=== PATIENT | male | born 1955 | race Caucasian/White ===

== ENCOUNTER → 2016-08-11 | Outpatient (CLI) | payer OTHER ==
[~2016-08-11] MED LIST: ALBU8I INH; APIX5TAB PO; ATOR80TA PO; B12-1CHW PO; CARV12.5 PO; FOLI1TAB PO; GLUC1000 PO; HYDR-3533 PO; ISOS30 PO; JANU50TA PO; LEVE500 PO; LISI20 PO; NITR0.4S SL; PLAV75TA PO; SPIR25 PO; SYMB80AE INH; TAMS0.4C67 PO
--- NOTE | 2016-09-03 13:06 | RSPPFT ---
DATE OF PROCEDURE: 08/11/16 COMMENTS: VOLUMES DYNAMIC: FVC and FEV1 severely reduced. STATIC: VTG mildly increased; RV severely increased. FLOWS: FEV1% moderately reduced; FEF 25-75 severely reduced. DIFFUSION: Moderately reduced. FLOW VOLUME LOOP: Pattern of variable intrathoracic airways obstruction. IMPRESSION: Severe obstructive ventilatory defect with reduction in diffusion consistent with emphysema. There is increased airways resistance and significant hyperinflation. There is a significant improvement post-bronchodilator.
== END ==
LOC: HRSP 10:24
PROVIDERS: ATTEND Internal Medicine
DX: J44.9 Chronic obstructive pulmonary disease, unspecified (principal)
CPT/HCPCS: 94060; 94726; 94729

== ENCOUNTER 2018-03-24 14:20 | Inpatient (IN) ==
[2018-03-24] MEDS ORDERED: Metoprolol Inj 5 MG/5 ML Vial IV.PUSH ONE (14:44)
--- NOTE | 2018-03-24 14:48 | ED ---
HPI General Chief Complaint: Arrhythmia / Palpitations Stated Complaint: Cardiac complaint Time Seen by Provider: 03/24/18 14:23 Source: patient Mode of arrival: ambulatory Limitations: no limitations History of Present Illness HPI narrative: The patient is a 63-year-old male who presents to the emergency department for palpitations. The patient developed palpitations earlier today, does have a history of atrial fibrillation. The patient does have a history of atrial fibrillation, previous ablation several years ago with subsequent cardioversion. The patient is followed by his ground wood supervisor, Dr. Reeves, and his physician industrial, Dr. Stephenson. The patient currently takes aspirin but no further anticoagulation, states he has been free of atrial fibrillation for the last several years. The patient was drinking 6 beers per day, quit 10 days ago, he is unsure if this is complicating his current situation. The patient did have chest discomfort earlier today, substernal radiating to the jaw, which is currently resolved. He does have a history of previous stent placement by Dr. Garnica. The patient also had mild shortness of breath with chest pain earlier today which has resolved. He denies any nausea, vomiting, or diaphoresis. Symptoms are moderate, there are no current alleviating factors, possibly exacerbated by history of atrial fibrillation. MD complaint: Reports rapid heart beat, palpitations, irregular heart beat and atrial fibrillation Onset (ago): hour(s) Duration: constant Severity: moderate Context: Reports occurred during rest Arrhythmia history: Reports atrial fibrillation, history of ablation and history of electrical cardioversion Associated symptoms: Reports chest pain and shortness of breath Related Data Home Medications Medication Instructions Recorded Confirmed albuterol sulfate [Ventolin HFA] 2 puff INHALATION Q4-6H PRN 03/24/18 03/24/18 ascorbic acid (vitamin C) [Vitamin 500 mg PO DAILY 03/24/18 03/24/18 C] aspirin [Aspirin Low Dose] 81 mg PO DAILY 03/24/18 03/24/18 atorvastatin 80 mg PO DAILY 03/24/18 03/24/18 carvedilol 25 mg PO BID 03/24/18 03/24/18 cholecalciferol (vitamin D3) 2,000 unit PO DAILY 03/24/18 03/24/18 [Vitamin D3] cyanocobalamin (vitamin B-12) 1,000 mcg PO DAILY 03/24/18 03/24/18 [Vitamin B-12] ferrous sulfate [Iron (ferrous 325 mg PO DAILY 03/24/18 03/24/18 sulfate)] fluticasone-salmeterol [Advair 1 inh INHALATION Q12H 03/24/18 03/24/18 Diskus] folic acid 1 mg PO DAILY 03/24/18 03/24/18 isosorbide mononitrate 60 mg PO QAM 03/24/18 03/24/18 levetiracetam 1,000 mg PO BID 03/24/18 03/24/18 lisinopril 20 mg PO DAILY 03/24/18 03/24/18 metformin 1,000 mg PO BID 03/24/18 03/24/18 sitagliptin [Januvia] 50 mg PO DAILY 03/24/18 03/24/18 spironolactone 25 mg PO DAILY 03/24/18 03/24/18 tamsulosin 0.4 mg PO DAILY 03/24/18 03/24/18 topiramate 100 mg PO BID 03/24/18 03/24/18 Allergies Allergy/AdvReac Type Severity Reaction Status Date / Time No Known Allergies Allergy Verified 03/24/18 14:38 Review of Systems ROS: all other systems reviewed are negative [facility] Medical History Medical History Diabetes (Acute) HTN (hypertension) (Acute) Heart attack (Acute) High cholesterol (Acute) Surgical History Surgical History History of cardiac catheterization (Acute) Hx of cholecystectomy (Acute) Stented coronary artery (Acute) Social History Social History Substance History: No History of Abuse Smoking Status: Former smoker How Often Do You Have a Drink Containing Alcohol: Monthly or less Recent Travel in [facility] within the Last 8 Weeks: No Recent Out of Country Travel within the Last 8 Weeks: No Immunization History Tetanus Immunization: >5 Years Exam Narrative Exam Narrative: GENERAL: Awake, alert, pleasant 63-year-old male who appears his stated age and is in no acute respiratory distress. SKIN: Focused skin assessment warm/dry. HEAD: Atraumatic. Normocephalic. EYES: Pupils equal and round. No scleral icterus. No injection or drainage. ENT: No nasal bleeding or discharge. Mucous membranes pink and moist. NECK: Trachea midline. No JVD. CARDIOVASCULAR: Irregularly irregular, tachycardic with a heart rate in the 140s. RESPIRATORY: No accessory muscle use. Clear to auscultation. Breath sounds equal bilaterally. GASTROINTESTINAL: Abdomen soft, non-tender, nondistended. Back: No CVA tenderness. MUSCULOSKELETAL: No obvious deformities. No clubbing. No cyanosis. No edema. NEUROLOGICAL: Awake and alert. No obvious cranial nerve deficits. Motor grossly within normal limits. Normal speech. PSYCHIATRIC: Appropriate mood and affect; insight and judgment normal. Course Initial Documented Vital Signs Temperature 98.4 F 03/24/18 14:25 Pulse Rate 158 H 03/24/18 14:25 Respiratory Rate 17 03/24/18 14:25 Blood Pressure 101/56 L 03/24/18 14:25 Pulse Oximetry 98 03/24/18 14:25 Last Documented Vital Signs Temperature 98.4 F 03/24/18 14:25 Pulse Rate 114 H 03/24/18 15:25 Respiratory Rate 17 03/24/18 15:25 Blood Pressure 97/56 L 03/24/18 15:25 Pulse Oximetry 98 03/24/18 15:25 Critical Care Time Critical Care Time: Yes Total Critical Care Time: 35 Attestation: Aggregate critical care time was 35 minutes. Time to perform other separately billable procedures was not included in the critical care time. My time did not include minutes spent treating any other patients simultaneously or on activities that did not directly contribute to the patient's treatment. The services I provided to this patient were to treat and/or prevent clinically significant deterioration that could result in: Anoxia, hypoxia, aspiration, flash pulmonary edema, STEMI, . I provided critical care services requiring my management, as noted below: Chart data review, documentation time, medication orders and management, vital sign assessments/reviewing monitor data, ordering and reviewing lab tests, ordering and interpreting/reviewing x-rays and diagnostic studies, care of the patient and discussion of the patient with the admitting physicians. Medical Decision Making MDM Narrative Medical decision making narrative: IV was established, labs are drawn and sent, and the patient was placed on cardiac telemetry monitoring and continuous pulse oximetry monitoring. EKG was ordered and interpreted. The patient was administered Lopressor 5 mg intravenously and normal saline 500 cc. Chest x- ray was obtained. The patient was administered aspirin. Chest x-ray is unremarkable. Troponin is positive at 0.15, creatinine is elevated at 1.43, BNP is elevated greater than 700. The patient continued to be tachycardic after Lopressor, systolic blood pressure varied between 90 and 100, therefore, patient was placed on low-dose Cardizem drip. The patient was sent to the emergency department by his physician industrial, Dr. Stephenson, therefore, Dr. Stephenson was paged. The patient will be admitted for atrial fibrillation with RVR. I discussed the patient with Dr. Ramon who agrees with admission. I will await anticoagulation until I speak with Dr. Stephenson. I discussed the patient with Dr. Stephenson who recommends heparin until his partners evaluate the patient tomorrow for possible further anticoagulation. We did have a discussion regarding the patient's multiple falls in the past and his discontinuation of anticoagulants in the past for that reason. Medical Screen Exam Complete: Yes Emergency Medical Condition: Yes Differential Diagnosis Differential Diagnosis: Differential diagnosis includes atrial fibrillation with RVR, electrolyte abnormality, ACS, cardiomyopathy. Lab Data Lab results reviewed: Yes I reviewed the patient's lab results. Lab results narrative: Troponin was elevated at 0.15, BNP is elevated at 718, creatinine is elevated at 1.43 Result diagrams: 03/24/18 14:52 03/24/18 14:52 Lab Results 03/24/18 03/24/18 03/24/18 Range/Units 14:52 14:52 14:52 WBC 14.7 H (4.0-11.0) th/mm3 RBC 4.76 (4.50-5.90) mil/mm3 Hgb 14.2 (13.0-17.0) gm/dL Hct 43.5 (39.0-51.0) % MCV 91.5 (80.0-100.0) fL MCH 29.8 (27.0-34.0) pg MCHC 32.6 (32.0-36.0) % RDW 13.9 (11.6-17.2) % Plt Count 353 (150-450) th/mm3 MPV 9.1 (7.0-11.0) fL Neut % (Auto) 69.1 (16.0-70.0) % Lymph % (Auto) 16.1 (9.0-44.0) % Kimble % (Auto) 7.7 (0.0-8.0) % Eos % (Auto) 6.5 H (0.0-4.0) % Baso % (Auto) 0.6 (0.0-2.0) % Neut # (Auto) 10.2 H (1.8-7.7) th/mm3 Lymph # (Auto) 2.4 (1.0-4.8) th/mm3 Kimble # (Auto) 1.1 H (0.0-0.9) th/mm3 Eos # (Auto) 1.0 H (0.0-0.4) th/mm3 Baso # (Auto) 0.1 (0.0-0.2) th/mm3 WBC Differential . Differential Comment Auto diff final PT 10.2 (9.8-11.6) sec INR 1.0 Ratio APTT 26.4 (24.3-30.1) sec Sodium (136-145) meq/L Potassium (3.5-5.1) meq/L Chloride (98-107) meq/L Carbon Dioxide (21.0-32.0) meq/L Anion Gap (5-15) meq/L BUN (7-18) mg/dL Creatinine (0.60-1.30) mg/dL Estimated GFR (>89) mL/min Random Glucose (74-106) mg/dL Calcium (8.5-10.1) mg/dL Magnesium (1.5-2.5) mg/dL Total Bilirubin (0.2-1.0) mg/dL AST (15-37) U/L ALT (12-78) U/L Alkaline Phosphatase (45-117) U/L Troponin I (0.02-0.05) ng/mL B-Natriuretic Peptide 718 H (0-100) pg/mL Total Protein (6.4-8.2) g/dL Albumin (3.4-5.0) g/dL 03/24/18 Range/Units 14:52 WBC (4.0-11.0) th/mm3 RBC (4.50-5.90) mil/mm3 Hgb (13.0-17.0) gm/dL Hct (39.0-51.0) % MCV (80.0-100.0) fL MCH (27.0-34.0) pg MCHC (32.0-36.0) % RDW (11.6-17.2) % Plt Count (150-450) th/mm3 MPV (7.0-11.0) fL Neut % (Auto) (16.0-70.0) % Lymph % (Auto) (9.0-44.0) % Kimble % (Auto) (0.0-8.0) % Eos % (Auto) (0.0-4.0) % Baso % (Auto) (0.0-2.0) % Neut # (Auto) (1.8-7.7) th/mm3 Lymph # (Auto) (1.0-4.8) th/mm3 Kimble # (Auto) (0.0-0.9) th/mm3 Eos # (Auto) (0.0-0.4) th/mm3 Baso # (Auto) (0.0-0.2) th/mm3 WBC Differential Differential Comment PT (9.8-11.6) sec INR Ratio APTT (24.3-30.1) sec Sodium 144 (136-145) meq/L Potassium 4.2 (3.5-5.1) meq/L Chloride 110 H (98-107) meq/L Carbon Dioxide 22.2 (21.0-32.0) meq/L Anion Gap 12 (5-15) meq/L BUN 18 (7-18) mg/dL Creatinine 1.43 H (0.60-1.30) mg/dL Estimated GFR 50 L (>89) mL/min Random Glucose 166 H (74-106) mg/dL Calcium 8.8 (8.5-10.1) mg/dL Magnesium 1.9 (1.5-2.5) mg/dL Total Bilirubin 0.4 (0.2-1.0) mg/dL AST 15 (15-37) U/L ALT 30 (12-78) U/L Alkaline Phosphatase 80 (45-117) U/L Troponin I 0.15 H (0.02-0.05) ng/mL B-Natriuretic Peptide (0-100) pg/mL Total Protein 7.0 (6.4-8.2) g/dL Albumin 3.5 (3.4-5.0) g/dL Imaging Data Radiologist's impression: Chest X-Ray 03/24/18 14:46 CONCLUSION: No acute cardiopulmonary disease ECG Data EKG Prior to Arrival: No Attestation: I personally reviewed and interpreted this ECG as follows: Interpretation: EKG reveals atrial fibrillation with RVR, rate in the 150s. No specific ST changes. Discharge Plan Discharge Disposition Patient Disposition: 30 Still Patient Discharge Condition Condition: Stable Discharge Details Diagnosis: Atrial fibrillation with RVR, Elevated troponin Physicians Team ED Provider: Luis Rogers Primary Care Provider: Alex Martinez Attending Provider: Gaby Ramon Other Providers: Adriel Carrillo Status ED Status: Admitted Patient
[2018-03-24] MEDS ORDERED: Sodium Chlor 0.9% Inj 500 ML IV.SIG SCH ×2 (15:00→16:00)
--- NOTE | 2018-03-24 15:04 | XR ---
EXAM DATE: 03/24/2018 2:46 PM EDT AGE/SEX: 63 years / Male INDICATIONS: Chest pain and shortness of breath. CLINICAL DATA: This is the patient's initial encounter. Patient reports that signs and symptoms have been present for 2 days and indicates a pain score of 4/10. MEDICAL/SURGICAL HISTORY: Chronic obstructive pulmonary disease. Hypertension. Diabetes melli tus type II. AFIB. . Cardiac stent. Ablation. COMPARISON: [facility], CHEST PA & LAT, 02/01/2016. . FINDINGS: A single AP view of the chest demonstrates the lungs to be symmetrically aerated without evidence of mass, infiltrate or effusion. The cardiomediastinal contours are unremarkable. Osseous structures a re intact. CONCLUSION: No acute cardiopulmonary disease Electronically signed by: Pete Scott MD 03/24/2018 3:03 PM EDT
[2018-03-24] MEDS ORDERED: dilTIAZem Inj 125 MG in Sodium Chlor 0.9% Inj 100 ML IV.CONT PRN (15:11)
[2018-03-24 15:12] LABS: Baso # (Auto) 0.1 th/mm3 (0.0-0.2); Baso % (Auto) 0.6 % (0.0-2.0); Eos % (Auto) 6.5 % (0.0-4.0); Hematocrit 43.5 % (39.0-51.0); Hemoglobin 14.2 gm/dL (13.0-17.0); Lymph # (Auto) 2.4 th/mm3 (1.0-4.8); Lymph % (Auto) 16.1 % (9.0-44.0); Mean Corpuscular HGB Conc 32.6 % (32.0-36.0); Mean Corpuscular Hemoglobin 29.8 pg (27.0-34.0); Mean Corpuscular Volume 91.5 fL (80.0-100.0); Mean Platelet Volume 9.1 fL (7.0-11.0); Mono # (Auto) 1.1 th/mm3 (0.0-0.9); Mono % (Auto) 7.7 % (0.0-8.0); Neut # (Auto) 10.2 th/mm3 (1.8-7.7); Neut % (Auto) 69.1 % (16.0-70.0); Platelet Count 353 th/mm3 (150-450); Red Blood Count 4.76 mil/mm3 (4.50-5.90); Red Cell Distribution Width 13.9 % (11.6-17.2); White Blood Count 14.7 th/mm3 (4.0-11.0)
[2018-03-24 15:27] LABS: Activated Partial Thrombo Time 26.4 sec (24.3-30.1); Prothrombin Time 10.2 sec (9.8-11.6)
[2018-03-24 15:29] LABS: Alanine Aminotransferase 30 U/L (12-78); Albumin 3.5 g/dL (3.4-5.0); Anion Gap 12 meq/L (5-15); Aspartate Aminotransferase 15 U/L (15-37); Blood Urea Nitrogen 18 mg/dL (7-18); Calcium 8.8 mg/dL (8.5-10.1); Carbon Dioxide 22.2 meq/L (21.0-32.0); Chloride 110 meq/L (98-107); Glomerular Filtration Rate 50 mL/min (>89); Glucose,Random 166 mg/dL (74-106); Magnesium 1.9 mg/dL (1.5-2.5); Potassium 4.2 meq/L (3.5-5.1); Sodium 144 meq/L (136-145)
[2018-03-24 15:33] LABS: Alkaline Phosphatase 80 U/L (45-117); Troponin I 0.15 ng/mL (0.02-0.05)
[2018-03-24] MEDS ORDERED: Bisacodyl 10 MG Supp RECTAL PRN (16:21)
[2018-03-24] MEDS ORDERED: Dextrose 50% in Water 50 ML Vial IV.PUSH PRN (16:23)
--- NOTE | 2018-03-24 16:27 | P.HPIM ---
History of Present Illness [facility] Physician: Alex Martinez MD Chief Complaint: Heart palpitations, sent by filter press supervisor. History of Present Illness: 63-year-old male with a medical history significant for coronary artery disease , diabetes, atrial fibrillation with history of ablation and cardioversion. Patient has a loop recorder in place. Last night he started to feel heart palpitations and shortness of breath. He was called by his filter press supervisor today due to A. fib with RVR and was sent to the hospital. He has since been placed on Cardizem drip. Heart rate has improved but not yet controlled. He currently denies any chest pain. He feels improved since he arrived in the emergency room. His filter press supervisor has been notified and it was recommended that he started on heparin drip. - Diagnosis (1) Atrial fibrillation with RVR (2) Elevated troponin (3) Acute kidney injury Review of Systems All other systems reviewed negative except as stated in HPI [facility] - History History Provided By: Patient - Medical History Medical History: Medical History (Last Reviewed 03/24/18 @ 17:21 by Gaby Ramon MD) Diabetes HTN (hypertension) Heart attack High cholesterol - Surgical History Surgical History: Surgical History (Last Reviewed 03/24/18 @ 17:21 by Gaby Ramon MD) History of cardiac catheterization Hx of cholecystectomy Stented coronary artery - Family History Family History: Family History (Last Updated 03/24/18 @ 17:22 by Gaby Ramon MD) Other Family history non-contributory - Tobacco History Smoking Status: Former smoker - Alcohol History How Often Do You Have a Drink Containing Alcohol: Monthly or less - Substance Use History Substance History: No History of Abuse - Travel History Recent Travel in the [facility] Within the Last 8 Weeks: No Recent Travel Out of the Country Within the Last 8 Weeks: No - Immunization History Tetanus Immunization: >5 Years Medications and Allergies Active Medications: Active Medications Al Hydroxide/Mg Hydroxide (Milk Of Jimbo Liq) 30 ml PO Q12H PRN PRN Reason: Mild Constipation Ascorbic Acid (Vitamin C) 500 mg PO DAILY SUAD Atorvastatin Calcium (Lipitor) 80 mg PO DAILY SUAD Bisacodyl (Dulcolax Supp) 10 mg RECTAL DAILY PRN PRN Reason: SEVERE CONSITIPATION Cyanocobalamin (Vitamin B12) 1,000 mcg PO DAILY SUAD Dextrose (D50w Vial) 50 ml IV.PUSH UNSCH PRN PRN Reason: PER HYPOGLYCEMIA PROTOCOL Ferrous Sulfate (Ferosul) 325 mg PO DAILY SUAD Glucagon (Glucagon Inj) 1 mg OTHER PRN PRN PRN Reason: for Hypoglycemia Protocol Sodium Chloride (Ns Inj) 500 mls @ 0 mls/hr IV.SIG BOLUS SUAD Last Infusion: 03/24/18 15:15 Dose: Infused Diltiazem HCl 125 mg/ Sodium (Chloride) 125 mls @ 5 mls/hr IV.CONT TITRATE PRN ; Protocol PRN Reason: Per Protocol Last Admin: 03/24/18 16:07 Dose: 5 mg/hr, 5 mls/hr Sodium Chloride (Ns Inj) 500 mls @ 0 mls/hr IV.SIG BOLUS SUAD Last Infusion: 03/24/18 15:58 Dose: Infused Insulin Aspart (Novolog Insulin Correctional Sugar Inj) 0 unit SQ ACHS SUAD; Protocol Lactulose (Lactulose Liq) 30 ml PO DAILY PRN PRN Reason: SEVERE CONSITIPATION Non-Formulary Medication (Albuterol Sulfate) 2 puff INHALATION Q4-6H PRN PRN Reason: Shortness Of Breath Non-Formulary Medication (Carvedilol [Carvedilol]) 25 mg PO BID SUAD Non-Formulary Medication (Cholecalciferol (Vitamin D3) [Vitamin D3]) 2,000 unit PO DAILY SUAD Non-Formulary Medication (Fluticasone-Salmeterol [Advair Diskus]) 1 inh INHALATION Q12H [facility] Sennosides (Senokot) 17.2 mg PO Q12H PRN PRN Reason: Moderate Constipation Sodium Chloride (Ns Flush) 2 ml IV.FLUSH UNSCH PRN PRN Reason: FLUSH AFTER USING IV ACCESS Last Admin: 03/24/18 14:52 Dose: 2 ml Tamsulosin HCl (Flomax) 0.4 mg PO DAILY SUAD Temazepam (Restoril) 15 mg PO HS PRN PRN Reason: INSOMNIA Topiramate (Topamax) 100 mg PO BID SUAD Allergies Allergy/AdvReac Type Severity Reaction Status Date / Time No Known Allergies Allergy Verified 03/24/18 14:38 Home Medications Medication Instructions Recorded Confirmed Type albuterol sulfate [Ventolin HFA] 2 puff INHALATION Q4-6H PRN 03/24/18 03/24/18 History ascorbic acid (vitamin C) [Vitamin 500 mg PO DAILY 03/24/18 03/24/18 History C] aspirin [Aspirin Low Dose] 81 mg PO DAILY 03/24/18 03/24/18 History atorvastatin 80 mg PO DAILY 03/24/18 03/24/18 History carvedilol 25 mg PO BID 03/24/18 03/24/18 History cholecalciferol (vitamin D3) 2,000 unit PO DAILY 03/24/18 03/24/18 History [Vitamin D3] cyanocobalamin (vitamin B-12) 1,000 mcg PO DAILY 03/24/18 03/24/18 History [Vitamin B-12] ferrous sulfate [Iron (ferrous 325 mg PO DAILY 03/24/18 03/24/18 History sulfate)] fluticasone-salmeterol [Advair 1 inh INHALATION Q12H 03/24/18 03/24/18 History Diskus] folic acid 1 mg PO DAILY 03/24/18 03/24/18 History isosorbide mononitrate 60 mg PO QAM 03/24/18 03/24/18 History levetiracetam 1,000 mg PO BID 03/24/18 03/24/18 History lisinopril 20 mg PO DAILY 03/24/18 03/24/18 History metformin 1,000 mg PO BID 03/24/18 03/24/18 History sitagliptin [Januvia] 50 mg PO DAILY 03/24/18 03/24/18 History spironolactone 25 mg PO DAILY 03/24/18 03/24/18 History tamsulosin 0.4 mg PO DAILY 03/24/18 03/24/18 History topiramate 100 mg PO BID 03/24/18 03/24/18 History Exam Vital signs: Vital Signs 03/24/18 14:25 03/24/18 14:55 03/24/18 15:00 Temperature 98.4 F Pulse Rate 158 H 150 H 122 H Respiratory Rate 17 14 17 Blood Pressure 101/56 L 72/52 L 89/62 L Pulse Oximetry 98 97 97 03/24/18 15:25 Temperature Pulse Rate 114 H Respiratory Rate 17 Blood Pressure 97/56 L Pulse Oximetry 98 Intake & Output 03/23/18 03/24/18 03/24/18 18:59 06:59 18:59 Intake Total 1000 / 1000 Balance 1000 / 1000 Weight 228 kg Intake: IV 1000 / 1000 NS Inj 500 ML @ Wide Open IV. 1000 / 1000 SIG BOLUS SUAD Rx#:[id number] Narrative: CONSTITUTIONAL/GENERAL: This is an adequately nourished patient, in no apparent distress. Vital signs reviewed SKIN: No jaundice, rashes, or concerning lesions. Not diaphoretic. HEAD: Atraumatic. Normocephalic. EYES: Pupils equal and round and reactive. Extra ocular motions are intact. No scleral icterus. No injection or drainage. ENT: Hearing grossly normal. Nose without drainage. Throat without visible erythema, exudates, masses, or lesions. NECK: Trachea midline. Neck is supple, non-tender. No palpable thyroid enlargement or nodularity. CARDIOVASCULAR: Rate around 110 and irregular rhythm without significant murmurs. RESPIRATORY/CHEST: Symmetric, unlabored respirations. Breath sounds equal and clear to auscultation bilaterally. No wheezes, crackles, rales, or rhonchi. GASTROINTESTINAL: Abdomen soft, non-tender, non-distended. No hepato- splenomegaly, or palpable masses. No guarding. Bowel sounds present. MUSCULOSKELETAL: Extremities without clubbing, cyanosis, or edema. No joint tenderness or effusion noted. No calf tenderness. No mottling or clubbing. NEUROLOGICAL: Awake and alert. Motor and sensory grossly within normal limits. Follows commands. Move all extremities spontaneously. No focal deficits. PSYCHIATRIC: No obvious mood problems. No apparent hallucinations or other psychotic thought process. Results - Labs CBC & Chem 7: 03/24/18 14:52 03/24/18 14:52 Labs: Short CBC 03/24/18 Range/Units 14:52 WBC 14.7 H (4.0-11.0) th/mm3 Hgb 14.2 (13.0-17.0) gm/dL Hct 43.5 (39.0-51.0) % Plt Count 353 (150-450) th/mm3 BMP 03/24/18 14:52 Sodium 144 Potassium 4.2 Chloride 110 H Carbon Dioxide 22.2 BUN 18 Creatinine 1.43 H Calcium 8.8 Cardiac Enzymes 03/24/18 Range/Units 14:52 Troponin I 0.15 H (0.02-0.05) ng/mL Liver Function 03/24/18 Range/Units 14:52 Total Bilirubin 0.4 (0.2-1.0) mg/dL AST 15 (15-37) U/L ALT 30 (12-78) U/L Alkaline Phosphatase 80 (45-117) U/L Albumin 3.5 (3.4-5.0) g/dL - Imaging Impressions Chest X-Ray 03/24/18 14:46 CONCLUSION: No acute cardiopulmonary disease Caprini VTE Risk Assessment Caprini VTE Risk Assessment: Moderate/High Risk (score >= 2) Caprini Risk Assessment Model: Point Value = 1 Point Value = 2 Point Value = 3 Point Value = 5 Age 41-60 Minor surgery BMI > 25 kg/m2 Swollen legs Varicose veins or History of unexplained or recurrent spontaneous Oral contraceptives or hormone replacement Sepsis (< 1 month) Serious lung disease, including pneumonia (< 1 month) Abnormal pulmonary function Acute myocardial infarction Congestive heart failure (< 1 month) History of inflammatory bowel disease Medical patient at bed rest Age 61-74 Arthroscopic surgery Major open surgery (> 45 min) Laparoscopic surgery (> 45 min) Malignancy Confined to bed (> 72 hours) Immobilizing plaster cast Central venous access Age >= 75 History of VTE Family history of VTE Factor V Leiden Prothrombin [id number] Lupus anticoagulant Anticardiolipin antibodies Elevated serum homocysteine Heparin-induced thrombocytopenia Other congenital or acquired thrombophilia Stroke (< 1 month) Elective arthroplasty Hip, pelvis, or leg fracture Acute spinal cord injury (< 1 month) Prophylaxis Regimen: Total Risk Factor Score Risk Level Prophylaxis Regimen 0-1 Low Early ambulation 2 Moderate Order ONE of the following: *Sequential Compression Device (SCD) *Heparin 5000 units SQ BID 3-4 Higher Order ONE of the following medications: *Heparin 5000 units SQ TID *Enoxaparin/Lovenox 40 mg SQ daily (WT < 150 kg, CrCl > 30 mL/min) *Enoxaparin/Lovenox 30 mg SQ daily (WT < 150 kg, CrCl > 10-29 mL/min) *Enoxaparin/Lovenox 30 mg SQ BID (WT < 150 kg, CrCl > 30 mL/min) AND/OR *Sequential Compression Device (SCD) 5 or more Highest Order ONE of the following medications: *Heparin 5000 units SQ TID (Preferred with Epidurals) *Enoxaparin/Lovenox 40 mg SQ daily (WT < 150 kg, CrCl > 30 mL/min) *Enoxaparin/Lovenox 30 mg SQ daily (WT < 150 kg, CrCl > 10-29 mL/min) *Enoxaparin/Lovenox 30 mg SQ BID (WT < 150 kg, CrCl > 30 mL/min) AND *Sequential Compression Device (SCD) Assessment and Plan - Assessment (1) Atrial fibrillation with RVR Code(s): I48.91 - Unspecified atrial fibrillation Status: Acute (2) Elevated troponin Code(s): R74.8 - Abnormal levels of other serum enzymes Status: Acute (3) Acute kidney injury Code(s): N17.9 - Acute kidney failure, unspecified Status: Acute - Plan 63-year-old male admitted with: A. fib with RVR: Sent by filter press supervisor office. - Cardiology aware. Patient started on Cardizem drip and heparin drip. Patient previously not anticoagulated due to fall risk. - Continue Coreg. Further plans per cardiology. Elevated troponins/elevated troponins: - Likely secondary to A. fib with RVR and renal insufficiency. - Continue to trend cardiac enzymes. No acute ST changes on EKG. - No evidence of fluid overload Acute renal insufficiency: - Likely secondary to A. fib with RVR. -We will give him 1 L of normal saline. Follow renal functions. Avoid nephrotoxins. Type 2 diabetes: - Sliding scale insulin with Accu-Cheks. Continue the rest of the patient's chronic home medications. GI prophylaxis: Stool softener PRN constipation. DVT PPx: On heparin. Discussed Condition With: ED physician, Dr. Rogers
[2018-03-24] MEDS ORDERED: Sod Chloride 0.9% Inj 1,000 ML IV.CONT SCH ×2 (16:30→17:32)
[2018-03-24] MEDS ORDERED: Heparin Drip 25,000 UNIT/250 ML BAG IV.CONT PRN (17:08)
[2018-03-24] MEDS ORDERED: Heparin 10,000 UNITS/10 ML Vial (for IV use) IV.PUSH STA (17:08)
[2018-03-24] MEDS: Insulin NovoLOG Aspart Correctional Sugar Inj SQ SCH ×2 (18:16→23:18)
--- NOTE | 2018-03-24 20:17 | ECG ---
Date Performed: 03/24/2018 Time Performed: 14:21:58 PTAGE: 63 years EKG: ATRIAL FIBRILLATION WITH RAPID VENTRICULAR RESPONSE LOW QRS VOLTAGE IN EXTREMITY LEADS ST/T -WAVE ABNORMALITY, CONSIDER LATERAL ISCHEMIA ABNORMAL ECG NO PREVIOUS TRACING DOCTOR: Tyler Francisco Interpretating Date/Time 03/24/2018 20:17:13
[2018-03-24 20:58] LABS: Activated Partial Thrombo Time 45.2 sec (24.3-30.1); INR 1.1 Ratio; Prothrombin Time 10.8 sec (9.8-11.6)
[2018-03-24] MEDS ORDERED: Temazepam 15 MG Capsule PO PRN (21:00)
[2018-03-24] MEDS: Topiramate 100 MG Tablet PO SCH (23:17)
[2018-03-24] MEDS: levETIRAcetam 500 MG Tablet PO SCH (23:17)
[2018-03-24] MEDS: Budesonide-Formoterol 160/4.5 MCG 6 GM Inhaler INH SCH (23:17)
[2018-03-24] MEDS: Carvedilol 12.5 MG Tablet PO SCH (23:18)
--- NOTE | 2018-03-25 01:53 | MB ---
cc: Adriel Carrillo DO DATE: 03/24/2018 REASON FOR CONSULTATION: Atrial fibrillation with rapid ventricular response. HISTORY OF PRESENT ILLNESS: Jimi Jenkins is a pleasant 63-year-old male who sees my partner, Dr. George, in the office and presented to [facility] at the recommendations of Dr. George due to atrial fibrillation with rapid ventricular response. He previously had a loop recorder placed and has been out of atrial fibrillation for some time, but apparently was not feeling well yesterday and this morning an alert came over that he was in atrial fibrillation with rapid ventricular response. Because of this, Dr. George asked that he come over to the hospital to be further evaluated. On arrival, he was found to be in atrial fibrillation with rapid ventricular response and started on a Cardizem drip. Since his heart rates have been improved while on the Cardizem drip, he feels better. He denies any current chest pain or shortness of breath. Of note, he has had longstanding paroxysmal atrial fibrillation with rapid ventricular response and previously was on anticoagulation. At that time, he was having multiple falls, including a head trauma and said he was stopped off anticoagulation, has not been placed back on it since. He recently had an echocardiogram in the office, which showed an ejection fraction of 55% with mild aortic and mitral regurgitation. He previously had a stress test in the office, which showed ischemia in the inferior territory, which correlates with a previous occlusion of the RCA with collaterals left to right supplying the distal RCA. PAST MEDICAL HISTORY: 1. Coronary artery disease. 2. Paroxysmal atrial fibrillation. 3. Diabetes. 4. Hypertension. 5. Hyperlipidemia. 6. Frequent falls due to weakness. PAST SURGICAL HISTORY: 1. Atrial fibrillation ablation (08/24/2015). 2. Cardiac catheterization (05/14/2015): Left main: Normal-sized vessel. LAD with [id number] disease of 30-40%. Left circumflex with 2 obtuse marginals and a 90% lesion in the distal circumflex. RCA totally occluded in the proximal portion, PCI of the distal left circumflex with a Promus drug-eluting stent (2.25 x 12). 3. Cholecystectomy. ALLERGIES: NO KNOWN DRUG ALLERGIES. MEDICATIONS: 1. Metformin 1000 mg b.i.d. 2. Iron 325 mg daily. 3. Albuterol 2 puffs every 4-6 hours as needed. 4. Levetiracetam 1000 mg b.i.d. 5. Coreg 12.5 mg b.i.d. 6. Lipitor 80 mg daily. 7. Flomax 0.4 mg daily. 8. Januvia 50 mg daily. 9. Lisinopril 20 mg daily. 10. Aspirin 81 mg daily. 11. Spironolactone 25 mg daily. 12. Imdur 60 mg daily. 13. Folic acid 1 mg daily. 14. Topiramate 100 mg b.i.d. 16. Advair 250/50 every 12 hours. FAMILY HISTORY: Denies premature coronary artery disease or sudden cardiac within the family. SOCIAL HISTORY: The patient is a previous smoker. Denies alcohol or drug abuse. REVIEW OF SYSTEMS: Fourteen systems were reviewed including osteopathic. Pertinent positives and negatives above, otherwise negative. PHYSICAL EXAMINATION: VITAL SIGNS: Temperature 98.4, heart rate 106, blood pressure 109/61, respirations 20, pulse oximetry 98% on room air. GENERAL: The patient appears well, in no acute distress. Alert, awake and oriented x3. HEENT: Extraocular muscles intact. Mucous membranes moist. NECK: Supple. No JVD at 45 degrees. No carotid bruits heard bilaterally. Carotid upstroke is brisk in nature. HEART: Irregularly irregular and tachycardic. Positive first and second heart sounds with no new murmurs, gallops or rubs. LUNGS: Clear to auscultation bilaterally. No wheezes, rales or rhonchi. ABDOMEN: Soft, nontender, nondistended. No organomegaly noted. EXTREMITIES: Show no clubbing, cyanosis or edema. Femoral and distal pulses are intact bilaterally. NEUROLOGIC: No focal deficits. SKIN: Warm, dry and intact. OSTEOPATHIC: No kyphoscoliosis, lordosis or paraspinal tender points. LABORATORY DATA: Hemoglobin 14.2, hematocrit 43.5, platelets 353. Potassium 4.2, BUN 18, creatinine 1.43. Troponin 0.15 decreasing to 0.13. Electrocardiogram (03/24/2018 14:21): Atrial fibrillation with rapid ventricular response, ST-T wave changes inferolaterally, possibly related similar to previous electrocardiogram. Other than now in atrial fibrillation with rapid ventricular response. ASSESSMENT AND PLAN: 1. Atrial fibrillation with rapid ventricular response. 2. Minimally elevated troponin. 3. Acute kidney injury. 4. Type 2 diabetes mellitus. 5. Coronary artery disease as above. 6. Recent echocardiogram in the office with an ejection fraction of 55%, mild aortic and mitral regurgitation (03/05/2018). 7. 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 RECOMMENDATIONS: 1. Mr. Jenkins presented with atrial fibrillation with rapid ventricular response and has been started on a Cardizem drip. This will be titrated to control his heart rate better. 2. Once stable on a Cardizem drip. We will change around his medications to try to control it with oral medications, most likely changing him to Cardizem oral. 3. He does have a minimally elevated troponin, but this is currently flat. This is most likely due to atrial fibrillation with rapid ventricular response, as well as his known SHOP TECHNICIAN that is collateralized most likely causing mild ischemia. From this standpoint, we will most likely treat him medically with no further ischemic evaluation at this time. 4. He previously was stopped on anticoagulation due to multiple falls almost daily. In discussing with him, he does fall less, but still falls quite often. Ultimately, I do not believe that he is a great anticoagulation candidate and because of that we would attempt to avoid cardioversion or further atrial fibrillation ablation. Thank you for allowing me to see Jimi Jenkins. If there are any questions, please do not hesitate to call. DO CHARLETTE Goldsmith/ольга , 12:47 AM , 01:01 AM
[2018-03-25 04:58] LABS: Baso # (Auto) 0.1 th/mm3 (0.0-0.2); Baso % (Auto) 0.7 % (0.0-2.0); Eos # (Auto) 0.8 th/mm3 (0.0-0.4); Eos % (Auto) 7.9 % (0.0-4.0); Hematocrit 36.5 % (39.0-51.0); Hemoglobin 12.3 gm/dL (13.0-17.0); Lymph # (Auto) 1.9 th/mm3 (1.0-4.8); Lymph % (Auto) 19.5 % (9.0-44.0); Mean Corpuscular HGB Conc 33.8 % (32.0-36.0); Mean Corpuscular Hemoglobin 29.9 pg (27.0-34.0); Mean Corpuscular Volume 88.5 fL (80.0-100.0); Mean Platelet Volume 9.7 fL (7.0-11.0); Mono # (Auto) 0.7 th/mm3 (0.0-0.9); Neut # (Auto) 6.5 th/mm3 (1.8-7.7); Neut % (Auto) 64.9 % (16.0-70.0); Platelet Count 208 th/mm3 (150-450); Red Blood Count 4.12 mil/mm3 (4.50-5.90); Red Cell Distribution Width 13.5 % (11.6-17.2)
[2018-03-25 05:19] LABS: Calcium 7.5 mg/dL (8.5-10.1); Carbon Dioxide 21.2 meq/L (21.0-32.0); Potassium 3.6 meq/L (3.5-5.1)
[2018-03-25] MEDS: Insulin NovoLOG Aspart Correctional Sugar Inj SQ SCH ×3 (08:00→18:35)
[2018-03-25] MEDS ORDERED: Spironolactone 25 MG Tablet PO SCH (09:00)
[2018-03-25] MEDS ORDERED: Ferrous Sulfate 325 MG Tablet PO SCH (09:00)
[2018-03-25] MEDS ORDERED: Ascorbic Acid 500 MG Tablet PO SCH (09:00)
[2018-03-25] MEDS ORDERED: Lisinopril 20 MG Tablet PO SCH (09:00)
[2018-03-25] MEDS ORDERED: Isosorbide Mononitrate 60 MG ER 24HR Tablet (Imdur) PO SCH (09:00)
[2018-03-25 09:08] VITALS: O2SAT 95
[2018-03-25] MEDS: Carvedilol 12.5 MG Tablet PO SCH (09:58)
[2018-03-25] MEDS: Topiramate 100 MG Tablet PO SCH (09:59)
[2018-03-25] MEDS: levETIRAcetam 500 MG Tablet PO SCH (09:59)
[2018-03-25] MEDS: Budesonide-Formoterol 160/4.5 MCG 6 GM Inhaler INH SCH (10:01)
[2018-03-25 12:25] VITALS: RESP 16
--- NOTE | 2018-03-25 13:18 | P.PNIM ---
Subjective Interval history: Patient reports he is feeling better today. No chest pain. 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 Physical Exam Vital signs: Vital Signs 03/24/18 14:25 03/24/18 14:55 03/24/18 15:00 Temperature 98.4 F Pulse Rate 158 H 150 H 122 H Respiratory Rate 17 14 17 Blood Pressure 101/56 L 72/52 L 89/62 L Pulse Oximetry 98 97 97 03/24/18 15:25 03/24/18 18:05 03/24/18 18:19 Temperature Pulse Rate 114 H 106 H 92 H Respiratory Rate 17 20 14 Blood Pressure 97/56 L 109/61 116/65 Pulse Oximetry 98 98 99 03/24/18 18:57 03/24/18 19:00 03/24/18 23:00 Temperature 98 F 98 F Pulse Rate 111 H 97 H 97 H Respiratory Rate 16 16 16 Blood Pressure 107/66 107/76 134/76 Pulse Oximetry 98 96 96 03/25/18 03:00 03/25/18 07:00 03/25/18 08:00 Temperature 98.3 F 97.7 F Pulse Rate 71 77 Respiratory Rate 16 18 Blood Pressure 132/84 143/78 H Pulse Oximetry 96 97 97 03/25/18 09:07 03/25/18 11:00 Temperature 97.5 F L Pulse Rate 90 Respiratory Rate 16 Blood Pressure 139/98 H Pulse Oximetry 95 Intake & Output 03/24/18 03/25/18 03/25/18 18:59 06:59 18:59 Intake Total 1000 / 1000 240 / 240 1000 / 1000 Output Total 200 / 200 Balance 1000 / 1000 40 / 40 1000 / 1000 Weight 228 kg 103 kg Intake: IV 1000 / 1000 1000 / 1000 NS Inj 1,000 ML @ 100 mls/hr IV 1000 / 1000 .CONT .Q10H SUAD Rx#:[id number] NS Inj 500 ML @ Wide Open IV. 1000 / 1000 SIG BOLUS SUAD Rx#:[id number] Oral 240 / 240 Output: Urine 200 / 200 Narrative: CONSTITUTIONAL/GENERAL: This is an adequately nourished patient, in no apparent distress. Vital signs reviewed CARDIOVASCULAR: Rate in the 90's and irregular rhythm without significant murmurs. RESPIRATORY/CHEST: Symmetric, unlabored respirations. Breath sounds equal and clear to auscultation bilaterally. No wheezes, crackles, rales, or rhonchi. GASTROINTESTINAL: Abdomen soft, non-tender, non-distended. No hepato- splenomegaly, or palpable masses. No guarding. Bowel sounds present. MUSCULOSKELETAL: Extremities without clubbing, cyanosis, or edema. No joint tenderness or effusion noted. No calf tenderness. No mottling or clubbing. NEUROLOGICAL: Awake and alert. Motor and sensory grossly within normal limits. Follows commands. Move all extremities spontaneously. No focal deficits. PSYCHIATRIC: No obvious mood problems. No apparent hallucinations or other psychotic thought process. Results - Labs CBC & Chem 7: 03/25/18 04:26 03/25/18 04:26 Laboratory Results - last 24 hr 03/24/18 03/24/18 03/24/18 14:52 14:52 14:52 WBC 14.7 H RBC 4.76 Hgb 14.2 Hct 43.5 MCV 91.5 MCH 29.8 MCHC 32.6 RDW 13.9 Plt Count 353 MPV 9.1 Neut % (Auto) 69.1 Lymph % (Auto) 16.1 [place] % (Auto) 7.7 Eos % (Auto) 6.5 H Baso % (Auto) 0.6 Neut # (Auto) 10.2 H Lymph # (Auto) 2.4 [place] # (Auto) 1.1 H Eos # (Auto) 1.0 H Baso # (Auto) 0.1 WBC Differential . Differential Comment Auto diff final PT 10.2 INR 1.0 APTT 26.4 Sodium Potassium Chloride Carbon Dioxide Anion Gap BUN Creatinine Estimated GFR POC Glucose Random Glucose Calcium Magnesium Total Bilirubin AST ALT Alkaline Phosphatase Troponin I B-Natriuretic Peptide 718 H Total Protein Albumin 03/24/18 03/24/18 03/24/18 14:52 16:52 18:14 WBC RBC Hgb Hct MCV MCH MCHC RDW Plt Count MPV Neut % (Auto) Lymph % (Auto) [place] % (Auto) Eos % (Auto) Baso % (Auto) Neut # (Auto) Lymph # (Auto) [place] # (Auto) Eos # (Auto) Baso # (Auto) WBC Differential Differential Comment PT INR APTT Sodium 144 Potassium 4.2 Chloride 110 H Carbon Dioxide 22.2 Anion Gap 12 BUN 18 Creatinine 1.43 H Estimated GFR 50 L POC Glucose 114 H Random Glucose 166 H Calcium 8.8 Magnesium 1.9 Total Bilirubin 0.4 AST 15 ALT 30 Alkaline Phosphatase 80 Troponin I 0.15 H 0.13 H B-Natriuretic Peptide Total Protein 7.0 Albumin 3.5 03/24/18 03/24/18 03/24/18 20:26 20:55 22:41 WBC RBC Hgb Hct MCV MCH MCHC RDW Plt Count MPV Neut % (Auto) Lymph % (Auto) [place] % (Auto) Eos % (Auto) Baso % (Auto) Neut # (Auto) Lymph # (Auto) [place] # (Auto) Eos # (Auto) Baso # (Auto) WBC Differential Differential Comment PT 10.8 INR 1.1 APTT 45.2 H D Sodium Potassium Chloride Carbon Dioxide Anion Gap BUN Creatinine Estimated GFR POC Glucose 130 H Random Glucose Calcium Magnesium Total Bilirubin AST ALT Alkaline Phosphatase Troponin I 0.15 H B-Natriuretic Peptide Total Protein Albumin 03/24/18 03/25/18 03/25/18 22:41 04:26 04:26 WBC 10.0 RBC 4.12 L Hgb 12.3 L Hct 36.5 L MCV 88.5 MCH 29.9 MCHC 33.8 RDW 13.5 Plt Count 208 D MPV 9.7 Neut % (Auto) 64.9 Lymph % (Auto) 19.5 [place] % (Auto) 7.0 Eos % (Auto) 7.9 H Baso % (Auto) 0.7 Neut # (Auto) 6.5 Lymph # (Auto) 1.9 [place] # (Auto) 0.7 Eos # (Auto) 0.8 H Baso # (Auto) 0.1 WBC Differential . Differential Comment Auto diff final PT INR APTT 45.0 H Sodium 147 H Potassium 3.6 Chloride 115 H Carbon Dioxide 21.2 Anion Gap 11 BUN 19 H Creatinine 1.15 Estimated GFR 64 L POC Glucose Random Glucose 114 H Calcium 7.5 L D Magnesium Total Bilirubin AST ALT Alkaline Phosphatase Troponin I B-Natriuretic Peptide Total Protein Albumin 03/25/18 03/25/18 03/25/18 04:26 07:33 11:20 WBC RBC Hgb Hct MCV MCH MCHC RDW Plt Count MPV Neut % (Auto) Lymph % (Auto) [place] % (Auto) Eos % (Auto) Baso % (Auto) Neut # (Auto) Lymph # (Auto) [place] # (Auto) Eos # (Auto) Baso # (Auto) WBC Differential Differential Comment PT INR APTT 43.1 H Sodium Potassium Chloride Carbon Dioxide Anion Gap BUN Creatinine Estimated GFR POC Glucose 138 H 175 H Random Glucose Calcium Magnesium Total Bilirubin AST ALT Alkaline Phosphatase Troponin I B-Natriuretic Peptide Total Protein Albumin - Imaging Impressions Chest X-Ray 03/24/18 14:46 CONCLUSION: No acute cardiopulmonary disease Assessment and Plan - Assessment (1) Atrial fibrillation with RVR Code(s): I48.91 - Unspecified atrial fibrillation Status: Acute (2) Elevated troponin Code(s): R74.8 - Abnormal levels of other serum enzymes Status: Acute (3) Acute kidney injury Code(s): N17.9 - Acute kidney failure, unspecified Status: Acute - Plan 63-year-old male admitted with: A. fib with RVR: Sent by er manager office. 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 Rate controlled on Cardizem drip. Will transition to Oral today and if stable late this after noon he can be discharged. Per discussion with his and Cardiology, Unfortunately the patient continues to drink alcohol with frequent falls at home therefore he is not a candidate for anticoagulation at this time. Heparin drip discontinued. - Continue Coreg Elevated troponins/elevated troponins: - Likely secondary to A. fib with RVR and renal insufficiency. - Cardiac enzymes remained flat. No acute ST changes on EKG. - No evidence of fluid overload Acute renal insufficiency: - Likely secondary to A. fib with RVR. - Renal functions improved with IVF. Alcohol abuse: He minimize his drinking. He was counseled. Type 2 diabetes: - Resume home medications on discharge. Continue the rest of the patient's chronic home medications. Discharge Planning: Discharge patient to home Condition on discharge: Improved Regular Diet as tolerated Ad Elva activity Rx written: Per med rec Follow-up with primary care physician
[2018-03-25] MEDS ORDERED: dilTIAZem CD 120 MG Capsule PO SCH (13:30)
[2018-03-25 16:52] VITALS: BP 148/95; TEMP 97.6
--- NOTE | 2018-03-25 18:24 | P.PNCA ---
Subjective Interval history: No events overnight Heart rates mostly controlled on 5mg/hr Cardizem drip Medications and Allergies Active Medications: Active Medications Al Hydroxide/Mg Hydroxide (Milk Of [place] Liq) 30 ml PO Q12H PRN PRN Reason: Mild Constipation Albuterol (Ventolin Hfa Inh) 2 puff INH Q6H PRN PRN Reason: SHORTNESS OF BREATH Ascorbic Acid (Vitamin C) 500 mg PO DAILY [facility] Last Admin: 03/25/18 09:58 Dose: 500 mg Aspirin (Ecotrin) 81 mg PO DAILY [facility] Last Admin: 03/25/18 09:58 Dose: 81 mg Atorvastatin Calcium (Lipitor) 80 mg PO DAILY [facility] Last Admin: 03/25/18 09:59 Dose: 80 mg Bisacodyl (Dulcolax Supp) 10 mg RECTAL DAILY PRN PRN Reason: SEVERE CONSITIPATION Budesonide/Formoterol Fumarate (Symbicort 160/4.5 Mcg Inh) 2 puff INH BID [facility] Last Admin: 03/25/18 10:01 Dose: 2 puff Carvedilol (Coreg) 25 mg PO BID [facility] Last Admin: 03/25/18 09:58 Dose: 25 mg Cyanocobalamin (Vitamin B12) 1,000 mcg PO DAILY [facility] Last Admin: 03/25/18 09:58 Dose: 1,000 mcg Dextrose (D50w Vial) 50 ml IV.PUSH UNSCH PRN PRN Reason: PER HYPOGLYCEMIA PROTOCOL Diltiazem HCl (Cardizem Cd 24hr) 120 mg PO DAILY [facility] Last Admin: 03/25/18 13:34 Dose: 120 mg Ferrous Sulfate (Ferosul) 325 mg PO DAILY [facility] Last Admin: 03/25/18 13:34 Dose: 325 mg Glucagon (Glucagon Inj) 1 mg OTHER PRN PRN PRN Reason: for Hypoglycemia Protocol Sodium Chloride (Ns Inj) 500 mls @ 0 mls/hr IV.SIG BOLUS [facility] Last Infusion: 03/24/18 15:15 Dose: Infused Diltiazem HCl 125 mg/ Sodium (Chloride) 125 mls @ 5 mls/hr IV.CONT TITRATE PRN ; Protocol PRN Reason: Per Protocol Last Titration: 03/25/18 15:00 Dose: Infused Sodium Chloride (Ns Inj) 500 mls @ 0 mls/hr IV.SIG BOLUS [facility] Last Infusion: 10/10/18 15:58 Dose: Infused Heparin Sodium/Dextrose (Heparin/D5w 25,000 U/250 Ml) 25,000 unit in 250 mls @ 0 mls/hr IV.CONT TITRATE PRN; Protocol PRN Reason: Per Protocol Last Titration: 03/25/18 13:30 Dose: Infused Insulin Aspart (Novolog Insulin Correctional Sugar Inj) 0 unit SQ ACHS [facility]; Protocol Last Admin: 03/25/18 12:08 Dose: 1 unit Isosorbide Mononitrate (Imdur) 60 mg PO DAILY [facility] Last Admin: 03/25/18 09:58 Dose: 60 mg Lactulose (Lactulose Liq) 30 ml PO DAILY PRN PRN Reason: SEVERE CONSITIPATION Levetiracetam (Keppra) 1,000 mg PO BID [facility] Last Admin: 03/25/18 09:59 Dose: 1,000 mg Lisinopril (Prinivil) 20 mg PO DAILY [facility] Last Admin: 03/25/18 09:58 Dose: 20 mg Sennosides (Senokot) 17.2 mg PO Q12H PRN PRN Reason: Moderate Constipation Sodium Chloride (Ns Flush) 2 ml IV.FLUSH UNSCH PRN PRN Reason: FLUSH AFTER USING IV ACCESS Last Admin: 03/24/18 14:52 Dose: 2 ml Spironolactone (Aldactone) 25 mg PO DAILY [facility] Last Admin: 03/25/18 09:58 Dose: 25 mg Tamsulosin HCl (Flomax) 0.4 mg PO DAILY [facility] Last Admin: 03/25/18 09:59 Dose: 0.4 mg Temazepam (Restoril) 15 mg PO HS PRN PRN Reason: INSOMNIA Topiramate (Topamax) 100 mg PO BID [facility] Last Admin: 03/25/18 09:59 Dose: 100 mg Vitamin D (Vitamin D3) 2,000 unit PO DAILY [facility] Last Admin: 03/25/18 09:59 Dose: 2,000 unit Allergies Allergy/AdvReac Type Severity Reaction Status Date / Time No Known Allergies Allergy Verified 03/24/18 14:38 Home Medications Medication Instructions Recorded Confirmed Type albuterol sulfate [Ventolin HFA] 2 puff INHALATION Q4-6H PRN 03/24/18 03/24/18 History ascorbic acid (vitamin C) [Vitamin 500 mg PO DAILY 03/24/18 03/24/18 History C] aspirin [Aspirin Low Dose] 81 mg PO DAILY 03/24/18 03/24/18 History atorvastatin 80 mg PO DAILY 03/24/18 03/24/18 History carvedilol 25 mg PO BID 03/24/18 03/24/18 History cholecalciferol (vitamin D3) 2,000 unit PO DAILY 03/24/18 03/24/18 History [Vitamin D3] cyanocobalamin (vitamin B-12) 1,000 mcg PO DAILY 03/24/18 03/24/18 History [Vitamin B-12] ferrous sulfate [Iron (ferrous 325 mg PO DAILY 03/24/18 03/24/18 History sulfate)] fluticasone-salmeterol [Advair 1 inh INHALATION Q12H 03/24/18 03/24/18 History Diskus] folic acid 1 mg PO DAILY 03/24/18 03/24/18 History isosorbide mononitrate 60 mg PO QAM 03/24/18 03/24/18 History levetiracetam 1,000 mg PO BID 03/24/18 03/24/18 History lisinopril 20 mg PO DAILY 03/24/18 03/24/18 History metformin 1,000 mg PO BID 03/24/18 03/24/18 History sitagliptin [Januvia] 50 mg PO DAILY 03/24/18 03/24/18 History spironolactone 25 mg PO DAILY 03/24/18 03/24/18 History tamsulosin 0.4 mg PO DAILY 03/24/18 03/24/18 History topiramate 100 mg PO BID 03/24/18 03/24/18 History Physical Exam Vital signs: Vital Signs 03/24/18 18:57 03/24/18 19:00 03/24/18 23:00 Temperature 98 F 98 F Pulse Rate 111 H 97 H 97 H Respiratory Rate 16 16 16 Blood Pressure 107/66 107/76 134/76 Pulse Oximetry 98 96 96 03/25/18 03:00 03/25/18 07:00 03/25/18 08:00 Temperature 98.3 F 97.7 F Pulse Rate 71 77 Respiratory Rate 16 18 Blood Pressure 132/84 143/78 H Pulse Oximetry 96 97 97 03/25/18 09:07 03/25/18 11:00 03/25/18 12:00 Temperature 97.5 F L Pulse Rate 100 H 90 Respiratory Rate 16 Blood Pressure 139/98 H Pulse Oximetry 95 03/25/18 13:00 03/25/18 14:00 03/25/18 15:00 Temperature 97.6 F Pulse Rate 92 H 90 92 H Respiratory Rate 16 Blood Pressure 148/95 H Pulse Oximetry 03/25/18 16:00 Temperature Pulse Rate 100 H Respiratory Rate Blood Pressure Pulse Oximetry Intake & Output 03/24/18 03/25/18 03/25/18 18:59 06:59 18:59 Intake Total 1000 / 1000 240 / 240 1375 / 1375 Output Total 200 / 200 Balance 1000 / 1000 40 / 40 1375 / 1375 Weight 228 kg 103 kg Intake: IV 1000 / 1000 1375 / 1375 Heparin/D5W 25,000 U/250 mL 25, 250 / 250 000 unit In 250 ml @ Per Protocol IV.CONT TITRATE PRN Rx #:[id number] NS Inj 1,000 ML @ 100 mls/hr IV 1000 / 1000 .CONT .Q10H SUAD Rx#:[id number] Cardizem Inj 125 MG In NS Inj 125 / 125 100 ML @ 5 MG/HR 5 mls/hr IV. CONT TITRATE PRN Rx#:[id number] NS Inj 500 ML @ Wide Open IV. 1000 / 1000 SIG BOLUS SUAD Rx#:[id number] Oral 240 / 240 Output: Urine 200 / 200 Narrative: CONSTITUTIONAL/GENERAL: This is an adequately nourished patient, in no apparent distress. Vital signs reviewed SKIN: No jaundice, rashes, or concerning lesions. Not diaphoretic. HEAD: Atraumatic. Normocephalic. EYES: Pupils equal and round and reactive. Extra ocular motions are intact. No scleral icterus. No injection or drainage. ENT: Hearing grossly normal. Nose without drainage. Throat without visible erythema, exudates, masses, or lesions. NECK: Trachea midline. Neck is supple, non-tender. No palpable thyroid enlargement or nodularity. CARDIOVASCULAR: Irregularly irregular rhythm without significant murmurs. RESPIRATORY/CHEST: Symmetric, unlabored respirations. Breath sounds equal and clear to auscultation bilaterally. No wheezes, crackles, rales, or rhonchi. GASTROINTESTINAL: Abdomen soft, non-tender, non-distended. No hepato- splenomegaly, or palpable masses. No guarding. Bowel sounds present. MUSCULOSKELETAL: Extremities without clubbing, cyanosis, or edema. No joint tenderness or effusion noted. No calf tenderness. No mottling or clubbing. NEUROLOGICAL: Awake and alert. Motor and sensory grossly within normal limits. Follows commands. Move all extremities spontaneously. No focal deficits. PSYCHIATRIC: No obvious mood problems. No apparent hallucinations or other psychotic thought process. Results 03/25/18 04:26 03/25/18 04:26 Cardiac Enzymes 03/24/18 03/24/18 03/24/18 Range/Units 14:52 14:52 16:52 AST 15 (15-37) U/L Troponin I 0.15 H 0.13 H (0.02-0.05) ng/mL B-Natriuretic Peptide 718 H (0-100) pg/mL 03/24/18 Range/Units 22:41 AST (15-37) U/L Troponin I 0.15 H (0.02-0.05) ng/mL B-Natriuretic Peptide (0-100) pg/mL Coagulation 03/24/18 03/24/18 03/24/18 Range/Units 14:52 14:52 20:26 PT 10.2 10.8 (9.8-11.6) sec APTT 26.4 45.2 H D (24.3-30.1) sec B-Natriuretic Peptide 718 H (0-100) pg/mL 03/24/18 03/25/18 Range/Units 22:41 04:26 PT (9.8-11.6) sec APTT 45.0 H 43.1 H (24.3-30.1) sec B-Natriuretic Peptide (0-100) pg/mL CBC 03/24/18 03/25/18 Range/Units 14:52 04:26 WBC 14.7 H 10.0 (4.0-11.0) th/mm3 RBC 4.76 4.12 L (4.50-5.90) mil/mm3 Hgb 14.2 12.3 L (13.0-17.0) gm/dL Hct 43.5 36.5 L (39.0-51.0) % Plt Count 353 208 D (150-450) th/mm3 Neut # (Auto) 10.2 H 6.5 (1.8-7.7) th/mm3 Lymph # (Auto) 2.4 1.9 (1.0-4.8) th/mm3 [place] # (Auto) 1.1 H 0.7 (0.0-0.9) th/mm3 Eos # (Auto) 1.0 H 0.8 H (0.0-0.4) th/mm3 Baso # (Auto) 0.1 0.1 (0.0-0.2) th/mm3 Comprehensive Metabolic Panel 03/24/18 03/25/18 Range/Units 14:52 04:26 Sodium 144 147 H (136-145) meq/L Potassium 4.2 3.6 (3.5-5.1) meq/L Chloride 110 H 115 H (98-107) meq/L Carbon Dioxide 22.2 21.2 (21.0-32.0) meq/L BUN 18 19 H (7-18) mg/dL Creatinine 1.43 H 1.15 (0.60-1.30) mg/dL Calcium 8.8 7.5 L D (8.5-10.1) mg/dL AST 15 (15-37) U/L ALT 30 (12-78) U/L Alkaline Phosphatase 80 (45-117) U/L Total Protein 7.0 (6.4-8.2) g/dL Albumin 3.5 (3.4-5.0) g/dL Intake and Output 03/25/18 03/25/18 03/25/18 06:59 14:59 22:59 Intake Total 240 / 240 1250 / 1250 125 / 125 Output Total 200 / 200 Balance 40 / 40 1250 / 1250 125 / 125 Intake: IV 1250 / 1250 125 / 125 Heparin/D5W 25,000 U/250 mL 25, 250 / 250 000 unit In 250 ml @ Per Protocol IV.CONT TITRATE PRN Rx #:[id number] NS Inj 1,000 ML @ 100 mls/hr IV 1000 / 1000 .CONT .Q10H SUAD Rx#:[id number] Cardizem Inj 125 MG In NS Inj 125 / 125 100 ML @ 5 MG/HR 5 mls/hr IV. CONT TITRATE PRN Rx#:[id number] Oral 240 / 240 Output: Urine 200 / 200 Other: Weight 103 kg - Imaging and Cardiology Imaging: Impressions Chest X-Ray 03/24/18 14:46 CONCLUSION: No acute cardiopulmonary disease Assessment and Plan - Assessment (1) Atrial fibrillation with RVR Code(s): I48.91 - Unspecified atrial fibrillation Status: Acute (2) Elevated troponin Code(s): R74.8 - Abnormal levels of other serum enzymes Status: Acute (3) Acute kidney injury Code(s): N17.9 - Acute kidney failure, unspecified Status: Acute - Plan 1) Afib with RVR Controlled on Cardizem drip, transfer to Cardizem CD 120mg daily Con't on Coreg 2) Multiple falls Per , he still drinks relatively heavily which may lead to this Not an anticoagulation candidate at this time Con't on ASA 3) Elevated trop [place] Most likely due to elevated heart rates Previous stress test showing small area of ischemia inferiorly, which 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 George
[2018-03-25 18:37] VITALS: PULSE 96
== END 2018-03-25 19:50 | disposition home or self-care (01) ==
LOC: NEPC 14:20 → NEDA 16:30 → HCPC 18:54 → HCIS 03-25 10:56
PROVIDERS: ADMIT Family Medicine; ATTEND Family Medicine

== ENCOUNTER 2018-03-29 13:14 | Inpatient (IN) ==
--- NOTE | 2018-03-29 13:49 | ED ---
HPI General Chief Complaint: Chest Pain Stated Complaint: cardiac/med device Time Seen by Provider: 03/29/18 13:31 Source: patient Mode of arrival: ambulatory Limitations: no limitations History of Present Illness HPI narrative: 63-year-old male presents after getting called by his cotton puller to come in for his abnormal loop recording. He states he was just in the hospital where they adjusted his medications and he was doing okay until this weekend when his heart rate started to go up again. He states his been in the 150s. He states he was doing fine until last week after his ablation in 2014 when they originally installed a loop recorder. He states he is no longer on a blood thinner as he was having issues with falling other than a baby aspirin. He states when he gets his heart rate going fast he gets pain so he took a nitroglycerin. He states that helped his symptoms some. He states he has been taking all of his medications like he should. He states his cotton puller is Dr. Stephenson. Quality is irregular. He denies other modifying factors. Related Data Home Medications Medication Instructions Recorded Confirmed albuterol sulfate [Ventolin HFA] 2 puff INHALATION Q4-6H PRN 03/24/18 03/29/18 ascorbic acid (vitamin C) [Vitamin 500 mg PO DAILY 03/24/18 03/29/18 C] aspirin [Aspirin Low Dose] 81 mg PO DAILY 03/24/18 03/29/18 atorvastatin 80 mg PO DAILY 03/24/18 03/29/18 carvedilol 25 mg PO BID 03/24/18 03/29/18 cholecalciferol (vitamin D3) 2,000 unit PO DAILY 03/24/18 03/29/18 [Vitamin D3] cyanocobalamin (vitamin B-12) 1,000 mcg PO DAILY 03/24/18 03/29/18 [Vitamin B-12] ferrous sulfate [Iron (ferrous 325 mg PO DAILY 03/24/18 03/29/18 sulfate)] fluticasone-salmeterol [Advair 1 inh INHALATION Q12H 03/24/18 03/29/18 Diskus] folic acid 1 mg PO DAILY 03/24/18 03/29/18 isosorbide mononitrate 60 mg PO QAM 03/24/18 03/24/18 levetiracetam 1,000 mg PO BID 03/24/18 03/24/18 lisinopril 20 mg PO DAILY 03/24/18 03/24/18 metformin 1,000 mg PO BID 03/24/18 03/24/18 sitagliptin [Januvia] 50 mg PO DAILY 03/24/18 03/29/18 spironolactone 25 mg PO DAILY 03/24/18 03/29/18 tamsulosin 0.4 mg PO DAILY 03/24/18 03/29/18 topiramate 100 mg PO BID 03/24/18 03/29/18 Previous Rx's Medication Instructions Recorded diltiazem HCl 120 mg PO DAILY #120 cap 03/25/18 Allergies Allergy/AdvReac Type Severity Reaction Status Date / Time No Known Allergies Allergy Verified 03/29/18 13:42 Review of Systems ROS: all other systems reviewed are negative [facility] Medical History Medical History Diabetes (Acute) HTN (hypertension) (Acute) Heart attack (Acute) High cholesterol (Acute) Surgical History Surgical History History of cardiac catheterization (Acute) Hx of cholecystectomy (Acute) Stented coronary artery (Acute) Family History Family History Other Family history non-contributory Social History Social History Substance History: No History of Abuse Second Hand Smoke Exposure: No Smoking Status: Former smoker Tobacco Type: Cigarettes How Often Do You Have a Drink Containing Alcohol: 4 or more times a week Recent Travel in [facility] within the Last 8 Weeks: No Recent Out of Country Travel within the Last 8 Weeks: No Immunization History Tetanus Immunization: Unsure Exam Narrative Exam Narrative: GENERAL: 63 y/o male in no apparent distress SKIN: Focused skin assessment warm/dry. HEAD: Atraumatic. Normocephalic. EYES: Pupils equal and round. No scleral icterus. No injection or drainage. ENT: No nasal bleeding or discharge. Mucous membranes pink and moist. NECK: Trachea midline. No JVD. CARDIOVASCULAR: irregular rate and rhythm. RESPIRATORY: No accessory muscle use. Clear to auscultation. Breath sounds equal bilaterally. GASTROINTESTINAL: Abdomen soft, non-tender, nondistended. MUSCULOSKELETAL: No obvious deformities. No clubbing. No cyanosis. NEUROLOGICAL: Awake and alert. Motor grossly within normal limits. Normal speech. PSYCHIATRIC: Appropriate mood and affect; insight and judgment normal. Course Reevaluation(s) Reevaluation #1: patient updated and agrees to admit Consultations Consultation #1: Increase his Cardizem from 120 mg to 240 mg and admit to the hospital per Dr. Stephenson Consultation #2: dr au agrees to admit Initial Documented Vital Signs Temperature 97.5 F L 03/29/18 13:17 Pulse Rate 98 H 03/29/18 13:17 Respiratory Rate 18 03/29/18 13:17 Blood Pressure 97/63 L 03/29/18 13:17 Pulse Oximetry 98 03/29/18 13:17 Last Documented Vital Signs Temperature 97.5 F L 03/29/18 13:17 Pulse Rate 89 03/29/18 15:16 Respiratory Rate 18 03/29/18 14:47 Blood Pressure 101/74 03/29/18 13:43 Pulse Oximetry 98 03/29/18 14:47 Medical Decision Making [facility] Narrative Medical decision making narrative: Patient in A. fib with RVR with known history recently in the hospital. Will check blood work and x-ray and dose with Cardizem and discuss with his cotton puller Medical Screen Exam Complete: Yes Emergency Medical Condition: Yes Differential Diagnosis Differential Diagnosis: A. fib with RVR, electrolyte abnormality, SVT Lab Data Lab results reviewed: Yes I reviewed the patient's lab results. Result diagrams: 03/29/18 13:12 03/29/18 13:12 Lab Results 03/29/18 03/29/18 03/29/18 Range/Units 13:12 13:12 13:12 WBC 12.9 H (4.0-11.0) th/mm3 RBC 4.51 (4.50-5.90) mil/mm3 Hgb 13.2 (13.0-17.0) gm/dL Hct 40.8 (39.0-51.0) % MCV 90.4 (80.0-100.0) fL MCH 29.4 (27.0-34.0) pg MCHC 32.5 (32.0-36.0) % RDW 13.7 (11.6-17.2) % Plt Count 304 D (150-450) th/mm3 MPV 9.4 (7.0-11.0) fL Neut % (Auto) 68.1 (16.0-70.0) % Lymph % (Auto) 16.8 (9.0-44.0) % [place] % (Auto) 5.4 (0.0-8.0) % Eos % (Auto) 8.6 H (0.0-4.0) % Baso % (Auto) 1.1 (0.0-2.0) % Neut # (Auto) 8.8 H (1.8-7.7) th/mm3 Lymph # (Auto) 2.2 (1.0-4.8) th/mm3 [place] # (Auto) 0.7 (0.0-0.9) th/mm3 Eos # (Auto) 1.1 H (0.0-0.4) th/mm3 Baso # (Auto) 0.1 (0.0-0.2) th/mm3 WBC Differential . Differential Comment Auto diff final PT 10.2 (9.8-11.6) sec INR 1.0 Ratio APTT 24.1 L (24.3-30.1) sec Sodium 143 (136-145) meq/L Potassium 4.3 (3.5-5.1) meq/L Chloride 113 H (98-107) meq/L Carbon Dioxide 21.4 (21.0-32.0) meq/L Anion Gap 9 (5-15) meq/L BUN 16 (7-18) mg/dL Creatinine 1.29 (0.60-1.30) mg/dL Estimated GFR 56 L (>89) mL/min Random Glucose 139 H (74-106) mg/dL Calcium 8.3 L (8.5-10.1) mg/dL Magnesium 1.7 (1.5-2.5) mg/dL Total Bilirubin 0.4 (0.2-1.0) mg/dL AST 18 (15-37) U/L ALT 32 (12-78) U/L Alkaline Phosphatase 75 (45-117) U/L Total Creatine Kinase 56 (39-308) U/L Troponin I 0.24 H (0.02-0.05) ng/mL Total Protein 6.9 (6.4-8.2) g/dL Albumin 3.3 L (3.4-5.0) g/dL 03/29/18 Range/Units 13:12 WBC (4.0-11.0) th/mm3 RBC (4.50-5.90) mil/mm3 Hgb (13.0-17.0) gm/dL Hct (39.0-51.0) % MCV (80.0-100.0) fL MCH (27.0-34.0) pg MCHC (32.0-36.0) % RDW (11.6-17.2) % Plt Count (150-450) th/mm3 MPV (7.0-11.0) fL Neut % (Auto) (16.0-70.0) % Lymph % (Auto) (9.0-44.0) % [place] % (Auto) (0.0-8.0) % Eos % (Auto) (0.0-4.0) % Baso % (Auto) (0.0-2.0) % Neut # (Auto) (1.8-7.7) th/mm3 Lymph # (Auto) (1.0-4.8) th/mm3 [place] # (Auto) (0.0-0.9) th/mm3 Eos # (Auto) (0.0-0.4) th/mm3 Baso # (Auto) (0.0-0.2) th/mm3 WBC Differential Differential Comment PT (9.8-11.6) sec INR Ratio APTT (24.3-30.1) sec Sodium (136-145) meq/L Potassium (3.5-5.1) meq/L Chloride (98-107) meq/L Carbon Dioxide (21.0-32.0) meq/L Anion Gap (5-15) meq/L BUN (7-18) mg/dL Creatinine (0.60-1.30) mg/dL Estimated GFR (>89) mL/min Random Glucose (74-106) mg/dL Calcium (8.5-10.1) mg/dL Magnesium Cancelled (1.5-2.5) mg/dL Total Bilirubin (0.2-1.0) mg/dL AST (15-37) U/L ALT (12-78) U/L Alkaline Phosphatase (45-117) U/L Total Creatine Kinase (39-308) U/L Troponin I (0.02-0.05) ng/mL Total Protein (6.4-8.2) g/dL Albumin (3.4-5.0) g/dL Imaging Data Attestation: I personally reviewed and interpreted this imaging study as follows : Radiologist's impression: Chest X-Ray 03/29/18 13:43 CONCLUSION: 1. No acute cardiopulmonary disease. Discharge Plan Discharge Disposition Patient Disposition: 30 Still Patient Discharge Details Diagnosis: Atrial fibrillation with RVR, Elevated troponin, Chest pain Physicians Team ED Provider: Lilian Lugo Primary Care Provider: Alex Martinez Rxs /Orders / Referrals /Forms Prescriptions: No Action fluticasone-salmeterol [Advair Diskus] 250-50 mcg/dose Blister With Device 1 inh INHALATION Q12H RF: 0 atorvastatin 80 mg Tablet 80 mg PO DAILY RF: 0 carvedilol 25 mg Tablet 25 mg PO BID RF: 0 lisinopril 20 mg Tablet 20 mg PO DAILY RF: 0 cyanocobalamin (vitamin B-12) [Vitamin B-12] 1,000 mcg Tablet 1,000 mcg PO DAILY RF: 0 aspirin [Aspirin Low Dose] 81 mg Tablet,Delayed Release (Dr/Ec) 81 mg PO DAILY RF: 0 spironolactone 25 mg Tablet 25 mg PO DAILY RF: 0 isosorbide mononitrate 60 mg Tablet Extended Release 24 Hr 60 mg PO QAM RF: 0 ascorbic acid (vitamin C) [Vitamin C] 500 mg Tablet 500 mg PO DAILY RF: 0 tamsulosin 0.4 mg Capsule 0.4 mg PO DAILY RF: 0 ferrous sulfate [Iron (ferrous sulfate)] 325 mg (65 mg iron) Tablet 325 mg PO DAILY RF: 0 metformin 1,000 mg Tablet 1,000 mg PO BID RF: 0 folic acid 1 mg Tablet 1 mg PO DAILY RF: 0 albuterol sulfate [Ventolin HFA] 90 mcg/actuation Hfa Aerosol Inhaler 2 puff INHALATION Q4-6H PRN (Reason: Shortness Of Breath) RF: 0 topiramate 100 mg Tablet 100 mg PO BID RF: 0 levetiracetam 1,000 mg Tablet 1,000 mg PO BID RF: 0 sitagliptin [Januvia] 50 mg Tablet 50 mg PO DAILY RF: 0 cholecalciferol (vitamin D3) [Vitamin D3] 2,000 unit Capsule 2,000 unit PO DAILY RF: 0 diltiazem HCl 120 mg Capsule,Extended Release 24hr 120 mg PO DAILY Qty: 120 RF: 0 Discharge Instructions Patient Printed Instructions: Chest Pain (ED) Discharge Interventions Interventions: Vital Signs Last Done: 03/29/18 13:17 Status ED Status: Admitted Observation Patient
[2018-03-29 14:07] LABS: Baso # (Auto) 0.1 th/mm3 (0.0-0.2); Baso % (Auto) 1.1 % (0.0-2.0); Eos # (Auto) 1.1 th/mm3 (0.0-0.4); Eos % (Auto) 8.6 % (0.0-4.0); Hematocrit 40.8 % (39.0-51.0); Hemoglobin 13.2 gm/dL (13.0-17.0); Lymph # (Auto) 2.2 th/mm3 (1.0-4.8); Lymph % (Auto) 16.8 % (9.0-44.0); Mean Corpuscular HGB Conc 32.5 % (32.0-36.0); Mean Corpuscular Hemoglobin 29.4 pg (27.0-34.0); Mean Corpuscular Volume 90.4 fL (80.0-100.0); Mean Platelet Volume 9.4 fL (7.0-11.0); Mono # (Auto) 0.7 th/mm3 (0.0-0.9); Mono % (Auto) 5.4 % (0.0-8.0); Neut # (Auto) 8.8 th/mm3 (1.8-7.7); Neut % (Auto) 68.1 % (16.0-70.0); Platelet Count 304 th/mm3 (150-450); Red Blood Count 4.51 mil/mm3 (4.50-5.90); Red Cell Distribution Width 13.7 % (11.6-17.2); White Blood Count 12.9 th/mm3 (4.0-11.0)
[2018-03-29 14:17] LABS: Activated Partial Thrombo Time 24.1 sec (24.3-30.1); Prothrombin Time 10.2 sec (9.8-11.6)
--- NOTE | 2018-03-29 14:29 | XR ---
EXAM DATE: 03/29/2018 1:43 PM EDT AGE/SEX: 63 years / Male INDICATIONS: Chest pain. CLINICAL DATA: This is the patient's initial encounter. Patient reports that signs and symptoms have been present for 2 days and indicates a pain score of 4/10. MEDICAL/SURGICAL HISTORY: Chronic obstructive pulmonary disease. Hypertension. Diabetes. A-f ib . Cardiac stent COMPARISON: C, CHEST 1V SINGLE AP, 03/24/2018. . FINDINGS: A single AP view of the chest demonstrates the lungs to be symmetrically aerated without evidence of mass, infiltrate or effusion. The cardiomediastinal contours are unremarkable. Osseous structures a re intact. CONCLUSION: 1. No acute cardiopulmonary disease. Electronically signed by: Ming Payan MD 03/29/2018 2:28 PM EDT
[2018-03-29 14:51] LABS: Albumin 3.3 g/dL (3.4-5.0); Alkaline Phosphatase 75 U/L (45-117); Anion Gap 9 meq/L (5-15); Aspartate Aminotransferase 18 U/L (15-37); Blood Urea Nitrogen 16 mg/dL (7-18); Calcium 8.3 mg/dL (8.5-10.1); Carbon Dioxide 21.4 meq/L (21.0-32.0); Chloride 113 meq/L (98-107); Glomerular Filtration Rate 56 mL/min (>89); Glucose,Random 139 mg/dL (74-106); Magnesium 1.7 mg/dL (1.5-2.5); Potassium 4.3 meq/L (3.5-5.1); Sodium 143 meq/L (136-145); Total Protein 6.9 g/dL (6.4-8.2); Troponin I 0.24 ng/mL (0.02-0.05)
[2018-03-29 14:55] LABS: Creatine Kinase 56 U/L (39-308)
[2018-03-29 14:56] LABS: Alanine Aminotransferase 32 U/L (12-78)
[2018-03-29] MEDS ORDERED: Bisacodyl 10 MG Supp RECTAL PRN (15:43)
--- NOTE | 2018-03-29 15:48 | P.HPIM ---
History of Present Illness Service: [facility] Primary Care Physician: Alex Martinez MD Chief Complaint: Sent from [employer] office for Afib with RVR History of Present Illness: 63-year-old male with a medical history significant for atrial fibrillation, diabetes who was discharged from the hospital about 4 days ago after he was treated for A. fib with RVR. The patient has a loop recorder in place. His machine feller office noted his heart rate was uncontrolled today and he was sent in the emergency room for evaluation. Patient reports that when he left the hospital, he was doing okay for about a day or so but he continued to feel some heart palpitations but he did not want to come in until they called him earlier today. Currently he denies chest pain or shortness of breath. He has been given 10 mg of IV Cardizem and his rate is now controlled. ED physician discussed with his machine feller who advised increasing his dose of Cardizem and admit him for observation on telemetry. Review of Systems All other systems reviewed negative except as stated in HPI PMF - History History Provided By: Patient - Medical History Medical History: Medical History (Last Reviewed 03/29/18 @ 18:39 by Gaby Ramon MD) Diabetes HTN (hypertension) Heart attack High cholesterol - Surgical History Surgical History: Surgical History (Last Reviewed 03/29/18 @ 18:39 by Gaby Ramon MD) History of cardiac catheterization Hx of cholecystectomy Stented coronary artery - Family History Family History: Family History (Last Reviewed 03/29/18 @ 18:39 by Gaby Ramon MD) Other Family history non-contributory - Tobacco History Second Hand Smoke Exposure: No Smoking Status: Former smoker Tobacco Type: Cigarettes - Alcohol History How Often Do You Have a Drink Containing Alcohol: 4 or more times a week - Substance Use History Substance History: No History of Abuse - Travel History Recent Travel in the [place] Within the Last 8 Weeks: No Recent Travel Out of the Country Within the Last 8 Weeks: No - Immunization History Tetanus Immunization: Unsure Medications and Allergies Active Medications: Active Medications Al Hydroxide/Mg Hydroxide (Milk Of Magnesia Liq) 30 ml PO Q12H PRN PRN Reason: Mild Constipation Bisacodyl (Dulcolax Supp) 10 mg RECTAL DAILY PRN PRN Reason: SEVERE CONSITIPATION Diltiazem HCl (Cardizem) 60 mg PO QID [facility] Enoxaparin Sodium (Lovenox Inj) 40 mg SQ Q24H SUAD Lactulose (Lactulose Liq) 30 ml PO DAILY PRN PRN Reason: SEVERE CONSITIPATION Sennosides (Senokot) 17.2 mg PO Q12H PRN PRN Reason: Moderate Constipation Sodium Chloride (Ns Flush) 2 ml IV.FLUSH UNSCH PRN PRN Reason: FLUSH AFTER USING IV ACCESS Last Admin: 03/29/18 13:47 Dose: 2 ml Allergies Allergy/AdvReac Type Severity Reaction Status Date / Time No Known Allergies Allergy Verified 03/29/18 13:42 Home Medications Medication Instructions Recorded Confirmed Type albuterol sulfate [Ventolin HFA] 2 puff INHALATION Q4-6H PRN 03/24/18 03/29/18 History ascorbic acid (vitamin C) [Vitamin 500 mg PO DAILY 03/24/18 03/29/18 History C] aspirin [Aspirin Low Dose] 81 mg PO DAILY 03/24/18 03/29/18 History atorvastatin 80 mg PO DAILY 03/24/18 03/29/18 History carvedilol 25 mg PO BID 03/24/18 03/29/18 History cholecalciferol (vitamin D3) 2,000 unit PO DAILY 03/24/18 03/29/18 History [Vitamin D3] cyanocobalamin (vitamin B-12) 1,000 mcg PO DAILY 03/24/18 03/29/18 History [Vitamin B-12] ferrous sulfate [Iron (ferrous 325 mg PO DAILY 03/24/18 03/29/18 History sulfate)] fluticasone-salmeterol [Advair 1 inh INHALATION Q12H 03/24/18 03/29/18 History Diskus] folic acid 1 mg PO DAILY 03/24/18 03/29/18 History isosorbide mononitrate 60 mg PO QAM 03/24/18 03/24/18 History levetiracetam 1,000 mg PO BID 03/24/18 03/24/18 History lisinopril 20 mg PO DAILY 03/24/18 03/24/18 History metformin 1,000 mg PO BID 03/24/18 03/24/18 History sitagliptin [Januvia] 50 mg PO DAILY 03/24/18 03/29/18 History spironolactone 25 mg PO DAILY 03/24/18 03/29/18 History tamsulosin 0.4 mg PO DAILY 03/24/18 03/29/18 History topiramate 100 mg PO BID 03/24/18 03/29/18 History Exam Vital signs: Vital Signs 03/29/18 13:17 03/29/18 13:43 03/29/18 14:22 Temperature 97.5 F L Pulse Rate 98 H 150 H 106 H Respiratory Rate 18 20 Blood Pressure 97/63 L 101/74 Pulse Oximetry 98 98 03/29/18 14:47 03/29/18 15:16 Temperature Pulse Rate 105 H 89 Respiratory Rate 18 Blood Pressure Pulse Oximetry 98 Intake & Output 03/28/18 03/29/18 03/29/18 18:59 06:59 18:59 Weight 103.419 kg Narrative: GENERAL: This is a well-nourished, well-developed patient, in no apparent distress. CARDIOVASCULAR: Normal rate in the 90s and irregular rhythm without murmurs, gallops, or rubs. RESPIRATORY: Good respiratory efforts. Breath sounds equal and clear to auscultation bilaterally. GASTROINTESTINAL: Abdomen soft, non-tender, non-distended. Normal active bowel sounds MUSCULOSKELETAL: Extremities without cyanosis, or edema. NEURO: Alert & Oriented x4 to person, place, time, situation. Moves all ext x4 PSYCH: Appropriate mood and affect. Results - Labs CBC & Chem 7: 03/29/18 13:12 03/29/18 13:12 Labs: Short CBC 03/29/18 Range/Units 13:12 WBC 12.9 H (4.0-11.0) th/mm3 Hgb 13.2 (13.0-17.0) gm/dL Hct 40.8 (39.0-51.0) % Plt Count 304 D (150-450) th/mm3 BMP 03/29/18 13:12 Sodium 143 Potassium 4.3 Chloride 113 H Carbon Dioxide 21.4 BUN 16 Creatinine 1.29 Calcium 8.3 L Cardiac Enzymes 03/29/18 Range/Units 13:12 Total Creatine Kinase 56 (39-308) U/L Troponin I 0.24 H (0.02-0.05) ng/mL Liver Function 03/29/18 Range/Units 13:12 Total Bilirubin 0.4 (0.2-1.0) mg/dL AST 18 (15-37) U/L ALT 32 (12-78) U/L Alkaline Phosphatase 75 (45-117) U/L Albumin 3.3 L (3.4-5.0) g/dL - Imaging Impressions Chest X-Ray 03/29/18 13:43 CONCLUSION: 1. No acute cardiopulmonary disease. Caprini VTE Risk Assessment Caprini VTE Risk Assessment: Moderate/High Risk (score >= 2) Caprini Risk Assessment Model: Point Value = 1 Point Value = 2 Point Value = 3 Point Value = 5 Age 41-60 Minor surgery BMI > 25 kg/m2 Swollen legs Varicose veins or History of unexplained or recurrent spontaneous Oral contraceptives or hormone replacement Sepsis (< 1 month) Serious lung disease, including pneumonia (< 1 month) Abnormal pulmonary function Acute myocardial infarction Congestive heart failure (< 1 month) History of inflammatory bowel disease Medical patient at bed rest Age 61-74 Arthroscopic surgery Major open surgery (> 45 min) Laparoscopic surgery (> 45 min) Malignancy Confined to bed (> 72 hours) Immobilizing plaster cast Central venous access Age >= 75 History of VTE Family history of VTE Factor V Leiden Prothrombin [id number] Lupus anticoagulant Anticardiolipin antibodies Elevated serum homocysteine Heparin-induced thrombocytopenia Other congenital or acquired thrombophilia Stroke (< 1 month) Elective arthroplasty Hip, pelvis, or leg fracture Acute spinal cord injury (< 1 month) Prophylaxis Regimen: Total Risk Factor Score Risk Level Prophylaxis Regimen 0-1 Low Early ambulation 2 Moderate Order ONE of the following: *Sequential Compression Device (SCD) *Heparin 5000 units SQ BID 3-4 Higher Order ONE of the following medications: *Heparin 5000 units SQ TID *Enoxaparin/Lovenox 40 mg SQ daily (WT < 150 kg, CrCl > 30 mL/min) *Enoxaparin/Lovenox 30 mg SQ daily (WT < 150 kg, CrCl > 10-29 mL/min) *Enoxaparin/Lovenox 30 mg SQ BID (WT < 150 kg, CrCl > 30 mL/min) AND/OR *Sequential Compression Device (SCD) 5 or more Highest Order ONE of the following medications: *Heparin 5000 units SQ TID (Preferred with Epidurals) *Enoxaparin/Lovenox 40 mg SQ daily (WT < 150 kg, CrCl > 30 mL/min) *Enoxaparin/Lovenox 30 mg SQ daily (WT < 150 kg, CrCl > 10-29 mL/min) *Enoxaparin/Lovenox 30 mg SQ BID (WT < 150 kg, CrCl > 30 mL/min) AND *Sequential Compression Device (SCD) Assessment and Plan - Plan 63-year-old male admitted with: A. fib with RVR: Sent by machine feller office. This is a recurrent admission within a week for the patient. - He has been given a dose of 10 mg IV Cardizem in the emergency room. Rate is now controlled. - We will double his home Cardizem dose to 60 mg 4 times daily and monitor on telemetry - Cardiology consulted for assistance. -The patient frequently falls at home and it was established that he was not a candidate for anticoagulation. - Continue Coreg Elevated troponins: - Likely secondary to A. fib with RVR -Will trend cardiac enzymes. No acute ST changes on EKG. Type 2 diabetes: -Continue home medications Continue the rest of the patient's chronic home medications. Discharge Planning: Admit for observation. Titrate Cardizem as needed. Further plans per Cardiology.
[2018-03-29] MEDS ORDERED: Non-Formulary Drug (Fluticasone-Salmeterol [Advair Diskus] 1 INH) INHALATION SCH (16:00)
[2018-03-29] MEDS: Enoxaparin Inj 40 MG/0.4 ML Syringe SQ SCH (18:42)
[2018-03-29] MEDS: dilTIAZem 60 MG Tablet PO SCH ×2 (18:43→23:43)
[2018-03-29] MEDS: Isosorbide Mononitrate 60 MG ER 24HR Tablet (Imdur) PO SCH (19:07)
[2018-03-29] MEDS: Carvedilol 12.5 MG Tablet PO SCH (21:01)
[2018-03-29] MEDS: levETIRAcetam 500 MG Tablet PO SCH (21:56)
[2018-03-29] MEDS: Topiramate 100 MG Tablet PO SCH (21:56)
[2018-03-29] MEDS: Budesonide-Formoterol 160/4.5 MCG 6 GM Inhaler INH SCH (21:57)
--- NOTE | 2018-03-29 23:23 | MB ---
cc: Elie Reeves MD DATE: 03/29/2018 REASON FOR CONSULTATION: Atrial fibrillation with fast ventricular response. HISTORY OF PRESENT ILLNESS: Mr. Jenkins is a 63-year-old gentleman with a history of atrial fibrillation, previous ablation around 3-4 years ago, recent hospitalization to the emergency room due to atrial fibrillation and readmitted again this week due to atrial fibrillation with fast ventricular response. Medication was initiated. I was consulted for evaluation and management. The chart was reviewed. The patient was evaluated. ALLERGIES: NONE. SOCIAL HISTORY: The patient denies smoking and drinking. FAMILY HISTORY: Noncontributory to his current medical condition. MEDICATIONS AT HOME: He is on: 1. Aspirin 81 mg a day. 2. Coreg 25 mg twice a day. 3. Atorvastatin 80 mg a day. 4. Imdur 60 mg a day. 5. Lisinopril 20 mg a day. 6. Metformin 1000 mg a day. 7. Aldactone 25 mg a day. 8. Januvia 50 mg a day 9. Tamsulosin. REVIEW OF SYSTEMS: Currently, the patient refers no chest pain. Some shortness of and palpitations but no vomiting, no fever. PHYSICAL EXAMINATION: GENERAL: Alert, fully oriented. VITAL SIGNS: Blood pressure on evaluation 140/73, pulse 95-105, respiratory rate 18. LUNGS: Ventilated. CARDIOVASCULAR: S1, S2, irregular, tachycardic. ABDOMEN: Soft. No mass. Obese. No bruits. EXTREMITIES: No edema. DIAGNOSTIC DATA: Electrocardiogram shows atrial fibrillation, possible atrial tachyarrhythmia, diffuse ST changes, poor R-wave progression. LABORATORY DATA: Hemoglobin 13.2, white blood cells 12.9. INR 1.0. Potassium 4.3, creatinine 1.29. Troponin 0.31. ASSESSMENT AND RECOMMENDATIONS: Mr. Jenkins currently has atrial fibrillation with fast ventricular response. Heart rate is very difficult to control. This is his second emergency room visit in a week. His troponin is elevated. I am not sure if it is because of the atrial fibrillation or is coronary artery disease. This gentleman has multiple risk factors. At this point, he is not on anticoagulation. His CHADS-VASc is 3-4. I had a long conversation with him. An electrophysiology study and ablation discussed again, but this gentleman is going to need a nuclear stress study. Lovenox will be initiated. If negative, then I will consider atrial fibrillation ablation. The risks, the nature and the benefits of the procedure were clearly stated to him. Risks include pneumothorax, cardiac perforation, stroke and even . He understood and agreed to proceed. I will this gentleman during the hospitalization. MD MARIFER Siegel/christi , 10:53 PM , 11:03 PM
[2018-03-30] MEDS: dilTIAZem 60 MG Tablet PO SCH ×4 (01:33→18:48)
[2018-03-30 02:43] LABS: Potassium 3.9 meq/L (3.5-5.1)
[2018-03-30 02:46] LABS: Troponin I 0.26 ng/mL (0.02-0.05)
[2018-03-30] MEDS: Topiramate 100 MG Tablet PO SCH ×2 (09:01→21:07)
[2018-03-30] MEDS: Lisinopril 20 MG Tablet PO SCH (09:01)
[2018-03-30] MEDS: levETIRAcetam 500 MG Tablet PO SCH ×2 (09:02→21:07)
[2018-03-30] MEDS: Carvedilol 12.5 MG Tablet PO SCH ×2 (09:02→21:07)
[2018-03-30] MEDS: Isosorbide Mononitrate 60 MG ER 24HR Tablet (Imdur) PO SCH (09:03)
[2018-03-30] MEDS: Ferrous Sulfate 325 MG Tablet PO SCH (09:03)
[2018-03-30] MEDS: Ascorbic Acid 500 MG Tablet PO SCH (09:03)
[2018-03-30] MEDS: Folic Acid 1 MG Tablet PO SCH (09:03)
[2018-03-30] MEDS: Spironolactone 25 MG Tablet PO SCH (09:04)
[2018-03-30] MEDS: Budesonide-Formoterol 160/4.5 MCG 6 GM Inhaler INH SCH ×2 (09:04→21:08)
--- NOTE | 2018-03-30 09:26 | P.PN ---
Subjective Interval history: Follow up for afib with RVR, NSTEMI. Patient reports continued episodes of palpitations overnight, still in A. fib, although heart rate has been mostly less than 100. He denies any chest pain, shortness of breath, nausea/vomiting, or diaphoresis. He is going for Lexiscan today. He has no other medical complaints at this time. Physical Exam Vital signs: Vital Signs 03/29/18 13:17 03/29/18 13:43 03/29/18 14:22 Temperature 97.5 F L Pulse Rate 98 H 150 H 106 H Respiratory Rate 18 20 Blood Pressure 97/63 L 101/74 Pulse Oximetry 98 98 03/29/18 14:47 03/29/18 15:16 03/29/18 16:20 Temperature Pulse Rate 105 H 89 90 Respiratory Rate 18 17 Blood Pressure 114/73 Pulse Oximetry 98 03/29/18 16:43 03/29/18 20:00 03/30/18 00:00 Temperature 97.5 F L 98.3 F Pulse Rate 95 H 82 81 Respiratory Rate 16 20 20 Blood Pressure 114/73 98/68 L 107/78 Pulse Oximetry 97 95 03/30/18 04:00 03/30/18 07:51 03/30/18 08:43 Temperature 97.6 F 98.2 F Pulse Rate 78 74 Respiratory Rate 20 20 Blood Pressure 109/68 121/80 Pulse Oximetry 96 95 97 Intake & Output 03/29/18 03/30/18 03/30/18 18:59 06:59 18:59 Output Total 450 / 450 Balance -450 / -450 Weight 103.419 kg 103.6 kg Output: Urine 450 / 450 Other: # Voids 1 # Incontinent Voids 0 Narrative: GENERAL: Well-nourished, well-developed pleasant male patient in NAD. Sitting upright in bed. SKIN: Warm and dry. No rash. HEENT: Normocephalic. Atraumatic. Pupils equal and round. Mucous membranes pink and moist. CARDIOVASCULAR: Irregular rate and rhythm. No murmur appreciated. RESPIRATORY: No accessory muscle use. Clear to auscultation. Breath sounds equal bilaterally. GASTROINTESTINAL: Abdomen soft, non-tender, nondistended. Normoactive bowel sounds x4. MUSCULOSKELETAL: No obvious deformities. Extremities without clubbing, cyanosis , or edema. NEUROLOGICAL: Awake and alert. No obvious cranial nerve deficits. Motor grossly within normal limits. Moving all extremities spontaneously. Normal speech. PSYCHIATRIC: Appropriate mood and affect; insight and judgment normal. Results - Labs CBC & Chem 7: 03/31/18 04:54 03/31/18 04:54 Laboratory Results - last 24 hr 03/29/18 03/29/18 03/29/18 13:12 13:12 13:12 WBC 12.9 H RBC 4.51 Hgb 13.2 Hct 40.8 MCV 90.4 MCH 29.4 MCHC 32.5 RDW 13.7 Plt Count 304 D MPV 9.4 Neut % (Auto) 68.1 Lymph % (Auto) 16.8 [place] % (Auto) 5.4 Eos % (Auto) 8.6 H Baso % (Auto) 1.1 Neut # (Auto) 8.8 H Lymph # (Auto) 2.2 [place] # (Auto) 0.7 Eos # (Auto) 1.1 H Baso # (Auto) 0.1 WBC Differential . Differential Comment Auto diff final PT 10.2 INR 1.0 APTT 24.1 L Sodium 143 Potassium 4.3 Chloride 113 H Carbon Dioxide 21.4 Anion Gap 9 BUN 16 Creatinine 1.29 Estimated GFR 56 L Random Glucose 139 H Calcium 8.3 L Magnesium 1.7 Total Bilirubin 0.4 AST 18 ALT 32 Alkaline Phosphatase 75 Total Creatine Kinase 56 Troponin I 0.24 H Total Protein 6.9 Albumin 3.3 L 03/29/18 03/29/18 03/30/18 13:12 18:22 01:58 WBC RBC Hgb Hct MCV MCH MCHC RDW Plt Count MPV Neut % (Auto) Lymph % (Auto) [place] % (Auto) Eos % (Auto) Baso % (Auto) Neut # (Auto) Lymph # (Auto) [place] # (Auto) Eos # (Auto) Baso # (Auto) WBC Differential Differential Comment PT INR APTT Sodium 143 Potassium 3.9 Chloride 112 H Carbon Dioxide 23.0 Anion Gap 8 BUN 20 H Creatinine 1.37 H Estimated GFR 52 L Random Glucose 115 H Calcium 8.0 L Magnesium Cancelled Total Bilirubin AST ALT Alkaline Phosphatase Total Creatine Kinase Troponin I 0.31 H 0.26 H Total Protein Albumin - Imaging Impressions Chest X-Ray 03/29/18 13:43 CONCLUSION: 1. No acute cardiopulmonary disease. Assessment and Plan - Plan 63-year-old male with a medical history significant for atrial fibrillation, diabetes who was discharged from the hospital about 4 days ago after he was treated for A. fib with RVR. The patient has a loop recorder in place. His skin diving teacher office noted his heart rate was uncontrolled today and he was sent in the emergency room for evaluation. A. fib with RVR: Sent by skin diving teacher office. This is a recurrent admission within a week for the patient. - S/p a dose of 10 mg IV Cardizem in the emergency room. Rate is now controlled. - Continued Coreg, and doubled his home Cardizem dose to 60 mg 4 times daily - monitor on telemetry - The patient frequently falls at home and it was established that he was not a candidate for anticoagulation. - Cardiology consulted, discussed with Dr. Reeves, plan for Lexiscan today and if unremarkable, will proceed with ablation -1410hrs: Patient returned to afib with RVR HR 150s-160s. Joe nurse to assist with pushing IV Cardizem 10mg x1 now in CDU, transfer to [facility], and start on IV Cardizem drip. -Discussed with Dr. Reeves. Plan for ablation 04/01. Elevated troponins: Suspect secondary to A. fib with RVR. No complaints of chest pain, only palpitations and SOB during episodes of RVR. -Cardiac enzymes trended at 0.24, 0.31, 0.26 -No acute ST changes on EKG. -Lexiscan ordered Type 2 diabetes: chronic -hold patient's metformin for now -Continue patient's Januvia -Monitor Accu-checks and cover with SSI CKD stage II: Cr 1.3, appears at baseline -avoid nephrotoxins -outpatient f/up All other chronic medical conditions stable, continue home medications as appropriate. DVT Prophylaxis: Lovenox sq Discussed Condition With: Discussed with RN, bellows charger assembler, joe RN, Dr. Reeves, Dr. Mtz. I spent 35 minutes [id number] with the patient or on the bustillo discussing the patient's disposition, prognosis, and plan of care with his caregivers. Over half the time spent was devoted to counseling the patient regarding placement in coordinating care with nursing staff, physicians, and case management. Discharge Planning: Plan for ablation 04/01.
[2018-03-30] MEDS ORDERED: Regadenoson Inj 0.4 MG/5 ML Syringe IV.PUSH ONE (12:35)
[2018-03-30] MEDS ORDERED: Dextrose 50% in Water 50 ML Vial IV.PUSH PRN (13:25)
--- NOTE | 2018-03-30 13:50 | NM ---
EXAM DATE: 03/30/2018 11:41 AM EDT AGE/SEX: 63 years / Male INDICATIONS:Atrial Fibrillation. Myocardial infarction CLINICAL DATA: This is the patient's initial encounter. Patient reports that signs and symptoms have been present for 1 day and indicates a pain score of 6/10. MEDICAL/SURGICAL HISTORY: Hypertension. Diabetes mellitus type II. Coronary artery stent. Cho lecystectomy. COMPARISON: No prior exams available for comparison. DOSE: 10.0 mCi Tc 99m Myoview at rest 30.0 mCi [id number] at stress 0.4 mg Lexiscan STRESS SYMPTOMS: Dyspnea. EJECTION FRACTION: 42 % TECHNIQUE: The patient underwent pharmacologic stress with infusion of prescribed dose. Continuous ECG tracing was monitored during stress. Gated SPECT imaging was performed after stress and conventi onal SPECT imaging was performed at rest. The examination was performed on a SPECT/CT scanner, both attenuation and non-corrected datasets were reviewed. FINDINGS: Distribution: The maximum perfused segment at stress is in the anterolateral wall. Perfusion Study: The pattern of perfusion at stress is within normal limits. Gated Study: There are intact wall motion and wall thickening without hypokinetic or dyskinetic segm ents. The ejection fraction is calculated at 42%. RISK CATEGORY: Intermediate (1-3 % Annual Mortality Rate) CONCLUSION: 1. Mild LV dysfunction. 2. No significant perfusion abnormalities. Electronically signed by: Corbin Mcneil MD 03/30/2018 1:48 PM EDT
[2018-03-30] MEDS: Magnesium Oxide 400 MG Tablet PO SCH ×2 (14:21→21:07)
[2018-03-30] MEDS ORDERED: dilTIAZem Inj 125 MG in Sodium Chlor 0.9% Inj 100 ML IV.CONT PRN (14:28)
[2018-03-30] MEDS: Insulin NovoLOG Aspart Correctional Sugar Inj SQ SCH ×2 (17:00→23:41)
[2018-03-30] MEDS: Enoxaparin Inj 40 MG/0.4 ML Syringe SQ SCH (18:00)
[2018-03-30] MEDS ORDERED: Enoxaparin Inj 100 MG/ML Syringe SQ ONE (18:40)
--- NOTE | 2018-03-30 18:40 | P.PN ---
Subjective Interval history: palpitation. SOB Physical Exam Vital signs: Vital Signs 03/29/18 20:00 03/30/18 00:00 03/30/18 04:00 Temperature 97.5 F L 98.3 F 97.6 F Pulse Rate 82 81 78 Respiratory Rate 20 20 20 Blood Pressure 98/68 L 107/78 109/68 Pulse Oximetry 97 95 96 03/30/18 07:51 03/30/18 08:43 03/30/18 09:00 Temperature 98.2 F Pulse Rate 74 82 Respiratory Rate 20 Blood Pressure 121/80 Pulse Oximetry 95 97 03/30/18 14:56 03/30/18 16:00 03/30/18 17:00 Temperature 97.6 F Pulse Rate 95 H 93 H 120 H Respiratory Rate 18 Blood Pressure 142/77 H Pulse Oximetry 99 Intake & Output 03/29/18 03/30/18 03/30/18 18:59 06:59 18:59 Intake Total 480 / 480 Output Total 450 / 450 Balance -450 / -450 480 / 480 Weight 103.419 kg 103.6 kg 102 kg Intake: Oral 480 / 480 Output: Urine 450 / 450 Other: # Voids 1 # Incontinent Voids 0 Date of Last Bowel Movement 03/30/18 # Bowel Movements 1 Weight On Admission 103.6 kg - Constitutional no acute distress - Routine HEENT Exam Head: Present: normocephalic Eye: Present: PERRL ENT: Present: mucous membranes moist - Routine Respiratory Exam Present: CTA bilaterally - Routine Cardiovascular Exam Present: RRR, S1, S2, tachycardia, irregularly irregular - Routine Abdominal Exam Present: soft - Routine Neurological Exam Present: alert, oriented X3 - Detailed Neurological Exam: Coma Scale Eye Opening: Spontaneous Results - Labs CBC & Chem 7: 03/29/18 13:12 03/30/18 01:58 Laboratory Results - last 24 hr 03/29/18 03/30/18 03/30/18 18:22 01:58 16:43 Sodium 143 Potassium 3.9 Chloride 112 H Carbon Dioxide 23.0 Anion Gap 8 BUN 20 H Creatinine 1.37 H Estimated GFR 52 L POC Glucose 112 H Random Glucose 115 H Calcium 8.0 L Troponin I 0.31 H 0.26 H - Imaging Impressions Myocardial Perfusion Scan Nuc Med 03/30/18 00:00 CONCLUSION: 1. Mild LV dysfunction. 2. No significant perfusion abnormalities. Assessment and Plan - Assessment (1) Atrial fibrillation with RVR Code(s): I48.91 - Unspecified atrial fibrillation Status: Acute - Plan Patient in atrial fibrillation with fast ventricular response. On cardizem. HR cannot be controlled EPS and ablation scheduled for tomorrow case discussed with patient.
--- NOTE | 2018-03-30 19:55 | ECG ---
Date Performed: 03/29/2018 Time Performed: 13:26:16 PTAGE: 63 years EKG: ATRIAL FIBRILLATION WITH RAPID VENTRICULAR RESPONSE LOW QRS VOLTAGE IN EXTREMITY LEADS ST D EVIATION AND MODERATE T-WAVE ABNORMALITY, CONSIDER LATERAL ISCHEMIA Since previous tracing, no signif icant change noted ABNORMAL ECG PREVIOUS TRACING : 03/24/2018 14.21 DOCTOR: Tonya Farley Interpretating Date/Time 03/30/2018 19:53:27
[2018-03-31] MEDS: dilTIAZem 60 MG Tablet PO SCH ×3 (00:15→14:23)
[2018-03-31 05:42] LABS: Baso # (Auto) 0.1 th/mm3 (0.0-0.2); Baso % (Auto) 0.7 % (0.0-2.0); Eos # (Auto) 0.6 th/mm3 (0.0-0.4); Eos % (Auto) 7.5 % (0.0-4.0); Hematocrit 34.4 % (39.0-51.0); Hemoglobin 11.4 gm/dL (13.0-17.0); Lymph # (Auto) 1.4 th/mm3 (1.0-4.8); Mean Corpuscular HGB Conc 33.1 % (32.0-36.0); Mean Corpuscular Hemoglobin 29.6 pg (27.0-34.0); Mean Corpuscular Volume 89.4 fL (80.0-100.0); Mono # (Auto) 0.5 th/mm3 (0.0-0.9); Mono % (Auto) 6.3 % (0.0-8.0); Neut # (Auto) 5.7 th/mm3 (1.8-7.7); Neut % (Auto) 68.5 % (16.0-70.0); Platelet Count 222 th/mm3 (150-450); Red Blood Count 3.85 mil/mm3 (4.50-5.90); Red Cell Distribution Width 13.6 % (11.6-17.2); White Blood Count 8.3 th/mm3 (4.0-11.0)
[2018-03-31 06:11] LABS: Calcium 8.1 mg/dL (8.5-10.1); Carbon Dioxide 22.6 meq/L (21.0-32.0); Potassium 3.8 meq/L (3.5-5.1)
[2018-03-31] MEDS ORDERED: Metoprolol Tartrate 25 MG Tablet PO ONE (06:12)
[2018-03-31] MEDS ORDERED: Chlorhexidine Gluconate 2% 1 Pack (2 Cloths) TOPICAL ONE (06:12)
[2018-03-31] MEDS ORDERED: Sodium Chlor 0.9% Inj 500 ML IV.SIG SCH (07:00)
[2018-03-31] MEDS: Insulin NovoLOG Aspart Correctional Sugar Inj SQ SCH ×4 (08:55→20:32)
[2018-03-31] MEDS: Topiramate 100 MG Tablet PO SCH ×2 (08:59→20:34)
[2018-03-31] MEDS: Lisinopril 20 MG Tablet PO SCH (09:00)
[2018-03-31] MEDS: Ascorbic Acid 500 MG Tablet PO SCH (09:00)
[2018-03-31] MEDS: Spironolactone 25 MG Tablet PO SCH (09:01)
[2018-03-31] MEDS: levETIRAcetam 500 MG Tablet PO SCH ×2 (09:01→20:32)
[2018-03-31] MEDS: Isosorbide Mononitrate 60 MG ER 24HR Tablet (Imdur) PO SCH (09:02)
[2018-03-31] MEDS: Ferrous Sulfate 325 MG Tablet PO SCH (09:02)
[2018-03-31] MEDS: Carvedilol 12.5 MG Tablet PO SCH ×2 (09:04→20:32)
[2018-03-31] MEDS: Folic Acid 1 MG Tablet PO SCH (09:06)
[2018-03-31] MEDS: Budesonide-Formoterol 160/4.5 MCG 6 GM Inhaler INH SCH ×2 (09:11→20:33)
--- NOTE | 2018-03-31 13:29 | P.PN ---
Subjective Interval history: Follow up for afib with RVR. The patient continues to have episodes of RVR with HR into the 140s, now currently controlled in the 80s. He reports associated palpitations and shortness of breath. Denies any specific chest pains. Denies any other medical complaints. Tolerating oral intake. Going for ablation today around 3pm. Physical Exam Vital signs: Vital Signs 03/30/18 14:56 03/30/18 16:00 03/30/18 17:00 Temperature 97.6 F Pulse Rate 95 H 93 H 120 H Respiratory Rate 18 Blood Pressure 142/77 H Pulse Oximetry 99 03/30/18 18:00 03/30/18 19:00 03/30/18 20:00 Temperature 98.1 F Pulse Rate 122 H 104 H 150 H Respiratory Rate 20 Blood Pressure 137/86 Pulse Oximetry 99 03/30/18 20:30 03/30/18 21:00 03/30/18 22:00 Temperature Pulse Rate 89 114 H 82 Respiratory Rate Blood Pressure Pulse Oximetry 03/30/18 23:00 03/31/18 00:00 03/31/18 01:00 Temperature 98.1 F Pulse Rate 98 H 98 H 108 H Respiratory Rate 20 Blood Pressure 110/83 Pulse Oximetry 95 03/31/18 02:00 03/31/18 03:00 03/31/18 04:00 Temperature 98.2 F Pulse Rate 86 54 L 72 Respiratory Rate 20 Blood Pressure 109/59 L Pulse Oximetry 96 03/31/18 05:00 03/31/18 06:00 03/31/18 07:00 Temperature 97.9 F Pulse Rate 62 58 L 70 Respiratory Rate 16 Blood Pressure 115/76 Pulse Oximetry 03/31/18 10:00 03/31/18 11:00 03/31/18 12:35 Temperature Pulse Rate 82 82 96 H Respiratory Rate Blood Pressure Pulse Oximetry 03/31/18 13:23 Temperature Pulse Rate 70 Respiratory Rate Blood Pressure Pulse Oximetry Intake & Output 03/30/18 03/31/18 03/31/18 18:59 06:59 18:59 Intake Total 480 / 480 680 / 680 Output Total 560 / 560 Balance 480 / 480 120 / 120 Weight 102 kg 101 kg Intake: Oral 480 / 480 680 / 680 Output: Urine 560 / 560 Other: # Voids 2 # Incontinent Voids 0 Date of Last Bowel Movement 03/30/18 03/30/18 03/29/18 # Bowel Movements 1 0 Weight On Admission 103.6 kg Narrative: GENERAL: Well-nourished, well-developed pleasant male patient in NAD. Sitting upright in bed. SKIN: Warm and dry. No rash. HEENT: Normocephalic. Atraumatic. Pupils equal and round. Mucous membranes pink and moist. CARDIOVASCULAR: Irregular rate and rhythm. No murmur appreciated. RESPIRATORY: No accessory muscle use. Clear to auscultation. Breath sounds equal bilaterally. GASTROINTESTINAL: Abdomen soft, non-tender, nondistended. Normoactive bowel sounds x4. MUSCULOSKELETAL: No obvious deformities. Extremities without clubbing, cyanosis , or edema. NEUROLOGICAL: Awake and alert. No obvious cranial nerve deficits. Motor grossly within normal limits. Moving all extremities spontaneously. Normal speech. PSYCHIATRIC: Appropriate mood and affect; insight and judgment normal. Results - Labs CBC & Chem 7: 03/31/18 04:54 03/31/18 04:54 Laboratory Results - last 24 hr 03/30/18 03/30/18 03/31/18 16:43 21:37 04:54 WBC 8.3 RBC 3.85 L Hgb 11.4 L Hct 34.4 L MCV 89.4 MCH 29.6 MCHC 33.1 RDW 13.6 Plt Count 222 MPV 9.0 Neut % (Auto) 68.5 Lymph % (Auto) 17.0 [place] % (Auto) 6.3 Eos % (Auto) 7.5 H Baso % (Auto) 0.7 Neut # (Auto) 5.7 Lymph # (Auto) 1.4 [place] # (Auto) 0.5 Eos # (Auto) 0.6 H Baso # (Auto) 0.1 WBC Differential . Differential Comment Auto diff final Sodium Potassium Chloride Carbon Dioxide Anion Gap BUN Creatinine Estimated GFR POC Glucose 112 H 98 Random Glucose Calcium 03/31/18 03/31/18 03/31/18 04:54 07:50 12:29 WBC RBC Hgb Hct MCV MCH MCHC RDW Plt Count MPV Neut % (Auto) Lymph % (Auto) [place] % (Auto) Eos % (Auto) Baso % (Auto) Neut # (Auto) Lymph # (Auto) [place] # (Auto) Eos # (Auto) Baso # (Auto) WBC Differential Differential Comment Sodium 143 Potassium 3.8 Chloride 112 H Carbon Dioxide 22.6 Anion Gap 8 BUN 16 Creatinine 1.17 Estimated GFR 63 L POC Glucose 158 H 119 H Random Glucose 121 H Calcium 8.1 L - Imaging Impressions Myocardial Perfusion Scan Nuc [facility] 03/30/18 00:00 CONCLUSION: 1. Mild LV dysfunction. 2. No significant perfusion abnormalities. Assessment and Plan - Plan 63-year-old male with a medical history significant for atrial fibrillation, diabetes who was discharged from the hospital about 4 days ago after he was treated for A. fib with RVR. The patient has a loop recorder in place. His imaging engineer office noted his heart rate was uncontrolled today and he was sent in the emergency room for evaluation. A. fib with RVR: Sent by imaging engineer office. This is a recurrent admission within a week for the patient. - S/p a dose of 10 mg IV Cardizem in the emergency room. Rate is now controlled. - Continued Coreg, and doubled his home Cardizem dose to 60 mg 4 times daily - monitor on telemetry - The patient frequently falls at home and it was established that he was not a candidate for anticoagulation. - Cardiology consulted, discussed with Dr. Reeves - Patient with continued recurrent RVR during admission, s/p IV Cardizem 10mg push and started on Cardizem drip - Dr. Reeves planning for ablation today 03/31. Elevated troponins: Suspect secondary to A. fib with RVR. No complaints of chest pain, only palpitations and SOB during episodes of RVR. -Cardiac enzymes trended at 0.24, 0.31, 0.26 -No acute ST changes on EKG. -Lexiscan unremarkable for ischemia Type 2 diabetes: chronic -hold patient's metformin for now -Continue patient's Januvia -Monitor Accu-checks and cover with SSI CKD stage II: Cr 1.3, appears at baseline -avoid nephrotoxins -outpatient f/up All other chronic medical conditions stable, continue home medications as appropriate. DVT Prophylaxis: Lovenox sq Discharge Planning: Plan for ablation today 03/31. Possible discharge tomorrow 04/01 if stable and cleared by cardiology.
[2018-03-31] MEDS ORDERED: Levofloxacin 500 mg Premix Inj 500 MG/100 ML PIGGYBACK IV.SIG ONE (15:54)
[2018-03-31] MEDS ORDERED: Lidocaine PF 1% Inj 5 ML Syringe OTHER ONE (16:00)
[2018-03-31] MEDS ORDERED: Sod Chloride 0.9% Inj 1,000 ML IV.CONT ONE (16:00)
[2018-03-31] MEDS ORDERED: Protamine Sulfate Inj 50 MG/5 ML Vial ONE (16:00)
[2018-03-31] MEDS ORDERED: Isoproterenol HCl Inj 0.2 MG/ML Ampul ONE (16:00)
[2018-03-31] MEDS ORDERED: Phenylephrine/NS 1000 MCG/10ML Syringe IV.PUSH ONE (16:00)
[2018-03-31] MEDS ORDERED: Heparin 10,000 UNITS/10 ML Vial (for IV use) ONE (16:00)
[2018-03-31] MEDS ORDERED: Heparin/NS PF Inj 500 ML ONE ×2 (16:00→16:02)
--- NOTE | 2018-03-31 18:31 | CATHPROC ---
Patient Name: Jimi Jenkins Study #: [id number] Initial MD: Elie Reeves Date of : 1955 Study Date: 03/31/2018 Cardiac Catheterization Report 03/31/2018 6:31:37 PM Financial #: [id number] 1 of 7 Patient Name: Jimi Jenkins Study #: [id number] Initial MD: Elie Reeves Date of : 1955 Study Date: 03/31/2018 Entire Case Report Patient Information Patient Name Jimi Jenkins Date of 1955 Age 63 years Financial # [id number] Gender M AlternateID Lab Number 2 Room Number 457 Height (in) 73.0 Height (cm) 185.4 BSA 2.25 Weight (lbs) 222.2 Weight (kg) 101.0 Patient Address/Phone Number Home Address [facility] Home Phone Number [phone] [place] [phone] Study Information Study Number Admission Scheduled Start Study Start [id number] Mar 30 2018 2:28PM 03/31/2018 Mar 31 2018 2:28PM [place] [facility] Cardiac Catheterization Admit Source Facility Department Other [facility] - Crm Coordinator Physician and Clinical Staff Initial Elie Lenz Supervisor Publications Production Stacey Martines,RN Supervisor Publications Production Krista Hernandez,RT(R) TECH2 Other Anesthesia, MIX TECHNICIAN Recorder Stacey Martines,BEE Scrub Pedro Daniel,RT(R) Procedures Performed Procedure Location (Site) Vessel Name Cardioversion ICE CATHETER INSERT RA Atruim RF Ablation LT. ATRIUM LT. 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 [employer]GUY[employer] Used 65 BUNDLE *[id number]- BUNDLE [id number] CATHETER, FR7 OPTIMA SPIRAL 15:40 BUNDLE-[employer] FR7 *[id number]- Used BUNDLE BUNDLE [id number] 15:40 BUNDLE-[employer] CATHETER, JSN, QUAD BUNDLE FR 5 *[id number]- Used BUNDLE [id number] 15:40 BUNDLE-[employer] CATHETER, JSN, QUAD BUNDLE FR 5 *0599258- Used BUNDLE 31499-[id number] SET, COOL POINT TUBING 15:40 BUNDLE-[employer] *2380556- Used BUNDLE BUNDLE SHEATH, FR8.5 STEERABLE SM 15:40 BUNDLE-[facility] NGUYEN 71CM [id number] Used 71CM BUNDLE [id number] 18:16 CARDIVA MEDICAL VASCADE, FR5 CLOSURE SYSTEM FR 5 Used *[id number] 18:16 CARD[employer]A MEDICAL VASCADE, FR6 CLOSURE SYSTEM FR 6\\7 Used *[id number] 18:16 CARD[employer]A MEDICAL VASCADE, FR6 CLOSURE SYSTEM FR 6\\7 Used *[id number] 18:16 CARDIVA MEDICAL VASCADE, FR6 CLOSURE SYSTEM FR 6\\7 Used *[id number] 18:16 CARDIVA MEDICAL VASCADE, FR6 CLOSURE SYSTEM FR 6\\7 Used *[id number] COVER, TRANSDUCER CABLE 612-113 15:40 [employer] Used ACUNAV *[id number] 15:40 CORDIS/PACER SHEATH, FR10 PURVI 11CM FR 10 Used *6702774 15:40 CORDIS/PACER SHEATH, FR9 PURVI 11CM FR 9 [id number] Used [id number] 15:40 GT[employer] BLANKET,WARM AIR CCL * Used *[id number] [id number] 15:40 [employer] PACK, CCL CUSTOM * Used *2540653 15:40 MEDLINE PACER WIN, LIMB * 2530 *2364240 Used 15:41 Simmr MEDICAL SHEATH, FR5.5 PRELUDE 11CM FR 5 [id number] Used [id number] 15:40 NAMIC TUBING, HIGH PRESSURE 48" 48" Used *0402465 [id number] 15:40 NAMIC TUBING, HIGH PRESSURE 48" 48" Used *0605863 RF1212 15:40 [facility] MEDICAL ELECTRODE KIT, NOAM X SURFACE * Used *4563183 689536 15:40 [facility] [employer] MEDICAL SHEATH, EPS, FR6 FAST CATH FR 6 Used *2829641 15:40 [employer] [employer] MEDICAL SHEATH, EPS, FR7 FAST CATH FR 7 [id number] Used 793490 15:40 [employer] MEDICAL SHEATH, EPS, FR8 FAST CATH FR 8 Used *7616202 16:55 [employer] MEDICAL SHEATH, FR8.5 SL0 189358 Used CATHETER, ACUNAV FR10 ICE [id number] 16:48 CUCA FR 10 Used (CUCA) *[id number] [facility] PAD, ELECTROSURGICAL 15:40 * [id number] *1138445 Used SURGICAL GROUNDING (BLUE) 03/31/2018 6:31:37 PM Financial #: [id number] 3 of 7 Patient Name: Jimi Jenkins Study #: [id number] Initial MD: Elie Reeves Date of : 1955 Study Date: 03/31/2018 Insurance Information Insurance Payor Private Health Insurance Third Democrat Third Democrat Number [employer] [facility] Labs Hgb (g/dl) Hct (%) WBC (l/cumm) Platelets (thousands) 11.60-17.00 35.00-51.00 4.00-11.00 150.00-450.00 11.4 34.4 8.3 222 Glucose (mg/dl) BUN (mg/dl) Creatinine (mg/dl) BUN:Creatinine (1:x) 74.00-106.00 7.00-18.00 0.50-1.30 10.00-20.00 158 16 1.1 14.5 Na (meq/l) K (meq/l) 136.00-145.00 3.50-5.10 143 3.8 INR (PTT:PT) 0.90-1.10 1 Medication Medication Total Dose (Bolus/Oral) Medication Total Dosage/Unit 1% XYLOCAINE 40 mL HEPARIN 69598 units 03/31/2018 6:31:37 PM Financial #: [id number] 4 of 7 Patient Name: Jimi Jenkins Study #: [id number] Initial MD: Elie Reeves Date of : 1955 Study Date: 8 Medications (Bolus/Oral) Medication Time Given Dosage/Unit Administered By Reason 1% XYLOCAINE 03/31/2018 4:40:07 PM 20 mL Elie Reeves 20 mL 1% XYLOCAINE given in lab by Elie Reeves in Left Groin via Subcutaneous. 1% XYLOCAINE 03/31/2018 4:43:48 PM 20 mL Elie Reeves 20 mL 1% XYLOCAINE given in lab by Elie Reeves in Right Groin via Subcutaneous. HEPARIN 03/31/2018 4:48:33 PM 65009 units Elie Reeves 33176 units HEPARIN given in lab by Elie Reeves in Left Hand via Peripheral IV. Ordered by Kati Reeves. HEPARIN 03/31/2018 5:08:55 PM 2000 units Elie Reeves 2000 units HEPARIN given in lab by Elei Reeves via Peripheral IV. Ordered by Elie Reeves. HEPARIN 03/31/2018 5:30:34 PM 2000 units Elie Reeves 2000 units HEPARIN given in lab by Elie Reeves via Peripheral IV. Ordered by Elie Reeves. Medication (Drip) Medication Time Given Dosage/Unit Concentration/Unit Diluent (ml) Solution HEPARIN DRIP 03/31/2018 5:09:17 PM 1000 units/hr 41719 units 250 D5W 1000 units/hr HEPARIN DRIP given in lab by Elie Reeves via Peripheral IV. Pump/Drip Flow = 10 ml/hr using D5W [place] [address] units in 250 ml. Ordered by Elie Reeves. ISUPREL 03/31/2018 6:03:03 PM 4 mcg/min 1 mg 250 NaCl .9 4 mcg/min ISUPREL given in lab by BRIAN Chandler via Peripheral IV. Pump/Drip Flow = 60 ml/hr using NaCl .9 with a concentration of 1 mg in 250 ml. Ordered by Elie Reeves. Chronological Log Time Study Chronological Log 15:37:15 Patient arrived via Bed. 15:37:56 Patient arrived via Bed.(waiting 10 min due to pt finish eating at 825) 15:39:05 Patient Name, D.O.B, / Armband Verified By R.N. 15:39:07 Consent signed by the physician and the patient and verified by the Crm Coordinator staff. 15:39:08 Pre-op and post- op instructions given; patient acknowledges understanding of instructions . 15:39:12 Verbal Stimulation=2 Physical Stimulation=2 Airway=2 Respiration=2 TOTAL=8. (0=absent, 1=l imited, 2=present) 15:39:31 Presedation assessment performed by Crm Coordinator RN. 15:39:33 Patient has been NPO for More than 6Hrs. 15:39:35 Skin Breakdown/left ear scrap 16:00:00 A # 20 IV was noted in the Hand (left). Grade = 0 16:00:01 A # 20 IV was noted in the Hand (left). Grade = 0 16:00:50 A # 20 IV was noted in the Hand (right). Grade = 0 16:17:10 Reference ECG taken 16:19:42 S HESHER INSERTED UP WITH CLEAR YELLOW URINE RETURN 03/31/2018 6:31:37 PM Financial #: [id number] 5 of 7 Patient Name: Jimi Jenkins Study #: [id number] Initial MD: Elie Reeves Date of : 1955 Study Date: 03/31/2018 16:20:00 DR TALBERT PRESENT FOR INTUBATION Time Out. Correct patient, procedure, procedure equipment, site and side verified with physicia n present. Time 16:35:17 concurred by MD, individual staff and MIX TECHNICIAN. Time Out #2 - Consents verified, patient in correct position, all results are labled and displa yed, safety precautions 16:35:20 taken, antibiotics administered. Time out concurred by MD, individual staff and MIX TECHNICIAN in procedu re 16:35:22 Case Start 16:35:55 BRENNA IN PROGRESS 16:39:58 BRENNA COMPLETE 16:40:07 20 mL 1% XYLOCAINE given in lab by Elie Reeves in Left Groin via Subcutaneous. 16:40:22 Vascular access was obtained in the Fem Art (left). 16:40:36 Vascular access was obtained in the Fem Vein (left). 16:40:37 Vascular access was obtained in the Fem Vein (left). 16:40:38 Vascular access was obtained in the Fem Vein (left). 16:40:42 A SHEATH, FR5.5 PRELUDE 11CM FR 5 was advanced into the Fem Art (left) using the Modified S eldinger technique. 16:40:57 A SHEATH, FR5.5 PRELUDE 11CM FR 5 was advanced into the Fem Art (left) using the Modified S eldinger technique. 16:41:19 A SHEATH, EPS, FR6 FAST CATH FR 6 was advanced into the Fem Vein (left) using the Modified Seldinger technique. 16:41:25 A SHEATH, EPS, FR7 FAST CATH FR 7 was advanced into the Fem Vein (left) using the Modified Seldinger technique. 16:41:28 A SHEATH, FR10 PURVI 11CM FR 10 was advanced into the Fem Vein (left) using the Modified S eldinger technique. 16:43:48 20 mL 1% XYLOCAINE given in lab by Elie Reeves in Right Groin via Subcutaneous. 16:43:52 Vascular access was obtained in the Fem Vein (right). 16:43:53 A SHEATH, EPS, FR8 FAST CATH FR 8 was advanced into the Fem Vein (right) using the Modified Seldinger technique. A CATHETER, JSN, QUAD BUNDLE FR 5 was advanced vis Fem Vein (left) and placed in the CS. Placem ent was visually 16:47:00 confirmed under fluoroscopy. A CATHETER, JSN, QUAD BUNDLE FR 5 was advanced vis Fem Vein (left) and placed in the HIS. Place ment was 16:47:48 visually confirmed under fluoroscopy. 16:47:56 CATHETER, ACUNAV FR10 ICE (CUCA) FR 10 Was Postioned. 16:48:33 64239 units HEPARIN given in lab by Elie Reeves in Left Hand via Peripheral IV. Ordered b y Elie Reeves. A SHEATH, FR8.5 STEERABLE SM 71CM BUNDLE 71CM was exchanged in the Fem Vein (right). This was n ecessary in 16:49:42 order to accomodate a larger catheter. 16:49:54 BAYLIS NEEDLE INSERTED 16:59:10 A sheath was exchanged in the Fem Art (right). This was necessary in order ~REASON~. A SHEATH, FR8.5 SL0 was exchanged in the Fem Vein (right). This was necessary in order to accom odate a larger 16:59:12 catheter. 17:06:00 ACT (Normal Range 90-180) = 317 17:08:55 2000 units HEPARIN given in lab by Elie Reeves via Peripheral IV. Ordered by Fernanda Reeves 1000 units/hr HEPARIN DRIP given in lab by Elie Reeves via Peripheral IV. Pump/Drip Flow = 10 ml/hr using D5W 17:09:17 [place] [address] units in 250 ml. Ordered by Elie Reeves. A CATHETER, TACTICATH ABLAT 65 BUNDLE was advanced vis Fem Vein (right) and placed in the LA. P lacement was 17:19:00 visually confirmed under fluoroscopy. 17:19:10 RF Ablation of the LT. ATRIUM with a CATHETER, TACTICATH ABLAT 65 BUNDLE. 17:25:14 Activated Clotting Time Drawn 17:29:38 ACT (Normal Range 90-180) = 331 03/31/2018 6:31:37 PM Financial #: [id number] 6 of 7 Patient Name: Jimi Jenkins Study #: [id number] Initial MD: Elie Reeves Date of : 1955 Study Date: 03/31/2018 17:30:34 2000 units HEPARIN given in lab by Elie Reeves via Peripheral IV. Ordered by Edwin Reeves. 17:48:13 ACT (Normal Range 90-180) = 352 17:57:23 ECG rhythm of AF noted. Patient cardioverted at 200 joules. Success 4 mcg/min ISUPREL given in lab by Anesthesia, MIX TECHNICIAN via Peripheral IV. Pump/Drip Flow = 60 ml/h r using NaCl .9 with 18:03:03 a concentration of 1 mg in 250 ml. Ordered by Elie Reeves. 18:08:59 D/C ISUPEL A SHEATH, FR9 PURVI 11CM FR 9 was exchanged in the Fem Vein (right). This was necessary in or ophelia to minimize 18:12:14 site leakage. 18:13:29 Catheter(s) removed without difficulty 18:13:55 Case End (Physician broke scrub) 18:28:16 Sheath removed; CLOSURE DEVICE applied and pressure applied to access site. x5 cites bilat 18:30:49 Sterile dressing applied to site 18:30:50 No case complications noted. 18:30:51 Cine recording checked. 18:30:52 Bedside Report will be given. 18:31:22 PACU called. Spoke to argueta 18:31:27 Defibrillator and ground pads removed. Skin intact. 18:35:28 Patient moved to stretcher End Study - Contrast Media Used In Study Contrast Total Opened (mL) Total Used (mL) Total Wasted (mL) Unspecified 0 0 0 End Study - Maximum Contrast Load Max Contrast Load (mL) 459.1 End Study - Radiation Exposure Fluoro Time (minutes) 3.9 End Study - Patient Disposition Complications Transferred To Interventional Outcome No Telemetry Bed successful 03/31/2018 6:31:37 PM Financial #: [id number]
[2018-03-31] MEDS ORDERED: fentaNYL Citrate Inj 100 MCG/2 ML Ampul ONE (18:46)
[2018-03-31] MEDS: Amiodarone 200 MG Tablet PO SCH (20:32)
[2018-03-31] MEDS: Rivaroxaban 20 MG Tablet PO SCH (20:34)
[2018-04-01 04:31] LABS: Activated Partial Thrombo Time 30.1 sec (24.3-30.1); INR 1.3 Ratio; Prothrombin Time 13.3 sec (9.8-11.6)
[2018-04-01] MEDS: Insulin NovoLOG Aspart Correctional Sugar Inj SQ SCH ×2 (07:55→12:24)
[2018-04-01 07:58] VITALS: RESP 18
[2018-04-01] MEDS: Amiodarone 200 MG Tablet PO SCH (08:45)
[2018-04-01] MEDS: Topiramate 100 MG Tablet PO SCH (08:46)
[2018-04-01] MEDS: levETIRAcetam 500 MG Tablet PO SCH (08:46)
[2018-04-01] MEDS: Ascorbic Acid 500 MG Tablet PO SCH (08:47)
[2018-04-01] MEDS: Spironolactone 25 MG Tablet PO SCH (08:47)
[2018-04-01] MEDS: Isosorbide Mononitrate 60 MG ER 24HR Tablet (Imdur) PO SCH (08:48)
[2018-04-01] MEDS: Carvedilol 12.5 MG Tablet PO SCH (08:48)
[2018-04-01] MEDS: Rivaroxaban 20 MG Tablet PO SCH (08:49)
[2018-04-01] MEDS: Ferrous Sulfate 325 MG Tablet PO SCH (08:49)
[2018-04-01] MEDS: Lisinopril 20 MG Tablet PO SCH (08:49)
[2018-04-01] MEDS: Budesonide-Formoterol 160/4.5 MCG 6 GM Inhaler INH SCH (08:50)
[2018-04-01 12:01] VITALS: BP 114/68; TEMP 98.2; O2SAT 96
[2018-04-01] MEDS: Folic Acid 1 MG Tablet PO SCH (12:13)
[2018-04-01 14:27] VITALS: PULSE 62
--- NOTE | 2018-04-01 15:04 | P.PCNCA ---
Atrial Fibrillation Ablation - Afib Ablation Procedure Date: 03/31/18 Atrial Fibrillation Ablation: PROCEDURES PERFORMED: 1. Electrophysiology study on Isuprel infusion 2. CS cannulation 3. 3-D mapping 4. Transseptal approach 5. Right and left heart catheterization 6. Intracardiac echo 7. Radiofrequency ablation of atrial fibrillation 8. Pulmonary vein isolation 9. Posterior wall ablation and isolation 10. Mitral valve isolation 11. Mitral line creation 12. Left atrial tachycardia ablation 13. Roof line creation 14. Floor line creation 15. Anterior wall ablation 16. Left atrial tachycardia isolation 17. Cardioversion INDICATIONS FOR THE PROCEDURE Jimi Jenkins is a 63-year-old M with atrial fibrillation referred for electrophysiology study and ablation. The patient is symptomatic and on anticoagulation. The risks, the nature and the benefits of the procedure were clearly stated to the patient. The risks include pneumothorax, cardiac perforation, stroke, need for open heart surgery and even . The patient understood and agreed to proceed. DESCRIPTION OF THE PROCEDURE IN DETAIL As written informed consent was obtained prior to esophageal echocardiogram, the patient was kept on the table where and was prepped and draped in the usual sterile fashion. Conscious sedation was initiated and maintained throughout the procedure by the anesthesiologist. Once sedation was verified, the right and left inguinal areas were anesthetized with 2% Xylocaine. Using modified Seldinger technique, the left femoral vein was cannulated on three occasions, three guidewires were advanced. Over the wire a 6, 7 and a 10-Palauan Hemaquet were advanced. Then the left femoral artery was cannulated on one occasion, one guidewire was advanced. Over the wire a 4-Palauan Hemaquet was advanced. Then the right femoral vein was cannulated on one occasion, one guidewire was advanced. Over the wire a 8-Palauan Hemaquet was advanced. Then under fluoroscopic guidance through the 6 and 7-Palauan Hemaquet, two 5-Palauan [place]ino curved quadripolar electrophysiology catheters were advanced and placed around the His as well as coronary sinus. Basic interval was measured. The patient was in atrial fibrillation. Through the 10-Palauan Hemaquet, a EMED Coter AcuNav intracardiac echo catheter was advanced and placed at the right atrium. Multiple view was obtained. There is pericardial effusion, pulmonary vein was seen, atrial septal was visualized. Then the 8-Palauan Hemaquet in the right femoral vein was exchanged for Agilis transseptal sheath that was placed all the way to the superior vena cava. Through the sheath a Shade needle was advanced, then the sheath, the dilator and the needle were progressed until foci engaged. Once engaged, the needle was advanced. RF was delivered for 2 seconds. I was able to cross into the left atrium. Once the needle crossed, the dilator was advanced. Once the dilator crossed, the sheath was advanced. Once the sheath crossed, the dilator and the needle were removed. At this point I did flood the system and fluid movement was seen in the left atrium the indicates the sheath is in good position. The patient already received 12,000 units of heparin. The goal is to keep an ACT around 350 during ablation. Then through the sheath a [facility] Lukas 20 pulse circumferential catheter was advanced. Using [employer] endocardial solution mapping system, a two-dimensional configuration of the left atrium was obtained. Points were taken at the left superior and inferior veins, right superior and inferior veins, mitral valve, and appendages. Then through the sheath a [facility]. Lukas TactiCath 65cm 3.5mm irrigated tipped mapping and radiofrequency ablation catheter was advanced. Esophageal probe was placed temperature monitoring during ablation. When it increased to 0.5 degrees Celsius above baseline, I moved to a different area of the atrium. First I did isolate the left superior and inferior vein. I did make a yurok around the veins. Posterior was ablated. Then a roof line was created, a floor line was created, a mitral line was isolated, then the mitral valve was isolated. Left posterior wall was isolated. At that point the patient was in left atrial tachycardia. During septal ablation, tachycardia cycle length prolonged to 320ms. Activation changed. Left atrial was mapped. The mitral valve was isolated. I did isolate the left atrial appendage. Tachycardia cycle length prolonged again. I did create a line from the floor to the roof area, passing by the left atrial appendage. Then the right superior and inferior veins were isolated. Then I did proceed with coronary sinus isolation. I did remap the atrium. There is no significant signal in the atrium. At this point I decided to proceed with cardioversion. A 200 sync biphasic joule was delivered that converted the patient into sinus rhythm. At that point I did advance the circumferential catheter again into the vein. There was no signal into the vein, pacing from the vein showed no conduction to the atrium. Isuprel infusion was initiated at 10 mcg for 15 minutes. No tachyarrhythmia was induced, post Isuprel no tachyarrhythmia was induced. At that point the procedure was complete. All catheters were removed, atrial septal sheath was exchanged for 9-Palauan Hemaquet , intracardiac echo showed no pericardial effusion. There is still good flow in the pulmonary vein. The patient is going to be transferred to the recovery room. No incident report. The patient tolerated the procedure. Blood loss was minimal. FINDINGS 1. Electrocardiogram: At baseline the patient was in atrial fibrillation, post procedure the patient was in sinus rhythm. 2. Basic interval: Base cycle length was around 410ms. Post ablation she was around 980 milliseconds. 3. Tachyarrhythmia: Atrial fibrillation was mapped and ablated. Atrial tachycardia was ablated. The ablation was successful. CONCLUSION Successful electrophysiology study, mapping, radiofrequency ablation of atrial fibrillation, left atrial tachycardia, pulmonary vein isolation, posterior ablation, mitral valve isolation, mitral line creation, roof line creation, floor line creation, left atrial appendage isolation, coronary sinus ablation and cardioversion. COMMENTS AND RECOMMENDATIONS The patient is going to be transferred to the telemetry unit. Will be observed and when stable can be discharged home.
--- NOTE | 2018-04-01 15:08 | P.PN ---
Subjective Interval history: Feeling better Physical Exam Vital signs: Vital Signs 03/31/18 18:45 03/31/18 19:00 03/31/18 19:15 Temperature 98.1 F Pulse Rate 74 68 69 Respiratory Rate 17 15 16 Blood Pressure 140/74 139/85 144/81 H Pulse Oximetry 96 100 99 03/31/18 19:30 03/31/18 20:00 03/31/18 20:35 Temperature 97.3 F L 98.1 F Pulse Rate 70 75 78 Respiratory Rate 18 16 16 Blood Pressure 143/83 H 131/88 135/88 Pulse Oximetry 100 99 100 03/31/18 20:52 03/31/18 21:00 03/31/18 21:05 Temperature Pulse Rate 76 75 Respiratory Rate 16 Blood Pressure 142/87 H Pulse Oximetry 100 100 03/31/18 22:05 03/31/18 22:21 03/31/18 23:00 Temperature 98.4 F Pulse Rate 77 76 73 Respiratory Rate 16 16 Blood Pressure 124/85 123/83 Pulse Oximetry 100 100 03/31/18 23:05 04/01/18 00:00 04/01/18 00:05 Temperature 98.4 F Pulse Rate 73 75 75 Respiratory Rate 16 16 Blood Pressure 123/83 103/59 L Pulse Oximetry 100 97 04/01/18 01:16 04/01/18 01:20 04/01/18 02:00 Temperature Pulse Rate 72 72 66 Respiratory Rate 16 Blood Pressure 97/62 L Pulse Oximetry 96 04/01/18 02:05 04/01/18 03:00 04/01/18 06:00 Temperature Pulse Rate 68 67 63 Respiratory Rate 16 16 Blood Pressure 93/63 L 112/69 Pulse Oximetry 95 96 04/01/18 07:00 04/01/18 08:00 04/01/18 09:00 Temperature 98.0 F Pulse Rate 66 65 62 Respiratory Rate 18 Blood Pressure 104/69 Pulse Oximetry 97 97 04/01/18 10:00 04/01/18 10:59 04/01/18 11:00 Temperature 98.2 F Pulse Rate 65 66 Respiratory Rate 18 Blood Pressure 114/68 Pulse Oximetry 97 96 04/01/18 12:00 04/01/18 13:00 04/01/18 14:00 Temperature Pulse Rate 65 63 62 Respiratory Rate Blood Pressure Pulse Oximetry Intake & Output 03/31/18 04/01/18 04/01/18 18:59 06:59 18:59 Intake Total 480 / 480 Output Total 325 / 325 Balance 155 / 155 Weight 102.5 kg Intake: Oral 480 / 480 Output: Urine 75 / 75 Urine Amount (Catheter) 250 / 250 Indwelling Urethral Catheter 250 / 250 Other: # Voids 1 # Incontinent Voids 0 Date of Last Bowel Movement 03/29/18 03/30/18 03/30/18 # Bowel Movements 0 - Constitutional no acute distress - Routine HEENT Exam Head: Present: normocephalic Eye: Present: EOMI, PERRL ENT: Present: mucous membranes moist - Routine Cardiovascular Exam Present: RRR - Routine Abdominal Exam Present: soft - Routine Neurological Exam Present: alert, oriented X3 - Urinary Catheter Management Indwelling Urethral Catheter Cath placed during this visit: yes, but has since been removed by the nurse Reason for continuing: Other continuation reason Insertion date: 03/31/18 Removal date: 03/31/18 Removal time: 23:30 Results - Labs CBC & Chem 7: 03/31/18 04:54 03/31/18 04:54 Laboratory Results - last 24 hr 03/31/18 03/31/18 04/01/18 18:50 20:18 03:36 PT 13.3 H INR 1.3 APTT 30.1 POC Glucose 120 H 97 04/01/18 04/01/18 07:43 12:00 PT INR APTT POC Glucose 123 H 161 H Assessment and Plan - Assessment (1) Atrial fibrillation with RVR Code(s): I48.91 - Unspecified atrial fibrillation Status: Acute - Plan SP ablation. In sinus rhythm Doing well feeling better can be DH Follow up in 3 weeks
--- NOTE | 2018-04-01 15:41 | P.DS ---
Date of admission: 03/30/18 14:28 Primary care physician: Alex Martinez MD Anticipated date of discharge: 04/01/18 Brief History from admission: 63-year-old male with a medical history significant for atrial fibrillation, diabetes who was discharged from the hospital about 4 days ago after he was treated for A. fib with RVR. The patient has a loop recorder in place. His bunghole borer office noted his heart rate was uncontrolled today and he was sent in the emergency room for evaluation. Patient reports that when he left the hospital, he was doing okay for about a day or so but he continued to feel some heart palpitations but he did not want to come in until they called him earlier today. Currently he denies chest pain or shortness of breath. He has been given 10 mg of IV Cardizem and his rate is now controlled. ED physician discussed with his bunghole borer who advised increasing his dose of Cardizem and admit him for observation on telemetry. Patient update on day of discharge: Follow-up for A. fib with RVR. The patient is status post ablation yesterday . He has been in sinus rhythm post ablation. He denies any further episodes of palpitations or chest pain. Denies any new medical complaints. He wants to go home. Discussed with Dr. Reeves, cleared for discharge on amiodarone and Xarelto. Discussed new medications with the patient who verbalized understanding. DS: Diagnosis - Discharge Diagnosis (1) Atrial fibrillation with RVR Status: Acute DS: Medications - Discharge Medications Prescriptions: amiodarone 400 mg PO Q12HR 30 Days #120 tab rivaroxaban [Xarelto] 20 mg PO DAILY #30 tab DS: Summary Hospital Course: 63-year-old male with a medical history significant for atrial fibrillation, diabetes who was discharged from the hospital about 4 days ago after he was treated for A. fib with RVR. The patient has a loop recorder in place. His bunghole borer office noted his heart rate was uncontrolled today and he was sent in the emergency room for evaluation. A. fib with RVR: Sent by bunghole borer office. This is a recurrent admission within a week for the patient. S/p a dose of 10 mg IV Cardizem in the emergency room. Rate was initially controlled, however while in observation unit, the patient to return to R with heart rate in the [id number], given another IV Cardizem push, transferred to [facility], and started on Cardizem drip. Cardiology consulted, seen by Dr. Reeves, performed ablation on 03/31. He was started on Xarelto and amiodarone, in addition to his Coreg. His home Cardizem was discontinued. Patient remained in sinus rhythm post ablation, cleared for discharge by cardiology. Given prescriptions for amiodarone and Xarelto. Elevated troponins: Suspect secondary to A. fib with RVR. No complaints of chest pain, only palpitations and SOB during episodes of RVR. Cardiac enzymes trended at 0.24, 0.31, 0.26. No acute ST changes on EKG. Lexiscan unremarkable for ischemia. No chest pains. Type 2 diabetes: chronic. Hold patient's metformin for now. Continue patient's Januvia. Monitor Accu-checks and cover with SSI CKD stage II: Cr 1.3, appears at baseline. Avoid nephrotoxins. Outpatient f/up - Time Spent with Patient Total time spent providing and/or coordinating discharge services: Less than 30 minutes - Quality: VTE Deep Vein Thrombosis/Pulmonary Embolism Present on Admission: No Exam Vital signs: Vital Signs 03/31/18 18:45 03/31/18 19:00 03/31/18 19:15 Temperature 98.1 F Pulse Rate 74 68 69 Respiratory Rate 17 15 16 Blood Pressure 140/74 139/85 144/81 H Pulse Oximetry 96 100 99 03/31/18 19:30 03/31/18 20:00 03/31/18 20:35 Temperature 97.3 F L 98.1 F Pulse Rate 70 75 78 Respiratory Rate 18 16 16 Blood Pressure 143/83 H 131/88 135/88 Pulse Oximetry 100 99 100 03/31/18 20:52 03/31/18 21:00 03/31/18 21:05 Temperature Pulse Rate 76 75 Respiratory Rate 16 Blood Pressure 142/87 H Pulse Oximetry 100 100 03/31/18 22:05 03/31/18 22:21 03/31/18 23:00 Temperature 98.4 F Pulse Rate 77 76 73 Respiratory Rate 16 16 Blood Pressure 124/85 123/83 Pulse Oximetry 100 100 03/31/18 23:05 04/01/18 00:00 04/01/18 00:05 Temperature 98.4 F Pulse Rate 73 75 75 Respiratory Rate 16 16 Blood Pressure 123/83 103/59 L Pulse Oximetry 100 97 04/01/18 01:16 04/01/18 01:20 04/01/18 02:00 Temperature Pulse Rate 72 72 66 Respiratory Rate 16 Blood Pressure 97/62 L Pulse Oximetry 96 04/01/18 02:05 04/01/18 03:00 04/01/18 06:00 Temperature Pulse Rate 68 67 63 Respiratory Rate 16 16 Blood Pressure 93/63 L 112/69 Pulse Oximetry 95 96 04/01/18 07:00 04/01/18 08:00 04/01/18 09:00 Temperature 98.0 F Pulse Rate 66 65 62 Respiratory Rate 18 Blood Pressure 104/69 Pulse Oximetry 97 97 04/01/18 10:00 04/01/18 10:59 04/01/18 11:00 Temperature 98.2 F Pulse Rate 65 66 Respiratory Rate 18 Blood Pressure 114/68 Pulse Oximetry 97 96 04/01/18 12:00 04/01/18 13:00 04/01/18 14:00 Temperature Pulse Rate 65 63 62 Respiratory Rate Blood Pressure Pulse Oximetry Intake & Output 03/31/18 04/01/18 04/01/18 18:59 06:59 18:59 Intake Total 480 / 480 Output Total 325 / 325 Balance 155 / 155 Weight 102.5 kg Intake: Oral 480 / 480 Output: Urine 75 / 75 Urine Amount (Catheter) 250 / 250 Indwelling Urethral Catheter 250 / 250 Other: # Voids 1 # Incontinent Voids 0 Date of Last Bowel Movement 03/29/18 03/30/18 03/30/18 # Bowel Movements 0 Narrative: GENERAL: Well-nourished, well-developed pleasant male patient in [facility]. SKIN: Warm and dry. No rash. HEENT: Normocephalic. Atraumatic. Pupils equal and round. Mucous membranes pink and moist. CARDIOVASCULAR: Regular rate and rhythm. No murmur appreciated. RESPIRATORY: No accessory muscle use. Clear to auscultation. Breath sounds equal bilaterally. GASTROINTESTINAL: Abdomen soft, non-tender, nondistended. Normoactive bowel sounds x4. MUSCULOSKELETAL: No obvious deformities. Extremities without clubbing, cyanosis , or edema. NEUROLOGICAL: Awake and alert. No obvious cranial nerve deficits. Motor grossly within normal limits. Moving all extremities spontaneously. Normal speech. PSYCHIATRIC: Appropriate mood and affect; insight and judgment normal. Results Procedures completed during hospitalization: 03/31/18cardiac ablation Labs on day of discharge: Labs from last 24 hours 04/01/18 04/01/18 04/01/18 12:00 07:43 03:36 PT 13.3 H INR 1.3 APTT 30.1 POC Glucose 161 H 123 H 03/31/18 03/31/18 20:18 18:50 PT INR APTT POC Glucose 97 120 H - Impressions ITS Impressions Chest X-Ray 03/29/18 13:43 CONCLUSION: 1. No acute cardiopulmonary disease. Myocardial Perfusion Scan Nuc Med 03/30/18 00:00 CONCLUSION: 1. Mild LV dysfunction. 2. No significant perfusion abnormalities. Discharge Plan - Discharge Disposition Patient Disposition: 01 Discharge Home - Discharge Condition Condition: Stable - Discharge Order Discharge Orders: Discharge Order (Routine); Ordered 04/01/18 Ordered By: Siena Cyr - Discharge Details Anticipated Discharge Date: 04/01/18 - Physicians Team Primary Care Provider: Alex Martinez Attending Provider: Annabel Mtz Other Providers: Elie Reeves MD ; [employer]
--- NOTE | 2018-04-01 20:24 | ECG ---
Date Performed: 03/31/2018 Time Performed: 19:32:56 PTAGE: 63 years EKG: Sinus rhythm MARKED LEFT AXIS DEVIATION ST DEVIATION AND MODERATE T-WAVE ABNORMALITY, CONSIDER LATERAL ISCHEMIA A BNORMAL ECG PREVIOUS TRACING : 03/29/2018 13.26 Compared to previous tracing, rhythm is now sinus DOCTOR: Nicholas Barragan Interpretating Date/Time 04/01/2018 20:23:30
--- NOTE | 2018-04-05 10:03 | ECHRPT ---
Indication: A FIB FLUTTER CONCLUSIONS Slightly decrease left ventricular wall contractility EF 45-50% Mild to moderate left atrial enlargement No clot seen in left atrium nor left atrium appendage BP: / HR: Rhythm: Technical Quality: Medications Seadtion was admionistered by anesthesiology Complications There were no complications prior to, during or in recovery from the transesophag eal echocardiogram.. Proc. Components FINDINGS LEFT VENTRICLE The left ventricular systolic function is mildly reduced with an estimated ejection fraction in the range of 45- 50%. RIGHT VENTRICLE Normal right ventricular size and systolic function. LEFT ATRIUM The left atrial size is [id number] dilated. RIGHT ATRIUM The right atrial size is normal. ATRIAL APPENDAGES Normal left atrial appendage size with no evidence of thrombus formation. ATRIAL SEPTUM Normal atrial septal thickness without atrial level shunting by limited color doppler interrogation. AORTA The aortic root and proximal ascending aorta are normal in size on limited imaging. MITRAL VALVE Moderate thickening of the mitral valve leaflets. [id number] mitral valve regurgitation. AORTIC VALVE Trileaflet aortic valve. TRICUSPID VALVE Structurally normal tricuspid valve. PERICADIUM There is no pericardial effusion. Elie Reeves MD (Electronically Signed) Final Date:05 April 2018 10:02
== END 2018-04-01 16:20 | disposition home or self-care (01) ==
LOC: NEPC 13:14 → NEDA 13:14 → NEPFCDU 17:22 → HCPC 03-30 14:55
PROVIDERS: ADMIT Hospitalist; ATTEND Hospitalist

== ENCOUNTER 2018-04-25 17:05 | Inpatient (IN) ==
[2018-04-25] MEDS ORDERED: Vancomycin Inj 1,500 MG in Sodium Chlor 0.9% Inj 500 ML IV.SIG STA (17:18)
[2018-04-25] MEDS: Sod Chloride 0.9% Inj 1,000 ML IV.SIG SCH ×2 (17:30→21:55)
[2018-04-25] MEDS ORDERED: Sod Chloride 0.9% Inj 1,000 ML IV.SIG SCH ×2 (17:30)
[2018-04-25 17:56] LABS: Baso # (Auto) 0.1 th/mm3 (0.0-0.2); Baso % (Auto) 0.7 % (0.0-2.0); Eos # (Auto) 0.6 th/mm3 (0.0-0.4); Eos % (Auto) 5.7 % (0.0-4.0); Hematocrit 37.5 % (39.0-51.0); Hemoglobin 12.6 gm/dL (13.0-17.0); Lymph # (Auto) 1.4 th/mm3 (1.0-4.8); Lymph % (Auto) 12.4 % (9.0-44.0); Mean Corpuscular HGB Conc 33.6 % (32.0-36.0); Mean Corpuscular Hemoglobin 29.7 pg (27.0-34.0); Mean Corpuscular Volume 88.6 fL (80.0-100.0); Mean Platelet Volume 9.2 fL (7.0-11.0); Mono # (Auto) 0.8 th/mm3 (0.0-0.9); Mono % (Auto) 6.6 % (0.0-8.0); Neut # (Auto) 8.5 th/mm3 (1.8-7.7); Neut % (Auto) 74.6 % (16.0-70.0); Platelet Count 276 th/mm3 (150-450); Red Blood Count 4.23 mil/mm3 (4.50-5.90); Red Cell Distribution Width 13.7 % (11.6-17.2); White Blood Count 11.4 th/mm3 (4.0-11.0)
--- NOTE | 2018-04-25 18:19 | XR ---
EXAM DATE: 04/25/2018 5:51 PM EST AGE/SEX: 63 years / Male INDICATIONS: Fever CLINICAL DATA: This is the patient's initial encounter. Patient reports that signs and symptoms have been present for 1 day and indicates a pain score of 0/10. MEDICAL/SURGICAL HISTORY: . : Chronic obstructive pulmonary disease. Hypertension. Diabetes. A- fib . . Cardiac stent COMPARISON: [facility] [place], CHEST 1V SINGLE AP, 03/29/2018. . FINDINGS: A single AP view of the chest demonstrates the lungs to be symmetrically aerated without evidence of mass, infiltrate or effusion. The cardiomediastinal contours are unremarkable. Osseous structures a re intact. CONCLUSION: No active disease. Electronically signed by: Fuentes Jones MD 04/25/2018 6:17 PM EST
[2018-04-25 18:25] LABS: Alanine Aminotransferase 22 U/L (12-78); Albumin 3.2 g/dL (3.4-5.0); Anion Gap 9 meq/L (5-15); Aspartate Aminotransferase 13 U/L (15-37); Blood Urea Nitrogen 25 mg/dL (7-18); Calcium 7.7 mg/dL (8.5-10.1); Carbon Dioxide 21.8 meq/L (21.0-32.0); Chloride 112 meq/L (98-107); Glomerular Filtration Rate 43 mL/min (>89); Glucose,Random 152 mg/dL (74-106); Lipase 99 U/L (73-393); Magnesium 1.6 mg/dL (1.5-2.5); Potassium 4.2 meq/L (3.5-5.1); Sodium 143 meq/L (136-145)
[2018-04-25 18:28] LABS: Alkaline Phosphatase 78 U/L (45-117); Total Protein 6.4 g/dL (6.4-8.2)
--- NOTE | 2018-04-25 18:34 | XR ---
EXAM DATE: 04/25/2018 6:19 PM EST AGE/SEX: 63 years / Male INDICATIONS: Pain right foot 2nd, 3rd, and 4th toes, fell CLINICAL DATA: This is the patient's initial encounter. Patient reports that signs and symptoms have been present for 1 day and indicates a pain score of 8/10. MEDICAL/SURGICAL HISTORY: None. None. Cardiac stent COMPARISON: . FINDINGS: There is a fracture of the proximal phalanx of the second toe, relatively nondisplaced. No other frac tures identified. No dislocation. CONCLUSION: Relatively nondisplaced fracture proximal phalanx right second toe. Electronically signed by: Fuentes Jones MD 04/25/2018 6:32 PM EST
--- NOTE | 2018-04-25 19:58 | ED ---
HPI General Chief complaint: Arrhythmia / Palpitations Stated complaint: emergent Time Seen by Provider: 04/25/18 17:13 Source: patient and EMS Mode of arrival: EMS Limitations: no limitations History of Present Illness HPI narrative: Patient is a 63-year-old male, past medical history significant for previous A. fib status post ablation, who presents with complaint of several days of generalized weakness and malaise. EMS reports that his initial systolic blood pressure was in the 70s with a heart rate in the 140s. He received approximately 300 cc of fluid and his last blood pressure was much improved with systolic in the 120s-130s. Patient states he still feels weak but slightly better. He adamantly denies any cough, fever, chills. He denies any nausea, vomiting or abdominal pain but does admit to some watery diarrhea. He has had several recent falls. Onset (ago): day(s) Severity: moderate Relieving factors: none Exacerbating factors: none Associated symptoms: Reports malaise Treatments prior to arrival: Reports other Related Data Home Medications Medication Instructions Recorded Confirmed ascorbic acid (vitamin C) [Vitamin 500 mg PO DAILY 03/24/18 04/25/18 C] atorvastatin 80 mg PO QPM 03/24/18 04/25/18 cholecalciferol (vitamin D3) 2,000 unit PO DAILY 03/24/18 04/25/18 [Vitamin D3] cyanocobalamin (vitamin B-12) 1,000 mcg PO DAILY 03/24/18 04/25/18 [Vitamin B-12] folic acid 1 mg PO DAILY 03/24/18 04/25/18 levetiracetam 1,000 mg PO BID 03/24/18 04/25/18 metformin 1,000 mg PO BID 03/24/18 04/25/18 sitagliptin [Januvia] 50 mg PO DAILY 03/24/18 04/25/18 spironolactone 25 mg PO DAILY 03/24/18 04/25/18 tamsulosin 0.4 mg PO DAILY 03/24/18 04/25/18 topiramate 100 mg PO BID 03/24/18 04/25/18 budesonide-formoterol [Symbicort] 2 puff INHALATION Q12H 04/25/18 04/25/18 carvedilol [Coreg] 12.5 mg PO BID 04/25/18 04/25/18 hydroxyzine HCl 25 mg PO Q8HR 04/25/18 04/25/18 isosorbide mononitrate 30 mg PO QAM 04/25/18 04/25/18 lisinopril 40 mg PO DAILY 04/25/18 04/25/18 nitroglycerin [Nitrostat] 0.4 mg SUBLINGUAL Q5-15M PRN 04/25/18 04/25/18 Previous Rx's Medication Instructions Recorded amiodarone 400 mg PO Q12HR 30 Days #120 tab 04/01/18 rivaroxaban [Xarelto] 20 mg PO DAILY #30 tab 04/01/18 Allergies Allergy/AdvReac Type Severity Reaction Status Date / Time No Known Allergies Allergy Verified 03/29/18 13:42 Review of Systems ROS: all other systems reviewed are negative [facility] Medical History Medical History Diabetes (Acute) HTN (hypertension) (Acute) Heart attack (Acute) High cholesterol (Acute) Surgical History Surgical History History of cardiac catheterization (Acute) Hx of cholecystectomy (Acute) Stented coronary artery (Acute) Family History Family History Other Family history non-contributory Social History Social History Substance History: No History of Abuse Second Hand Smoke Exposure: No Smoking Status: Never smoker Tobacco Type: Cigarettes How Often Do You Have a Drink Containing Alcohol: Never Recent Out of Country Travel within the Last 8 Weeks: No Immunization History Tetanus Immunization: Unsure Exam Narrative Exam Narrative: GENERAL: Ill, pale appearing male SKIN: Focused skin assessment warm/dry; pale HEAD: Atraumatic. Normocephalic. EYES: Pupils equal and round. No scleral icterus. No injection or drainage. ENT: No nasal bleeding or discharge. Mucous membranes dry. NECK: Trachea midline. No JVD. CARDIOVASCULAR: Tachycardic but regular. No murmur appreciated. RESPIRATORY: No accessory muscle use. Clear to auscultation. Breath sounds equal bilaterally. GASTROINTESTINAL: Abdomen soft, non-tender, nondistended. Hepatic and splenic margins not palpable. MUSCULOSKELETAL: No obvious deformities. No clubbing. No cyanosis. No edema. NEUROLOGICAL: Awake and alert. No obvious cranial nerve deficits. Motor grossly within normal limits. Normal speech. PSYCHIATRIC: Appropriate mood and affect; insight and judgment normal. Course Initial Documented Vital Signs Temperature 98.3 F 04/25/18 17:13 Pulse Rate 136 H 04/25/18 17:13 Respiratory Rate 18 04/25/18 17:13 Blood Pressure 128/80 04/25/18 17:13 Pulse Oximetry 99 04/25/18 17:13 Last Documented Vital Signs Temperature 98.6 F 04/29/18 04:00 Pulse Rate 110 H 04/29/18 08:00 Respiratory Rate 18 04/29/18 04:00 Blood Pressure 105/86 04/29/18 04:00 Pulse Oximetry 97 04/29/18 04:00 Sign Out Sign Out Data: Patient Sign Out occurred on 04/25/18 at 20:10. Patient's care was discussed, and care was transferred from Angelia Fu MD to Shila Soares MD. Sign Out Comment: Imaging pending. Plan for admission. Last updated by Angelia Fu MD at 04/25/18 19:58 Post-Handoff Eval: The patient's case was checked out to me at the conclusion of Dr. Fu shift. Please see her initial history and physical. The patient presented with A. fib with RVR, hypotension, Hemoccult positive stools. During the course of the patient's emergency department visit, the patient was placed on a equipment monitor phototypesetting with oximetry and frequent blood pressure monitoring. The patient had IV access obtained and blood work sent for analysis. The patient's diagnostic studies are remarkable for a white count of 11.4, hemoglobin 12.6, platelets are 276 with 74.6 neutrophils and 5.7 eosinophils, chemistry is remarkable for a chloride of 112, BUN 25, creatinine 1.64 which is increased from prior levels suggestive of dehydration, glucose 152, calcium is 7.7, magnesium 1.6, AST is 13, troponin I is less than 0.02, albumin 3.2, lipase within normal limits. Urinalysis shows occasional bacteria increased specific gravity also suggestive of dehydration, otherwise unremarkable. A chest x-ray showed no acute abnormality, CT scan of the brain showed no acute intracranial abnormality, a foot x-ray of the right foot revealed a relatively nondisplaced fracture of the proximal phalanx right second toe, CT scan of the abdomen and pelvis revealed no acute findings within the abdomen and pelvis, fat -containing umbilical hernia, small pericardial effusion. The patient's case including history, pertinent physical examination findings, and laboratory studies were discussed with Dr. Davila. It was agreed that the patient would be admitted to the hospitalist service. The patient's results were discussed with the patient, including the plan of care. I explained that further testing and/ or monitoring is indicated based on the patient's history, examination, and/ or laboratory findings. Therefore, I recommended admission for additional evaluation. The patient expressed understanding and was agreeable with this plan. The patient was admitted to the hospital in guarded condition and sent to a bed under the care of [facility] service. Medical Decision Making MDM Narrative Medical decision making narrative: Patient is a 63-year-old male who presents with complaint of several days of generalized malaise with weakness. He was to cardiac and hypotensive on EMS arrival which has slightly improved upon arrival here. EKG does not show any acute ischemic changes. Patient appeared ill and with a history of recent hypotension and sepsis protocol was initiated to which his blood pressure responded well. He was given antibiotics empirically. Guaiac was positive but did not have gross blood nor melena. Labs reveal an LETICIA. CT pending at time of checkout. Medical Screen Exam Complete: Yes Emergency Medical Condition: Yes Differential Diagnosis Differential Diagnosis: Differential diagnosis includes but is not limited to electrolyte abnormality, anemia, GI bleed. Medical Records Medical records reviewed: Yes I reviewed the patient's medical records. Lab Data Lab results reviewed: Yes I reviewed the patient's lab results. Result diagrams: 04/28/18 05:53 04/28/18 05:53 Lab Results 04/25/18 04/25/18 04/25/18 Range/Units 17:20 17:20 17:20 WBC 11.4 H (4.0-11.0) th/mm3 RBC 4.23 L (4.50-5.90) mil/mm3 Hgb 12.6 L (13.0-17.0) gm/dL Hct 37.5 L (39.0-51.0) % MCV 88.6 (80.0-100.0) fL MCH 29.7 (27.0-34.0) pg MCHC 33.6 (32.0-36.0) % RDW 13.7 (11.6-17.2) % Plt Count 276 (150-450) th/mm3 MPV 9.2 (7.0-11.0) fL Neut % (Auto) 74.6 H (16.0-70.0) % Lymph % (Auto) 12.4 (9.0-44.0) % [place] % (Auto) 6.6 (0.0-8.0) % Eos % (Auto) 5.7 H (0.0-4.0) % Baso % (Auto) 0.7 (0.0-2.0) % Neut # (Auto) 8.5 H (1.8-7.7) th/mm3 Lymph # (Auto) 1.4 (1.0-4.8) th/mm3 [place] # (Auto) 0.8 (0.0-0.9) th/mm3 Eos # (Auto) 0.6 H (0.0-0.4) th/mm3 Baso # (Auto) 0.1 (0.0-0.2) th/mm3 WBC Differential . Differential Comment Auto diff final Sodium 143 (136-145) meq/L Potassium 4.2 (3.5-5.1) meq/L Chloride 112 H (98-107) meq/L Carbon Dioxide 21.8 (21.0-32.0) meq/L Anion Gap 9 (5-15) meq/L BUN 25 H (7-18) mg/dL Creatinine 1.64 H (0.60-1.30) mg/dL Estimated GFR 43 L (>89) mL/min POC Glucose (68-110) mg/dl Random Glucose 152 H (74-106) mg/dL Lactic Acid (0.4-2.0) mmol/L Calcium 7.7 L (8.5-10.1) mg/dL Prot Corrected Calcium (8.5-10.1) mg/dL Phosphorus (2.5-4.9) mg/dL Magnesium 1.6 (1.5-2.5) mg/dL Total Bilirubin 0.3 (0.2-1.0) mg/dL AST 13 L (15-37) U/L ALT 22 (12-78) U/L Alkaline Phosphatase 78 (45-117) U/L Troponin I Less than 0.02 L (0.02-0.05) ng/mL Total Protein 6.4 (6.4-8.2) g/dL Albumin 3.2 L (3.4-5.0) g/dL Lipase 99 (73-393) U/L TSH (0.358-3.740) uIU/mL Urine Color (Yellw/Straw) Urine Clarity (Clear) Urine pH (5.0-8.5) Ur Specific [place] (1.002-1.035) Urine Protein (Neg-Trace) mg/dL Urine Glucose (UA) (Negative) mg/dL Urine Ketones (Negative) mg/dL Urine Occult Blood (Negative) Urine Nitrate (Negative) Urine Bilirubin (Negative) Urine Urobilinogen (Less than 2) mg/dL Ur Leukocyte Esterase (Negative) Urine RBC (0-3) /hpf Urine WBC (0-5) /hpf Ur Squamous Epith Cells (0-5) /hpf Urine Bacteria (None) /hpf Hyaline Casts (0-3) /lpf Urine Mucus (Occasional) /lpf Micro UA Comment Ur Microscopic Review Urine Culture Comments Blood Type Antibody Screen 04/25/18 04/25/18 04/25/18 Range/Units 17:20 18:11 22:00 WBC (4.0-11.0) th/mm3 RBC (4.50-5.90) mil/mm3 Hgb (13.0-17.0) gm/dL Hct (39.0-51.0) % MCV (80.0-100.0) fL MCH (27.0-34.0) pg MCHC (32.0-36.0) % RDW (11.6-17.2) % Plt Count (150-450) th/mm3 MPV (7.0-11.0) fL Neut % (Auto) (16.0-70.0) % Lymph % (Auto) (9.0-44.0) % [place] % (Auto) (0.0-8.0) % Eos % (Auto) (0.0-4.0) % Baso % (Auto) (0.0-2.0) % Neut # (Auto) (1.8-7.7) th/mm3 Lymph # (Auto) (1.0-4.8) th/mm3 [place] # (Auto) (0.0-0.9) th/mm3 Eos # (Auto) (0.0-0.4) th/mm3 Baso # (Auto) (0.0-0.2) th/mm3 WBC Differential Differential Comment Sodium (136-145) meq/L Potassium (3.5-5.1) meq/L Chloride (98-107) meq/L Carbon Dioxide (21.0-32.0) meq/L Anion Gap (5-15) meq/L BUN (7-18) mg/dL Creatinine (0.60-1.30) mg/dL Estimated GFR (>89) mL/min POC Glucose (68-110) mg/dl Random Glucose (74-106) mg/dL Lactic Acid 1.5 (0.4-2.0) mmol/L Calcium (8.5-10.1) mg/dL Prot Corrected Calcium (8.5-10.1) mg/dL Phosphorus (2.5-4.9) mg/dL Magnesium (1.5-2.5) mg/dL Total Bilirubin (0.2-1.0) mg/dL AST (15-37) U/L ALT (12-78) U/L Alkaline Phosphatase (45-117) U/L Troponin I (0.02-0.05) ng/mL Total Protein (6.4-8.2) g/dL Albumin (3.4-5.0) g/dL Lipase (73-393) U/L TSH (0.358-3.740) uIU/mL Urine Color Yellow (Yellw/Straw) Urine Clarity Hazy H (Clear) Urine pH 5.0 (5.0-8.5) Ur Specific [place] 1.044 H (1.002-1.035) Urine Protein Negative (Neg-Trace) mg/dL Urine Glucose (UA) Negative (Negative) mg/dL Urine Ketones Negative (Negative) mg/dL Urine Occult Blood Negative (Negative) Urine Nitrate Negative (Negative) Urine Bilirubin Negative (Negative) Urine Urobilinogen Less than 2 (Less than 2) mg/dL Ur Leukocyte Esterase Negative (Negative) Urine RBC Less than 1 (0-3) /hpf Urine WBC 1 (0-5) /hpf Ur Squamous Epith Cells <1 (0-5) /hpf Urine Bacteria Occasional H (None) /hpf Hyaline Casts 4 (0-3) /lpf Urine Mucus Few H (Occasional) /lpf Micro UA Comment Culture not ind Ur Microscopic Review Not Reportable Urine Culture Comments Culture not ind Blood Type O Positive Antibody Screen Negative 04/25/18 04/26/18 04/26/18 Range/Units 22:04 00:20 06:42 WBC 9.4 (4.0-11.0) th/mm3 RBC 3.86 L (4.50-5.90) mil/mm3 Hgb 11.2 L (13.0-17.0) gm/dL Hct 34.0 L (39.0-51.0) % MCV 88.2 (80.0-100.0) fL MCH 29.0 (27.0-34.0) pg MCHC 32.9 (32.0-36.0) % RDW 13.6 (11.6-17.2) % Plt Count 213 (150-450) th/mm3 MPV 9.6 (7.0-11.0) fL Neut % (Auto) 74.2 H (16.0-70.0) % Lymph % (Auto) 12.9 (9.0-44.0) % [place] % (Auto) 7.8 (0.0-8.0) % Eos % (Auto) 4.6 H (0.0-4.0) % Baso % (Auto) 0.5 (0.0-2.0) % Neut # (Auto) 7.0 (1.8-7.7) th/mm3 Lymph # (Auto) 1.2 (1.0-4.8) th/mm3 [place] # (Auto) 0.7 (0.0-0.9) th/mm3 Eos # (Auto) 0.4 (0.0-0.4) th/mm3 Baso # (Auto) 0.0 (0.0-0.2) th/mm3 WBC Differential . Differential Comment Auto diff final Sodium (136-145) meq/L Potassium (3.5-5.1) meq/L Chloride (98-107) meq/L Carbon Dioxide (21.0-32.0) meq/L Anion Gap (5-15) meq/L BUN (7-18) mg/dL Creatinine (0.60-1.30) mg/dL Estimated GFR (>89) mL/min POC Glucose 139 H (68-110) mg/dl Random Glucose (74-106) mg/dL Lactic Acid (0.4-2.0) mmol/L Calcium (8.5-10.1) mg/dL Prot Corrected Calcium (8.5-10.1) mg/dL Phosphorus (2.5-4.9) mg/dL Magnesium (1.5-2.5) mg/dL Total Bilirubin (0.2-1.0) mg/dL AST (15-37) U/L ALT (12-78) U/L Alkaline Phosphatase (45-117) U/L Troponin I Less than 0.02 L (0.02-0.05) ng/mL Total Protein (6.4-8.2) g/dL Albumin (3.4-5.0) g/dL Lipase (73-393) U/L TSH (0.358-3.740) uIU/mL Urine Color (Yellw/Straw) Urine Clarity (Clear) Urine pH (5.0-8.5) Ur Specific [place] (1.002-1.035) Urine Protein (Neg-Trace) mg/dL Urine Glucose (UA) (Negative) mg/dL Urine Ketones (Negative) mg/dL Urine Occult Blood (Negative) Urine Nitrate (Negative) Urine Bilirubin (Negative) Urine Urobilinogen (Less than 2) mg/dL Ur Leukocyte Esterase (Negative) Urine RBC (0-3) /hpf Urine WBC (0-5) /hpf Ur Squamous Epith Cells (0-5) /hpf Urine Bacteria (None) /hpf Hyaline Casts (0-3) /lpf Urine Mucus (Occasional) /lpf Micro UA Comment Ur Microscopic Review Urine Culture Comments Blood Type Antibody Screen 04/26/18 04/26/18 04/26/18 Range/Units 06:42 06:42 12:02 WBC (4.0-11.0) th/mm3 RBC (4.50-5.90) mil/mm3 Hgb (13.0-17.0) gm/dL Hct (39.0-51.0) % MCV (80.0-100.0) fL MCH (27.0-34.0) pg MCHC (32.0-36.0) % RDW (11.6-17.2) % Plt Count (150-450) th/mm3 MPV (7.0-11.0) fL Neut % (Auto) (16.0-70.0) % Lymph % (Auto) (9.0-44.0) % [place] % (Auto) (0.0-8.0) % Eos % (Auto) (0.0-4.0) % Baso % (Auto) (0.0-2.0) % Neut # (Auto) (1.8-7.7) th/mm3 Lymph # (Auto) (1.0-4.8) th/mm3 [place] # (Auto) (0.0-0.9) th/mm3 Eos # (Auto) (0.0-0.4) th/mm3 Baso # (Auto) (0.0-0.2) th/mm3 WBC Differential Differential Comment Sodium 145 (136-145) meq/L Potassium 4.1 (3.5-5.1) meq/L Chloride 117 H (98-107) meq/L Carbon Dioxide 20.9 L (21.0-32.0) meq/L Anion Gap 7 (5-15) meq/L BUN 20 H (7-18) mg/dL Creatinine 1.31 H (0.60-1.30) mg/dL Estimated GFR 55 L (>89) mL/min POC Glucose 168 H (68-110) mg/dl Random Glucose 120 H (74-106) mg/dL Lactic Acid (0.4-2.0) mmol/L Calcium 6.6 L* D (8.5-10.1) mg/dL Prot Corrected Calcium 7.4 L* (8.5-10.1) mg/dL Phosphorus (2.5-4.9) mg/dL Magnesium (1.5-2.5) mg/dL Total Bilirubin 0.2 (0.2-1.0) mg/dL AST 9 L (15-37) U/L ALT 17 (12-78) U/L Alkaline Phosphatase 76 (45-117) U/L Troponin I Less than 0.02 L (0.02-0.05) ng/mL Total Protein 5.5 L D (6.4-8.2) g/dL Albumin 2.7 L (3.4-5.0) g/dL Lipase (73-393) U/L TSH 4.970 H (0.358-3.740) uIU/mL Urine Color (Yell[place]/Straw) Urine Clarity (Clear) Urine pH (5.0-8.5) Ur Specific [place] (1.002-1.035) Urine Protein (Neg-Trace) mg/dL Urine Glucose (UA) (Negative) mg/dL Urine Ketones (Negative) mg/dL Urine Occult Blood (Negative) Urine Nitrate (Negative) Urine Bilirubin (Negative) Urine Urobilinogen (Less than 2) mg/dL Ur Leukocyte Esterase (Negative) Urine RBC (0-3) /hpf Urine WBC (0-5) /hpf Ur Squamous Epith Cells (0-5) /hpf Urine Bacteria (None) /hpf Hyaline Casts (0-3) /lpf Urine Mucus (Occasional) /lpf Micro UA Comment Ur Microscopic Review Urine Culture Comments Blood Type Antibody Screen 04/26/18 04/26/18 04/27/18 Range/Units 16:57 22:04 07:25 WBC 7.5 (4.0-11.0) th/mm3 RBC 3.85 L (4.50-5.90) mil/mm3 Hgb 11.2 L (13.0-17.0) gm/dL Hct 34.2 L (39.0-51.0) % MCV 88.9 (80.0-100.0) fL MCH 29.0 (27.0-34.0) pg MCHC 32.6 (32.0-36.0) % RDW 13.8 (11.6-17.2) % Plt Count 219 (150-450) th/mm3 MPV 9.1 (7.0-11.0) fL Neut % (Auto) 71.7 H (16.0-70.0) % Lymph % (Auto) 14.9 (9.0-44.0) % [place] % (Auto) 6.4 (0.0-8.0) % Eos % (Auto) 6.3 H (0.0-4.0) % Baso % (Auto) 0.7 (0.0-2.0) % Neut # (Auto) 5.4 (1.8-7.7) th/mm3 Lymph # (Auto) 1.1 (1.0-4.8) th/mm3 [place] # (Auto) 0.5 (0.0-0.9) th/mm3 Eos # (Auto) 0.5 H (0.0-0.4) th/mm3 Baso # (Auto) 0.1 (0.0-0.2) th/mm3 WBC Differential . Differential Comment Auto diff final Sodium (136-145) meq/L Potassium (3.5-5.1) meq/L Chloride (98-107) meq/L Carbon Dioxide (21.0-32.0) meq/L Anion Gap (5-15) meq/L BUN (7-18) mg/dL Creatinine (0.60-1.30) mg/dL Estimated GFR (>89) mL/min POC Glucose 131 H 128 H (68-110) mg/dl Random Glucose (74-106) mg/dL Lactic Acid (0.4-2.0) mmol/L Calcium (8.5-10.1) mg/dL Prot Corrected Calcium (8.5-10.1) mg/dL Phosphorus (2.5-4.9) mg/dL Magnesium (1.5-2.5) mg/dL Total Bilirubin (0.2-1.0) mg/dL AST (15-37) U/L ALT (12-78) U/L Alkaline Phosphatase (45-117) U/L Troponin I (0.02-0.05) ng/mL Total Protein (6.4-8.2) g/dL Albumin (3.4-5.0) g/dL Lipase (73-393) U/L TSH (0.358-3.740) uIU/mL Urine Color ([place]/Straw) Urine Clarity (Clear) Urine pH (5.0-8.5) Ur Specific [place] (1.002-1.035) Urine Protein (Neg-Trace) mg/dL Urine Glucose (UA) (Negative) mg/dL Urine Ketones (Negative) mg/dL Urine Occult Blood (Negative) Urine Nitrate (Negative) Urine Bilirubin (Negative) Urine Urobilinogen (Less than 2) mg/dL Ur Leukocyte Esterase (Negative) Urine RBC (0-3) /hpf Urine WBC (0-5) /hpf Ur Squamous Epith Cells (0-5) /hpf Urine Bacteria (None) /hpf Hyaline Casts (0-3) /lpf Urine Mucus (Occasional) /lpf Micro UA Comment Ur Microscopic Review Urine Culture Comments Blood Type Antibody Screen 04/27/18 04/27/18 04/27/18 Range/Units 07:25 08:37 11:31 WBC (4.0-11.0) th/mm3 RBC (4.50-5.90) mil/mm3 Hgb (13.0-17.0) gm/dL Hct (39.0-51.0) % MCV (80.0-100.0) fL MCH (27.0-34.0) pg MCHC (32.0-36.0) % RDW (11.6-17.2) % Plt Count (150-450) th/mm3 MPV (7.0-11.0) fL Neut % (Auto) (16.0-70.0) % Lymph % (Auto) (9.0-44.0) % [place] % (Auto) (0.0-8.0) % Eos % (Auto) (0.0-4.0) % Baso % (Auto) (0.0-2.0) % Neut # (Auto) (1.8-7.7) th/mm3 Lymph # (Auto) (1.0-4.8) th/mm3 [place] # (Auto) (0.0-0.9) th/mm3 Eos # (Auto) (0.0-0.4) th/mm3 Baso # (Auto) (0.0-0.2) th/mm3 WBC Differential Differential Comment Sodium 143 (136-145) meq/L Potassium 4.2 (3.5-5.1) meq/L Chloride 115 H (98-107) meq/L Carbon Dioxide 22.5 (21.0-32.0) meq/L Anion Gap 6 (5-15) meq/L BUN 13 (7-18) mg/dL Creatinine 1.20 (0.60-1.30) mg/dL Estimated GFR 61 L (>89) mL/min POC Glucose 132 H 178 H (68-110) mg/dl Random Glucose 147 H (74-106) mg/dL Lactic Acid (0.4-2.0) mmol/L Calcium 7.2 L* (8.5-10.1) mg/dL Prot Corrected Calcium 7.9 L (8.5-10.1) mg/dL Phosphorus 1.4 L (2.5-4.9) mg/dL Magnesium 1.4 L (1.5-2.5) mg/dL Total Bilirubin (0.2-1.0) mg/dL AST (15-37) U/L ALT (12-78) U/L Alkaline Phosphatase (45-117) U/L Troponin I (0.02-0.05) ng/mL Total Protein 5.7 L (6.4-8.2) g/dL Albumin (3.4-5.0) g/dL Lipase (73-393) U/L TSH (0.358-3.740) uIU/mL Urine Color ([place]ell[place]/Straw) Urine Clarity (Clear) Urine pH (5.0-8.5) Ur Specific [place] (1.002-1.035) Urine Protein (Neg-Trace) mg/dL Urine Glucose (UA) (Negative) mg/dL Urine Ketones (Negative) mg/dL Urine Occult Blood (Negative) Urine Nitrate (Negative) Urine Bilirubin (Negative) Urine Urobilinogen (Less than 2) mg/dL Ur Leukocyte Esterase (Negative) Urine RBC (0-3) /hpf Urine WBC (0-5) /hpf Ur Squamous Epith Cells (0-5) /hpf Urine Bacteria (None) /hpf Hyaline Casts (0-3) /lpf Urine Mucus (Occasional) /lpf Micro UA Comment Ur Microscopic Review Urine Culture Comments Blood Type Antibody Screen 04/27/18 04/27/18 04/28/18 Range/Units 17:44 21:48 05:53 WBC 8.0 (4.0-11.0) th/mm3 RBC 3.63 L (4.50-5.90) mil/mm3 Hgb 10.6 L (13.0-17.0) gm/dL Hct 31.9 L (39.0-51.0) % MCV 87.8 (80.0-100.0) fL MCH 29.2 (27.0-34.0) pg MCHC 33.2 (32.0-36.0) % RDW 14.1 (11.6-17.2) % Plt Count 204 (150-450) th/mm3 MPV 9.0 (7.0-11.0) fL Neut % (Auto) (16.0-70.0) % Lymph % (Auto) (9.0-44.0) % [place] % (Auto) (0.0-8.0) % Eos % (Auto) (0.0-4.0) % Baso % (Auto) (0.0-2.0) % Neut # (Auto) (1.8-7.7) th/mm3 Lymph # (Auto) (1.0-4.8) th/mm3 [place] # (Auto) (0.0-0.9) th/mm3 Eos # (Auto) (0.0-0.4) th/mm3 Baso # (Auto) (0.0-0.2) th/mm3 WBC Differential Differential Comment Sodium (136-145) meq/L Potassium (3.5-5.1) meq/L Chloride (98-107) meq/L Carbon Dioxide (21.0-32.0) meq/L Anion Gap (5-15) meq/L BUN (7-18) mg/dL Creatinine (0.60-1.30) mg/dL Estimated GFR (>89) mL/min POC Glucose 154 H 133 H (68-110) mg/dl Random Glucose (74-106) mg/dL Lactic Acid (0.4-2.0) mmol/L Calcium (8.5-10.1) mg/dL Prot Corrected Calcium (8.5-10.1) mg/dL Phosphorus (2.5-4.9) mg/dL Magnesium (1.5-2.5) mg/dL Total Bilirubin (0.2-1.0) mg/dL AST (15-37) U/L ALT (12-78) U/L Alkaline Phosphatase (45-117) U/L Troponin I (0.02-0.05) ng/mL Total Protein (6.4-8.2) g/dL Albumin (3.4-5.0) g/dL Lipase (73-393) U/L TSH (0.358-3.740) uIU/mL Urine Color (Yellw/Straw) Urine Clarity (Clear) Urine pH (5.0-8.5) Ur Specific [place] (1.002-1.035) Urine Protein (Neg-Trace) mg/dL Urine Glucose (UA) (Negative) mg/dL Urine Ketones (Negative) mg/dL Urine Occult Blood (Negative) Urine Nitrate (Negative) Urine Bilirubin (Negative) Urine Urobilinogen (Less than 2) mg/dL Ur Leukocyte Esterase (Negative) Urine RBC (0-3) /hpf Urine WBC (0-5) /hpf Ur Squamous Epith Cells (0-5) /hpf Urine Bacteria (None) /hpf Hyaline Casts (0-3) /lpf Urine Mucus (Occasional) /lpf Micro UA Comment Ur Microscopic Review Urine Culture Comments Blood Type Antibody Screen 04/28/18 04/28/18 04/28/18 Range/Units 05:53 10:23 16:18 WBC (4.0-11.0) th/mm3 RBC (4.50-5.90) mil/mm3 Hgb (13.0-17.0) gm/dL Hct (39.0-51.0) % MCV (80.0-100.0) fL MCH (27.0-34.0) pg MCHC (32.0-36.0) % RDW (11.6-17.2) % Plt Count (150-450) th/mm3 MPV (7.0-11.0) fL Neut % (Auto) (16.0-70.0) % Lymph % (Auto) (9.0-44.0) % [place] % (Auto) (0.0-8.0) % Eos % (Auto) (0.0-4.0) % Baso % (Auto) (0.0-2.0) % Neut # (Auto) (1.8-7.7) th/mm3 Lymph # (Auto) (1.0-4.8) th/mm3 [place] # (Auto) (0.0-0.9) th/mm3 Eos # (Auto) (0.0-0.4) th/mm3 Baso # (Auto) (0.0-0.2) th/mm3 WBC Differential Differential Comment Sodium 145 (136-145) meq/L Potassium 3.7 (3.5-5.1) meq/L Chloride 115 H (98-107) meq/L Carbon Dioxide 20.9 L (21.0-32.0) meq/L Anion Gap 9 (5-15) meq/L BUN 12 (7-18) mg/dL Creatinine 1.11 (0.60-1.30) mg/dL Estimated GFR 67 L (>89) mL/min POC Glucose 121 H 166 H (68-110) mg/dl Random Glucose 108 H (74-106) mg/dL Lactic Acid (0.4-2.0) mmol/L Calcium 7.4 L* (8.5-10.1) mg/dL Prot Corrected Calcium 8.3 L (8.5-10.1) mg/dL Phosphorus 1.5 L (2.5-4.9) mg/dL Magnesium 2.1 D (1.5-2.5) mg/dL Total Bilirubin (0.2-1.0) mg/dL AST (15-37) U/L ALT (12-78) U/L Alkaline Phosphatase (45-117) U/L Troponin I (0.02-0.05) ng/mL Total Protein 5.5 L (6.4-8.2) g/dL Albumin (3.4-5.0) g/dL Lipase (73-393) U/L TSH (0.358-3.740) uIU/mL Urine Color (Yellw/Straw) Urine Clarity (Clear) Urine pH (5.0-8.5) Ur Specific [place] (1.002-1.035) Urine Protein (Neg-Trace) mg/dL Urine Glucose (UA) (Negative) mg/dL Urine Ketones (Negative) mg/dL Urine Occult Blood (Negative) Urine Nitrate (Negative) Urine Bilirubin (Negative) Urine Urobilinogen (Less than 2) mg/dL Ur Leukocyte Esterase (Negative) Urine RBC (0-3) /hpf Urine WBC (0-5) /hpf Ur Squamous Epith Cells (0-5) /hpf Urine Bacteria (None) /hpf Hyaline Casts (0-3) /lpf Urine Mucus (Occasional) /lpf Micro UA Comment Ur Microscopic Review Urine Culture Comments Blood Type Antibody Screen 04/28/18 04/29/18 Range/Units 21:15 08:06 WBC (4.0-11.0) th/mm3 RBC (4.50-5.90) mil/mm3 Hgb (13.0-17.0) gm/dL Hct (39.0-51.0) % MCV (80.0-100.0) fL MCH (27.0-34.0) pg MCHC (32.0-36.0) % RDW (11.6-17.2) % Plt Count (150-450) th/mm3 MPV (7.0-11.0) fL Neut % (Auto) (16.0-70.0) % Lymph % (Auto) (9.0-44.0) % [place] % (Auto) (0.0-8.0) % Eos % (Auto) (0.0-4.0) % Baso % (Auto) (0.0-2.0) % Neut # (Auto) (1.8-7.7) th/mm3 Lymph # (Auto) (1.0-4.8) th/mm3 [place] # (Auto) (0.0-0.9) th/mm3 Eos # (Auto) (0.0-0.4) th/mm3 Baso # (Auto) (0.0-0.2) th/mm3 WBC Differential Differential Comment Sodium (136-145) meq/L Potassium (3.5-5.1) meq/L Chloride (98-107) meq/L Carbon Dioxide (21.0-32.0) meq/L Anion Gap (5-15) meq/L BUN (7-18) mg/dL Creatinine (0.60-1.30) mg/dL Estimated GFR (>89) mL/min POC Glucose 172 H 126 H (68-110) mg/dl Random Glucose (74-106) mg/dL Lactic Acid (0.4-2.0) mmol/L Calcium (8.5-10.1) mg/dL Prot Corrected Calcium (8.5-10.1) mg/dL Phosphorus (2.5-4.9) mg/dL Magnesium (1.5-2.5) mg/dL Total Bilirubin (0.2-1.0) mg/dL AST (15-37) U/L ALT (12-78) U/L Alkaline Phosphatase (45-117) U/L Troponin I (0.02-0.05) ng/mL Total Protein (6.4-8.2) g/dL Albumin (3.4-5.0) g/dL Lipase (73-393) U/L TSH (0.358-3.740) uIU/mL Urine Color (Yellw/Straw) Urine Clarity (Clear) Urine pH (5.0-8.5) Ur Specific [place] (1.002-1.035) Urine Protein (Neg-Trace) mg/dL Urine Glucose (UA) (Negative) mg/dL Urine Ketones (Negative) mg/dL Urine Occult Blood (Negative) Urine Nitrate (Negative) Urine Bilirubin (Negative) Urine Urobilinogen (Less than 2) mg/dL Ur Leukocyte Esterase (Negative) Urine RBC (0-3) /hpf Urine WBC (0-5) /hpf Ur Squamous Epith Cells (0-5) /hpf Urine Bacteria (None) /hpf Hyaline Casts (0-3) /lpf Urine Mucus (Occasional) /lpf Micro UA Comment Ur Microscopic Review Urine Culture Comments Blood Type Antibody Screen Imaging Data Radiologist's impression: Head CT 04/25/18 17:18 CONCLUSION: 1. No acute intracranial abnormalities. . Chest X-Ray 04/25/18 17:20 CONCLUSION: No active disease. Abdomen/Pelvis CT 04/25/18 17:39 CONCLUSION: 1. No acute findings within the abdomen and pelvis. Previous cholecystectomy. Fat-containing umbilical hernia. Small pericardial effusion. Foot X-Ray 04/25/18 17:40 CONCLUSION: Relatively nondisplaced fracture proximal phalanx right second toe. Discharge Plan Discharge Disposition Patient Disposition: 30 Still Patient Discharge Condition Condition: Fair Discharge Details Diagnosis: Acute hypotension Physicians Team ED Provider: Shila Soares Primary Care Provider: Alex Martinez Attending Provider: Adolph Meredith Other Providers: Zac Frank ; Sarwat Thorne ; Elie Reeves Status ED Status: Left Department Discharge Information Discharge Date/Time: 04/26/18 01:30
--- NOTE | 2018-04-25 20:02 | CT ---
EXAM DATE: 04/25/2018 7:59 PM EST AGE/SEX: 63 years / Male INDICATIONS: Recent falls. Evaluate for hemorrhage. CLINICAL DATA: This is the patient's initial encounter. Patient reports that signs and symptoms have been present for 1 day and indicates a pain score of 5/10. MEDICAL/SURGICAL HISTORY: Cardiovascular disease. Hypertension. Diabetes mellitus type II. None. RADIATION DOSE: 60.34 CTDI (mGy) COMPARISON: [facility] – [place], CT BRAIN W/O CONTRAST, 10/01/2015. . TECHNIQUE: CT of the head without contrast. Using automated exposure control and adjustment of the mA and/or kV according to patient size, radiation dose was kept as low as reasonably achievable to ob tain optimal diagnostic quality images. DICOM format image data is available electronically for revi ew and comparison. FINDINGS: Cerebrum: The ventricles are normal for age. No evidence of midline shift, mass lesion, hemorrhage or acute infarction. No extraaxial fluid collections are seen. Posterior Fossa: The cerebellum and brainstem are intact. The 4th ventricle is midline. The cerebe llopontine angle is unremarkable. Extracranial: The visualized portion of the orbits is intact. Skull: The calvaria is intact. No evidence of skull fracture. CONCLUSION: 1. No acute intracranial abnormalities. . Electronically signed by: Fuentes Jones MD 04/25/2018 8:00 PM EST
--- NOTE | 2018-04-25 20:30 | CT ---
EXAM DATE: 04/25/2018 7:59 PM EST AGE/SEX: 63 years / Male INDICATIONS: Abdomen pain with diarrhea. CLINICAL DATA: This is the patient's initial encounter. Patient reports that signs and symptoms have been present for 1 day and indicates a pain score of 5/10. MEDICAL/SURGICAL HISTORY: Cardiovascular disease. Hypertension. Diabetes mellitus type II. No ne. ORAL CONTRAST: No oral contrast ingested. RADIATION DOSE: 16.47 CTDI (mGy) COMPARISON: [facility], CT ABDOMEN & PELVIS W CONTRAST, 02/01/2016. . TECHNIQUE: Multiple contiguous axial images were obtained through the abdomen and pelvis following b olus infusion of 95 ml Omnipaque 350 (iohexol) nonionic water-soluble contrast as a single exam dos e. No oral contrast ingested. Using automated exposure control and adjustment of the mA and/or kV ac cording to patient size, radiation dose was kept as low as reasonably achievable to obtain optimal di agnostic quality images. DICOM format image data is available electronically for review and comparis on. FINDINGS: Lung bases are clear. Small pericardial effusion. Moderate coronary calcifications. Mild fatty liver. Spleen, adrenals, kidneys and pancreas unremarkable. Previous cholecystectomy. 3.8 cm fat-containing umbilical hernia. CONCLUSION: 1. No acute findings within the abdomen and pelvis. Previous cholecystectomy. Fat-containing umbilic al hernia. Small pericardial effusion. Electronically signed by: Fuentes Jones MD 04/25/2018 8:29 PM EST
[2018-04-25] MEDS ORDERED: Acetaminophen 325 MG Tablet PO PRN (20:51)
[2018-04-25] MEDS ORDERED: Bisacodyl 10 MG Supp RECTAL PRN (20:51)
--- NOTE | 2018-04-25 20:53 | P.HPIM ---
History of Present Illness Primary Care Physician: Alex Martinez MD History of Present Illness: This is a 63-year-old male with a PMH of HTN, Hyperlipidemia, A. fib on Xarelto , CAD and DM who was brought to the ER by EMS for c/o generalized weakness and fall. Pt w/ recent admit 03/30-04/01/18 for Afib w/ RVR, s/p ablation by Dr. Reeves on 03/31/18 and d/c'd on Amiodarone and Xarelto. Per pt, he's had ongoing diarrhea and generalized weakness since being discharged, w/ decreased PO intake due to abdominal distention/gas. Today, pt states he was unable to get up out of bed due to weakness and had subsequent fall, no LOC or head trauma. Denies fever, chills, chest pain or SOB. No nausea or vomiting. Does note toe pain, 8/10, non-radiating. Upon EMS arrival, pt noted to be hypotensive w/ BP 70's systolic and tachycardic w/ HR 140's, s/p 300ml IVF w/ improvement. On arrival, BP 128/80, HR 136, O2 sat 99% on RA, Afebrile. EKG w / sinus tachycardia. WBC 11.1, Hgb 12.6. Creatinine 1.64, previously 1.17 on 03/31/18. U/a pending. CT Head negative. CXR negative. CT Abd/Pelvis negative. Foot X-ray nondisplaced fracture right second toe. Hemoccult + on exam. Initial concern for Sepsis, s/p Vanc/Cefepime in ER. - Diagnosis (1) Hypotension (2) Dysrhythmia (3) GI bleed (4) LETICIA (acute kidney injury) (5) Diarrhea (6) Toe fracture (7) Seizure disorder (8) DM (diabetes mellitus) (9) Fall Review of Systems PAST FAMILY HISTORY: Reviewed. No h/o DM or CAD All other systems reviewed negative except as stated in HPI PMFSH - History History Provided By: Patient - Medical History Medical History: Medical History (Last Reviewed 04/25/18 @ 19:54 by Angelia Fu MD) Diabetes HTN (hypertension) Heart attack High cholesterol - Surgical History Surgical History: Surgical History (Last Reviewed 11/11/18 @ 19:54 by Angelia Fu MD) History of cardiac catheterization Hx of cholecystectomy Stented coronary artery - Family History Family History: Family History (Last Reviewed 04/25/18 @ 19:54 by Angelia Fu MD) Other Family history non-contributory - Tobacco History Second Hand Smoke Exposure: No Tobacco Use In Past 30 Days: No Smoking Status: Never smoker Tobacco Type: Cigarettes - Alcohol History How Often Do You Have a Drink Containing Alcohol: 4 or more times a week - Substance Use History Substance History: No History of Abuse - Travel History Recent Travel Out of the Country Within the Last 8 Weeks: No - Immunization History Tetanus Immunization: Unsure Medications and Allergies Active Medications: Active Medications Sodium Chloride (Ns Inj) 1,000 mls @ 0 mls/hr IV.SIG .Q0M SUAD Last Infusion: 04/25/18 18:34 Dose: Infused Sodium Chloride (Ns Inj) 1,000 mls @ 0 mls/hr IV.SIG .Q0M SUAD Sodium Chloride (Ns Inj) 1,000 mls @ 0 mls/hr IV.SIG .Q0M SUAD Allergies Allergy/AdvReac Type Severity Reaction Status Date / Time No Known Allergies Allergy Verified 03/29/18 13:42 Home Medications Medication Instructions Recorded Confirmed Type ascorbic acid (vitamin C) [Vitamin 500 mg PO DAILY 03/24/18 04/25/18 History C] atorvastatin 80 mg PO QPM 03/24/18 04/25/18 History cholecalciferol (vitamin D3) 2,000 unit PO DAILY 03/24/18 04/25/18 History [Vitamin D3] cyanocobalamin (vitamin B-12) 1,000 mcg PO DAILY 03/24/18 04/25/18 History [Vitamin B-12] folic acid 1 mg PO DAILY 03/24/18 04/25/18 History levetiracetam 1,000 mg PO BID 03/24/18 04/25/18 History metformin 1,000 mg PO BID 03/24/18 04/25/18 History sitagliptin [Januvia] 50 mg PO DAILY 03/24/18 04/25/18 History spironolactone 25 mg PO DAILY 03/24/18 04/25/18 History tamsulosin 0.4 mg PO DAILY 03/24/18 04/25/18 History topiramate 100 mg PO BID 03/24/18 04/25/18 History budesonide-formoterol [Symbicort] 2 puff INHALATION Q12H 04/25/18 04/25/18 History carvedilol [Coreg] 12.5 mg PO BID 04/25/18 04/25/18 History hydroxyzine HCl 25 mg PO Q8HR 04/25/18 04/25/18 History isosorbide mononitrate 30 mg PO QAM 04/25/18 04/25/18 History lisinopril 40 mg PO DAILY 04/25/18 04/25/18 History nitroglycerin [Nitrostat] 0.4 mg SUBLINGUAL Q5-15M PRN 04/25/18 04/25/18 History Exam Vital signs: Vital Signs 04/25/18 17:13 04/25/18 17:40 04/25/18 18:08 Temperature 98.3 F Pulse Rate 136 H 124 H Respiratory Rate 18 18 Blood Pressure 128/80 168/84 H Pulse Oximetry 99 100 98 04/25/18 20:00 Temperature 98.4 F Pulse Rate 133 H Respiratory Rate 16 Blood Pressure 132/66 Pulse Oximetry 98 Intake & Output 04/25/18 04/25/18 04/26/18 06:59 18:59 06:59 Intake Total 1100 / 1100 Balance 1100 / 1100 Weight 103.419 kg Intake: IV 1100 / 1100 Maxipime Inj 2,000 MG In NS Inj 100 / 100 100 ML @ 200 mls/hr IV.SIG STAT STA Rx#:[id number] NS Inj 1,000 ML @ Wide Open IV. 1000 / 1000 SIG .Q0M [facility] Rx#:[id number] Narrative: PE: GENERAL: Middle-aged white male in no acute distress, appears pale. SKIN: Focused skin assessment warm and dry. HEENT: PERRLA, EOMI. No scleral icterus or conjunctival pallor. No lid lag or facial droop. CARDIOVASCULAR: Regular rate and rhythm. No obvious murmurs to auscultation. No chest tenderness to palpation. RESPIRATORY: No obvious rhonchi or wheezing. Clear to auscultation. Breath sounds equal bilaterally. GASTROINTESTINAL: Abdomen soft, mildly distended, non tender. BS normal. MUSCULOSKELETAL: Extremities without clubbing, cyanosis, or edema. No obvious deformities. NEUROLOGICAL: Awake, alert and oriented x4. No focal neurologic deficits. Moving both upper and lower extremities spontaneously. PSYCHIATRIC: Appropriate mood and affect. Insight and judgment normal. Results - Labs CBC & Chem 7: 04/25/18 17:20 04/25/18 17:20 Labs: Short CBC 04/25/18 Range/Units 17:20 WBC 11.4 H (4.0-11.0) th/mm3 Hgb 12.6 L (13.0-17.0) gm/dL Hct 37.5 L (39.0-51.0) % Plt Count 276 (150-450) th/mm3 BMP 04/25/18 17:20 Sodium 143 Potassium 4.2 Chloride 112 H Carbon Dioxide 21.8 BUN 25 H Creatinine 1.64 H Calcium 7.7 L Cardiac Enzymes 04/25/18 Range/Units 17:20 Troponin I Less than 0.02 L (0.02-0.05) ng/mL Liver Function 04/25/18 Range/Units 17:20 Total Bilirubin 0.3 (0.2-1.0) mg/dL AST 13 L (15-37) U/L ALT 22 (12-78) U/L Alkaline Phosphatase 78 (45-117) U/L Albumin 3.2 L (3.4-5.0) g/dL - Imaging Impressions Head CT 04/25/18 17:18 CONCLUSION: 1. No acute intracranial abnormalities. . Chest X-Ray 04/25/18 17:20 CONCLUSION: No active disease. Abdomen/Pelvis CT 04/25/18 17:39 CONCLUSION: 1. No acute findings within the abdomen and pelvis. Previous cholecystectomy. Fat-containing umbilical hernia. Small pericardial effusion. Foot X-Ray 04/25/18 17:40 CONCLUSION: Relatively nondisplaced fracture proximal phalanx right second toe. Caprini VTE Risk Assessment Caprini VTE Risk Assessment: Moderate/High Risk (score >= 2) Caprini Risk Assessment Model: Point Value = 1 Point Value = 2 Point Value = 3 Point Value = 5 Age 41-60 Minor surgery BMI > 25 kg/m2 Swollen legs Varicose veins or History of unexplained or recurrent spontaneous Oral contraceptives or hormone replacement Sepsis (< 1 month) Serious lung disease, including pneumonia (< 1 month) Abnormal pulmonary function Acute myocardial infarction Congestive heart failure (< 1 month) History of inflammatory bowel disease Medical patient at bed rest Age 61-74 Arthroscopic surgery Major open surgery (> 45 min) Laparoscopic surgery (> 45 min) Malignancy Confined to bed (> 72 hours) Immobilizing plaster cast Central venous access Age >= 75 History of VTE Family history of VTE Factor V Leiden Prothrombin [id number] Lupus anticoagulant Anticardiolipin antibodies Elevated serum homocysteine Heparin-induced thrombocytopenia Other congenital or acquired thrombophilia Stroke (< 1 month) Elective arthroplasty Hip, pelvis, or leg fracture Acute spinal cord injury (< 1 month) Prophylaxis Regimen: Total Risk Factor Score Risk Level Prophylaxis Regimen 0-1 Low Early ambulation 2 Moderate Order ONE of the following: *Sequential Compression Device (SCD) *Heparin 5000 units SQ BID 3-4 Higher Order ONE of the following medications: *Heparin 5000 units SQ TID *Enoxaparin/Lovenox 40 mg SQ daily (WT < 150 kg, CrCl > 30 mL/min) *Enoxaparin/Lovenox 30 mg SQ daily (WT < 150 kg, CrCl > 10-29 mL/min) *Enoxaparin/Lovenox 30 mg SQ BID (WT < 150 kg, CrCl > 30 mL/min) AND/OR *Sequential Compression Device (SCD) 5 or more Highest Order ONE of the following medications: *Heparin 5000 units SQ TID (Preferred with Epidurals) *Enoxaparin/Lovenox 40 mg SQ daily (WT < 150 kg, CrCl > 30 mL/min) *Enoxaparin/Lovenox 30 mg SQ daily (WT < 150 kg, CrCl > 10-29 mL/min) *Enoxaparin/Lovenox 30 mg SQ BID (WT < 150 kg, CrCl > 30 mL/min) AND *Sequential Compression Device (SCD) Assessment and Plan - Assessment (1) Hypotension Code(s): I95.9 - Hypotension, unspecified Status: Acute (2) Dysrhythmia Code(s): I49.9 - Cardiac arrhythmia, unspecified Status: Acute (3) GI bleed Code(s): K92.2 - Gastrointestinal hemorrhage, unspecified Status: Acute (4) LETICIA (acute kidney injury) Code(s): N17.9 - Acute kidney failure, unspecified Status: Acute (5) Diarrhea Code(s): R19.7 - Diarrhea, unspecified Status: Acute (6) Toe fracture Code(s): S92.919A - Unspecified fracture of unspecified toe(s), initial encounter for closed fracture Status: Acute (7) Seizure disorder Code(s): G40.909 - Epilepsy, unspecified, not intractable, without status epilepticus Status: Acute (8) DM (diabetes mellitus) Code(s): E11.9 - Type 2 diabetes mellitus without complications Status: Acute (9) Fall Code(s): W19.XXXA - Unspecified fall, initial encounter Status: Acute - Plan A/P: 1. Hypotension: Resolved. BP 70's systolic per EMS, s/p IVF w/ improvement, normotensive since arrival, remains stable at this time. Likely due to dehydration from decreased PO intake/diarrhea. 2. Dysrhythmia: h/o A-fib, recent admit 03/30-04/01/18 for Afib w/ RVR, s/p ablation 03/[address] Reeves, has been in NSR since, however upon arrival noted to be in tachycardia, HR 120's. Continue IVF for hydration, resume home Amiodarone now that BP stabilized, monitor closely. Initial trop negative, check serial cardiac enzymes to eval for underlying ischemia. CXR w/ no acute findings. 3. LETICIA: Creatinine 1.64, previously 1.17 on 03/31/18, secondary to dehydration /diarrhea, check U/a to eval for underlying UTI. Monitor I/O, IVF for hydration , repeat labs in am. 4. GI Bleed: +Hemoccult on exam, likely combination of anticoagulation and diarrhea. Hgb stable at 12.6, previously 11.4 on 03/31, on Xarelto for h/o A- fib, will Consult GI for further eval/intervention. Repeat Hgb/Hct in am. 5. Diarrhea: no nausea/vomiting, CT Abd/Pelvis w/ no acute findings, no recent antibiotics, likely due to mild colitis not seen on imaging, check C diff and stool studies. IVF for hydration. 6. Fall: s/p mechanical fall, no head trauma or LOC. CT Head w/ no acute findings, images reviewed. Reports significant weakness, will Consult PT for eval/tx. 7. DM: Sliding scale w/ Accu-Cheks. Hold Metformin in light of LETICIA. 8. Seizure Disorder: Resume Keppra and Topamax. 9. Toe Fx: Right, secondary to fall. Foot X-ray w/ nondisplaced right 2nd toe fracture, follow up w/ Podiatry as outpatient as needed. 10. DVT Prophylaxis: Xarelto-caution w/ GI Bleed 11. Social work for d/c planning as needed 12. Case discussed w/ ER physician at length, labs/records/imaging reviewed by me.
[2018-04-25] MEDS ORDERED: Dextrose 50% in Water 50 ML Vial IV.PUSH PRN (20:55)
[2018-04-25] MEDS: Amiodarone 200 MG Tablet PO SCH (21:53)
[2018-04-25] MEDS: levETIRAcetam 500 MG Tablet PO SCH (21:53)
[2018-04-25] MEDS: Pantoprazole Inj 40 MG Vial IV.PUSH SCH (21:54)
[2018-04-25] MEDS: Sod Chloride 0.9% Inj 1,000 ML IV.CONT SCH (21:55)
[2018-04-25] MEDS: Topiramate 100 MG Tablet PO SCH (21:56)
[2018-04-25] MEDS: Isosorbide Mononitrate 30 MG ER 24HR Tablet (Imdur) PO SCH (21:56)
[2018-04-25] MEDS: Senna/Docusate Sodium 8.6/50 MG Tablet PO SCH (22:11)
[2018-04-25] MEDS: Insulin NovoLOG Aspart Correctional Sugar Inj SQ SCH (22:12)
[2018-04-25 22:28] LABS: Bacteria,Urine Occasional /hpf; Bilirubin,Urine Negative (Negative); Clarity,Urine Hazy (Clear); Color,Urine Yellow (Yellw/Straw); Glucose,Urine (UA) Negative (Negative); Hyaline Casts,Urine 4 /lpf (0-3); Leukocyte Esterase,Urine Negative (Negative); Mucus,Urine Few /lpf (Occasional); Nitrite,Urine Negative (Negative); Specific Gravity,Urine 1.044 (1.002-1.035); Squamous Epithelial Cell,Urine <1 /hpf (0-5)
[2018-04-25] MEDS ORDERED: Metoprolol Inj 5 MG/5 ML Vial IV.PUSH ONE (23:26)
[2018-04-26 07:35] LABS: Baso % (Auto) 0.5 % (0.0-2.0); Eos # (Auto) 0.4 th/mm3 (0.0-0.4); Eos % (Auto) 4.6 % (0.0-4.0); Hemoglobin 11.2 gm/dL (13.0-17.0); Lymph # (Auto) 1.2 th/mm3 (1.0-4.8); Lymph % (Auto) 12.9 % (9.0-44.0); Mean Corpuscular HGB Conc 32.9 % (32.0-36.0); Mean Corpuscular Volume 88.2 fL (80.0-100.0); Mean Platelet Volume 9.6 fL (7.0-11.0); Mono # (Auto) 0.7 th/mm3 (0.0-0.9); Mono % (Auto) 7.8 % (0.0-8.0); Neut % (Auto) 74.2 % (16.0-70.0); Platelet Count 213 th/mm3 (150-450); Red Blood Count 3.86 mil/mm3 (4.50-5.90); Red Cell Distribution Width 13.6 % (11.6-17.2); White Blood Count 9.4 th/mm3 (4.0-11.0)
[2018-04-26 08:06] LABS: Alanine Aminotransferase 17 U/L (12-78); Albumin 2.7 g/dL (3.4-5.0); Alkaline Phosphatase 76 U/L (45-117); Anion Gap 7 meq/L (5-15); Aspartate Aminotransferase 9 U/L (15-37); Blood Urea Nitrogen 20 mg/dL (7-18); Calcium 6.6 mg/dL (8.5-10.1); Carbon Dioxide 20.9 meq/L (21.0-32.0); Chloride 117 meq/L (98-107); Glomerular Filtration Rate 55 mL/min (>89); Glucose,Random 120 mg/dL (74-106); Potassium 4.1 meq/L (3.5-5.1); Sodium 145 meq/L (136-145); Total Protein 5.5 g/dL (6.4-8.2)
[2018-04-26] MEDS: Carvedilol 12.5 MG Tablet PO SCH ×2 (08:44→22:05)
[2018-04-26] MEDS: levETIRAcetam 500 MG Tablet PO SCH ×2 (08:44→22:05)
[2018-04-26] MEDS: Isosorbide Mononitrate 30 MG ER 24HR Tablet (Imdur) PO SCH (08:44)
[2018-04-26] MEDS: Rivaroxaban 20 MG Tablet PO SCH (08:44)
[2018-04-26] MEDS: Topiramate 100 MG Tablet PO SCH ×2 (08:44→22:04)
[2018-04-26] MEDS: Folic Acid 1 MG Tablet PO SCH (08:44)
[2018-04-26] MEDS: Amiodarone 200 MG Tablet PO SCH ×2 (08:44→22:04)
[2018-04-26] MEDS: Senna/Docusate Sodium 8.6/50 MG Tablet PO SCH ×2 (08:44→22:05)
[2018-04-26] MEDS: Insulin NovoLOG Aspart Correctional Sugar Inj SQ SCH ×4 (08:45→22:05)
[2018-04-26] MEDS ORDERED: Calcium Carbonate 500 MG Tablet PO ONE (10:55)
[2018-04-26] MEDS: Pantoprazole Inj 40 MG Vial IV.PUSH SCH ×2 (11:10→22:04)
--- NOTE | 2018-04-26 11:23 | P.PNIM ---
Subjective Interval history: The patient was sitting up in bed. He said he feels weak. He says he has been bleeding from his gums and has been having blood in his stools since being on the blood thinner. He says he feels short of breath but that he has COPD. He said he quit smoking in 2014. Physical Exam Vital signs: Vital Signs 04/25/18 17:13 04/25/18 17:40 04/25/18 18:08 Temperature 98.3 F Pulse Rate 136 H 124 H Respiratory Rate 18 18 Blood Pressure 128/80 168/84 H Pulse Oximetry 99 100 98 04/25/18 20:00 04/25/18 23:09 04/25/18 23:49 Temperature 98.4 F 98.7 F Pulse Rate 133 H 128 H 108 H Respiratory Rate 16 16 15 Blood Pressure 132/66 146/88 H 123/68 Pulse Oximetry 98 97 98 04/26/18 00:15 04/26/18 03:46 04/26/18 04:00 Temperature 98.3 F Pulse Rate 119 H 105 H 105 H Respiratory Rate 15 15 Blood Pressure 111/82 116/76 Pulse Oximetry 99 97 04/26/18 08:00 04/26/18 09:00 Temperature 98.9 F Pulse Rate 130 H 123 H Respiratory Rate 18 Blood Pressure 122/80 Pulse Oximetry 99 Intake & Output 04/25/18 04/26/18 04/26/18 18:59 06:59 18:59 Intake Total 1100 / 1100 1755 / 1755 1999 Output Total 300 / 300 Balance 1100 / 1100 1455 / 1455 1999 Weight 103.419 kg 100 kg Intake: IV 1100 / 1100 1515 / 1515 1999 NS Inj 1,000 ML @ 100 mls/hr IV 1000 / 1000 .CONT .Q10H SUAD Rx#:[id number] Maxipime Inj 2,000 MG In NS Inj 100 / 100 100 ML @ 200 mls/hr IV.SIG STAT STA Rx#:[id number] NS Inj 1,000 ML @ Wide Open IV. 1000 / 1000 1000 / 1000 1000 / 1000 SIG .Q0M SUAD Rx#:[id number] Vancomycin Inj 1,500 MG In NS 515 / 515 Inj 500 ML @ 250 mls/hr IV.SIG STAT STA Rx#:[id number] Oral 240 / 240 Output: Urine 300 / 300 Other: Other Intake Source Saline Solution # Bowel Movements 0 Narrative: GENERAL: No acute distress. SKIN: Pale. Focused skin assessment warm and dry. HEENT: PERRLA, EOMI. No scleral icterus or conjunctival pallor. No lid lag or facial droop. CARDIOVASCULAR: Tachycardic. No obvious murmurs to auscultation. No chest tenderness to palpation. RESPIRATORY: No obvious rhonchi or wheezing. Clear to auscultation. Breath sounds equal bilaterally. GASTROINTESTINAL: Abdomen soft, mildly distended, non tender. BS normal. MUSCULOSKELETAL: Extremities without clubbing, cyanosis, or edema. No obvious deformities. NEUROLOGICAL: Awake, alert and oriented x4. No focal neurologic deficits. Moving both upper and lower extremities spontaneously. Results - Labs CBC & Chem 7: 04/26/18 06:42 04/26/18 06:42 Laboratory Results - last 24 hr 04/25/18 04/25/18 04/25/18 17:20 17:20 17:20 WBC 11.4 H RBC 4.23 L Hgb 12.6 L Hct 37.5 L MCV 88.6 MCH 29.7 MCHC 33.6 RDW 13.7 Plt Count 276 MPV 9.2 Neut % (Auto) 74.6 H Lymph % (Auto) 12.4 [place] % (Auto) 6.6 Eos % (Auto) 5.7 H Baso % (Auto) 0.7 Neut # (Auto) 8.5 H Lymph # (Auto) 1.4 [place] # (Auto) 0.8 Eos # (Auto) 0.6 H Baso # (Auto) 0.1 WBC Differential . Differential Comment Auto diff final Sodium 143 Potassium 4.2 Chloride 112 H Carbon Dioxide 21.8 Anion Gap 9 BUN 25 H Creatinine 1.64 H Estimated GFR 43 L POC Glucose Random Glucose 152 H Lactic Acid Calcium 7.7 L Prot Corrected Calcium Magnesium 1.6 Total Bilirubin 0.3 AST 13 L ALT 22 Alkaline Phosphatase 78 Troponin I Less than 0.02 L Total Protein 6.4 Albumin 3.2 L Lipase 99 Urine Color Urine Clarity Urine pH Ur Specific [place] Urine Protein Urine Glucose (UA) Urine Ketones Urine Occult Blood Urine Nitrate Urine Bilirubin Urine Urobilinogen Ur Leukocyte Esterase Urine RBC Urine WBC Ur Squamous Epith Cells Urine Bacteria Hyaline Casts Urine Mucus Micro UA Comment Ur Microscopic Review Urine Culture Comments Blood Type Antibody Screen 04/25/18 04/25/18 04/25/18 17:20 18:11 22:00 WBC RBC Hgb Hct MCV MCH MCHC RDW Plt Count MPV Neut % (Auto) Lymph % (Auto) [place] % (Auto) Eos % (Auto) Baso % (Auto) Neut # (Auto) Lymph # (Auto) [place] # (Auto) Eos # (Auto) Baso # (Auto) WBC Differential Differential Comment Sodium Potassium Chloride Carbon Dioxide Anion Gap BUN Creatinine Estimated GFR POC Glucose Random Glucose Lactic Acid 1.5 Calcium Prot Corrected Calcium Magnesium Total Bilirubin AST ALT Alkaline Phosphatase Troponin I Total Protein Albumin Lipase Urine Color Yellow Urine Clarity Hazy H Urine pH 5.0 Ur Specific [place] 1.044 H Urine Protein Negative Urine Glucose (UA) Negative Urine Ketones Negative Urine Occult Blood Negative Urine Nitrate Negative Urine Bilirubin Negative Urine Urobilinogen Less than 2 Ur Leukocyte Esterase Negative Urine RBC Less than 1 Urine WBC 1 Ur Squamous Epith Cells <1 Urine Bacteria Occasional H Hyaline Casts 4 Urine Mucus Few H Micro UA Comment Culture not ind Ur Microscopic Review Not Reportable Urine Culture Comments Culture not ind Blood Type O Positive Antibody Screen Negative 04/25/18 04/26/18 04/26/18 22:04 00:20 06:42 WBC 9.4 RBC 3.86 L Hgb 11.2 L Hct 34.0 L MCV 88.2 MCH 29.0 MCHC 32.9 RDW 13.6 Plt Count 213 MPV 9.6 Neut % (Auto) 74.2 H Lymph % (Auto) 12.9 [place] % (Auto) 7.8 Eos % (Auto) 4.6 H Baso % (Auto) 0.5 Neut # (Auto) 7.0 Lymph # (Auto) 1.2 [place] # (Auto) 0.7 Eos # (Auto) 0.4 Baso # (Auto) 0.0 WBC Differential . Differential Comment Auto diff final Sodium Potassium Chloride Carbon Dioxide Anion Gap BUN Creatinine Estimated GFR POC Glucose 139 H Random Glucose Lactic Acid Calcium Prot Corrected Calcium Magnesium Total Bilirubin AST ALT Alkaline Phosphatase Troponin I Less than 0.02 L Total Protein Albumin Lipase Urine Color Urine Clarity Urine pH Ur Specific [place] Urine Protein Urine Glucose (UA) Urine Ketones Urine Occult Blood Urine Nitrate Urine Bilirubin Urine Urobilinogen Ur Leukocyte Esterase Urine RBC Urine WBC Ur Squamous Epith Cells Urine Bacteria Hyaline Casts Urine Mucus Micro UA Comment Ur Microscopic Review Urine Culture Comments Blood Type Antibody Screen 04/26/18 06:42 WBC RBC Hgb Hct MCV MCH MCHC RDW Plt Count MPV Neut % (Auto) Lymph % (Auto) [place] % (Auto) Eos % (Auto) Baso % (Auto) Neut # (Auto) Lymph # (Auto) [place] # (Auto) Eos # (Auto) Baso # (Auto) WBC Differential Differential Comment Sodium 145 Potassium 4.1 Chloride 117 H Carbon Dioxide 20.9 L Anion Gap 7 BUN 20 H Creatinine 1.31 H Estimated GFR 55 L POC Glucose Random Glucose 120 H Lactic Acid Calcium 6.6 L* D Prot Corrected Calcium 7.4 L* Magnesium Total Bilirubin 0.2 AST 9 L ALT 17 Alkaline Phosphatase 76 Troponin I Less than 0.02 L Total Protein 5.5 L D Albumin 2.7 L Lipase Urine Color Urine Clarity Urine pH Ur Specific [place] Urine Protein Urine Glucose (UA) Urine Ketones Urine Occult Blood Urine Nitrate Urine Bilirubin Urine Urobilinogen Ur Leukocyte Esterase Urine RBC Urine WBC Ur Squamous Epith Cells Urine Bacteria Hyaline Casts Urine Mucus Micro UA Comment Ur Microscopic Review Urine Culture Comments Blood Type Antibody Screen Microbiology 04/25/18 17:30 Blood - Peripheral Aerobic Blood Culture - Preliminary No growth in 1 day 04/25/18 17:30 Blood - Peripheral Anaerobic Blood Culture - Preliminary No growth in 1 day 04/25/18 17:20 Blood - Peripheral Aerobic Blood Culture - Preliminary No growth in 1 day 04/25/18 17:20 Blood - Peripheral Anaerobic Blood Culture - Preliminary No growth in 1 day - Imaging Impressions Head CT 04/25/18 17:18 CONCLUSION: 1. No acute intracranial abnormalities. . Chest X-Ray 04/25/18 17:20 CONCLUSION: No active disease. Abdomen/Pelvis CT 04/25/18 17:39 CONCLUSION: 1. No acute findings within the abdomen and pelvis. Previous cholecystectomy. Fat-containing umbilical hernia. Small pericardial effusion. Foot X-Ray 04/25/18 17:40 CONCLUSION: Relatively nondisplaced fracture proximal phalanx right second toe. Assessment and Plan - Assessment (1) Hypotension Code(s): I95.9 - Hypotension, unspecified Status: Acute (2) Dysrhythmia Code(s): I49.9 - Cardiac arrhythmia, unspecified Status: Acute (3) GI bleed Code(s): K92.2 - Gastrointestinal hemorrhage, unspecified Status: Acute (4) LETICIA (acute kidney injury) Code(s): N17.9 - Acute kidney failure, unspecified Status: Acute (5) Diarrhea Code(s): R19.7 - Diarrhea, unspecified Status: Acute (6) Toe fracture Code(s): S92.919A - Unspecified fracture of unspecified toe(s), initial encounter for closed fracture Status: Acute (7) Seizure disorder Code(s): G40.909 - Epilepsy, unspecified, not intractable, without status epilepticus Status: Acute (8) DM (diabetes mellitus) Code(s): E11.9 - Type 2 diabetes mellitus without complications Status: Acute (9) Fall Code(s): W19.XXXA - Unspecified fall, initial encounter Status: Acute - Plan Hypotension Resolved. BP 70's systolic per EMS, s/p IVF w/ improvement, normotensive since arrival.. Likely due to dehydration from decreased PO intake/diarrhea. -IVFs. Dysrhythmia H/o A-fib, recent admit 03/30-04/01/18 for Afib w/ RVR, s/p ablation 03/[address] Reeves, has been in NSR since, however upon arrival noted to be tachycardic. -resume home Amiodarone now that BP stabilized. -check a TSH. LETICIA Creatinine 1.64, previously 1.17 on 03/31/18, secondary to dehydration/diarrhea. -check U/a to eval for underlying UTI. -Monitor I/O. -IVF for hydration. -repeat labs in am. GI bleed +Hemoccult on exam, likely combination of anticoagulation and diarrhea. -GI consult pending. -follow CBC. Diarrhea CT Abd/Pelvis w/ no acute findings. -IVF for hydration. Fall/ Toe fracture S/p mechanical fall, no head trauma or LOC. CT Head w/ no acute findings. Foot X-ray w/ nondisplaced right 2nd toe fracture. -follow up w/ Podiatry as outpatient as needed. -will Consult PT for eval/tx. DM On metformin. -hold metformin and place on sliding scale. DVT Prophylaxis: Xarelto-caution w/ GI Bleed
--- NOTE | 2018-04-26 14:31 | ECG ---
Date Performed: 04/25/2018 Time Performed: 17:13:45 PTAGE: 63 years EKG: SINUS TACHYCARDIA MARKED LEFT AXIS DEVIATION MODERATE INTRAVENTRICULAR CONDUCTION DELAY ST DEPRESSION, CONSIDER SUBENDOCARDIAL INJURY ABNORMAL QRS-T ANGLE ABNORMAL ECG NEW T WAVE IS NOTED IN V [address] DEPRESSION PERSISTS, CANNOT RULE OUT ISCHEMIA Clinical correlation is recommended PREVIOUS TRACING : 03/31/2018 19.32 DOCTOR: Gus Rodrigues Interpretating Date/Time 04/26/2018 14:31:44
--- NOTE | 2018-04-26 15:37 | P.CONGI ---
History of Present Illness Consult date: 04/26/18 Consult reason: GI bleed Chief complaint: Dysrhythmia, LETICIA History of Present Illness: This patient is 63-year-old male patient with a past medical history significant for hypertension, hyperlipidemia, atrial fibrillation on Xarelto, coronary artery disease and diabetes mellitus. Surgical history includes cholecystectomy and hernia repair in 2009. This patient presented to the emergency room at [facility] with complaint of general weakness and fall. Patient was recently admitted to [facility] with a diagnosis of atrial fibrillation with RVR and underwent ablation on 03/31/[address] Ward. Patient was discharged home on amiodarone and Xarelto. Upon consultation patient endorses that he has had generalized weakness with loose to soft stools since discharge. Patient denies any fever or chills. Patient denies nausea vomiting or abdominal pain. Upon admission patient stool was Hemoccult positive. Patient states that since he has been on Xarelto he has been spitting up blood every morning for 3 weeks to 1 month. Patient states he has never had an EGD or colonoscopy. He endorses feeling dizzy with generalized weakness and falling on floor unable to get up prior to admission. Patient endorses decreased appetite with early satiety for 1 month. Patient denies any noted blood in stools. He denies any unintentional weight loss. Patient denies use of tobacco or alcohol products. Patient endorses frequent bouts of heartburn for which he uses [id number] chewable Tums. Patient denies any difficulty or pain with swallowing. Our service has been consulted to evaluate patient's GI bleeding as he was found to have heme positive stool upon admission. <Patricia Pittman - Last Filed: 04/26/18 15:43> Review of Systems All other systems reviewed negative except as stated in HPI <Patricia Pittman - Last Filed: 04/26/18 15:43> PMFSH - History History Provided By: Patient - Medical History Medical History: Medical History (Last Reviewed 04/26/18 @ 07:55 by Radha Cai) Diabetes HTN (hypertension) Heart attack High cholesterol - Surgical History Surgical History: Surgical History (Last Reviewed 04/26/18 @ 07:55 by Radha Cai) History of cardiac catheterization Hx of cholecystectomy Stented coronary artery - Family History Family History: Family History (Last Reviewed 04/25/18 @ 19:54 by Angelia Fu MD) Other Family history non-contributory - Tobacco History Second Hand Smoke Exposure: No Tobacco Use In Past 30 Days: No Smoking Status: Never smoker Tobacco Type: Cigarettes - Alcohol History How Often Do You Have a Drink Containing Alcohol: Never - Substance Use History Substance History: No History of Abuse - Travel History Recent Travel Out of the Country Within the Last 8 Weeks: No - Immunization History Tetanus Immunization: Unsure <Patricia Pittman - Last Filed: 04/26/18 15:43> - Medical History Medical History: Medical History (Last Reviewed 04/26/18 @ 07:55 by Radha Cai) Diabetes HTN (hypertension) Heart attack High cholesterol - Surgical History Surgical History: Surgical History (Last Reviewed 04/26/18 @ 07:55 by Radha Cai) History of cardiac catheterization Hx of cholecystectomy Stented coronary artery - Family History Family History: Family History (Last Reviewed 04/25/18 @ 19:54 by Angelia Fu MD) Other Family history non-contributory <Sarwat Thorne - Last Filed: 04/26/18 22:40> Medications and Allergies Active Medications: Active Medications Acetaminophen (Tylenol) 650 mg PO Q4H PRN PRN Reason: Temp > 100.4 Al Hydroxide/Mg Hydroxide (Milk Of Jimbo Carmona) 30 ml PO Q12H PRN PRN Reason: Mild Constipation Amiodarone HCl (Cordarone) 400 mg PO Q12HR [facility] Last Admin: 04/26/18 08:44 Dose: 400 mg Bisacodyl (Dulcolax Supp) 10 mg RECTAL DAILY PRN PRN Reason: SEVERE CONSITIPATION Carvedilol (Coreg) 12.5 mg PO BID [facility] Last Admin: 04/26/18 08:44 Dose: 12.5 mg Dextrose (D50w Vial) 50 ml IV.PUSH UNSCH PRN PRN Reason: PER HYPOGLYCEMIA PROTOCOL Folic Acid (Folic Acid) 1 mg PO DAILY [facility] Last Admin: 04/26/18 08:44 Dose: 1 mg Glucagon (Glucagon Inj) 1 mg OTHER PRN PRN PRN Reason: for Hypoglycemia Protocol Sodium Chloride (Ns Inj) 1,000 mls @ 0 mls/hr IV.SIG .Q0M [facility] Last Infusion: 04/26/18 07:00 Dose: Infused Sodium Chloride (Ns Inj) 1,000 mls @ 0 mls/hr IV.SIG .Q0M [facility] Sodium Chloride (Ns Inj) 1,000 mls @ 0 mls/hr IV.SIG .Q0M [facility] Last Infusion: 04/25/18 21:00 Dose: Infused Sodium Chloride (1/2 Normal Saline Inj) 1,000 mls @ 100 mls/hr IV.CONT .Q10H [facility] Stop: 04/27/18 07:29 Insulin Aspart (Novolog Insulin Correctional Sugar Inj) 0 unit SQ ACHS [facility]; Protocol Last Admin: 04/26/18 12:02 Dose: Not Given Isosorbide Mononitrate (Imdur) 30 mg PO DAILY [facility] Last Admin: 04/26/18 08:44 Dose: 30 mg Lactulose (Lactulose Liq) 30 ml PO DAILY PRN PRN Reason: SEVERE CONSITIPATION Levetiracetam (Keppra) 1,000 mg PO BID [facility] Last Admin: 04/26/18 08:44 Dose: 1,000 mg Ondansetron HCl (Zofran Inj) 4 mg IV.PUSH Q6H PRN PRN Reason: NAUSEA OR VOMITING Pantoprazole Sodium (Protonix Inj) 40 mg IV.PUSH Q12H [facility] Last Admin: 04/26/18 11:10 Dose: 40 mg Rivaroxaban (Xarelto) 20 mg PO DAILY [facility] Last Admin: 04/26/18 08:44 Dose: 20 mg Senna/Docusate Sodium (Stephie-Colace) 1 tab PO BID [facility] Last Admin: 04/26/18 08:44 Dose: 1 tab Sennosides (Senokot) 17.2 mg PO Q12H PRN PRN Reason: Moderate Constipation Tamsulosin HCl (Flomax) 0.4 mg PO DAILY [facility] Last Admin: 04/26/18 08:44 Dose: 0.4 mg Topiramate (Topamax) 100 mg PO BID [facility] Last Admin: 04/26/18 08:44 Dose: 100 mg <Patricia Pittman - Last Filed: 04/26/18 15:43> Active Medications: Active Medications Acetaminophen (Tylenol) 650 mg PO Q4H PRN PRN Reason: Temp > 100.4 Al Hydroxide/Mg Hydroxide (Milk Of Magnesia Liq) 30 ml PO Q12H PRN PRN Reason: Mild Constipation Amiodarone HCl (Cordarone) 400 mg PO Q12HR [facility] Last Admin: 04/26/18 22:04 Dose: 400 mg Bisacodyl (Dulcolax Supp) 10 mg RECTAL DAILY PRN PRN Reason: SEVERE CONSITIPATION Carvedilol (Coreg) 12.5 mg PO BID [facility] Last Admin: 04/26/18 22:05 Dose: 12.5 mg Dextrose (D50w Vial) 50 ml IV.PUSH UNSCH PRN PRN Reason: PER HYPOGLYCEMIA PROTOCOL Folic Acid (Folic Acid) 1 mg PO DAILY [facility] Last Admin: 04/26/18 08:44 Dose: 1 mg Glucagon (Glucagon Inj) 1 mg OTHER PRN PRN PRN Reason: for Hypoglycemia Protocol Sodium Chloride (Ns Inj) 1,000 mls @ 0 mls/hr IV.SIG .Q0M [facility] Last Infusion: 04/26/18 07:00 Dose: Infused Sodium Chloride (Ns Inj) 1,000 mls @ 0 mls/hr IV.SIG .Q0M [facility] Sodium Chloride (Ns Inj) 1,000 mls @ 0 mls/hr IV.SIG .Q0M [facility] Last Infusion: 04/25/18 21:00 Dose: Infused Sodium Chloride (1/2 Normal Saline Inj) 1,000 mls @ 100 mls/hr IV.CONT .Q10H [facility] Stop: 04/27/18 07:29 Last Admin: 04/26/18 19:41 Dose: 100 mls/hr Insulin Aspart (Novolog Insulin Correctional Sugar Inj) 0 unit SQ ACHS [facility]; Protocol Last Admin: 04/26/18 22:05 Dose: Not Given Isosorbide Mononitrate (Imdur) 30 mg PO DAILY [facility] Last Admin: 04/26/18 08:44 Dose: 30 mg Lactulose (Lactulose Liq) 30 ml PO DAILY PRN PRN Reason: SEVERE CONSITIPATION Levetiracetam (Keppra) 1,000 mg PO BID [facility] Last Admin: 04/26/18 22:05 Dose: 1,000 mg Ondansetron HCl (Zofran Inj) 4 mg IV.PUSH Q6H PRN PRN Reason: NAUSEA OR VOMITING Pantoprazole Sodium (Protonix Inj) 40 mg IV.PUSH Q12H [facility] Last Admin: 04/26/18 22:04 Dose: 40 mg Rivaroxaban (Xarelto) 20 mg PO DAILY [facility] Last Admin: 04/26/18 08:44 Dose: 20 mg Senna/Docusate Sodium (Stephie-Colace) 1 tab PO BID [facility] Last Admin: 04/26/18 22:05 Dose: 1 tab Sennosides (Senokot) 17.2 mg PO Q12H PRN PRN Reason: Moderate Constipation Tamsulosin HCl (Flomax) 0.4 mg PO DAILY [facility] Last Admin: 04/26/18 08:44 Dose: 0.4 mg Topiramate (Topamax) 100 mg PO BID [facility] Last Admin: 04/26/18 22:04 Dose: 100 mg <Sarwat Thorne E - Last Filed: 04/26/18 22:40> Allergies Allergy/AdvReac Type Severity Reaction Status Date / Time No Known Allergies Allergy Verified 03/29/18 13:42 Home Medications Medication Instructions Recorded Confirmed Type ascorbic acid (vitamin C) [Vitamin 500 mg PO DAILY 03/24/18 04/25/18 History C] atorvastatin 80 mg PO QPM 03/24/18 04/25/18 History cholecalciferol (vitamin D3) 2,000 unit PO DAILY 03/24/18 04/25/18 History [Vitamin D3] cyanocobalamin (vitamin B-12) 1,000 mcg PO DAILY 03/24/18 04/25/18 History [Vitamin B-12] folic acid 1 mg PO DAILY 03/24/18 04/25/18 History levetiracetam 1,000 mg PO BID 03/24/18 04/25/18 History metformin 1,000 mg PO BID 03/24/18 04/25/18 History sitagliptin [Januvia] 50 mg PO DAILY 03/24/18 04/25/18 History spironolactone 25 mg PO DAILY 03/24/18 04/25/18 History tamsulosin 0.4 mg PO DAILY 03/24/18 04/25/18 History topiramate 100 mg PO BID 03/24/18 04/25/18 History budesonide-formoterol [Symbicort] 2 puff INHALATION Q12H 04/25/18 04/25/18 History carvedilol [Coreg] 12.5 mg PO BID 04/25/18 04/25/18 History hydroxyzine HCl 25 mg PO Q8HR 04/25/18 04/25/18 History isosorbide mononitrate 30 mg PO QAM 04/25/18 04/25/18 History lisinopril 40 mg PO DAILY 04/25/18 04/25/18 History nitroglycerin [Nitrostat] 0.4 mg SUBLINGUAL Q5-15M PRN 04/25/18 04/25/18 History Exam Vital signs: Vital Signs 04/25/18 17:13 04/25/18 17:40 04/25/18 18:08 Temperature 98.3 F Pulse Rate 136 H 124 H Respiratory Rate 18 18 Blood Pressure 128/80 168/84 H Pulse Oximetry 99 100 98 04/25/18 20:00 04/25/18 23:09 04/25/18 23:49 Temperature 98.4 F 98.7 F Pulse Rate 133 H 128 H 108 H Respiratory Rate 16 16 15 Blood Pressure 132/66 146/88 H 123/68 Pulse Oximetry 98 97 98 04/26/18 00:15 04/26/18 03:46 04/26/18 04:00 Temperature 98.3 F Pulse Rate 119 H 105 H 105 H Respiratory Rate 15 15 Blood Pressure 111/82 116/76 Pulse Oximetry 99 97 04/26/18 08:00 04/26/18 09:00 04/26/18 12:00 Temperature 98.9 F 98.0 F Pulse Rate 130 H 123 H 130 H Respiratory Rate 18 18 Blood Pressure 122/80 92/75 L Pulse Oximetry 99 99 Intake & Output 04/25/18 04/26/18 04/26/18 18:59 06:59 18:59 Intake Total 1100 / 1100 1755 / 1755 1999 Output Total 300 / 300 Balance 1100 / 1100 1455 / 1455 1999 Weight 103.419 kg 100 kg Intake: IV 1100 / 1100 1515 / 1515 1999 NS Inj 1,000 ML @ 100 mls/hr IV 1000 / 1000 .CONT .Q10H SUAD Rx#:[id number] Maxipime Inj 2,000 MG In NS Inj 100 / 100 100 ML @ 200 mls/hr IV.SIG STAT STA Rx#:[id number] NS Inj 1,000 ML @ Wide Open IV. 1000 / 1000 1000 / 1000 1000 / 1000 SIG .Q0M SUAD Rx#:[id number] Vancomycin Inj 1,500 MG In NS 515 / 515 Inj 500 ML @ 250 mls/hr IV.SIG STAT STA Rx#:[id number] Oral 240 / 240 Output: Urine 300 / 300 Other: Other Intake Source Saline Solution Date of Last Bowel Movement 04/25/18 # Bowel Movements 0 - Constitutional no acute distress - Routine HEENT Exam Head: Present: normocephalic - Routine Respiratory Exam Absent: accessory muscle use - Routine Cardiovascular Exam Present: irregularly irregular - Routine Abdominal Exam Present: soft, normoactive bowel sounds. Absent: tenderness, distended, guarding, firm - Routine Skin Exam Present: dry, warm - Routine Neurological Exam Present: alert, oriented X3 <Pittman,Patricia - Last Filed: 04/26/18 15:43> Vital signs: Vital Signs 04/25/18 23:09 04/25/18 23:49 04/26/18 00:15 Temperature 98.7 F Pulse Rate 128 H 108 H 119 H Respiratory Rate 16 15 15 Blood Pressure 146/88 H 123/68 111/82 Pulse Oximetry 97 98 99 04/26/18 03:46 04/26/18 04:00 04/26/18 08:00 Temperature 98.3 F 98.9 F Pulse Rate 105 H 105 H 130 H Respiratory Rate 15 18 Blood Pressure 116/76 122/80 Pulse Oximetry 97 99 04/26/18 09:00 04/26/18 12:00 04/26/18 16:00 Temperature 98.0 F 98.8 F Pulse Rate 123 H 130 H 130 H Respiratory Rate 18 14 Blood Pressure 92/75 L 110/79 Pulse Oximetry 99 100 04/26/18 20:00 Temperature 97.8 F Pulse Rate 142 H Respiratory Rate 18 Blood Pressure 133/82 Pulse Oximetry 99 Intake & Output 04/26/18 04/26/18 04/27/18 06:59 18:59 06:59 Intake Total 1755 / 1755 2720 / 2720 Output Total 300 / 300 920 / 920 Balance 1455 / 1455 1800 / 1800 Weight 100 kg Intake: IV 1515 / 1515 2000 / 1999 NS Inj 1,000 ML @ 100 mls/hr IV 1000 / 1000 .CONT .Q10H [facility] Rx#:[id number] NS Inj 1,000 ML @ Wide Open IV. 1000 / 1000 1000 / 1000 SIG .Q0M [facility] Rx#:[id number] Vancomycin Inj 1,500 MG In NS 515 / 515 Inj 500 ML @ 250 mls/hr IV.SIG STAT STA Rx#:[id number] Oral 240 / 240 720 / 720 Output: Urine 300 / 300 920 / 920 Other: Other Intake Source Saline Solution Date of Last Bowel Movement 04/25/18 # Bowel Movements 0 <Sarwat Thorne E - Last Filed: 04/26/18 22:40> Results - Labs CBC & Chem 7: 04/26/18 06:42 04/26/18 06:42 Labs: Laboratory Results - last 24 hr 04/25/18 04/25/18 04/25/18 17:20 17:20 17:20 WBC 11.4 H RBC 4.23 L Hgb 12.6 L Hct 37.5 L MCV 88.6 MCH 29.7 MCHC 33.6 RDW 13.7 Plt Count 276 MPV 9.2 Neut % (Auto) 74.6 H Lymph % (Auto) 12.4 [place] % (Auto) 6.6 Eos % (Auto) 5.7 H Baso % (Auto) 0.7 Neut # (Auto) 8.5 H Lymph # (Auto) 1.4 [place] # (Auto) 0.8 Eos # (Auto) 0.6 H Baso # (Auto) 0.1 WBC Differential . Differential Comment Auto diff final Sodium 143 Potassium 4.2 Chloride 112 H Carbon Dioxide 21.8 Anion Gap 9 BUN 25 H Creatinine 1.64 H Estimated GFR 43 L POC Glucose Random Glucose 152 H Lactic Acid Calcium 7.7 L Prot Corrected Calcium Magnesium 1.6 Total Bilirubin 0.3 AST 13 L ALT 22 Alkaline Phosphatase 78 Troponin I Less than 0.02 L Total Protein 6.4 Albumin 3.2 L Lipase 99 TSH Urine Color Urine Clarity Urine pH Ur Specific [place] Urine Protein Urine Glucose (UA) Urine Ketones Urine Occult Blood Urine Nitrate Urine Bilirubin Urine Urobilinogen Ur Leukocyte Esterase Urine RBC Urine WBC Ur Squamous Epith Cells Urine Bacteria Hyaline Casts Urine Mucus Micro UA Comment Ur Microscopic Review Urine Culture Comments Blood Type Antibody Screen 04/25/18 04/25/18 04/25/18 17:20 18:11 22:00 WBC RBC Hgb Hct MCV MCH MCHC RDW Plt Count MPV Neut % (Auto) Lymph % (Auto) [place] % (Auto) Eos % (Auto) Baso % (Auto) Neut # (Auto) Lymph # (Auto) [place] # (Auto) Eos # (Auto) Baso # (Auto) WBC Differential Differential Comment Sodium Potassium Chloride Carbon Dioxide Anion Gap BUN Creatinine Estimated GFR POC Glucose Random Glucose Lactic Acid 1.5 Calcium Prot Corrected Calcium Magnesium Total Bilirubin AST ALT Alkaline Phosphatase Troponin I Total Protein Albumin Lipase TSH Urine Color Yellow Urine Clarity Hazy H Urine pH 5.0 Ur Specific [place] 1.044 H Urine Protein Negative Urine Glucose (UA) Negative Urine Ketones Negative Urine Occult Blood Negative Urine Nitrate Negative Urine Bilirubin Negative Urine Urobilinogen Less than 2 Ur Leukocyte Esterase Negative Urine RBC Less than 1 Urine WBC 1 Ur Squamous Epith Cells <1 Urine Bacteria Occasional H Hyaline Casts 4 Urine Mucus Few H Micro UA Comment Culture not ind Ur Microscopic Review Not Reportable Urine Culture Comments Culture not ind Blood Type O Positive Antibody Screen Negative 04/25/18 04/26/18 04/26/18 22:04 00:20 06:42 WBC 9.4 RBC 3.86 L Hgb 11.2 L Hct 34.0 L MCV 88.2 MCH 29.0 MCHC 32.9 RDW 13.6 Plt Count 213 MPV 9.6 Neut % (Auto) 74.2 H Lymph % (Auto) 12.9 [place] % (Auto) 7.8 Eos % (Auto) 4.6 H Baso % (Auto) 0.5 Neut # (Auto) 7.0 Lymph # (Auto) 1.2 [place] # (Auto) 0.7 Eos # (Auto) 0.4 Baso # (Auto) 0.0 WBC Differential . Differential Comment Auto diff final Sodium Potassium Chloride Carbon Dioxide Anion Gap BUN Creatinine Estimated GFR POC Glucose 139 H Random Glucose Lactic Acid Calcium Prot Corrected Calcium Magnesium Total Bilirubin AST ALT Alkaline Phosphatase Troponin I Less than 0.02 L Total Protein Albumin Lipase TSH Urine Color Urine Clarity Urine pH Ur Specific [place] Urine Protein Urine Glucose (UA) Urine Ketones Urine Occult Blood Urine Nitrate Urine Bilirubin Urine Urobilinogen Ur Leukocyte Esterase Urine RBC Urine WBC Ur Squamous Epith Cells Urine Bacteria Hyaline Casts Urine Mucus Micro UA Comment Ur Microscopic Review Urine Culture Comments Blood Type Antibody Screen 04/26/18 04/26/18 04/26/18 06:42 06:42 12:02 WBC RBC Hgb Hct MCV MCH MCHC RDW Plt Count MPV Neut % (Auto) Lymph % (Auto) [place] % (Auto) Eos % (Auto) Baso % (Auto) Neut # (Auto) Lymph # (Auto) [place] # (Auto) Eos # (Auto) Baso # (Auto) WBC Differential Differential Comment Sodium 145 Potassium 4.1 Chloride 117 H Carbon Dioxide 20.9 L Anion Gap 7 BUN 20 H Creatinine 1.31 H Estimated GFR 55 L POC Glucose 168 H Random Glucose 120 H Lactic Acid Calcium 6.6 L* D Prot Corrected Calcium 7.4 L* Magnesium Total Bilirubin 0.2 AST 9 L ALT 17 Alkaline Phosphatase 76 Troponin I Less than 0.02 L Total Protein 5.5 L D Albumin 2.7 L Lipase TSH 4.970 H Urine Color Urine Clarity Urine pH Ur Specific [place] Urine Protein Urine Glucose (UA) Urine Ketones Urine Occult Blood Urine Nitrate Urine Bilirubin Urine Urobilinogen Ur Leukocyte Esterase Urine RBC Urine WBC Ur Squamous Epith Cells Urine Bacteria Hyaline Casts Urine Mucus Micro UA Comment Ur Microscopic Review Urine Culture Comments Blood Type Antibody Screen - Imaging Impressions Head CT 04/25/18 17:18 CONCLUSION: 1. No acute intracranial abnormalities. . Chest X-Ray 04/25/18 17:20 CONCLUSION: No active disease. Abdomen/Pelvis CT 04/25/18 17:39 CONCLUSION: 1. No acute findings within the abdomen and pelvis. Previous cholecystectomy. Fat-containing umbilical hernia. Small pericardial effusion. Foot X-Ray 04/25/18 17:40 CONCLUSION: Relatively nondisplaced fracture proximal phalanx right second toe. <Patricia Pittman - Last Filed: 04/26/18 15:43> - Labs CBC & Chem 7: 04/26/18 06:42 04/26/18 06:42 Labs: Laboratory Results - last 24 hr 04/26/18 04/26/18 04/26/18 00:20 06:42 06:42 WBC 9.4 RBC 3.86 L Hgb 11.2 L Hct 34.0 L MCV 88.2 MCH 29.0 MCHC 32.9 RDW 13.6 Plt Count 213 MPV 9.6 Neut % (Auto) 74.2 H Lymph % (Auto) 12.9 [place] % (Auto) 7.8 Eos % (Auto) 4.6 H Baso % (Auto) 0.5 Neut # (Auto) 7.0 Lymph # (Auto) 1.2 [place] # (Auto) 0.7 Eos # (Auto) 0.4 Baso # (Auto) 0.0 WBC Differential . Differential Comment Auto diff final Sodium 145 Potassium 4.1 Chloride 117 H Carbon Dioxide 20.9 L Anion Gap 7 BUN 20 H Creatinine 1.31 H Estimated GFR 55 L POC Glucose Random Glucose 120 H Calcium 6.6 L* D Prot Corrected Calcium 7.4 L* Total Bilirubin 0.2 AST 9 L ALT 17 Alkaline Phosphatase 76 Troponin I Less than 0.02 L Less than 0.02 L Total Protein 5.5 L D Albumin 2.7 L TSH 04/26/18 04/26/18 04/26/18 06:42 12:02 16:57 WBC RBC Hgb Hct MCV MCH MCHC RDW Plt Count MPV Neut % (Auto) Lymph % (Auto) [place] % (Auto) Eos % (Auto) Baso % (Auto) Neut # (Auto) Lymph # (Auto) [place] # (Auto) Eos # (Auto) Baso # (Auto) WBC Differential Differential Comment Sodium Potassium Chloride Carbon Dioxide Anion Gap BUN Creatinine Estimated GFR POC Glucose 168 H 131 H Random Glucose Calcium Prot Corrected Calcium Total Bilirubin AST ALT Alkaline Phosphatase Troponin I Total Protein Albumin TSH 4.970 H 04/26/18 22:04 WBC RBC Hgb Hct MCV MCH MCHC RDW Plt Count MPV Neut % (Auto) Lymph % (Auto) [place] % (Auto) Eos % (Auto) Baso % (Auto) Neut # (Auto) Lymph # (Auto) [place] # (Auto) Eos # (Auto) Baso # (Auto) WBC Differential Differential Comment Sodium Potassium Chloride Carbon Dioxide Anion Gap BUN Creatinine Estimated GFR POC Glucose 128 H Random Glucose Calcium Prot Corrected Calcium Total Bilirubin AST ALT Alkaline Phosphatase Troponin I Total Protein Albumin TSH <Sarwat Thorne - Last Filed: 04/26/18 22:40> Assessment and Plan (1) GI bleed Status: Acute Code(s): K92.2 - Gastrointestinal hemorrhage, unspecified - Plan This patient is 63-year-old male patient with a past medical history significant for hypertension, hyperlipidemia, atrial fibrillation on Xarelto, coronary artery disease and diabetes mellitus. Surgical history includes cholecystectomy and hernia repair in 2009. This patient presented to the emergency room at [facility] with complaint of general weakness and fall. Patient was recently admitted to [facility] with a diagnosis of atrial fibrillation with RVR and underwent ablation on 03/31/[address] Ward. Patient was discharged home on amiodarone and Xarelto. Upon consultation patient endorses that he has had generalized weakness with loose to soft stools since discharge. Patient denies any fever or chills. Patient denies nausea vomiting or abdominal pain. Upon admission patient stool was Hemoccult positive. Patient states that since he has been on Xarelto he has been spitting up blood every morning for 3 weeks to 1 month. Patient states he has never had an EGD or colonoscopy. He endorses feeling dizzy with generalized weakness and falling on floor unable to get up prior to admission. Patient endorses decreased appetite with early satiety for 1 month. Patient denies any noted blood in stools. He denies any unintentional weight loss. Patient denies use of tobacco or alcohol products. Patient endorses frequent bouts of heartburn for which he uses [id number] chewable Tums. Patient denies any difficulty or pain with swallowing. Our service has been consulted to evaluate patient's GI bleeding as he was found to have heme positive stool upon admission. GI bleeding Patient was admitted to [facility] post report of generalized weakness and fall. Patient was recently discharged home on amiodarone and Xarelto for atrial fibrillation. Patient underwent ablation on 03/31/2018. Patient endorses spitting up blood times 3 weeks and denies ever having had any endoscopic procedures. 04/25/2018 CT abdomen and pelvis revealed the following findings: No acute findings within the abdomen and pelvis. Previous cholecystectomy. Fat- containing umbilical hernia. Small pericardial effusion. 04/26/2018 WBC 9.4 hemoglobin 11.2 hematocrit 34.0 platelet count 213. Plan -Diabetic diet -Monitor for bleeding -Monitor hemoglobin and hematocrit -Patient will require EGD/ Colonoscopy pending cardiac clearance -Continue PPI -Supportive care -Further recommendations to follow This patient has been seen by myself and Dr. Thorne and this note is written on his behalf - Attending Attestation Dr. Thorne <Patricia Pittman - Last Filed: 04/26/18 15:43> (1) GI bleed Status: Acute Code(s): K92.2 - Gastrointestinal hemorrhage, unspecified - Plan Patient seen and examined Agree with above Continue with current supportive care Monitor labs Patient appears to be on Xarelto at this point Anticoagulation will need to be stopped in order for us to pursue endoscopy and he would need to be off for 2 days Endoscopy can be done on outpatient basis The patient does not appear to be actively bleeding from a GI perspective at this point <Sarwat Thorne E - Last Filed: 04/26/18 22:40>
[2018-04-26] MEDS: Sodium Chloride 0.45 % Inj 1,000 ML IV.CONT SCH (19:41)
[2018-04-27] MEDS: Sodium Chloride 0.45 % Inj 1,000 ML IV.CONT SCH ×2 (03:30→05:07)
[2018-04-27 08:34] LABS: Baso # (Auto) 0.1 th/mm3 (0.0-0.2); Baso % (Auto) 0.7 % (0.0-2.0); Eos # (Auto) 0.5 th/mm3 (0.0-0.4); Eos % (Auto) 6.3 % (0.0-4.0); Hematocrit 34.2 % (39.0-51.0); Hemoglobin 11.2 gm/dL (13.0-17.0); Lymph # (Auto) 1.1 th/mm3 (1.0-4.8); Lymph % (Auto) 14.9 % (9.0-44.0); Mean Corpuscular HGB Conc 32.6 % (32.0-36.0); Mean Corpuscular Volume 88.9 fL (80.0-100.0); Mean Platelet Volume 9.1 fL (7.0-11.0); Mono # (Auto) 0.5 th/mm3 (0.0-0.9); Mono % (Auto) 6.4 % (0.0-8.0); Neut # (Auto) 5.4 th/mm3 (1.8-7.7); Neut % (Auto) 71.7 % (16.0-70.0); Platelet Count 219 th/mm3 (150-450); Red Blood Count 3.85 mil/mm3 (4.50-5.90); Red Cell Distribution Width 13.8 % (11.6-17.2); White Blood Count 7.5 th/mm3 (4.0-11.0)
[2018-04-27] MEDS: Insulin NovoLOG Aspart Correctional Sugar Inj SQ SCH ×4 (08:41→21:00)
[2018-04-27] MEDS: Isosorbide Mononitrate 30 MG ER 24HR Tablet (Imdur) PO SCH (08:42)
[2018-04-27] MEDS: Folic Acid 1 MG Tablet PO SCH (08:42)
[2018-04-27] MEDS: Rivaroxaban 20 MG Tablet PO SCH (08:42)
[2018-04-27] MEDS: Amiodarone 200 MG Tablet PO SCH ×2 (08:42→21:08)
[2018-04-27] MEDS: Senna/Docusate Sodium 8.6/50 MG Tablet PO SCH ×2 (08:43→21:09)
[2018-04-27] MEDS: levETIRAcetam 500 MG Tablet PO SCH ×2 (08:43→21:08)
[2018-04-27] MEDS: Carvedilol 12.5 MG Tablet PO SCH ×2 (08:43→21:09)
[2018-04-27] MEDS: Topiramate 100 MG Tablet PO SCH ×2 (08:44→21:09)
[2018-04-27 09:04] LABS: Calcium 7.2 mg/dL (8.5-10.1); Carbon Dioxide 22.5 meq/L (21.0-32.0); Magnesium 1.4 mg/dL (1.5-2.5); Phosphorus 1.4 mg/dL (2.5-4.9); Potassium 4.2 meq/L (3.5-5.1)
[2018-04-27 09:25] LABS: Total Protein 5.7 g/dL (6.4-8.2)
--- NOTE | 2018-04-27 09:29 | P.PNIM ---
Subjective Interval history: The patient was resting in bed. He said that he feels his heart beating fast every once in a while. He said he has been ambulating well. He denies any further bleeding. He wants to go home soon. Discussed with nursing. Physical Exam Vital signs: Vital Signs 04/26/18 12:00 04/26/18 16:00 04/26/18 19:00 Temperature 98.0 F 98.8 F Pulse Rate 130 H 130 H 125 H Respiratory Rate 18 14 Blood Pressure 92/75 L 110/79 Pulse Oximetry 99 100 04/26/18 20:00 04/26/18 21:00 04/26/18 22:00 Temperature 97.8 F Pulse Rate 140 H 138 H 142 H Respiratory Rate 18 Blood Pressure 133/82 Pulse Oximetry 99 04/26/18 23:00 04/26/18 23:47 04/27/18 00:00 Temperature 98.0 F Pulse Rate 122 H 142 H 109 H Respiratory Rate 18 Blood Pressure 119/95 H Pulse Oximetry 98 04/27/18 01:00 04/27/18 02:00 04/27/18 03:00 Temperature Pulse Rate 88 88 103 H Respiratory Rate Blood Pressure Pulse Oximetry 04/27/18 04:00 04/27/18 05:00 04/27/18 06:00 Temperature 97.9 F Pulse Rate 106 H 86 107 H Respiratory Rate 18 Blood Pressure 131/90 Pulse Oximetry 98 04/27/18 07:00 Temperature Pulse Rate 110 H Respiratory Rate Blood Pressure Pulse Oximetry Intake & Output 04/26/18 04/27/18 04/27/18 18:59 06:59 18:59 Intake Total 2720 / 2720 1480 / 1480 Output Total 920 / 920 1000 / 1000 Balance 1800 / 1800 480 / 480 Weight 100.9 kg Intake: IV 1999 / 1999 1000 / 1000 NS Inj 1,000 ML @ 100 mls/hr IV 1000 / 1000 .CONT .Q10H SUAD Rx#:[id number] 1/2 Normal Saline Inj 1,000 ML 1000 / 1000 @ 100 mls/hr IV.CONT .Q10H SUAD Rx#:[id number] NS Inj 1,000 ML @ Wide Open IV. 1000 / 1000 SIG .Q0M SUAD Rx#:[id number] Oral 720 / 720 480 / 480 Output: Urine 920 / 920 1000 / 1000 Other: Date of Last Bowel Movement 04/25/18 04/25/18 Narrative: GENERAL: No acute distress. SKIN: Pale. Focused skin assessment warm and dry. HEENT: PERRLA, EOMI. No scleral icterus or conjunctival pallor. No lid lag or facial droop. CARDIOVASCULAR: Tachycardic. No obvious murmurs to auscultation. No chest tenderness to palpation. RESPIRATORY: Mild wheezing appreciated. GASTROINTESTINAL: Abdomen soft, mildly distended, non tender. BS normal. MUSCULOSKELETAL: Extremities without clubbing, cyanosis, or edema. No obvious deformities. NEUROLOGICAL: Awake, alert and oriented x4. No focal neurologic deficits. Moving both upper and lower extremities spontaneously. Results - Labs CBC & Chem 7: 04/27/18 07:25 04/27/18 07:25 Laboratory Results - last 24 hr 04/26/18 04/26/18 04/26/18 06:42 12:02 16:57 WBC RBC Hgb Hct MCV MCH MCHC RDW Plt Count MPV Neut % (Auto) Lymph % (Auto) [place] % (Auto) Eos % (Auto) Baso % (Auto) Neut # (Auto) Lymph # (Auto) [place] # (Auto) Eos # (Auto) Baso # (Auto) WBC Differential Differential Comment Sodium Potassium Chloride Carbon Dioxide Anion Gap BUN Creatinine Estimated GFR POC Glucose 168 H 131 H Random Glucose Calcium Phosphorus Magnesium TSH 4.970 H 04/26/18 04/27/18 04/27/18 22:04 07:25 07:25 WBC 7.5 RBC 3.85 L Hgb 11.2 L Hct 34.2 L MCV 88.9 MCH 29.0 MCHC 32.6 RDW 13.8 Plt Count 219 MPV 9.1 Neut % (Auto) 71.7 H Lymph % (Auto) 14.9 [place] % (Auto) 6.4 Eos % (Auto) 6.3 H Baso % (Auto) 0.7 Neut # (Auto) 5.4 Lymph # (Auto) 1.1 [place] # (Auto) 0.5 Eos # (Auto) 0.5 H Baso # (Auto) 0.1 WBC Differential . Differential Comment Auto diff final Sodium 143 Potassium 4.2 Chloride 115 H Carbon Dioxide 22.5 Anion Gap 6 BUN 13 Creatinine 1.20 Estimated GFR 61 L POC Glucose 128 H Random Glucose 147 H Calcium 7.2 L* Phosphorus 1.4 L Magnesium 1.4 L TSH 04/27/18 08:37 WBC RBC Hgb Hct MCV MCH MCHC RDW Plt Count MPV Neut % (Auto) Lymph % (Auto) [place] % (Auto) Eos % (Auto) Baso % (Auto) Neut # (Auto) Lymph # (Auto) [place] # (Auto) Eos # (Auto) Baso # (Auto) WBC Differential Differential Comment Sodium Potassium Chloride Carbon Dioxide Anion Gap BUN Creatinine Estimated GFR POC Glucose 132 H Random Glucose Calcium Phosphorus Magnesium TSH Microbiology 04/25/18 17:30 Blood - Peripheral Aerobic Blood Culture - Preliminary No growth in 1 day 04/25/18 17:30 Blood - Peripheral Anaerobic Blood Culture - Preliminary No growth in 1 day 04/25/18 17:20 Blood - Peripheral Aerobic Blood Culture - Preliminary No growth in 1 day 04/25/18 17:20 Blood - Peripheral Anaerobic Blood Culture - Preliminary No growth in 1 day Assessment and Plan - Assessment (1) Hypotension Code(s): I95.9 - Hypotension, unspecified Status: Acute (2) Dysrhythmia Code(s): I49.9 - Cardiac arrhythmia, unspecified Status: Acute (3) GI bleed Code(s): K92.2 - Gastrointestinal hemorrhage, unspecified Status: Acute (4) LETICIA (acute kidney injury) Code(s): N17.9 - Acute kidney failure, unspecified Status: Acute (5) Diarrhea Code(s): R19.7 - Diarrhea, unspecified Status: Acute (6) Toe fracture Code(s): S92.919A - Unspecified fracture of unspecified toe(s), initial encounter for closed fracture Status: Acute (7) Seizure disorder Code(s): G40.909 - Epilepsy, unspecified, not intractable, without status epilepticus Status: Acute (8) DM (diabetes mellitus) Code(s): E11.9 - Type 2 diabetes mellitus without complications Status: Acute (9) Fall Code(s): W19.XXXA - Unspecified fall, initial encounter Status: Acute - Plan Hypotension Resolved. BP 70's systolic per EMS, s/p IVF w/ improvement, normotensive since arrival.. Likely due to dehydration from decreased PO intake/diarrhea. -IVFs. -holding lisinopril and Aldactone at this time. Dysrhythmia H/o A-fib, recent admit 03/30-04/01/18 for Afib w/ RVR, s/p ablation 03/[address] Reeves, has been in NSR since, however upon arrival noted to be tachycardic. -resume home Amiodarone and Coreg now that BP stabilized. -cardiology consult requested. -telemetry. LETICIA Creatinine 1.64, previously 1.17 on 03/31/18, secondary to dehydration/diarrhea. -Monitor I/O. -IVF for hydration. -repeat labs in am. Resolved. GI bleed +Hemoccult on exam, likely combination of anticoagulation and diarrhea. GI consult appreciated. CT abdomen with no acute abnormalities. -follow CBC. -follow up with GI as outpt for EGD/colonoscopy. Fall/ Toe fracture S/p mechanical fall, no head trauma or LOC. CT Head w/ no acute findings. Foot X-ray w/ nondisplaced right 2nd toe fracture. -follow up w/ Podiatry as outpatient as needed. -will Consult PT for eval/tx. DM On metformin. -hold metformin and place on sliding scale. DVT Prophylaxis: Xarelto Discharge Planning: Await cardiology evaluation
[2018-04-27] MEDS: Pantoprazole Inj 40 MG Vial IV.PUSH SCH ×2 (11:20→21:10)
[2018-04-27] MEDS: Potassium Phosphate 500 MG Soluble Tablet PO SCH ×2 (11:21→21:08)
[2018-04-27] MEDS: Mag Sulf 1 gm/100 ml Premix 100 ML IV.SIG SCH ×2 (11:22→13:15)
--- NOTE | 2018-04-27 12:49 | ECG ---
Date Performed: 04/26/2018 Time Performed: 22:01:48 PTAGE: 63 years EKG: Probable sinus tachycardia. Poor R wave progression - cannot rule out septal infarct Inferi or/lateral ST-T changes may be due to myocardial ischemia Low QRS voltages in limb leads Since the pr evious tracing, no significant change noted Abnormal ECG PREVIOUS TRACING : 04/25/2018 17.13 DOCTOR: Chelsea Garnica Interpretating Date/Time 04/27/2018 12:47:04
--- NOTE | 2018-04-27 14:24 | P.PNGI ---
Subjective Interval history: Sitting up in the bed, answering simple questions Unaware of any rectal bleeding but does note that stools change colors at times States spits up blood at times but has bad teeth. No abdominal pain Physical Exam Vital signs: Vital Signs 04/26/18 16:00 04/26/18 19:00 04/26/18 20:00 Temperature 98.8 F 97.8 F Pulse Rate 130 H 125 H 140 H Respiratory Rate 14 18 Blood Pressure 110/79 133/82 Pulse Oximetry 100 99 04/26/18 21:00 04/26/18 22:00 04/26/18 23:00 Temperature Pulse Rate 138 H 142 H 122 H Respiratory Rate Blood Pressure Pulse Oximetry 04/26/18 23:47 04/27/18 00:00 04/27/18 01:00 Temperature 98.0 F Pulse Rate 142 H 109 H 88 Respiratory Rate 18 Blood Pressure 119/95 H Pulse Oximetry 98 04/27/18 02:00 04/27/18 03:00 04/27/18 04:00 Temperature 97.9 F Pulse Rate 88 103 H 106 H Respiratory Rate 18 Blood Pressure 131/90 Pulse Oximetry 98 04/27/18 05:00 04/27/18 06:00 04/27/18 07:00 Temperature Pulse Rate 86 107 H 110 H Respiratory Rate Blood Pressure Pulse Oximetry 04/27/18 08:00 04/27/18 09:00 04/27/18 10:00 Temperature 96.4 F L Pulse Rate 116 H 143 H 123 H Respiratory Rate 16 Blood Pressure 142/82 H Pulse Oximetry 98 04/27/18 11:00 04/27/18 11:50 04/27/18 11:52 Temperature 98.2 F Pulse Rate 133 H 40 L 45 L Respiratory Rate 16 Blood Pressure 178/86 H Pulse Oximetry 99 04/27/18 13:00 Temperature Pulse Rate 113 H Respiratory Rate Blood Pressure Pulse Oximetry Intake & Output 04/26/18 04/27/18 04/27/18 18:59 06:59 18:59 Intake Total 2720 / 2720 1480 / 1480 100 / 100 Output Total 920 / 920 1000 / 1000 Balance 1800 / 1800 480 / 480 100 / 100 Weight 100.9 kg Intake: IV 1999 / 1999 1000 / 1000 100 / 100 NS Inj 1,000 ML @ 100 mls/hr IV 1000 / 1000 .CONT .Q10H SUAD Rx#:[id number] 1/2 Normal Saline Inj 1,000 ML 1000 / 1000 @ 100 mls/hr IV.CONT .Q10H SUAD Rx#:[id number] Magnesium Sulfate 1 gm/D5W 100 100 / 100 ml Premix 100 ML @ 100 mls/hr IV.SIG Q1H SUAD Rx#:[id number] NS Inj 1,000 ML @ Wide Open IV. 1000 / 1000 SIG .Q0M SUAD Rx#:[id number] Oral 720 / 720 480 / 480 Output: Urine 920 / 920 1000 / 1000 Other: Date of Last Bowel Movement 04/25/18 04/25/18 - Constitutional no acute distress (Generalized pale) - Routine HEENT Exam Head: Present: normocephalic ENT: Present: mucous membranes dry - Routine Respiratory Exam Present: decreased breath sounds (Bibasilar no audible wheezing), diminished air movement - Routine Cardiovascular Exam Present: S1, S2, irregular rhythm - Routine Abdominal Exam Present: soft (Round, soft bowel sounds no obvious abdominal pain, occasional nausea but no vomiting) - Routine Skin Exam Present: pallor - Routine Neurological Exam Present: alert (Awake, answers simple questions) Results - Labs CBC & Chem 7: 04/27/18 07:25 04/27/18 07:25 Laboratory Results - last 24 hr 04/26/18 04/26/18 04/27/18 16:57 22:04 07:25 WBC 7.5 RBC 3.85 L Hgb 11.2 L Hct 34.2 L MCV 88.9 MCH 29.0 MCHC 32.6 RDW 13.8 Plt Count 219 MPV 9.1 Neut % (Auto) 71.7 H Lymph % (Auto) 14.9 [place] % (Auto) 6.4 Eos % (Auto) 6.3 H Baso % (Auto) 0.7 Neut # (Auto) 5.4 Lymph # (Auto) 1.1 [place] # (Auto) 0.5 Eos # (Auto) 0.5 H Baso # (Auto) 0.1 WBC Differential . Differential Comment Auto diff final Sodium Potassium Chloride Carbon Dioxide Anion Gap BUN Creatinine Estimated GFR POC Glucose 131 H 128 H Random Glucose Calcium Prot Corrected Calcium Phosphorus Magnesium Total Protein 04/27/18 04/27/18 04/27/18 07:25 08:37 11:31 WBC RBC Hgb Hct MCV MCH MCHC RDW Plt Count MPV Neut % (Auto) Lymph % (Auto) [place] % (Auto) Eos % (Auto) Baso % (Auto) Neut # (Auto) Lymph # (Auto) [place] # (Auto) Eos # (Auto) Baso # (Auto) WBC Differential Differential Comment Sodium 143 Potassium 4.2 Chloride 115 H Carbon Dioxide 22.5 Anion Gap 6 BUN 13 Creatinine 1.20 Estimated GFR 61 L POC Glucose 132 H 178 H Random Glucose 147 H Calcium 7.2 L* Prot Corrected Calcium 7.9 L Phosphorus 1.4 L Magnesium 1.4 L Total Protein 5.7 L Microbiology 04/25/18 17:30 Blood - Peripheral Aerobic Blood Culture - Preliminary No growth in 2 days 04/25/18 17:30 Blood - Peripheral Anaerobic Blood Culture - Preliminary No growth in 2 days 04/25/18 17:20 Blood - Peripheral Aerobic Blood Culture - Preliminary No growth in 2 days 04/25/18 17:20 Blood - Peripheral Anaerobic Blood Culture - Preliminary No growth in 2 days Assessment and Plan (1) GI bleed Status: Acute Code(s): K92.2 - Gastrointestinal hemorrhage, unspecified - Plan GI bleeding Patient was admitted to [facility] post report of generalized weakness and fall. Patient was recently discharged home on amiodarone and Xarelto for atrial fibrillation. Patient underwent ablation on 03/31/2018. Patient endorses spitting up blood times 3 weeks and denies ever having had any endoscopic procedures. 04/25/2018 CT abdomen and pelvis revealed the following findings: No acute findings within the abdomen and pelvis. Previous cholecystectomy. Fat- containing umbilical hernia. Small pericardial effusion. 04/26/2018 WBC 9.4 hemoglobin 11.2 hematocrit 34.0 platelet count 213. 04/27/2018 patient is sitting up in the bed does note some mild nausea but no vomiting. Generalized paleness and appears fatigued. Patient notes loose stools but unaware whether he had any rectal bleeding or not. 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 current hemoglobin 11.2. Cardiology consult pending and appreciate input. Patient currently on Xarelto 20 mg daily, and will need to be off anticoagulant for 2 days if GI procedures performed in the hospital. No previous colonoscopy noted. As long as patient is not actively bleeding or drop in his hemoglobin EGD colonoscopy could be done outpatient, pending cardiac clearance/evaluation. Plan Diet cardiac ADA Monitor labs especially hemoglobin and transfuse as needed Patient on Xarelto 20 mg daily Bowel regimen Supportive care, consider EGD and initial colonoscopy outpatient, or endoscopy inpatient per cardiac clearance Patient was seen per myself and Dr. Grace, note was written on his behalf
[2018-04-27] MEDS: Budesonide-Formoterol 160/4.5 MCG 6 GM Inhaler INH SCH ×2 (15:40→21:10)
[2018-04-27] MEDS ORDERED: PEG 3350/E-Lyte Soln 4000 ML Bottle PO ONE (23:00)
[2018-04-28] MEDS ORDERED: Metoprolol Inj 5 MG/5 ML Vial IV.PUSH ONE ×3 (02:32→14:01)
[2018-04-28 06:30] LABS: Hematocrit 31.9 % (39.0-51.0); Hemoglobin 10.6 gm/dL (13.0-17.0); Mean Corpuscular HGB Conc 33.2 % (32.0-36.0); Mean Corpuscular Hemoglobin 29.2 pg (27.0-34.0); Mean Corpuscular Volume 87.8 fL (80.0-100.0); Platelet Count 204 th/mm3 (150-450); Red Blood Count 3.63 mil/mm3 (4.50-5.90); Red Cell Distribution Width 14.1 % (11.6-17.2)
[2018-04-28 07:10] LABS: Calcium 7.4 mg/dL (8.5-10.1); Carbon Dioxide 20.9 meq/L (21.0-32.0); Magnesium 2.1 mg/dL (1.5-2.5); Phosphorus 1.5 mg/dL (2.5-4.9); Potassium 3.7 meq/L (3.5-5.1)
[2018-04-28] MEDS: Amiodarone 200 MG Tablet PO SCH ×3 (07:17→21:27)
[2018-04-28] MEDS: Carvedilol 12.5 MG Tablet PO SCH ×3 (07:18→21:28)
[2018-04-28] MEDS: Isosorbide Mononitrate 30 MG ER 24HR Tablet (Imdur) PO SCH ×2 (07:18→12:38)
[2018-04-28 07:59] LABS: Total Protein 5.5 g/dL (6.4-8.2)
[2018-04-28] MEDS: Topiramate 100 MG Tablet PO SCH ×2 (08:19→21:28)
[2018-04-28] MEDS: Potassium Phosphate 500 MG Soluble Tablet PO SCH ×2 (08:19→21:28)
[2018-04-28] MEDS: levETIRAcetam 500 MG Tablet PO SCH ×2 (08:19→21:28)
[2018-04-28] MEDS: Senna/Docusate Sodium 8.6/50 MG Tablet PO SCH ×2 (08:19→21:30)
[2018-04-28] MEDS: Folic Acid 1 MG Tablet PO SCH (08:19)
[2018-04-28] MEDS: Budesonide-Formoterol 160/4.5 MCG 6 GM Inhaler INH SCH ×2 (08:20→21:29)
[2018-04-28] MEDS ORDERED: Amiodarone 200 MG Tablet PO SCH (09:00)
--- NOTE | 2018-04-28 09:15 | MB ---
cc: Elie Reeves MD DATE: 04/27/2018 REASON FOR CONSULTATION: Shortness of breath, tachyarrhythmia, possible gastrointestinal bleeding. HISTORY OF PRESENT ILLNESS: Ms. Jenkins is a 62-year-old gentleman with history of hyperlipidemia, high blood pressure, coronary artery disease, diabetes mellitus, morbid obesity, previous ablation in 2015, recent ablation at the beginning of 03/2018. Was admitted through the emergency room due to palpations and shortness of breath. The patient also complaining about some black stool. I was consulted for evaluation and management. The chart was reviewed. The patient was evaluated. ALLERGIES: NONE REPORTED. SOCIAL HISTORY: The patient denies smoking and drinking. FAMILY HISTORY: Noncontributory to his current medical condition. MEDICATIONS: The patient at home was on atorvastatin 80 mg a day, vitamin C, vitamin D, B12, folic acid, metformin 1000 mg twice a day, Januvia 50 mg a day, Aldactone 25 mg a day, Flomax 0.4 mg a day, Coreg 12.5 mg twice a day, hydroxyzine, Imdur 30 mg a day, lisinopril 40 mg a day, nitroglycerin sublingual. REVIEW OF SYSTEMS: Currently feeling better, but on and off tachyarrhythmia. No fever. PHYSICAL EXAMINATION: GENERAL: Alert, fully oriented. VITAL SIGNS: Blood pressure on evaluation 178/86, pulse 40, respiratory rate 18. LUNGS: Ventilated. CARDIOVASCULAR: S1, S2. Regular. No gallop. ABDOMEN: Soft, obese. No masses. EXTREMITIES: No edema. DIAGNOSTIC DATA: Electrocardiogram on 04/26/2018 indicates episode of supraventricular tachyarrhythmia, possible atrial tachycardia, atrial fibrillation. Labs: Hemoglobin 11.2, white blood cell 7.5. Potassium is 3.7, creatinine is 1.1. ASSESSMENT AND RECOMMENDATIONS: Mr. Jenkins has an episode of tachyarrhythmia. Apparently, he had ablation around a month ago. Apparently this is atrial tachyarrhythmia. I am going to add amiodarone 400 mg twice a day for 7 days and then cut it down to 200 mg a day if stable. His hemoglobin is over 11. The patient's main complaint about possible gastrointestinal bleeding. His complaint is more about gum bleeding. He saw some black stool. At that point, he needs to be continued on anticoagulation. I understand there is a gastrointestinal workup scheduled. There is no contraindication for the gastrointestinal procedure, okay with endoscopy or colonoscopy or both. I discussed the case extensively with this gentleman. I will monitor him during this hospitalization. MD MARIFRE Siegel/rigoberto , 08:39 AM , 08:50 AM
--- NOTE | 2018-04-28 09:45 | P.PCN ---
Date of procedure: 04/28/18 Procedure: THANK YOU FOR THE REFERRAL Indication; anemia, GI bleed, patient was cleared by cardiology Dr. Thompson for the procedure, patient high risk because of cardiac history Procedure Performed; upper endoscopy: Diagnostic Colonoscopy: With snare polypectomy, ablation of polyps After informing the patient about procedure and possible complications consent was signed. history and physical were updated. Patient was taken to the procedure room and placed in position. Time out was completed. Adequate sedation was performed by anesthesia provider. Upper Endoscopy, the scope was placed in the mouth advanced under video guide to the second portion of the duodenum, then the scope was withdrawal to the stomach and retro-flexion was performed, the scope was withdrawal to the esophagus then out of the mouth without any immediate complication Colonoscopy, rectal exam was performed the scope was placed in the rectum advanced under video guide to the cecum which was identified by ileo-cecal valve and appendiceal orifice, then the scope withdrawal slowly with examination of the mucosa to the rectum and retro-flexion was performed, the scope was withdrawal without any immediate complication Findings; colonoscopy, prep good Terminal ileum : Normal Colon: 1 polyp in the cecum ablated with heat, 2 polyps in the ascending colon removed by snare, 4 polyp in the rectosigmoid area ablated with heat, scattered diverticulosis, no active bleeding Rectum: Normal Esophagus: Irregular Z line, biopsy was not done because of anticoagulation Stomach: Mild gastritis Duodenum: Normal Recommendations; 1- Supportive care 2- ok to transfer to recovery area then discharge per protocol 3-cardiac diet 4-Hemoccult on a yearly basis by primary care physician 5-colonoscopy in 3 years 6- EGD as needed 7-lowest possible anticoagulation with close monitoring of hemoglobin and packed RBC as needed 8-Protonix 40 mg daily 9-follow-up biopsy 10-stool for H. pylori 11-return to clinic in 2 weeks 12-we will follow-up as needed
--- NOTE | 2018-04-28 09:47 | P.PNGI ---
Subjective Interval history: Laying in bed comfortably, still tachycardic, I discuss with Dr. Thompson and he is clear from cardiac perspective for endoscopy and colonoscopy but high risk Physical Exam Vital signs: Vital Signs 04/27/18 10:00 04/27/18 11:00 04/27/18 11:50 Temperature 98.2 F Pulse Rate 123 H 133 H 40 L Respiratory Rate 16 Blood Pressure 178/86 H Pulse Oximetry 99 04/27/18 11:52 04/27/18 13:00 04/27/18 14:00 Temperature Pulse Rate 45 L 113 H 123 H Respiratory Rate Blood Pressure Pulse Oximetry 04/27/18 15:00 04/27/18 16:00 04/27/18 17:00 Temperature 98.2 F Pulse Rate 123 H 140 H 141 H Respiratory Rate 18 Blood Pressure 126/89 Pulse Oximetry 96 04/27/18 18:00 04/27/18 20:00 04/27/18 22:00 Temperature 97.6 F Pulse Rate 105 H 140 H 136 H Respiratory Rate 18 Blood Pressure 137/96 H Pulse Oximetry 98 04/27/18 23:00 04/28/18 00:00 04/28/18 01:00 Temperature 98 F Pulse Rate 72 94 H 144 H Respiratory Rate 18 Blood Pressure 118/97 H Pulse Oximetry 97 04/28/18 02:00 04/28/18 03:00 04/28/18 04:00 Temperature 97.6 F Pulse Rate 114 H 92 H 105 H Respiratory Rate 18 Blood Pressure 149/87 H Pulse Oximetry 98 04/28/18 05:00 04/28/18 06:00 Temperature Pulse Rate 76 102 H Respiratory Rate Blood Pressure Pulse Oximetry Intake & Output 04/27/18 04/28/18 04/28/18 18:59 06:59 18:59 Intake Total 1060 / 1060 1240 / 1240 Output Total 875 / 875 720 / 720 Balance 185 / 185 520 / 520 Weight 100 kg Intake: IV 100 / 100 Magnesium Sulfate 1 gm/D5W 100 100 / 100 ml Premix 100 ML @ 100 mls/hr IV.SIG Q1H SUAD Rx#:[id number] Oral 960 / 960 1240 / 1240 Output: Urine 875 / 875 720 / 720 Other: Date of Last Bowel Movement 04/25/18 04/28/18 # Bowel Movements 5 - Constitutional no acute distress - Routine HEENT Exam Head: Present: normocephalic, atraumatic Eye: Present: EOMI, PERRL ENT: Present: mucous membranes moist - Routine Neck Exam Present: supple, full ROM - Routine Respiratory Exam Present: CTA bilaterally - Routine Cardiovascular Exam Present: tachycardia - Routine Abdominal Exam Present: soft, normoactive bowel sounds - Routine Skin Exam Present: warm - Routine Neurological Exam Present: alert, oriented X3 - Routine Psychiatric Exam Present: normal affect Results - Labs CBC & Chem 7: 04/28/18 05:53 04/28/18 05:53 Laboratory Results - last 24 hr 04/27/18 04/27/18 04/27/18 11:31 17:44 21:48 WBC RBC Hgb Hct MCV MCH MCHC RDW Plt Count MPV Sodium Potassium Chloride Carbon Dioxide Anion Gap BUN Creatinine Estimated GFR POC Glucose 178 H 154 H 133 H Random Glucose Calcium Prot Corrected Calcium Phosphorus Magnesium Total Protein 04/28/18 04/28/18 05:53 05:53 WBC 8.0 RBC 3.63 L Hgb 10.6 L Hct 31.9 L MCV 87.8 MCH 29.2 MCHC 33.2 RDW 14.1 Plt Count 204 MPV 9.0 Sodium 145 Potassium 3.7 Chloride 115 H Carbon Dioxide 20.9 L Anion Gap 9 BUN 12 Creatinine 1.11 Estimated GFR 67 L POC Glucose Random Glucose 108 H Calcium 7.4 L* Prot Corrected Calcium 8.3 L Phosphorus 1.5 L Magnesium 2.1 D Total Protein 5.5 L Microbiology 04/25/18 17:30 Blood - Peripheral Aerobic Blood Culture - Preliminary No growth in 2 days 04/25/18 17:30 Blood - Peripheral Anaerobic Blood Culture - Preliminary No growth in 2 days 04/25/18 17:20 Blood - Peripheral Aerobic Blood Culture - Preliminary No growth in 2 days 04/25/18 17:20 Blood - Peripheral Anaerobic Blood Culture - Preliminary No growth in 2 days Assessment and Plan (1) GI bleed Status: Acute Code(s): K92.2 - Gastrointestinal hemorrhage, unspecified - Plan GI bleeding Patient was admitted to [facility] post report of generalized weakness and fall. Patient was recently discharged home on amiodarone and Xarelto for atrial fibrillation. Patient underwent ablation on 03/31/2018. Patient endorses spitting up blood times 3 weeks and denies ever having had any endoscopic procedures. 04/25/2018 CT abdomen and pelvis revealed the following findings: No acute findings within the abdomen and pelvis. Previous cholecystectomy. Fat- containing umbilical hernia. Small pericardial effusion. 04/26/2018 WBC 9.4 hemoglobin 11.2 hematocrit 34.0 platelet count 213. 04/27/2018 patient is sitting up in the bed does note some mild nausea but no vomiting. Generalized paleness and appears fatigued. Patient notes loose stools but unaware whether he had any rectal bleeding or not. 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 current hemoglobin 11.2. Cardiology consult pending and appreciate input. Patient currently on Xarelto 20 mg daily, and will need to be off anticoagulant for 2 days if GI procedures performed in the hospital. No previous colonoscopy noted. As long as patient is not actively bleeding or drop in his hemoglobin EGD colonoscopy could be done outpatient, pending cardiac clearance/evaluation. Plan Diet cardiac ADA Monitor labs especially hemoglobin and transfuse as needed Patient on Xarelto 20 mg daily Bowel regimen Supportive care, consider EGD and initial colonoscopy outpatient, or endoscopy inpatient per cardiac clearance Patient was seen per myself and Dr. Grace, note was written on his behalf 04/27/2018 patient has been on Xarelto for since yesterday, patient was cleared by cardiology to have an endoscopy and colonoscopy, hemoglobin stable, no sign of active bleeding Findings; colonoscopy, prep good Terminal ileum : Normal Colon: 1 polyp in the cecum ablated with heat, 2 polyps in the ascending colon removed by snare, 4 polyp in the rectosigmoid area ablated with heat, scattered diverticulosis, no active bleeding Rectum: Normal Esophagus: Irregular Z line, biopsy was not done because of anticoagulation Stomach: Mild gastritis Duodenum: Normal Recommendations; 1- Supportive care 2- ok to transfer to recovery area then discharge per protocol 3-cardiac diet 4-Hemoccult on a yearly basis by primary care physician 5-colonoscopy in 3 years 6- EGD as needed 7-lowest possible anticoagulation with close monitoring of hemoglobin and packed RBC as needed 8-Protonix 40 mg daily 9-follow-up biopsy 10-stool for H. pylori 11-return to clinic in 2 weeks 12-we will follow-up as needed
--- NOTE | 2018-04-28 11:31 | ECG ---
Date Performed: 04/28/2018 Time Performed: 10:19:12 PTAGE: 63 years EKG: SINUS BRADYCARDIA BORDERLINE RIGHT AXIS DEVIATION LOW QRS VOLTAGE IN EXTREMITY LEADS ST DEV IATION AND MODERATE T-WAVE ABNORMALITY, CONSIDER LATERAL ISCHEMIA ABNORMAL ECG PREVIOUS TRACING : 04/26/2018 22.01 DOCTOR: Amos Pathak Interpretating Date/Time 04/28/2018 11:31:06
[2018-04-28] MEDS: Insulin NovoLOG Aspart Correctional Sugar Inj SQ SCH ×3 (12:37→21:30)
[2018-04-28] MEDS: Pantoprazole Inj 40 MG Vial IV.PUSH SCH ×2 (12:52→21:28)
[2018-04-28] MEDS ORDERED: Sod Chloride 0.9% Inj 1,000 ML IV.CONT SCH (13:58)
[2018-04-28] MEDS ORDERED: Sodium Chloride 0.9% 2 ML Flush PRN IV.FLUSH (14:04)
--- NOTE | 2018-04-28 15:17 | P.PNIM ---
Subjective Interval history: The patient was resting in bed. He had his procedures this morning. He said he spoke with the slag expander yesterday. He would like to go home soon. Discussed with nursing at the bedside. Physical Exam Vital signs: Vital Signs 04/27/18 16:00 04/27/18 17:00 04/27/18 18:00 Temperature 98.2 F Pulse Rate 140 H 141 H 105 H Respiratory Rate 18 Blood Pressure 126/89 Pulse Oximetry 96 04/27/18 20:00 04/27/18 22:00 04/27/18 23:00 Temperature 97.6 F Pulse Rate 140 H 136 H 72 Respiratory Rate 18 Blood Pressure 137/96 H Pulse Oximetry 98 04/28/18 00:00 04/28/18 01:00 04/28/18 02:00 Temperature 98 F Pulse Rate 94 H 144 H 114 H Respiratory Rate 18 Blood Pressure 118/97 H Pulse Oximetry 97 04/28/18 03:00 04/28/18 04:00 04/28/18 05:00 Temperature 97.6 F Pulse Rate 92 H 105 H 76 Respiratory Rate 18 Blood Pressure 149/87 H Pulse Oximetry 98 04/28/18 06:00 04/28/18 07:00 04/28/18 08:00 Temperature Pulse Rate 102 H 130 H 140 H Respiratory Rate Blood Pressure Pulse Oximetry 04/28/18 09:00 04/28/18 09:50 04/28/18 10:00 Temperature 97.6 F Pulse Rate 110 H 56 L 88 Respiratory Rate 20 Blood Pressure 120/69 Pulse Oximetry 96 04/28/18 10:05 04/28/18 10:25 04/28/18 10:45 Temperature 98.0 F Pulse Rate 55 L 56 L 57 L Respiratory Rate 18 18 20 Blood Pressure 124/73 127/78 143/87 H Pulse Oximetry 97 97 98 04/28/18 11:00 04/28/18 12:00 04/28/18 13:00 Temperature Pulse Rate 50 L 100 H 130 H Respiratory Rate 20 Blood Pressure 151/93 H Pulse Oximetry 98 04/28/18 14:00 Temperature Pulse Rate 50 L Respiratory Rate Blood Pressure Pulse Oximetry Intake & Output 04/27/18 04/28/18 04/28/18 18:59 06:59 18:59 Intake Total 1060 / 1060 1240 / 1240 250 / 250 Output Total 875 / 875 720 / 720 Balance 185 / 185 520 / 520 250 / 250 Weight 100 kg Intake: IV 100 / 100 Magnesium Sulfate 1 gm/D5W 100 100 / 100 ml Premix 100 ML @ 100 mls/hr IV.SIG Q1H [facility] Rx#:[id number] Oral 960 / 960 1240 / 1240 Anesthesia Amount 250 / 250 Output: Urine 875 / 875 720 / 720 Other: Date of Last Bowel Movement 04/25/18 04/28/18 04/28/18 # Bowel Movements 5 Narrative: GENERAL: No acute distress. SKIN: Pale. Focused skin assessment warm and dry. HEENT: PERRLA, EOMI. No scleral icterus or conjunctival pallor. No lid lag or facial droop. CARDIOVASCULAR: Tachycardic. No obvious murmurs to auscultation. No chest tenderness to palpation. RESPIRATORY: Mild wheezing appreciated. GASTROINTESTINAL: Abdomen soft, mildly distended, non tender. BS normal. MUSCULOSKELETAL: Extremities without clubbing, cyanosis, or edema. No obvious deformities. NEUROLOGICAL: Awake, alert and oriented x4. No focal neurologic deficits. Moving both upper and lower extremities spontaneously. Results - Labs CBC & Chem 7: 04/28/18 05:53 04/28/18 05:53 Laboratory Results - last 24 hr 04/27/18 04/27/18 04/28/18 17:44 21:48 05:53 WBC 8.0 RBC 3.63 L Hgb 10.6 L Hct 31.9 L MCV 87.8 MCH 29.2 MCHC 33.2 RDW 14.1 Plt Count 204 MPV 9.0 Sodium Potassium Chloride Carbon Dioxide Anion Gap BUN Creatinine Estimated GFR POC Glucose 154 H 133 H Random Glucose Calcium Prot Corrected Calcium Phosphorus Magnesium Total Protein 04/28/18 04/28/18 05:53 10:23 WBC RBC Hgb Hct MCV MCH MCHC RDW Plt Count MPV Sodium 145 Potassium 3.7 Chloride 115 H Carbon Dioxide 20.9 L Anion Gap 9 BUN 12 Creatinine 1.11 Estimated GFR 67 L POC Glucose 121 H Random Glucose 108 H Calcium 7.4 L* Prot Corrected Calcium 8.3 L Phosphorus 1.5 L Magnesium 2.1 D Total Protein 5.5 L Microbiology 04/25/18 17:30 Blood - Peripheral Aerobic Blood Culture - Preliminary No growth in 3 days 11/11/18 17:30 Blood - Peripheral Anaerobic Blood Culture - Preliminary No growth in 3 days 04/25/18 17:20 Blood - Peripheral Aerobic Blood Culture - Preliminary No growth in 3 days 04/25/18 17:20 Blood - Peripheral Anaerobic Blood Culture - Preliminary No growth in 3 days Assessment and Plan - Assessment (1) Hypotension Code(s): I95.9 - Hypotension, unspecified Status: Acute (2) Dysrhythmia Code(s): I49.9 - Cardiac arrhythmia, unspecified Status: Acute (3) GI bleed Code(s): K92.2 - Gastrointestinal hemorrhage, unspecified Status: Acute (4) LETICIA (acute kidney injury) Code(s): N17.9 - Acute kidney failure, unspecified Status: Acute (5) Diarrhea Code(s): R19.7 - Diarrhea, unspecified Status: Acute (6) Toe fracture Code(s): S92.919A - Unspecified fracture of unspecified toe(s), initial encounter for closed fracture Status: Acute (7) Seizure disorder Code(s): G40.909 - Epilepsy, unspecified, not intractable, without status epilepticus Status: Acute (8) DM (diabetes mellitus) Code(s): E11.9 - Type 2 diabetes mellitus without complications Status: Acute (9) Fall Code(s): W19.XXXA - Unspecified fall, initial encounter Status: Acute - Plan Hypotension Resolved. BP 70's systolic per EMS, s/p IVF w/ improvement, normotensive since arrival.. Likely due to dehydration from decreased PO intake/diarrhea. -IVFs. -holding lisinopril and Aldactone at this time. Resume as indicated. Dysrhythmia H/o A-fib, recent admit 03/30-04/01/18 for Afib w/ RVR, s/p ablation 03/[address] Reeves, has been in NSR since, however upon arrival noted to be tachycardic with episodes of bradycardia. -resume home Amiodarone and Coreg now that BP stabilized. -cardiology following. -telemetry. LETICIA Creatinine 1.64, previously 1.17 on 03/31/18, secondary to dehydration/diarrhea. -Monitor I/O. -IVF for hydration. -repeat labs in am. Resolved. GI bleed +Hemoccult on exam, likely combination of anticoagulation and diarrhea. GI consult appreciated. CT abdomen with no acute abnormalities. S/p EGD/ colonoscopy without acute abnormality. -follow CBC. -pathology pending. -continue anticoagulation. Fall/ Toe fracture S/p mechanical fall, no head trauma or LOC. CT Head w/ no acute findings. Foot X-ray w/ nondisplaced right 2nd toe fracture. -follow up w/ Podiatry as outpatient as needed. -will Consult PT for eval/tx. DM On metformin. -hold metformin and place on sliding scale. DVT Prophylaxis: Xarelto Discharge Planning: Await further input from cardiology
--- NOTE | 2018-04-28 21:03 | P.PN ---
Subjective Interval history: Feeling ok Physical Exam Vital signs: Vital Signs 04/27/18 22:00 04/27/18 23:00 04/28/18 00:00 Temperature 98 F Pulse Rate 136 H 72 94 H Respiratory Rate 18 Blood Pressure 118/97 H Pulse Oximetry 97 04/28/18 01:00 04/28/18 02:00 04/28/18 03:00 Temperature Pulse Rate 144 H 114 H 92 H Respiratory Rate Blood Pressure Pulse Oximetry 04/28/18 04:00 04/28/18 05:00 04/28/18 06:00 Temperature 97.6 F Pulse Rate 105 H 76 102 H Respiratory Rate 18 Blood Pressure 149/87 H Pulse Oximetry 98 04/28/18 07:00 04/28/18 08:00 04/28/18 09:00 Temperature Pulse Rate 130 H 140 H 110 H Respiratory Rate Blood Pressure Pulse Oximetry 04/28/18 09:50 04/28/18 10:00 04/28/18 10:05 Temperature 97.6 F Pulse Rate 56 L 88 55 L Respiratory Rate 20 18 Blood Pressure 120/69 124/73 Pulse Oximetry 96 97 04/28/18 10:25 04/28/18 10:45 04/28/18 11:00 Temperature 98.0 F Pulse Rate 56 L 57 L 50 L Respiratory Rate 18 20 Blood Pressure 127/78 143/87 H Pulse Oximetry 97 98 04/28/18 12:00 04/28/18 13:00 04/28/18 14:00 Temperature Pulse Rate 100 H 130 H 50 L Respiratory Rate 20 Blood Pressure 151/93 H Pulse Oximetry 98 04/28/18 15:00 04/28/18 16:00 04/28/18 17:00 Temperature 97.8 F Pulse Rate 100 H 98 H 120 H Respiratory Rate 18 Blood Pressure 100/73 Pulse Oximetry 98 04/28/18 18:00 Temperature Pulse Rate 120 H Respiratory Rate Blood Pressure Pulse Oximetry Intake & Output 04/28/18 04/28/18 04/29/18 06:59 18:59 06:59 Intake Total 1240 / 1240 930 / 930 Output Total 720 / 720 Balance 520 / 520 930 / 930 Weight 100 kg Intake: Oral 1240 / 1240 680 / 680 Anesthesia Amount 250 / 250 Output: Urine 720 / 720 Other: # Voids 4 Date of Last Bowel Movement 04/28/18 04/28/18 # Bowel Movements 5 - Constitutional no acute distress - Routine HEENT Exam Head: Present: normocephalic Eye: Present: PERRL ENT: Present: mucous membranes moist - Routine Cardiovascular Exam Present: RRR, tachycardia - Routine Neurological Exam Present: alert, oriented X3 Results - Labs CBC & Chem 7: 04/28/18 05:53 04/28/18 05:53 Laboratory Results - last 24 hr 04/27/18 04/28/18 04/28/18 21:48 05:53 05:53 WBC 8.0 RBC 3.63 L Hgb 10.6 L Hct 31.9 L MCV 87.8 MCH 29.2 MCHC 33.2 RDW 14.1 Plt Count 204 MPV 9.0 Sodium 145 Potassium 3.7 Chloride 115 H Carbon Dioxide 20.9 L Anion Gap 9 BUN 12 Creatinine 1.11 Estimated GFR 67 L POC Glucose 133 H Random Glucose 108 H Calcium 7.4 L* Prot Corrected Calcium 8.3 L Phosphorus 1.5 L Magnesium 2.1 D Total Protein 5.5 L 04/28/18 04/28/18 10:23 16:18 WBC RBC Hgb Hct MCV MCH MCHC RDW Plt Count MPV Sodium Potassium Chloride Carbon Dioxide Anion Gap BUN Creatinine Estimated GFR POC Glucose 121 H 166 H Random Glucose Calcium Prot Corrected Calcium Phosphorus Magnesium Total Protein Microbiology 04/25/18 17:30 Blood - Peripheral Aerobic Blood Culture - Preliminary No growth in 3 days 04/25/18 17:30 Blood - Peripheral Anaerobic Blood Culture - Preliminary No growth in 3 days 04/25/18 17:20 Blood - Peripheral Aerobic Blood Culture - Preliminary No growth in 3 days 04/25/18 17:20 Blood - Peripheral Anaerobic Blood Culture - Preliminary No growth in 3 days Assessment and Plan - Assessment (1) Atrial fibrillation with RVR Code(s): I48.91 - Unspecified atrial fibrillation Status: Acute - Plan Patient in intermittent possible left atrial tachycardia On Po amio HR control on/off Cleared by GI Anticoagulation reinitiated Will be monitored. If HR cannot be controlled then I will consider ablation case discussed with patient
[2018-04-28] MEDS: Sodium Chloride 0.9% 2 ML Flush BID IV.FLUSH SCH (21:29)
[2018-04-29] MEDS: Carvedilol 12.5 MG Tablet PO SCH ×2 (08:36→19:59)
[2018-04-29] MEDS: Isosorbide Mononitrate 30 MG ER 24HR Tablet (Imdur) PO SCH (08:36)
[2018-04-29] MEDS: Amiodarone 200 MG Tablet PO SCH ×2 (08:36→19:59)
[2018-04-29] MEDS: Budesonide-Formoterol 160/4.5 MCG 6 GM Inhaler INH SCH ×2 (08:37→20:00)
[2018-04-29] MEDS: Potassium Phosphate 500 MG Soluble Tablet PO SCH ×2 (08:37→19:59)
[2018-04-29] MEDS: Insulin NovoLOG Aspart Correctional Sugar Inj SQ SCH ×4 (08:37→21:38)
[2018-04-29] MEDS: levETIRAcetam 500 MG Tablet PO SCH ×2 (08:37→19:59)
[2018-04-29] MEDS: Folic Acid 1 MG Tablet PO SCH (08:37)
[2018-04-29] MEDS: Topiramate 100 MG Tablet PO SCH ×2 (08:37→19:59)
[2018-04-29] MEDS: Senna/Docusate Sodium 8.6/50 MG Tablet PO SCH ×2 (08:38→19:59)
[2018-04-29 08:54] LABS: Hematocrit 35.3 % (39.0-51.0); Hemoglobin 11.7 gm/dL (13.0-17.0); Mean Corpuscular HGB Conc 33.1 % (32.0-36.0); Mean Corpuscular Hemoglobin 29.2 pg (27.0-34.0); Mean Corpuscular Volume 88.2 fL (80.0-100.0); Mean Platelet Volume 9.1 fL (7.0-11.0); Platelet Count 252 th/mm3 (150-450); Red Cell Distribution Width 14.1 % (11.6-17.2); White Blood Count 9.5 th/mm3 (4.0-11.0)
[2018-04-29 09:29] LABS: Calcium 7.8 mg/dL (8.5-10.1); Carbon Dioxide 21.2 meq/L (21.0-32.0); Potassium 4.3 meq/L (3.5-5.1)
[2018-04-29] MEDS: Pantoprazole Inj 40 MG Vial IV.PUSH SCH ×2 (09:45→21:38)
[2018-04-29] MEDS: Sodium Chloride 0.9% 2 ML Flush BID IV.FLUSH SCH ×2 (09:45→21:41)
--- NOTE | 2018-04-29 12:38 | P.PNIM ---
Subjective Interval history: The patient was concerned about his heart rate in possibly having to go for another ablation. He was also concerned about his blood pressure being so high. His family was at the bedside. Discussed with nursing. Physical Exam Vital signs: Vital Signs 04/28/18 13:00 04/28/18 14:00 04/28/18 15:00 Temperature Pulse Rate 130 H 50 L 100 H Respiratory Rate Blood Pressure Pulse Oximetry 04/28/18 16:00 04/28/18 17:00 04/28/18 18:00 Temperature 97.8 F Pulse Rate 98 H 120 H 120 H Respiratory Rate 18 Blood Pressure 100/73 Pulse Oximetry 98 04/28/18 19:00 04/28/18 20:00 04/28/18 21:00 Temperature 98.5 F Pulse Rate 103 H 103 H 112 H Respiratory Rate 18 Blood Pressure 141/81 H Pulse Oximetry 98 04/28/18 22:00 04/28/18 23:00 04/29/18 00:00 Temperature 98.4 F Pulse Rate 132 H 88 108 H Respiratory Rate 16 Blood Pressure 163/83 H Pulse Oximetry 99 04/29/18 01:00 04/29/18 02:00 04/29/18 03:00 Temperature Pulse Rate 80 71 80 Respiratory Rate Blood Pressure Pulse Oximetry 04/29/18 04:00 04/29/18 05:00 04/29/18 06:00 Temperature 98.6 F Pulse Rate 80 101 H 99 H Respiratory Rate 18 Blood Pressure 105/86 Pulse Oximetry 97 04/29/18 07:00 04/29/18 08:00 04/29/18 09:00 Temperature 97.6 F Pulse Rate 120 H 110 H 112 H Respiratory Rate 20 Blood Pressure 158/116 H Pulse Oximetry 96 04/29/18 10:00 Temperature Pulse Rate 138 H Respiratory Rate Blood Pressure Pulse Oximetry Intake & Output 04/28/18 04/29/18 04/29/18 18:59 06:59 18:59 Intake Total 930 / 930 720 / 720 1000 / 1000 Balance 930 / 930 720 / 720 1000 / 1000 Weight 103 kg Intake: IV 1000 / 1000 NS Inj 1,000 ML @ 150 mls/hr IV 1000 / 1000 .CONT .Q6H40M [facility] Rx#:[id number] Oral 680 / 680 720 / 720 Anesthesia Amount 250 / 250 Other: # Voids 4 4 Date of Last Bowel Movement 04/28/18 04/28/18 04/28/18 # Bowel Movements 3 Narrative: GENERAL: No acute distress. SKIN: Pale. Focused skin assessment warm and dry. HEENT: PERRLA, EOMI. No scleral icterus or conjunctival pallor. No lid lag or facial droop. CARDIOVASCULAR: Tachycardic. No obvious murmurs to auscultation. No chest tenderness to palpation. RESPIRATORY: Mild wheezing appreciated. GASTROINTESTINAL: Abdomen soft, mildly distended, non tender. BS normal. MUSCULOSKELETAL: Extremities without clubbing, cyanosis, or edema. No obvious deformities. NEUROLOGICAL: Awake, alert and oriented x4. No focal neurologic deficits. Moving both upper and lower extremities spontaneously. Results - Labs CBC & Chem 7: 04/29/18 08:06 04/29/18 05:06 Laboratory Results - last 24 hr 04/28/18 04/28/18 04/29/18 16:18 21:15 05:06 WBC RBC Hgb Hct MCV MCH MCHC RDW Plt Count MPV Sodium 145 Potassium 4.3 Chloride 114 H Carbon Dioxide 21.2 Anion Gap 10 BUN 9 Creatinine 1.19 Estimated GFR 62 L POC Glucose 166 H 172 H Random Glucose 127 H Calcium 7.8 L Magnesium 2.0 04/29/18 04/29/18 04/29/18 08:06 08:06 11:37 WBC 9.5 RBC 4.00 L Hgb 11.7 L Hct 35.3 L MCV 88.2 MCH 29.2 MCHC 33.1 RDW 14.1 Plt Count 252 MPV 9.1 Sodium Potassium Chloride Carbon Dioxide Anion Gap BUN Creatinine Estimated GFR POC Glucose 126 H 171 H Random Glucose Calcium Magnesium Microbiology 04/25/18 17:30 Blood - Peripheral Aerobic Blood Culture - Preliminary No growth in 4 days 04/25/18 17:30 Blood - Peripheral Anaerobic Blood Culture - Preliminary No growth in 4 days 04/25/18 17:20 Blood - Peripheral Aerobic Blood Culture - Preliminary No growth in 4 days 04/25/18 17:20 Blood - Peripheral Anaerobic Blood Culture - Preliminary No growth in 4 days Assessment and Plan - Assessment (1) Hypotension Code(s): I95.9 - Hypotension, unspecified Status: Acute (2) Dysrhythmia Code(s): I49.9 - Cardiac arrhythmia, unspecified Status: Acute (3) GI bleed Code(s): K92.2 - Gastrointestinal hemorrhage, unspecified Status: Acute (4) LETICIA (acute kidney injury) Code(s): N17.9 - Acute kidney failure, unspecified Status: Acute (5) Diarrhea Code(s): R19.7 - Diarrhea, unspecified Status: Acute (6) Toe fracture Code(s): S92.919A - Unspecified fracture of unspecified toe(s), initial encounter for closed fracture Status: Acute (7) Seizure disorder Code(s): G40.909 - Epilepsy, unspecified, not intractable, without status epilepticus Status: Acute (8) DM (diabetes mellitus) Code(s): E11.9 - Type 2 diabetes mellitus without complications Status: Acute (9) Fall Code(s): W19.XXXA - Unspecified fall, initial encounter Status: Acute - Plan Hypotension Resolved. BP 70's systolic per EMS, s/p IVF w/ improvement, normotensive since arrival.. Likely due to dehydration from decreased PO intake/diarrhea. -continue Coreg and amiodarone. Resume lisinopril. Add Aldactone back in AM if blood pressure still elevated.. Dysrhythmia H/o A-fib, recent admit 03/30-04/01/18 for Afib w/ RVR, s/p ablation 03/[address] Reeves, has been in NSR since, however upon arrival noted to be tachycardic with episodes of bradycardia. -continue Amiodarone and Coreg. -cardiology following. Considering another ablation. -telemetry. -IV Lopressor as needed. LETICIA Creatinine 1.64, previously 1.17 on 03/31/18, secondary to dehydration/diarrhea. -Monitor I/O. -IVF for hydration. -repeat labs in am. Resolved. GI bleed +Hemoccult on exam, likely combination of anticoagulation and diarrhea. GI consult appreciated. CT abdomen with no acute abnormalities. S/p EGD/ colonoscopy without acute abnormality. -follow CBC. -pathology pending. -continue anticoagulation with Xarelto. Fall/ Toe fracture S/p mechanical fall, no head trauma or LOC. CT Head w/ no acute findings. Foot X-ray w/ nondisplaced right 2nd toe fracture. -follow up w/ Podiatry as outpatient as needed. -PT for eval/tx. DM On metformin. -hold metformin and place on sliding scale. DVT Prophylaxis: Xarelto Discharge Planning: Await further input from cardiology
[2018-04-29] MEDS: Rivaroxaban 20 MG Tablet PO SCH (12:41)
[2018-04-29] MEDS: Lisinopril 20 MG Tablet PO SCH (12:41)
[2018-04-29] MEDS ORDERED: Metoprolol Inj 5 MG/5 ML Vial IV.PUSH ONE (14:44)
--- NOTE | 2018-04-29 21:02 | ECG ---
Date Performed: 04/28/2018 Time Performed: 14:11:38 PTAGE: 63 years EKG: Sinus rhythm with PAC(s) Right axis deviation Extensive ST-T changes may be due to myocardial ischemia Low QRS vo ltages in limb leads Compared to previous tracing, anterolateral T waves are more prominent, consider ischemia Abnormal ECG PREVIOUS TRACING : 04/28/2018 10.19 DOCTOR: Ananda George Interpretating Date/Time 04/29/2018 21:02:31
[2018-04-30] MEDS: Potassium Phosphate 500 MG Soluble Tablet PO SCH ×2 (08:00→21:04)
[2018-04-30] MEDS: Rivaroxaban 20 MG Tablet PO SCH (08:20)
[2018-04-30] MEDS: Insulin NovoLOG Aspart Correctional Sugar Inj SQ SCH ×4 (08:20→21:05)
[2018-04-30] MEDS: Budesonide-Formoterol 160/4.5 MCG 6 GM Inhaler INH SCH ×2 (08:20→21:05)
[2018-04-30] MEDS: Isosorbide Mononitrate 30 MG ER 24HR Tablet (Imdur) PO SCH (08:21)
[2018-04-30] MEDS: Lisinopril 20 MG Tablet PO SCH (08:21)
[2018-04-30] MEDS: Amiodarone 200 MG Tablet PO SCH ×2 (08:21→21:04)
[2018-04-30] MEDS: Senna/Docusate Sodium 8.6/50 MG Tablet PO SCH ×2 (08:21→21:05)
[2018-04-30] MEDS: Topiramate 100 MG Tablet PO SCH ×2 (08:21→21:04)
[2018-04-30] MEDS: Spironolactone 25 MG Tablet PO SCH (08:21)
[2018-04-30] MEDS: Folic Acid 1 MG Tablet PO SCH (08:21)
[2018-04-30] MEDS: Sodium Chloride 0.9% 2 ML Flush BID IV.FLUSH SCH ×2 (08:22→21:04)
[2018-04-30] MEDS: levETIRAcetam 500 MG Tablet PO SCH ×2 (08:22→21:04)
[2018-04-30] MEDS: Carvedilol 12.5 MG Tablet PO SCH ×2 (08:22→21:04)
[2018-04-30] MEDS ORDERED: Metoprolol Inj 5 MG/5 ML Vial IV.PUSH ONE (08:47)
[2018-04-30] MEDS: hydroCHLOROthiazide 25 MG Tablet PO SCH (08:56)
--- NOTE | 2018-04-30 09:19 | P.PNIM ---
Subjective Interval history: The patient had a fast heart rate this morning. He said he felt like his throat was closing up. He currently is feeling better and was eating breakfast. Discussed with nursing at the bedside. Physical Exam Vital signs: Vital Signs 04/29/18 10:00 04/29/18 11:00 04/29/18 12:00 Temperature Pulse Rate 138 H 136 H 126 H Respiratory Rate 20 Blood Pressure 150/108 H Pulse Oximetry 98 04/29/18 13:00 04/29/18 14:00 04/29/18 15:00 Temperature Pulse Rate 126 H 128 H 150 H Respiratory Rate 18 Blood Pressure 123/89 Pulse Oximetry 04/29/18 16:00 04/29/18 17:00 04/29/18 17:54 Temperature Pulse Rate 130 H 128 H 128 H Respiratory Rate 20 Blood Pressure 107/74 Pulse Oximetry 98 04/29/18 19:00 04/29/18 20:00 04/29/18 21:00 Temperature 98.0 F Pulse Rate 137 H 144 H 136 H Respiratory Rate 18 Blood Pressure 152/114 H Pulse Oximetry 97 04/29/18 22:00 04/29/18 23:00 04/29/18 23:37 Temperature 98.1 F Pulse Rate 138 H 125 H 113 H Respiratory Rate 18 Blood Pressure 125/90 Pulse Oximetry 97 04/30/18 00:00 04/30/18 01:00 04/30/18 02:00 Temperature Pulse Rate 104 H 99 H 90 Respiratory Rate Blood Pressure Pulse Oximetry 04/30/18 03:00 04/30/18 04:00 04/30/18 05:00 Temperature 98.3 F Pulse Rate 99 H 102 H 122 H Respiratory Rate 18 Blood Pressure 128/96 H Pulse Oximetry 95 04/30/18 06:00 04/30/18 07:00 04/30/18 08:00 Temperature 97.9 F Pulse Rate 98 H 70 103 H Respiratory Rate 20 Blood Pressure 167/112 H Pulse Oximetry 96 04/30/18 08:46 Temperature Pulse Rate 150 H Respiratory Rate Blood Pressure 186/130 H Pulse Oximetry Intake & Output 04/29/18 04/30/18 04/30/18 18:59 06:59 18:59 Intake Total 1940 / 1940 480 / 480 Output Total 200 / 200 150 / 150 Balance 1740 / 1740 330 / 330 Weight 104.5 kg Intake: IV 1000 / 1000 NS Inj 1,000 ML @ 150 mls/hr IV 1000 / 1000 .CONT .Q6H40M [facility] Rx#:[id number] Oral 940 / 940 480 / 480 Output: Urine 200 / 200 150 / 150 Other: # Voids 5 1 Date of Last Bowel Movement 04/28/18 04/30/18 04/30/18 # Bowel Movements 2 Narrative: GENERAL: No acute distress. SKIN: Pale. Focused skin assessment warm and dry. HEENT: PERRLA, EOMI. No scleral icterus or conjunctival pallor. No lid lag or facial droop. CARDIOVASCULAR: Tachycardic. No obvious murmurs to auscultation. No chest tenderness to palpation. RESPIRATORY: Clear to auscultation bilaterally. GASTROINTESTINAL: Abdomen soft, mildly distended, non tender. BS normal. MUSCULOSKELETAL: Extremities without clubbing, cyanosis, or edema. No obvious deformities. NEUROLOGICAL: Awake, alert and oriented x4. No focal neurologic deficits. Moving both upper and lower extremities spontaneously. Results - Labs CBC & Chem 7: 04/29/18 08:06 04/29/18 05:06 Laboratory Results - last 24 hr 04/29/18 04/29/18 04/29/18 05:06 11:37 16:09 Sodium 145 Potassium 4.3 Chloride 114 H Carbon Dioxide 21.2 Anion Gap 10 BUN 9 Creatinine 1.19 Estimated GFR 62 L POC Glucose 171 H 126 H Random Glucose 127 H Calcium 7.8 L Magnesium 2.0 04/29/18 04/30/18 21:04 07:40 Sodium Potassium Chloride Carbon Dioxide Anion Gap BUN Creatinine Estimated GFR POC Glucose 158 H 143 H Random Glucose Calcium Magnesium Microbiology 04/25/18 17:30 Blood - Peripheral Aerobic Blood Culture - Preliminary No growth in 4 days 04/25/18 17:30 Blood - Peripheral Anaerobic Blood Culture - Preliminary No growth in 4 days 04/25/18 17:20 Blood - Peripheral Aerobic Blood Culture - Preliminary No growth in 4 days 04/25/18 17:20 Blood - Peripheral Anaerobic Blood Culture - Preliminary No growth in 4 days Assessment and Plan - Assessment (1) Hypotension Code(s): I95.9 - Hypotension, unspecified Status: Acute (2) Dysrhythmia Code(s): I49.9 - Cardiac arrhythmia, unspecified Status: Acute (3) GI bleed Code(s): K92.2 - Gastrointestinal hemorrhage, unspecified Status: Acute (4) LETICIA (acute kidney injury) Code(s): N17.9 - Acute kidney failure, unspecified Status: Acute (5) Diarrhea Code(s): R19.7 - Diarrhea, unspecified Status: Acute (6) Toe fracture Code(s): S92.919A - Unspecified fracture of unspecified toe(s), initial encounter for closed fracture Status: Acute (7) Seizure disorder Code(s): G40.909 - Epilepsy, unspecified, not intractable, without status epilepticus Status: Acute (8) DM (diabetes mellitus) Code(s): E11.9 - Type 2 diabetes mellitus without complications Status: Acute (9) Fall Code(s): W19.XXXA - Unspecified fall, initial encounter Status: Acute - Plan Hypotension/HTN BP 70's systolic per EMS. Likely due to dehydration from decreased PO intake/ diarrhea. Resolved. Now hypertensive. -continue Coreg and amiodarone. Resume lisinopril. Add Aldactone back. Start HCTZ. -Vasotec as needed. Dysrhythmia H/o A-fib, recent admit 03/30-04/01/18 for Afib w/ RVR, s/p ablation 03/[address] Reeves, has been in NSR since, however upon arrival noted to be tachycardic with episodes of bradycardia. -continue Amiodarone and Coreg. -cardiology following. NPO for ablation this afternoon. -telemetry. -IV Lopressor as needed. LETICIA Creatinine 1.64, previously 1.17 on 03/31/18, secondary to dehydration/diarrhea. -Monitor I/O. -Resolved. GI bleed +Hemoccult on exam, likely combination of anticoagulation and diarrhea. GI consult appreciated. CT abdomen with no acute abnormalities. S/p EGD/ colonoscopy without acute abnormality. -follow CBC. -continue anticoagulation with Xarelto. Fall/ Toe fracture S/p mechanical fall, no head trauma or LOC. CT Head w/ no acute findings. Foot X-ray w/ nondisplaced right 2nd toe fracture. -follow up w/ Podiatry as outpatient as needed. -PT for eval/tx. DM On metformin. -hold metformin and place on sliding scale. DVT Prophylaxis: Xarelto Discharge Planning: Await further input from cardiology
[2018-04-30] MEDS: Pantoprazole Inj 40 MG Vial IV.PUSH SCH ×2 (10:03→21:04)
[2018-04-30] MEDS ORDERED: DEXTROSE 5% IV.SIG ONE ×2 (21:41)
[2018-04-30] MEDS ORDERED: WATER IV.SIG ONE ×2 (21:41)
[2018-04-30] MEDS ORDERED: AMIODARONE IV.SIG ONE ×2 (21:41)
--- NOTE | 2018-05-01 05:27 | MA ---
cc: Elie Reeves MD DATE: 04/30/2018 PROCEDURE PERFORMED: Cardioversion. INDICATION: Mr. Jenkins is a 63-year-old gentleman with morbid obesity, coronary artery disease, atrial fibrillation, previous ablation, atrial fibrillation, atrial tachycardia, heart rate very difficult to control, who will undergo a cardioversion. The risks, the nature and the benefits of the procedure were clearly stated to him. Risks include pneumothorax, cardiac perforation, stroke, need for open heart surgery and even . The patient understood and agreed to proceed. PROCEDURE: After informed consent was obtained, the patient was evaluated by the anesthesiologist. Once sedation was verified, anterolateral pad were placed and 300 sync biphasic joules were delivered that converted the patient into sinus rhythm. Rapidly, the patient was back in atrial fibrillation, atrial tachyarrhythmia in sinus rhythm. At that point, I do realize the patient has the capacity to convert himself into sinus rhythm and back rapidly in atrial fibrillation and atrial tachycardia. At that point, the procedure was complete. The patient . I will initiate amiodarone 300 mg bolus and amiodarone drip per protocol. If the patient fail to stay in sinus rhythm, then I will consider another ablation. Case extensively discussed with him. We will monitor this gentleman due to hospitalization. MD MARIFER Siegel/rw/sp , 11:33 PM , 11:38 PM
[2018-05-01] MEDS: Budesonide-Formoterol 160/4.5 MCG 6 GM Inhaler INH SCH ×2 (08:19→20:36)
[2018-05-01] MEDS: Isosorbide Mononitrate 30 MG ER 24HR Tablet (Imdur) PO SCH (08:22)
[2018-05-01] MEDS: Insulin NovoLOG Aspart Correctional Sugar Inj SQ SCH ×4 (08:22→20:43)
[2018-05-01] MEDS: Amiodarone 200 MG Tablet PO SCH ×2 (08:23→20:30)
[2018-05-01] MEDS: Carvedilol 12.5 MG Tablet PO SCH ×2 (08:23→20:30)
[2018-05-01] MEDS: Rivaroxaban 20 MG Tablet PO SCH (08:23)
[2018-05-01] MEDS: Folic Acid 1 MG Tablet PO SCH (08:23)
[2018-05-01] MEDS: Lisinopril 20 MG Tablet PO SCH (08:23)
[2018-05-01] MEDS: Spironolactone 25 MG Tablet PO SCH (08:23)
[2018-05-01] MEDS: Topiramate 100 MG Tablet PO SCH ×2 (08:23→20:30)
[2018-05-01] MEDS: Senna/Docusate Sodium 8.6/50 MG Tablet PO SCH ×2 (08:24→20:31)
[2018-05-01] MEDS: levETIRAcetam 500 MG Tablet PO SCH ×2 (08:24→20:30)
[2018-05-01] MEDS: Sodium Chloride 0.9% 2 ML Flush BID IV.FLUSH SCH ×2 (08:24→20:31)
[2018-05-01] MEDS: hydroCHLOROthiazide 25 MG Tablet PO SCH (08:24)
[2018-05-01] MEDS: Pantoprazole Inj 40 MG Vial IV.PUSH SCH ×2 (09:14→21:28)
[2018-05-01] MEDS ORDERED: hydroCHLOROthiazide 25 MG Tablet PO ONE (09:37)
--- NOTE | 2018-05-01 09:45 | P.PNIM ---
Subjective Interval history: The patient says that he tends to cry for no reason. He says that has been going on for a long time. He denies any depression. He says he was having some shortness of breath. He feels like he has been wheezing. He denies any chest pain or chest tightness. Discussed with nursing at the bedside. Physical Exam Vital signs: Vital Signs 04/30/18 10:00 04/30/18 11:00 04/30/18 12:00 Temperature 98.1 F Pulse Rate 100 H 106 H 108 H Respiratory Rate 20 Blood Pressure 145/109 H Pulse Oximetry 99 04/30/18 13:00 04/30/18 14:00 04/30/18 15:00 Temperature Pulse Rate 108 H 118 H 116 H Respiratory Rate Blood Pressure Pulse Oximetry 04/30/18 15:34 04/30/18 16:00 04/30/18 17:00 Temperature 98.6 F Pulse Rate 115 H 131 H 148 H Respiratory Rate 18 Blood Pressure 155/109 H Pulse Oximetry 100 04/30/18 18:00 04/30/18 19:00 04/30/18 20:00 Temperature 98.1 F Pulse Rate 145 H 82 144 H Respiratory Rate 20 Blood Pressure 108/90 Pulse Oximetry 100 04/30/18 21:00 04/30/18 22:00 04/30/18 23:00 Temperature Pulse Rate 142 H 142 H 71 Respiratory Rate Blood Pressure Pulse Oximetry 04/30/18 23:54 05/01/18 00:00 05/01/18 01:00 Temperature 98.5 F Pulse Rate 101 H 52 L 51 L Respiratory Rate 18 Blood Pressure 159/100 H Pulse Oximetry 96 05/01/18 02:00 05/01/18 03:00 05/01/18 04:00 Temperature 97.7 F Pulse Rate 52 L 51 L 63 Respiratory Rate 18 Blood Pressure 163/98 H Pulse Oximetry 98 05/01/18 05:00 05/01/18 06:00 Temperature Pulse Rate 56 L 53 L Respiratory Rate Blood Pressure Pulse Oximetry Intake & Output 04/30/18 05/01/18 05/01/18 18:59 06:59 18:59 Intake Total 240 / 240 820 / 820 250 / 250 Output Total 800 / 800 400 / 400 Balance -560 / -560 420 / 420 250 / 250 Weight 104.2 kg Intake: IV 100 / 100 250 / 250 Cordarone Inj 450 MG In D5W Inj 250 / 250 241 ML @ 1 MG/MIN 33.33 mls/hr IV.CONT TITRATE PRN Rx#: [id number] Cordarone Inj 300 MG In D5W Inj 100 / 100 94 ML @ 600 mls/hr IV.SIG ONCE ONE Rx#:[id number] Oral 240 / 240 720 / 720 Output: Urine 800 / 800 400 / 400 Other: Date of Last Bowel Movement 04/30/18 05/01/18 # Bowel Movements 1 1 Narrative: GENERAL: No acute distress. SKIN: Pale. Focused skin assessment warm and dry. HEENT: PERRLA, EOMI. No scleral icterus or conjunctival pallor. No lid lag or facial droop. CARDIOVASCULAR: Tachycardic. No obvious murmurs to auscultation. No chest tenderness to palpation. RESPIRATORY: Clear to auscultation bilaterally. GASTROINTESTINAL: Abdomen soft, mildly distended, non tender. BS normal. MUSCULOSKELETAL: Extremities without clubbing, cyanosis, or edema. No obvious deformities. NEUROLOGICAL: Awake, alert and oriented x4. No focal neurologic deficits. Moving both upper and lower extremities spontaneously. Results - Labs CBC & Chem 7: 04/29/18 08:06 04/29/18 05:06 Laboratory Results - last 24 hr 04/30/18 04/30/18 04/30/18 11:59 16:43 20:54 POC Glucose 143 H 136 H 143 H 05/01/18 08:22 POC Glucose 187 H Microbiology 04/25/18 17:30 Blood - Peripheral Aerobic Blood Culture - Final No growth in 5 days 04/25/18 17:30 Blood - Peripheral Anaerobic Blood Culture - Final No growth in 5 days 04/25/18 17:20 Blood - Peripheral Aerobic Blood Culture - Final No growth in 5 days 04/25/18 17:20 Blood - Peripheral Anaerobic Blood Culture - Final No growth in 5 days Assessment and Plan - Assessment (1) Hypotension Code(s): I95.9 - Hypotension, unspecified Status: Acute (2) Dysrhythmia Code(s): I49.9 - Cardiac arrhythmia, unspecified Status: Acute (3) GI bleed Code(s): K92.2 - Gastrointestinal hemorrhage, unspecified Status: Acute (4) LETICIA (acute kidney injury) Code(s): N17.9 - Acute kidney failure, unspecified Status: Acute (5) Diarrhea Code(s): R19.7 - Diarrhea, unspecified Status: Acute (6) Toe fracture Code(s): S92.919A - Unspecified fracture of unspecified toe(s), initial encounter for closed fracture Status: Acute (7) Seizure disorder Code(s): G40.909 - Epilepsy, unspecified, not intractable, without status epilepticus Status: Acute (8) DM (diabetes mellitus) Code(s): E11.9 - Type 2 diabetes mellitus without complications Status: Acute (9) Fall Code(s): W19.XXXA - Unspecified fall, initial encounter Status: Acute - Plan Hypotension/HTN BP 70's systolic per EMS. Likely due to dehydration from decreased PO intake/ diarrhea. Resolved. Now hypertensive. -continue Coreg and amiodarone. Resume lisinopril. Increase HCTZ and d/c Aldactone. -Vasotec as needed. Dysrhythmia H/o A-fib, recent admit 03/30-04/01/18 for Afib w/ RVR, s/p ablation 03/[address] Reeves, has been in NSR since, however upon arrival noted to be tachycardic with episodes of bradycardia. -continue Amiodarone and Coreg. -cardiology following. S/p ablation 04/30. Continue amiodarone gtt. Repeat EKG. -telemetry. -IV Lopressor as needed. Dyspnea Oxygen sats are good on room air. Lungs are clear. -add Duonebs. -repeat CXR. -encourage ambulation. LETICIA Creatinine 1.64, previously 1.17 on 03/31/18, secondary to dehydration/diarrhea. -Monitor I/O. -Resolved. GI bleed +Hemoccult on exam, likely combination of anticoagulation and diarrhea. GI consult appreciated. CT abdomen with no acute abnormalities. S/p EGD/ colonoscopy without acute abnormality. -follow CBC. -continue anticoagulation with Xarelto. Fall/ Toe fracture S/p mechanical fall, no head trauma or LOC. CT Head w/ no acute findings. Foot X-ray w/ nondisplaced right 2nd toe fracture. -follow up w/ Podiatry as outpatient as needed. -PT for eval/tx. DM On metformin. -hold metformin and place on sliding scale. DVT Prophylaxis: Xarelto Discharge Planning: Await further input from cardiology
--- NOTE | 2018-05-01 10:41 | P.PNCA ---
Subjective Interval history: Pt in SR on amio ggt, no current complaints. Medications and Allergies Active Medications: Active Medications Acetaminophen (Tylenol) 650 mg PO Q4H PRN PRN Reason: Temp > 100.4 Al Hydroxide/Mg Hydroxide (Milk Of Magncony Liq) 30 ml PO Q12H PRN PRN Reason: Mild Constipation Albuterol (Ventolin Hfa Inh) 2 puff INH Q4H PRN PRN Reason: DYSPNEA Last Admin: 05/01/18 08:19 Dose: 2 puff Albuterol (Duoneb Neb (Suad)) 1 ampul NEB Q6HR WHILE AWAKE NEB [facility] Alprazolam (Xanax) 0.5 mg PO Q6H PRN PRN Reason: ANXIETY Amiodarone HCl (Cordarone) 400 mg PO Q12HR [facility] Last Admin: 05/01/18 08:23 Dose: 400 mg Atorvastatin Calcium (Lipitor) 80 mg PO DAILY@1800 [facility] Last Admin: 04/30/18 17:25 Dose: 80 mg Bisacodyl (Dulcolax Supp) 10 mg RECTAL DAILY PRN PRN Reason: SEVERE CONSITIPATION Budesonide/Formoterol Fumarate (Symbicort 160/4.5 Mcg Inh) 2 puff INH Q12HR [facility] Last Admin: 05/01/18 08:19 Dose: 2 puff Carvedilol (Coreg) 12.5 mg PO BID [facility] Last Admin: 05/01/18 08:23 Dose: 12.5 mg Cyanocobalamin (Vitamin B12) 1,000 mcg PO DAILY [facility] Last Admin: 05/01/18 08:24 Dose: 1,000 mcg Dextrose (D50w Vial) 50 ml IV.PUSH UNSCH PRN PRN Reason: PER HYPOGLYCEMIA PROTOCOL Enalaprilat (Vasotec Inj) 2.5 mg IV.PUSH Q6H PRN PRN Reason: SBP> OR = 180, DBP> OR = 100 Folic Acid (Folic Acid) 1 mg PO DAILY [facility] Last Admin: 05/01/18 08:23 Dose: 1 mg Glucagon (Glucagon Inj) 1 mg OTHER PRN PRN PRN Reason: for Hypoglycemia Protocol Hydrochlorothiazide (Hydrodiuril) 50 mg PO DAILY [facility] Sodium Chloride (Ns Inj) 1,000 mls @ 0 mls/hr IV.SIG .Q0M [facility] Last Infusion: 04/26/18 07:00 Dose: Infused Sodium Chloride (Ns Inj) 1,000 mls @ 0 mls/hr IV.SIG .Q0M SUAD Sodium Chloride (Ns Inj) 1,000 mls @ 0 mls/hr IV.SIG .Q0M [facility] Last Infusion: 04/25/18 21:00 Dose: Infused Amiodarone HCl 450 mg/ (Dextrose) 250 mls @ 33.33 mls/hr IV.CONT TITRATE PRN; Protocol PRN Reason: Per Protocol Last Admin: 05/01/18 08:42 Dose: 0.5 mg/min, 16.66 mls/hr Insulin Aspart (Novolog Insulin Correctional Sugar Inj) 0 unit SQ ACHS [facility]; Protocol Last Admin: 05/01/18 08:22 Dose: 1 unit Isosorbide Mononitrate (Imdur) 30 mg PO DAILY [facility] Last Admin: 05/01/18 08:22 Dose: 30 mg Lactulose (Lactulose Liq) 30 ml PO DAILY PRN PRN Reason: SEVERE CONSITIPATION Levetiracetam (Keppra) 1,000 mg PO BID [facility] Last Admin: 05/01/18 08:24 Dose: 1,000 mg Lisinopril (Prinivil) 40 mg PO DAILY [facility] Last Admin: 05/01/18 08:23 Dose: 40 mg Ondansetron HCl (Zofran Inj) 4 mg IV.PUSH Q6H PRN PRN Reason: NAUSEA OR VOMITING Pantoprazole Sodium (Protonix Inj) 40 mg IV.PUSH Q12H [facility] Last Admin: 05/01/18 09:14 Dose: 40 mg Rivaroxaban (Xarelto) 20 mg PO DAILY [facility] Last Admin: 05/01/18 08:23 Dose: 20 mg Senna/Docusate Sodium (Stephie-Colace) 1 tab PO BID [facility] Last Admin: 05/01/18 08:24 Dose: Not Given Sennosides (Senokot) 17.2 mg PO Q12H PRN PRN Reason: Moderate Constipation Sodium Chloride (Ns Flush) 2 ml IV.FLUSH BID [facility] Last Admin: 05/01/18 08:24 Dose: Not Given Sodium Chloride (Ns Flush) 2 ml IV.FLUSH PRN PRN PRN Reason: FLUSH AFTER USING IV ACCESS Tamsulosin HCl (Flomax) 0.4 mg PO DAILY [facility] Last Admin: 05/01/18 08:24 Dose: 0.4 mg Topiramate (Topamax) 100 mg PO BID [facility] Last Admin: 05/01/18 08:23 Dose: 100 mg Vitamin D (Vitamin D3) 2,000 unit PO DAILY [facility] Last Admin: 05/01/18 08:20 Dose: 2,000 unit Allergies Allergy/AdvReac Type Severity Reaction Status Date / Time No Known Allergies Allergy Verified 03/29/18 13:42 Home Medications Medication Instructions Recorded Confirmed Type ascorbic acid (vitamin C) [Vitamin 500 mg PO DAILY 03/24/18 04/25/18 History C] atorvastatin 80 mg PO QPM 03/24/18 04/25/18 History cholecalciferol (vitamin D3) 2,000 unit PO DAILY 03/24/18 04/25/18 History [Vitamin D3] cyanocobalamin (vitamin B-12) 1,000 mcg PO DAILY 03/24/18 04/25/18 History [Vitamin B-12] folic acid 1 mg PO DAILY 03/24/18 04/25/18 History levetiracetam 1,000 mg PO BID 03/24/18 04/25/18 History metformin 1,000 mg PO BID 03/24/18 04/25/18 History sitagliptin [Januvia] 50 mg PO DAILY 03/24/18 04/25/18 History spironolactone 25 mg PO DAILY 03/24/18 04/25/18 History tamsulosin 0.4 mg PO DAILY 03/24/18 04/25/18 History topiramate 100 mg PO BID 03/24/18 04/25/18 History budesonide-formoterol [Symbicort] 2 puff INHALATION Q12H 04/25/18 04/25/18 History carvedilol [Coreg] 12.5 mg PO BID 04/25/18 04/25/18 History hydroxyzine HCl 25 mg PO Q8HR 04/25/18 04/25/18 History isosorbide mononitrate 30 mg PO QAM 04/25/18 04/25/18 History lisinopril 40 mg PO DAILY 04/25/18 04/25/18 History nitroglycerin [Nitrostat] 0.4 mg SUBLINGUAL Q5-15M PRN 04/25/18 04/25/18 History Physical Exam Vital signs: Vital Signs 04/30/18 11:00 04/30/18 12:00 04/30/18 13:00 Temperature 98.1 F Pulse Rate 106 H 108 H 108 H Respiratory Rate 20 Blood Pressure 145/109 H Pulse Oximetry 99 04/30/18 14:00 04/30/18 15:00 04/30/18 15:34 Temperature 98.6 F Pulse Rate 118 H 116 H 115 H Respiratory Rate 18 Blood Pressure 155/109 H Pulse Oximetry 100 04/30/18 16:00 04/30/18 17:00 04/30/18 18:00 Temperature Pulse Rate 131 H 148 H 145 H Respiratory Rate Blood Pressure Pulse Oximetry 04/30/18 19:00 04/30/18 20:00 04/30/18 21:00 Temperature 98.1 F Pulse Rate 82 144 H 142 H Respiratory Rate 20 Blood Pressure 108/90 Pulse Oximetry 100 04/30/18 22:00 04/30/18 23:00 04/30/18 23:54 Temperature 98.5 F Pulse Rate 142 H 71 101 H Respiratory Rate 18 Blood Pressure 159/100 H Pulse Oximetry 96 05/01/18 00:00 05/01/18 01:00 05/01/18 02:00 Temperature Pulse Rate 52 L 51 L 52 L Respiratory Rate Blood Pressure Pulse Oximetry 05/01/18 03:00 05/01/18 04:00 05/01/18 05:00 Temperature 97.7 F Pulse Rate 51 L 63 56 L Respiratory Rate 18 Blood Pressure 163/98 H Pulse Oximetry 98 05/01/18 06:00 05/01/18 07:00 05/01/18 08:00 Temperature 98.0 F Pulse Rate 53 L 67 65 Respiratory Rate 16 Blood Pressure 190/111 H Pulse Oximetry 94 L Intake & Output 04/30/18 05/01/18 05/01/18 18:59 06:59 18:59 Intake Total 240 / 240 820 / 820 250 / 250 Output Total 800 / 800 400 / 400 Balance -560 / -560 420 / 420 250 / 250 Weight 104.2 kg Intake: IV 100 / 100 250 / 250 Cordarone Inj 450 MG In D5W Inj 250 / 250 241 ML @ 1 MG/MIN 33.33 mls/hr IV.CONT TITRATE PRN Rx#: [id number] Cordarone Inj 300 MG In D5W Inj 100 / 100 94 ML @ 600 mls/hr IV.SIG ONCE ONE Rx#:[id number] Oral 240 / 240 720 / 720 Output: Urine 800 / 800 400 / 400 Other: Date of Last Bowel Movement 04/30/18 05/01/18 # Bowel Movements 1 1 - Constitutional no acute distress - Routine HEENT Exam Head: Present: normocephalic Eye: Present: EOMI - Routine Neck Exam Present: supple. Absent: JVD - Routine Respiratory Exam Present: CTA bilaterally - Routine Cardiovascular Exam Present: RRR - Routine Extremities Exam Absent: edema Results 04/29/18 08:06 04/29/18 05:06 Intake and Output 04/30/18 05/01/18 05/01/18 22:59 06:59 14:59 Intake Total 240 / 240 820 / 820 250 / 250 Output Total 800 / 800 400 / 400 Balance -560 / -560 420 / 420 250 / 250 Intake: IV 100 / 100 250 / 250 Cordarone Inj 450 MG In D5W Inj 250 / 250 241 ML @ 1 MG/MIN 33.33 mls/hr IV.CONT TITRATE PRN Rx#: [id number] Cordarone Inj 300 MG In D5W Inj 100 / 100 94 ML @ 600 mls/hr IV.SIG ONCE ONE Rx#:[id number] Oral 240 / 240 720 / 720 Output: Urine 800 / 800 400 / 400 Other: Date of Last Bowel Movement 04/30/18 05/01/18 # Bowel Movements 1 1 Weight 104.2 kg Assessment and Plan - Assessment (1) Atrial fibrillation with RVR Code(s): I48.91 - Unspecified atrial fibrillation Status: Acute Plan: currently in nsr but on amio ggt, plan for possible re-ablation Thursday (2) Hypertension Code(s): I10 - Essential (primary) hypertension Status: Acute - Plan on complex regimen, will add amlodipine
[2018-05-01] MEDS: ALPRAZolam 0.5 MG Tablet PO PRN ×2 (11:33→20:39)
[2018-05-01] MEDS: amLODIPine 10 MG Tablet PO SCH (11:33)
--- NOTE | 2018-05-01 12:15 | XR ---
EXAM DATE: 05/01/2018 10:04 AM EST AGE/SEX: 63 years / Male INDICATIONS: Shortness of breath. Cough. CLINICAL DATA: This is the patient's subsequent encounter. Patient reports that signs and symptoms h ave been present for 2 days and indicates a pain score of 0/10. MEDICAL/SURGICAL HISTORY: . Chronic obstructive pulmonary disease. Hypertension. Diabetes. A-fi b. . Cardiac stent. COMPARISON: [facility] [place], CHEST 1V SINGLE AP, 04/25/2018. [facility] [place], CT ABDOMEN & PELVIS W CONTRAST, 8. . FINDINGS: A single AP view of the chest demonstrates the lungs to be symmetrically aerated without evidence of mass, infiltrate or effusion. The cardiomediastinal contours are unremarkable. Osseous structures a re intact. CONCLUSION: Negative examination. Electronically signed by: La Wilder MD 05/01/2018 12:13 PM EST
[2018-05-01 12:23] LABS: Hematocrit 31.7 % (39.0-51.0); Hemoglobin 10.4 gm/dL (13.0-17.0); Mean Corpuscular HGB Conc 32.7 % (32.0-36.0); Mean Corpuscular Hemoglobin 29.3 pg (27.0-34.0); Mean Corpuscular Volume 89.5 fL (80.0-100.0); Platelet Count 246 th/mm3 (150-450); Red Blood Count 3.54 mil/mm3 (4.50-5.90); Red Cell Distribution Width 14.2 % (11.6-17.2); White Blood Count 11.2 th/mm3 (4.0-11.0)
[2018-05-01 12:53] LABS: Calcium 7.9 mg/dL (8.5-10.1); Carbon Dioxide 22.2 meq/L (21.0-32.0); Potassium 3.8 meq/L (3.5-5.1)
[2018-05-01] MEDS ORDERED: Amiodarone Inj 150 MG in Dextrose 5% in Water Inj 100 ML IV.CONT ONE ×2 (23:00)
[2018-05-01] MEDS ORDERED: Metoprolol Inj 5 MG/5 ML Vial IV.PUSH PRN (23:28)
[2018-05-02] MEDS: Insulin NovoLOG Aspart Correctional Sugar Inj SQ SCH ×4 (09:04→20:25)
[2018-05-02] MEDS: amLODIPine 10 MG Tablet PO SCH (09:04)
[2018-05-02] MEDS: Budesonide-Formoterol 160/4.5 MCG 6 GM Inhaler INH SCH ×2 (09:04→20:26)
[2018-05-02] MEDS: Pantoprazole Inj 40 MG Vial IV.PUSH SCH ×2 (09:04→22:08)
[2018-05-02] MEDS: Folic Acid 1 MG Tablet PO SCH (09:05)
[2018-05-02] MEDS: Carvedilol 12.5 MG Tablet PO SCH ×2 (09:05→20:24)
[2018-05-02] MEDS: Isosorbide Mononitrate 30 MG ER 24HR Tablet (Imdur) PO SCH (09:05)
[2018-05-02] MEDS: Rivaroxaban 20 MG Tablet PO SCH (09:05)
[2018-05-02] MEDS: ALPRAZolam 0.5 MG Tablet PO PRN ×2 (09:05→20:38)
[2018-05-02] MEDS: Lisinopril 20 MG Tablet PO SCH (09:06)
[2018-05-02] MEDS: Sodium Chloride 0.9% 2 ML Flush BID IV.FLUSH SCH ×2 (09:06→20:25)
[2018-05-02] MEDS: Amiodarone 200 MG Tablet PO SCH ×2 (09:06→20:38)
[2018-05-02] MEDS: Senna/Docusate Sodium 8.6/50 MG Tablet PO SCH ×2 (09:06→20:25)
[2018-05-02] MEDS: levETIRAcetam 500 MG Tablet PO SCH ×2 (09:06→20:25)
[2018-05-02] MEDS: Topiramate 100 MG Tablet PO SCH ×2 (09:19→20:26)
--- NOTE | 2018-05-02 10:18 | P.PNCA ---
Subjective Interval history: Pt went back to afib w/ RVR last night Medications and Allergies Active Medications: Active Medications Acetaminophen (Tylenol) 650 mg PO Q4H PRN PRN Reason: Temp > 100.4 Al Hydroxide/Mg Hydroxide (Milk Of Magncony Liq) 30 ml PO Q12H PRN PRN Reason: Mild Constipation Albuterol (Ventolin Hfa Inh) 2 puff INH Q4H PRN PRN Reason: DYSPNEA Last Admin: 05/01/18 08:19 Dose: 2 puff Albuterol (Duoneb Neb (Suad)) 1 ampul NEB Q6HR WHILE AWAKE NEB [facility] Last Admin: 05/02/18 07:50 Dose: 1 ampul Alprazolam (Xanax) 0.5 mg PO Q6H PRN PRN Reason: ANXIETY Last Admin: 05/02/18 09:05 Dose: 0.5 mg Amiodarone HCl (Cordarone) 400 mg PO Q12HR [facility] Last Admin: 05/02/18 09:06 Dose: 400 mg Amlodipine Besylate (Norvasc) 10 mg PO DAILY [facility] Last Admin: 05/02/18 09:04 Dose: 10 mg Atorvastatin Calcium (Lipitor) 80 mg PO DAILY@1800 [facility] Last Admin: 05/01/18 17:00 Dose: 80 mg Bisacodyl (Dulcolax Supp) 10 mg RECTAL DAILY PRN PRN Reason: SEVERE CONSITIPATION Budesonide/Formoterol Fumarate (Symbicort 160/4.5 Mcg Inh) 2 puff INH Q12HR [facility] Last Admin: 05/02/18 09:04 Dose: 2 puff Carvedilol (Coreg) 12.5 mg PO BID [facility] Last Admin: 05/02/18 09:05 Dose: 12.5 mg Cyanocobalamin (Vitamin B12) 1,000 mcg PO DAILY [facility] Last Admin: 05/02/18 09:05 Dose: 1,000 mcg Dextrose (D50w Vial) 50 ml IV.PUSH UNSCH PRN PRN Reason: PER HYPOGLYCEMIA PROTOCOL Enalaprilat (Vasotec Inj) 2.5 mg IV.PUSH Q6H PRN PRN Reason: SBP> OR = 180, DBP> OR = 100 Last Admin: 05/01/18 22:45 Dose: 2.5 mg Folic Acid (Folic Acid) 1 mg PO DAILY [facility] Last Admin: 05/02/18 09:05 Dose: 1 mg Glucagon (Glucagon Inj) 1 mg OTHER PRN PRN PRN Reason: for Hypoglycemia Protocol Sodium Chloride (Ns Inj) 1,000 mls @ 0 mls/hr IV.SIG .Q0M [facility] Last Infusion: 04/26/18 07:00 Dose: Infused Sodium Chloride (Ns Inj) 1,000 mls @ 0 mls/hr IV.SIG .Q0M SUAD Sodium Chloride (Ns Inj) 1,000 mls @ 0 mls/hr IV.SIG .Q0M [facility] Last Infusion: 04/25/18 21:00 Dose: Infused Amiodarone HCl 450 mg/ (Dextrose) 250 mls @ 33.33 mls/hr IV.CONT TITRATE PRN; Protocol PRN Reason: Per Protocol Last Admin: 05/01/18 21:27 Dose: 0.5 mg/min, 16.66 mls/hr Insulin Aspart (Novolog Insulin Correctional Sugar Inj) 0 unit SQ ACHS [facility]; Protocol Last Admin: 05/02/18 09:04 Dose: 1 unit Isosorbide Mononitrate (Imdur) 30 mg PO DAILY [facility] Last Admin: 05/02/18 09:05 Dose: 30 mg Lactulose (Lactulose Liq) 30 ml PO DAILY PRN PRN Reason: SEVERE CONSITIPATION Levetiracetam (Keppra) 1,000 mg PO BID [facility] Last Admin: 05/02/18 09:06 Dose: 1,000 mg Lisinopril (Prinivil) 40 mg PO DAILY [facility] Last Admin: 05/02/18 09:06 Dose: 40 mg Metoprolol Tartrate (Lopressor Inj) 5 mg IV.PUSH Q1H PRN PRN Reason: TACHYCARDIA Nitroglycerin (Nitrostat Sl) 0.4 mg SL Q5M PRN PRN Reason: CHEST PAIN Last Admin: 05/01/18 23:05 Dose: 0.4 mg Ondansetron HCl (Zofran Inj) 4 mg IV.PUSH Q6H PRN PRN Reason: NAUSEA OR VOMITING Pantoprazole Sodium (Protonix Inj) 40 mg IV.PUSH Q12H [facility] Last Admin: 05/02/18 09:04 Dose: 40 mg Rivaroxaban (Xarelto) 20 mg PO DAILY [facility] Last Admin: 05/02/18 09:05 Dose: 20 mg Senna/Docusate Sodium (Stephie-Colace) 1 tab PO BID [facility] Last Admin: 05/02/18 09:06 Dose: Not Given Sennosides (Senokot) 17.2 mg PO Q12H PRN PRN Reason: Moderate Constipation Sodium Chloride (Ns Flush) 2 ml IV.FLUSH BID [facility] Last Admin: 05/02/18 09:06 Dose: Not Given Sodium Chloride (Ns Flush) 2 ml IV.FLUSH PRN PRN PRN Reason: FLUSH AFTER USING IV ACCESS Tamsulosin HCl (Flomax) 0.4 mg PO DAILY [facility] Last Admin: 05/02/18 09:19 Dose: 0.4 mg Topiramate (Topamax) 100 mg PO BID [facility] Last Admin: 05/02/18 09:19 Dose: 100 mg Vitamin D (Vitamin D3) 2,000 unit PO DAILY [facility] Last Admin: 05/02/18 09:05 Dose: 2,000 unit Allergies Allergy/AdvReac Type Severity Reaction Status Date / Time No Known Allergies Allergy Verified 03/29/18 13:42 Home Medications Medication Instructions Recorded Confirmed Type ascorbic acid (vitamin C) [Vitamin 500 mg PO DAILY 03/24/18 04/25/18 History C] atorvastatin 80 mg PO QPM 03/24/18 04/25/18 History cholecalciferol (vitamin D3) 2,000 unit PO DAILY 03/24/18 04/25/18 History [Vitamin D3] cyanocobalamin (vitamin B-12) 1,000 mcg PO DAILY 03/24/18 04/25/18 History [Vitamin B-12] folic acid 1 mg PO DAILY 03/24/18 04/25/18 History levetiracetam 1,000 mg PO BID 03/24/18 04/25/18 History metformin 1,000 mg PO BID 03/24/18 04/25/18 History sitagliptin [Januvia] 50 mg PO DAILY 03/24/18 04/25/18 History spironolactone 25 mg PO DAILY 03/24/18 04/25/18 History tamsulosin 0.4 mg PO DAILY 03/24/18 04/25/18 History topiramate 100 mg PO BID 03/24/18 04/25/18 History budesonide-formoterol [Symbicort] 2 puff INHALATION Q12H 04/25/18 04/25/18 History carvedilol [Coreg] 12.5 mg PO BID 04/25/18 04/25/18 History hydroxyzine HCl 25 mg PO Q8HR 04/25/18 04/25/18 History isosorbide mononitrate 30 mg PO QAM 04/25/18 04/25/18 History lisinopril 40 mg PO DAILY 04/25/18 04/25/18 History nitroglycerin [Nitrostat] 0.4 mg SUBLINGUAL Q5-15M PRN 04/25/18 04/25/18 History Physical Exam Vital signs: Vital Signs 05/01/18 10:59 05/01/18 11:04 05/01/18 12:00 Temperature 98.1 F Pulse Rate 58 L 51 L Respiratory Rate 20 16 Blood Pressure 169/101 H Pulse Oximetry 98 94 L 05/01/18 12:49 05/01/18 13:57 05/01/18 14:00 Temperature Pulse Rate 57 L 62 66 Respiratory Rate 20 Blood Pressure Pulse Oximetry 05/01/18 15:00 05/01/18 16:00 05/01/18 16:20 Temperature 98.4 F Pulse Rate 64 58 L 57 L Respiratory Rate 18 Blood Pressure 169/103 H Pulse Oximetry 94 L 05/01/18 17:32 05/01/18 19:00 05/01/18 19:28 Temperature Pulse Rate 62 77 62 Respiratory Rate 18 Blood Pressure Pulse Oximetry 05/01/18 20:00 05/01/18 21:00 05/01/18 22:00 Temperature 98.3 F Pulse Rate 74 78 72 Respiratory Rate 18 Blood Pressure 198/113 H Pulse Oximetry 96 05/01/18 23:00 05/02/18 00:00 05/02/18 01:00 Temperature 99.1 F Pulse Rate 136 H 111 H 61 Respiratory Rate 18 Blood Pressure 182/119 H Pulse Oximetry 90 L 05/02/18 02:00 05/02/18 03:00 05/02/18 04:00 Temperature 97.8 F Pulse Rate 60 59 L 62 Respiratory Rate 18 Blood Pressure 119/70 Pulse Oximetry 93 L 05/02/18 05:00 05/02/18 06:00 05/02/18 07:50 Temperature Pulse Rate 54 L 51 L 54 L Respiratory Rate 16 Blood Pressure Pulse Oximetry 97 05/02/18 08:21 Temperature Pulse Rate Respiratory Rate Blood Pressure Pulse Oximetry 95 Intake & Output 05/01/18 05/02/18 05/02/18 18:59 06:59 18:59 Intake Total 1510 / 1510 833 / 833 Output Total 1700 / 1700 Balance 1510 / 1510 -867 / -867 Weight 104.8 kg Intake: IV 250 / 250 353 / 353 Cordarone Inj 150 MG In D5W Inj 103 / 103 100 ML @ 206 mls/hr IV.CONT . Q30M ONE Rx#:[id number] Cordarone Inj 450 MG In D5W Inj 250 / 250 250 / 250 241 ML @ 1 MG/MIN 33.33 mls/hr IV.CONT TITRATE PRN Rx#: [id number] Oral 1260 / 1260 480 / 480 Output: Urine 1700 / 1700 Other: # Voids 3 Date of Last Bowel Movement 04/30/18 04/30/18 - Constitutional no acute distress - Routine HEENT Exam Head: Present: normocephalic - Routine Neck Exam Present: supple - Routine Respiratory Exam Present: CTA bilaterally. Absent: accessory muscle use - Routine Abdominal Exam Present: soft Results 05/01/18 11:56 05/01/18 11:56 CBC 05/01/18 Range/Units 11:56 WBC 11.2 H (4.0-11.0) th/mm3 RBC 3.54 L (4.50-5.90) mil/mm3 Hgb 10.4 L (13.0-17.0) gm/dL Hct 31.7 L (39.0-51.0) % Plt Count 246 (150-450) th/mm3 Comprehensive Metabolic Panel 05/01/18 Range/Units 11:56 Sodium 141 (136-145) meq/L Potassium 3.8 (3.5-5.1) meq/L Chloride 110 H (98-107) meq/L Carbon Dioxide 22.2 (21.0-32.0) meq/L BUN 12 (7-18) mg/dL Creatinine 1.37 H (0.60-1.30) mg/dL Calcium 7.9 L (8.5-10.1) mg/dL Intake and Output 05/01/18 05/02/18 05/02/18 22:59 06:59 14:59 Intake Total 1510 / 1510 583 / 583 Output Total 1700 / 1700 Balance 1510 / 1510 -1117 / -1117 Intake: IV 250 / 250 103 / 103 Cordarone Inj 150 MG In D5W Inj 103 / 103 100 ML @ 206 mls/hr IV.CONT . Q30M ONE Rx#:[id number] Cordarone Inj 450 MG In D5W Inj 250 / 250 241 ML @ 1 MG/MIN 33.33 mls/hr IV.CONT TITRATE PRN Rx#: [id number] Oral 1260 / 1260 480 / 480 Output: Urine 1700 / 1700 Other: # Voids 3 Date of Last Bowel Movement 04/30/18 04/30/18 Weight 104.8 kg - Imaging and Cardiology Imaging: Impressions Chest X-Ray 05/01/18 09:38 CONCLUSION: Negative examination. Assessment and Plan - Assessment (1) Atrial fibrillation with RVR Code(s): I48.91 - Unspecified atrial fibrillation Status: Acute Plan: currently in nsr but on amio ggt, plan for possible re-ablation Thursday (2) Hypertension Code(s): I10 - Essential (primary) hypertension Status: Acute - Plan on complex regimen, will add amlodipine
[2018-05-02 11:03] LABS: Hematocrit 28.2 % (39.0-51.0); Hemoglobin 9.6 gm/dL (13.0-17.0); Mean Corpuscular Hemoglobin 29.7 pg (27.0-34.0); Mean Corpuscular Volume 87.4 fL (80.0-100.0); Mean Platelet Volume 9.2 fL (7.0-11.0); Platelet Count 225 th/mm3 (150-450); Red Blood Count 3.23 mil/mm3 (4.50-5.90); White Blood Count 9.9 th/mm3 (4.0-11.0)
[2018-05-02 11:24] LABS: Carbon Dioxide 23.9 meq/L (21.0-32.0); Potassium 3.3 meq/L (3.5-5.1)
[2018-05-02] MEDS ORDERED: Potassium Chloride 25 MEQ Effervescent Tablet PO ONE (12:22)
--- NOTE | 2018-05-02 12:27 | P.PNIM ---
Subjective Interval history: The patient says that his blood pressure was better. He said his heart was still out of control. He was expecting a third ablation tomorrow. He feels like his foot is better. Family at the bedside. Physical Exam Vital signs: Vital Signs 05/01/18 12:49 05/01/18 13:57 05/01/18 14:00 Temperature Pulse Rate 57 L 62 66 Respiratory Rate 20 Blood Pressure Pulse Oximetry 05/01/18 15:00 05/01/18 16:00 05/01/18 16:20 Temperature 98.4 F Pulse Rate 64 58 L 57 L Respiratory Rate 18 Blood Pressure 169/103 H Pulse Oximetry 94 L 05/01/18 17:32 05/01/18 19:00 05/01/18 19:28 Temperature Pulse Rate 62 77 62 Respiratory Rate 18 Blood Pressure Pulse Oximetry 05/01/18 20:00 05/01/18 21:00 05/01/18 22:00 Temperature 98.3 F Pulse Rate 74 78 72 Respiratory Rate 18 Blood Pressure 198/113 H Pulse Oximetry 96 05/01/18 23:00 05/02/18 00:00 05/02/18 01:00 Temperature 99.1 F Pulse Rate 136 H 111 H 61 Respiratory Rate 18 Blood Pressure 182/119 H Pulse Oximetry 90 L 05/02/18 02:00 05/02/18 03:00 05/02/18 04:00 Temperature 97.8 F Pulse Rate 60 59 L 62 Respiratory Rate 18 Blood Pressure 119/70 Pulse Oximetry 93 L 05/02/18 05:00 05/02/18 06:00 05/02/18 07:00 Temperature Pulse Rate 54 L 51 L 50 L Respiratory Rate Blood Pressure Pulse Oximetry 05/02/18 07:50 05/02/18 08:00 05/02/18 08:21 Temperature 97.5 F L Pulse Rate 54 L 80 Respiratory Rate 16 18 Blood Pressure 131/78 Pulse Oximetry 97 96 95 Intake & Output 05/01/18 05/02/18 05/02/18 18:59 06:59 18:59 Intake Total 1510 / 1510 833 / 833 Output Total 1700 / 1700 Balance 1510 / 1510 -867 / -867 Weight 104.8 kg Intake: IV 250 / 250 353 / 353 Cordarone Inj 150 MG In D5W Inj 103 / 103 100 ML @ 206 mls/hr IV.CONT . Q30M ONE Rx#:[id number] Cordarone Inj 450 MG In D5W Inj 250 / 250 250 / 250 241 ML @ 1 MG/MIN 33.33 mls/hr IV.CONT TITRATE PRN Rx#: [id number] Oral 1260 / 1260 480 / 480 Output: Urine 1700 / 1700 Other: # Voids 3 Date of Last Bowel Movement 04/30/18 04/30/18 04/30/18 Narrative: GENERAL: No acute distress. SKIN: Pale. Focused skin assessment warm and dry. HEENT: PERRLA, EOMI. No scleral icterus or conjunctival pallor. No lid lag or facial droop. CARDIOVASCULAR: Tachycardic. No obvious murmurs to auscultation. No chest tenderness to palpation. RESPIRATORY: Clear to auscultation bilaterally. GASTROINTESTINAL: Abdomen soft, mildly distended, non tender. BS normal. MUSCULOSKELETAL: Extremities without clubbing, cyanosis, or edema. No obvious deformities. NEUROLOGICAL: Awake, alert and oriented x4. No focal neurologic deficits. Moving both upper and lower extremities spontaneously. Results - Labs CBC & Chem 7: 05/02/18 09:59 05/02/18 09:59 Laboratory Results - last 24 hr 05/01/18 05/01/18 05/01/18 11:56 16:50 20:41 WBC RBC Hgb Hct MCV MCH MCHC RDW Plt Count MPV Sodium 141 Potassium 3.8 Chloride 110 H Carbon Dioxide 22.2 Anion Gap 9 BUN 12 Creatinine 1.37 H Estimated GFR 52 L POC Glucose 169 H 181 H Random Glucose 127 H Calcium 7.9 L 05/02/18 05/02/18 05/02/18 08:12 09:59 09:59 WBC 9.9 RBC 3.23 L Hgb 9.6 L Hct 28.2 L MCV 87.4 MCH 29.7 MCHC 34.0 RDW 14.0 Plt Count 225 MPV 9.2 Sodium 140 Potassium 3.3 L Chloride 107 Carbon Dioxide 23.9 Anion Gap 9 BUN 13 Creatinine 1.47 H Estimated GFR 48 L POC Glucose 163 H Random Glucose 150 H Calcium 8.0 L 05/02/18 12:01 WBC RBC Hgb Hct MCV MCH MCHC RDW Plt Count MPV Sodium Potassium Chloride Carbon Dioxide Anion Gap BUN Creatinine Estimated GFR POC Glucose 166 H Random Glucose Calcium Assessment and Plan - Assessment (1) Hypotension Code(s): I95.9 - Hypotension, unspecified Status: Acute (2) Dysrhythmia Code(s): I49.9 - Cardiac arrhythmia, unspecified Status: Acute (3) GI bleed Code(s): K92.2 - Gastrointestinal hemorrhage, unspecified Status: Acute (4) LETICIA (acute kidney injury) Code(s): N17.9 - Acute kidney failure, unspecified Status: Acute (5) Diarrhea Code(s): R19.7 - Diarrhea, unspecified Status: Acute (6) Toe fracture Code(s): S92.919A - Unspecified fracture of unspecified toe(s), initial encounter for closed fracture Status: Acute (7) Seizure disorder Code(s): G40.909 - Epilepsy, unspecified, not intractable, without status epilepticus Status: Acute (8) DM (diabetes mellitus) Code(s): E11.9 - Type 2 diabetes mellitus without complications Status: Acute (9) Fall Code(s): W19.XXXA - Unspecified fall, initial encounter Status: Acute - Plan Hypotension/HTN BP 70's systolic per EMS. Likely due to dehydration from decreased PO intake/ diarrhea. Resolved. Now hypertensive. -continue Coreg and amiodarone. Resume lisinopril. Amlodipine started. -Vasotec as needed. Dysrhythmia H/o A-fib, recent admit 03/30-04/01/18 for Afib w/ RVR, s/p ablation 03/[address] Reeves, has been in NSR since, however upon arrival noted to be tachycardic with episodes of bradycardia. -continue Amiodarone and Coreg. -cardiology following. S/p cardioversion 04/30. Continue amiodarone gtt. consider ablation 05/03/2018. -telemetry. -IV Lopressor as needed. Dyspnea Oxygen sats are good on room air. Lungs are clear. Repeat chest x-ray stable. -add Duonebs. -encourage ambulation. LETICIA Creatinine 1.64, previously 1.17 on 03/31/18, secondary to dehydration/diarrhea. -Monitor I/O. -DC had a chlorothiazide and give IV fluids. GI bleed +Hemoccult on exam, likely combination of anticoagulation and diarrhea. GI consult appreciated. CT abdomen with no acute abnormalities. S/p EGD/ colonoscopy without acute abnormality. -follow CBC. -continue anticoagulation with Xarelto. -Check anemia labs. Fall/ Toe fracture S/p mechanical fall, no head trauma or LOC. CT Head w/ no acute findings. Foot X-ray w/ nondisplaced right 2nd toe fracture. -follow up w/ Podiatry as outpatient as needed. -PT for eval/tx. DM On metformin. -hold metformin and place on sliding scale. DVT Prophylaxis: Xarelto Discharge Planning: Await further input from cardiology
[2018-05-02 14:22] LABS: % Iron Saturation 8.3 % (20-50); Iron 19 mcg/dL (65-175); Total Iron Binding Capacity 228 mcg/dL (250-450)
[2018-05-02] MEDS: Sodium Chloride 0.45 % Inj 1,000 ML IV.CONT SCH (14:25)
[2018-05-02 14:48] LABS: Ferritin 90 ng/mL (26-388); Vitamin B12 514 pg/mL (193-986)
--- NOTE | 2018-05-02 16:05 | ECG ---
Date Performed: 05/01/2018 Time Performed: 10:03:26 PTAGE: 63 years EKG: Sinus bradycardia. Prolonged QT interval Rightward axis Extensive ST-T changes are nonspeci fic Low QRS voltages in limb leads Borderline ECG PREVIOUS TRACING :04/28/2018 @14.11 Compared to previous tracing, the heart rate is slower and the PAC's have resolved. The ST-T changes have somewhat improved. DOCTOR: Aaron Mendoza Interpretating Date/Time 05/02/2018 16:03:14
--- NOTE | 2018-05-02 16:08 | ECG ---
Date Performed: 05/01/2018 Time Performed: 23:08:58 PTAGE: 63 years EKG: Supraventricular tachycardia, which may be sinus versus some aberrant tachycardia such as a trial flutter or PSVT Intraventricular conduction disturbance Diffuse Nonspecific ST-T change Low QRS voltage in limb leads Abnormal ECG PREVIOUS TRACING :05/01/2018 @10.03 Compared to previous tracing, the patient has gone from sin us bradycardia rate57 to heart rate 134 with either Supraventricular tachycardia of sinus variety riaz nahid other aberrant tachcyardia Clinical correlation is recommended DOCTOR: Aaron Mendoza Interpretating Date/Time 05/02/2018 16:07:39
[2018-05-03] MEDS: Sodium Chloride 0.45 % Inj 1,000 ML IV.CONT SCH (03:30)
[2018-05-03] MEDS ORDERED: Metoprolol Tartrate 25 MG Tablet PO ONE (06:45)
[2018-05-03] MEDS ORDERED: Chlorhexidine Gluconate 2% 1 Pack (2 Cloths) TOPICAL ONE (06:45)
[2018-05-03 06:56] LABS: Hematocrit 27.1 % (39.0-51.0); Hemoglobin 9.2 gm/dL (13.0-17.0); Mean Corpuscular HGB Conc 33.9 % (32.0-36.0); Mean Corpuscular Hemoglobin 29.5 pg (27.0-34.0); Mean Corpuscular Volume 87.2 fL (80.0-100.0); Platelet Count 203 th/mm3 (150-450); Red Blood Count 3.11 mil/mm3 (4.50-5.90); Red Cell Distribution Width 13.8 % (11.6-17.2); White Blood Count 8.3 th/mm3 (4.0-11.0)
[2018-05-03 07:00] LABS: Carbon Dioxide 24.5 meq/L (21.0-32.0); Magnesium 1.7 mg/dL (1.5-2.5); Potassium 3.7 meq/L (3.5-5.1)
[2018-05-03] MEDS ORDERED: Sodium Chlor 0.9% Inj 500 ML IV.SIG SCH (07:00)
[2018-05-03] MEDS ORDERED: amLODIPine 5 MG Tablet PO SCH (09:09)
[2018-05-03] MEDS: Carvedilol 12.5 MG Tablet PO SCH (09:11)
[2018-05-03] MEDS: Budesonide-Formoterol 160/4.5 MCG 6 GM Inhaler INH SCH (09:11)
[2018-05-03] MEDS: Lisinopril 20 MG Tablet PO SCH (09:11)
[2018-05-03] MEDS: Folic Acid 1 MG Tablet PO SCH (09:11)
[2018-05-03] MEDS: levETIRAcetam 500 MG Tablet PO SCH (09:11)
[2018-05-03] MEDS: Topiramate 100 MG Tablet PO SCH (09:12)
[2018-05-03] MEDS: Isosorbide Mononitrate 30 MG ER 24HR Tablet (Imdur) PO SCH (09:12)
[2018-05-03] MEDS: Amiodarone 200 MG Tablet PO SCH (09:12)
[2018-05-03] MEDS: Rivaroxaban 20 MG Tablet PO SCH (09:12)
[2018-05-03] MEDS: Insulin NovoLOG Aspart Correctional Sugar Inj SQ SCH ×2 (09:12→15:35)
[2018-05-03] MEDS: Senna/Docusate Sodium 8.6/50 MG Tablet PO SCH (09:13)
[2018-05-03] MEDS: Pantoprazole Inj 40 MG Vial IV.PUSH SCH (09:13)
[2018-05-03] MEDS: Sodium Chloride 0.9% 2 ML Flush BID IV.FLUSH SCH (09:13)
[2018-05-03] MEDS: ALPRAZolam 0.5 MG Tablet PO PRN (09:21)
[2018-05-03] MEDS: amLODIPine 10 MG Tablet PO SCH (09:22)
--- NOTE | 2018-05-03 12:44 | P.PN ---
Subjective Interval history: Feeling better Physical Exam Vital signs: Vital Signs 05/02/18 13:00 05/02/18 13:27 05/02/18 14:00 Temperature Pulse Rate 48 L 53 L 48 L Respiratory Rate 16 Blood Pressure Pulse Oximetry 05/02/18 15:00 05/02/18 16:00 05/02/18 17:00 Temperature 97.9 F Pulse Rate 49 L 46 L 50 L Respiratory Rate 18 Blood Pressure 110/70 Pulse Oximetry 95 05/02/18 18:00 05/02/18 19:57 05/02/18 20:00 Temperature 97.6 F Pulse Rate 52 L 52 L 57 L Respiratory Rate 15 18 Blood Pressure 156/92 H Pulse Oximetry 95 05/02/18 22:00 05/02/18 23:00 05/03/18 00:00 Temperature 97.5 F L Pulse Rate 62 60 55 L Respiratory Rate 18 Blood Pressure 138/79 Pulse Oximetry 92 L 05/03/18 01:00 05/03/18 02:00 05/03/18 03:00 Temperature Pulse Rate 66 56 L 58 L Respiratory Rate Blood Pressure Pulse Oximetry 05/03/18 04:00 05/03/18 05:00 05/03/18 06:00 Temperature 97.9 F Pulse Rate 55 L 56 L 60 Respiratory Rate 18 Blood Pressure 118/69 Pulse Oximetry 92 L 05/03/18 07:00 05/03/18 07:26 05/03/18 08:00 Temperature 97.9 F Pulse Rate 61 78 56 L Respiratory Rate 16 18 Blood Pressure 175/94 H Pulse Oximetry 95 05/03/18 09:00 05/03/18 10:00 05/03/18 11:42 Temperature Pulse Rate 70 54 L 81 Respiratory Rate 18 20 Blood Pressure 160/82 H Pulse Oximetry 96 Intake & Output 05/02/18 05/03/18 05/03/18 18:59 06:59 18:59 Intake Total 960 / 960 1240 / 1240 Output Total 1000 / 1000 1350 / 1350 Balance -40 / -40 -110 / -110 Weight 104.7 kg Intake: IV 1000 / 1000 1/2 Normal Saline Inj 1,000 ML 1000 / 1000 @ 75 mls/hr IV.CONT .[id number] [facility] Rx#:[id number] Oral 960 / 960 240 / 240 Output: Urine 1000 / 1000 1350 / 1350 Other: Date of Last Bowel Movement 04/30/18 05/01/18 04/30/18 - Constitutional no acute distress - Routine HEENT Exam Head: Present: normocephalic Eye: Present: PERRL ENT: Present: mucous membranes moist - Routine Respiratory Exam Present: CTA bilaterally - Routine Cardiovascular Exam Present: RRR, S1, S2 - Routine Abdominal Exam Present: soft - Routine Neurological Exam Present: alert, oriented X3 - Detailed Neurological Exam: Coma Scale Eye Opening: Spontaneous Verbal Response: Oriented Results - Labs CBC & Chem 7: 05/03/18 05:54 05/03/18 05:54 Laboratory Results - last 24 hr 04/28/18 05/02/18 05/02/18 14:10 13:01 17:27 WBC RBC Hgb Hct MCV MCH MCHC RDW Plt Count MPV Sodium Potassium Chloride Carbon Dioxide Anion Gap BUN Creatinine Estimated GFR POC Glucose 148 H Random Glucose Calcium Phosphorus Magnesium Iron 19 L TIBC 228 L % Saturation 8.3 L Ferritin 90 Vitamin B12 514 Folate Greater than 20.0 H Stool H. pylori Ag Not detected 05/02/18 05/03/18 05/03/18 20:16 05:54 05:54 WBC 8.3 RBC 3.11 L Hgb 9.2 L Hct 27.1 L MCV 87.2 MCH 29.5 MCHC 33.9 RDW 13.8 Plt Count 203 MPV 9.0 Sodium 142 Potassium 3.7 Chloride 109 H Carbon Dioxide 24.5 Anion Gap 9 BUN 15 Creatinine 1.32 H Estimated GFR 55 L POC Glucose 155 H Random Glucose 122 H Calcium 8.0 L Phosphorus 3.0 Magnesium 1.7 Iron TIBC % Saturation Ferritin Vitamin B12 Folate Stool H. pylori Ag 05/03/18 05/03/18 08:03 12:14 WBC RBC Hgb Hct MCV MCH MCHC RDW Plt Count MPV Sodium Potassium Chloride Carbon Dioxide Anion Gap BUN Creatinine Estimated GFR POC Glucose 130 H 153 H Random Glucose Calcium Phosphorus Magnesium Iron TIBC % Saturation Ferritin Vitamin B12 Folate Stool H. pylori Ag Assessment and Plan - Assessment (1) Atrial fibrillation with RVR Code(s): I48.91 - Unspecified atrial fibrillation Status: Acute Plan: Patient back into sinus rhythm jeremy the last 48 hrs Doing well No tachy reported HR control Amio IV DC Amio 200 mg PO daily can be DH when ok with the managing team follow up in 2 -3 weeks as OP (2) Hypertension Code(s): I10 - Essential (primary) hypertension Status: Acute Plan: BP high. Should be controlled before DH - Plan Patient in intermittent possible left atrial tachycardia On Po amio HR control on/off Cleared by GI Anticoagulation reinitiated Will be monitored. If HR cannot be controlled then I will consider ablation case discussed with patient
[2018-05-03] MEDS ORDERED: amLODIPine 5 MG Tablet PO ONE (12:50)
--- NOTE | 2018-05-03 12:54 | P.DS ---
Date of admission: 05/01/18 14:41 Primary care physician: Alex Martinez MD Anticipated date of discharge: 05/03/18 Brief History from admission: This is a 63-year-old male with a PMH of HTN, Hyperlipidemia, A. fib on Xarelto , CAD and DM who was brought to the ER by EMS for c/o generalized weakness and fall. Pt w/ recent admit 03/30-04/01/18 for Afib w/ RVR, s/p ablation by Dr. Reeves on 03/31/18 and d/c'd on Amiodarone and Xarelto. Per pt, he's had ongoing diarrhea and generalized weakness since being discharged, w/ decreased PO intake due to abdominal distention/gas. Today, pt states he was unable to get up out of bed due to weakness and had subsequent fall, no LOC or head trauma. Denies fever, chills, chest pain or SOB. No nausea or vomiting. Does note toe pain, 8/10, non-radiating. Upon EMS arrival, pt noted to be hypotensive w/ BP 70's systolic and tachycardic w/ HR 140's, s/p 300ml IVF w/ improvement. On arrival, BP 128/80, HR 136, O2 sat 99% on RA, Afebrile. EKG w / sinus tachycardia. WBC 11.1, Hgb 12.6. Creatinine 1.64, previously 1.17 on 03/31/18. U/a pending. CT Head negative. CXR negative. CT Abd/Pelvis negative. Foot X-ray nondisplaced fracture right second toe. Hemoccult + on exam. Initial concern for Sepsis, s/p Vanc/Cefepime in ER. DS: Diagnosis - Discharge Diagnosis (1) Hypotension Status: Acute (2) Dysrhythmia Status: Acute (3) GI bleed Status: Acute (4) LETICIA (acute kidney injury) Status: Acute (5) Diarrhea Status: Acute (6) Toe fracture Status: Acute (7) Seizure disorder Status: Acute (8) DM (diabetes mellitus) Status: Acute (9) Fall Status: Acute DS: Medications - Discharge Medications Prescriptions: alprazolam [Xanax] 0.5 mg PO Q6H PRN #12 tab PRN Reason: Anxiety amiodarone 200 mg PO DAILY #30 tab amlodipine [Norvasc] 10 mg PO DAILY 30 Days #60 tab DS: Summary Hospital Course: Hypotension/HTN BP 70's systolic per EMS. The pt was mostly hypertensive in the hospital. We continued Coreg and amiodarone. We resumed lisinopril. Amlodipine was started. He received Vasotec as needed. Dysrhythmia H/o A-fib, recent admit 03/30-04/01/18 for Afib w/ RVR, s/p ablation 03/[address] Reeves, has been in NSR since, however upon arrival noted to be tachycardic with episodes of bradycardia. We continued Amiodarone and Coreg. Cardiology was consulted. S/p cardioversion 04/30. We continued the amiodarone gtt. EP recommended d/c on PO amiodarone with outpt follow-up. He was monitored on telemetry. LETICIA Creatinine 1.64 on admission, previously 1.17 on 03/31/18. We discontinued HCTZ and Aldactone and gave IV fluids. GI bleed +Hemoccult on exam. GI was consulted. CT abdomen with no acute abnormalities. S/ p EGD/colonoscopy without acute abnormality. We continued anticoagulation with Xarelto. Fall/ Toe fracture S/p mechanical fall, no head trauma or LOC. CT Head w/ no acute findings. Foot X-ray w/ nondisplaced right 2nd toe fracture. He will follow up w/ podiatry as outpatient as needed. He worked with PT. DM He was placed on an insulin sliding scale. He will resume his home regimen. Anxiety The pt responded well to Xanax. E-FORCSE was checked prior to discharge. - Time Spent with Patient Total time spent providing and/or coordinating discharge services: Greater than 30 minutes - Quality: VTE Deep Vein Thrombosis/Pulmonary Embolism Present on Admission: No Exam Vital signs: Vital Signs 05/02/18 13:00 05/02/18 13:27 05/02/18 14:00 Temperature Pulse Rate 48 L 53 L 48 L Respiratory Rate 16 Blood Pressure Pulse Oximetry 05/02/18 15:00 05/02/18 16:00 05/02/18 17:00 Temperature 97.9 F Pulse Rate 49 L 46 L 50 L Respiratory Rate 18 Blood Pressure 110/70 Pulse Oximetry 95 05/02/18 18:00 11/18/18 19:57 05/02/18 20:00 Temperature 97.6 F Pulse Rate 52 L 52 L 57 L Respiratory Rate 15 18 Blood Pressure 156/92 H Pulse Oximetry 95 05/02/18 22:00 05/02/18 23:00 05/03/18 00:00 Temperature 97.5 F L Pulse Rate 62 60 55 L Respiratory Rate 18 Blood Pressure 138/79 Pulse Oximetry 92 L 05/03/18 01:00 05/03/18 02:00 05/03/18 03:00 Temperature Pulse Rate 66 56 L 58 L Respiratory Rate Blood Pressure Pulse Oximetry 05/03/18 04:00 05/03/18 05:00 05/03/18 06:00 Temperature 97.9 F Pulse Rate 55 L 56 L 60 Respiratory Rate 18 Blood Pressure 118/69 Pulse Oximetry 92 L 05/03/18 07:00 05/03/18 07:26 05/03/18 08:00 Temperature 97.9 F Pulse Rate 61 78 56 L Respiratory Rate 16 18 Blood Pressure 175/94 H Pulse Oximetry 95 05/03/18 09:00 05/03/18 10:00 05/03/18 11:42 Temperature Pulse Rate 70 54 L 81 Respiratory Rate 18 20 Blood Pressure 160/82 H Pulse Oximetry 96 Intake & Output 05/02/18 05/03/18 05/03/18 18:59 06:59 18:59 Intake Total 960 / 960 1240 / 1240 Output Total 1000 / 1000 1350 / 1350 Balance -40 / -40 -110 / -110 Weight 104.7 kg Intake: IV 1000 / 1000 1/2 Normal Saline Inj 1,000 ML 1000 / 1000 @ 75 mls/hr IV.CONT .[id number] [facility] Rx#:[id number] Oral 960 / 960 240 / 240 Output: Urine 1000 / 1000 1350 / 1350 Other: Date of Last Bowel Movement 04/30/18 05/01/18 04/30/18 Results Procedures completed during hospitalization: See hospital course Completed studies during hospitalization: Pending at discharge 04/28/18 12:30 Surgical [PTH] Routine Labs on day of discharge: Labs from last 24 hours 05/03/18 05/03/18 05/03/18 12:14 08:03 05:54 WBC RBC Hgb Hct MCV MCH MCHC RDW Plt Count MPV Sodium 142 Potassium 3.7 Chloride 109 H Carbon Dioxide 24.5 Anion Gap 9 BUN 15 Creatinine 1.32 H Estimated GFR 55 L POC Glucose 153 H 130 H Random Glucose 122 H Calcium 8.0 L Phosphorus 3.0 Magnesium 1.7 Iron TIBC % Saturation Ferritin Vitamin B12 Folate Stool H. pylori Ag 05/03/18 05/02/18 05/02/18 05:54 20:16 17:27 WBC 8.3 RBC 3.11 L Hgb 9.2 L Hct 27.1 L MCV 87.2 MCH 29.5 MCHC 33.9 RDW 13.8 Plt Count 203 MPV 9.0 Sodium Potassium Chloride Carbon Dioxide Anion Gap BUN Creatinine Estimated GFR POC Glucose 155 H 148 H Random Glucose Calcium Phosphorus Magnesium Iron TIBC % Saturation Ferritin Vitamin B12 Folate Stool H. pylori Ag 05/02/18 04/28/18 13:01 14:10 WBC RBC Hgb Hct MCV MCH MCHC RDW Plt Count MPV Sodium Potassium Chloride Carbon Dioxide Anion Gap BUN Creatinine Estimated GFR POC Glucose Random Glucose Calcium Phosphorus Magnesium Iron 19 L TIBC 228 L % Saturation 8.3 L Ferritin 90 Vitamin B12 514 Folate Greater than 20.0 H Stool H. pylori Ag Not detected - Impressions ITS Impressions Head CT 04/25/18 17:18 CONCLUSION: 1. No acute intracranial abnormalities. . Abdomen/Pelvis CT 04/25/18 17:39 CONCLUSION: 1. No acute findings within the abdomen and pelvis. Previous cholecystectomy. Fat-containing umbilical hernia. Small pericardial effusion. Foot X-Ray 04/25/18 17:40 CONCLUSION: Relatively nondisplaced fracture proximal phalanx right second toe. Chest X-Ray 05/01/18 09:38 CONCLUSION: Negative examination. Discharge Plan - Discharge Disposition Patient Disposition: Discharge Home - Discharge Condition Condition: Fair - Discharge Order Discharge Orders: Discharge Order (Routine); Ordered 05/03/18 Ordered By: Adolph Meredith - Discharge Details Anticipated Discharge Date: 05/03/18 Discharge Comment: D/c home if blood pressure controlled at 4pm - Physicians Team Primary Care Provider: Alex Martinez Attending Provider: Adolph Meredith Other Providers: [employer] ; Sarwat Thorne MD ; Elie Reeves MD
[2018-05-03 15:06] VITALS: BP 137/84; RESP 18; TEMP 98.2; O2SAT 97
[2018-05-03 15:11] VITALS: PULSE 62
== END 2018-05-03 17:20 | disposition home or self-care (01) ==
LOC: NEDA 17:05 → NEPE 17:05 → HCIS 04-26 01:25
PROVIDERS: ADMIT Hospitalist; ATTEND Hospitalist
PROC: PANENDO (2018-04-28 08:45)
PROC: COLONOS (2018-04-28 08:45)

== ENCOUNTER 2018-05-06 19:22 | Inpatient (IN) ==
[2018-05-06] MEDS ORDERED: dilTIAZem Inj 125 MG in Sodium Chlor 0.9% Inj 100 ML IV.CONT PRN (20:10)
[2018-05-06 20:18] LABS: Baso # (Auto) 0.1 th/mm3 (0.0-0.2); Baso % (Auto) 0.7 % (0.0-2.0); Eos % (Auto) 8.5 % (0.0-4.0); Hematocrit 35.8 % (39.0-51.0); Hemoglobin 11.6 gm/dL (13.0-17.0); Lymph # (Auto) 1.3 th/mm3 (1.0-4.8); Lymph % (Auto) 11.8 % (9.0-44.0); Mean Corpuscular HGB Conc 32.3 % (32.0-36.0); Mean Corpuscular Hemoglobin 28.1 pg (27.0-34.0); Mean Platelet Volume 8.7 fL (7.0-11.0); Mono % (Auto) 8.6 % (0.0-8.0); Neut % (Auto) 70.4 % (16.0-70.0); Platelet Count 333 th/mm3 (150-450); Red Blood Count 4.11 mil/mm3 (4.50-5.90); White Blood Count 11.4 th/mm3 (4.0-11.0)
[2018-05-06 20:29] LABS: INR 1.3 Ratio; Prothrombin Time 12.9 sec (9.8-11.6)
--- NOTE | 2018-05-06 20:35 | XR ---
EXAM DATE: 05/06/2018 8:31 PM EST AGE/SEX: 63 years / Male INDICATIONS: Shortness of breath. Rapid heart rate. CLINICAL DATA: This is the patient's initial encounter. Patient reports that signs and symptoms have been present for 1 day and indicates a pain score of 0/10. MEDICAL/SURGICAL HISTORY: . Chronic obstructive pulmonary disease. Hypertension. Diabetes. A-f ib. . . Cardiac stent. Loop recorder COMPARISON: [facility] [place], CT ABDOMEN & PELVIS W CONTRAST, 04/25/2018. . FINDINGS: A single AP view of the chest demonstrates the lungs to be symmetrically aerated without evidence of mass, infiltrate or effusion. The cardiomediastinal contours are unremarkable. Osseous structures a re intact. Implanted cardiac loop recorder again noted. CONCLUSION: No acute cardiopulmonary disease demonstrated. Normal, stable heart size. Electronically signed by: Corbin Dobbs MD 05/06/2018 8:33 PM EST
[2018-05-06 20:43] LABS: Albumin 3.1 g/dL (3.4-5.0); Anion Gap 9 meq/L (5-15); Aspartate Aminotransferase 11 U/L (15-37); Blood Urea Nitrogen 14 mg/dL (7-18); Calcium 8.3 mg/dL (8.5-10.1); Carbon Dioxide 23.4 meq/L (21.0-32.0); Chloride 109 meq/L (98-107); Glomerular Filtration Rate 54 mL/min (>89); Glucose,Random 123 mg/dL (74-106); Lipase 71 U/L (73-393); Magnesium 1.6 mg/dL (1.5-2.5); Potassium 3.7 meq/L (3.5-5.1); Sodium 141 meq/L (136-145)
[2018-05-06 20:44] LABS: Alanine Aminotransferase 20 U/L (12-78)
[2018-05-06 20:48] LABS: Alkaline Phosphatase 88 U/L (45-117); Total Protein 7.2 g/dL (6.4-8.2)
[2018-05-06 20:53] LABS: Creatine Kinase 21 U/L (39-308)
--- NOTE | 2018-05-06 20:55 | ED ---
HPI General Chief Complaint: Arrhythmia / Palpitations Stated Complaint: High heart rate Time Seen by Provider: 05/06/18 19:44 Source: patient and family Mode of arrival: ambulatory Limitations: no limitations History of Present Illness HPI narrative: Patient is a 63-year-old male presenting to the emergency department for evaluation of palpitations. Patient states that he feels as if his heart is racing. He reports feeling fatigued but denies any chest pain, shortness of breath, dizziness, headache. Patient states his symptoms started when he was discharged from the hospital the last time which was 3 days ago. Patient reports compliance with his medications. He states he had a cardiac ablation last month. Patient denies any peripheral edema, cough, weight gain. Symptom onset was sudden, symptoms are moderate. Symptoms are alleviated by anything. MD complaint: Reports "heart racing" and palpitations Onset (ago): day(s) Duration: constant Severity: similar to previous episodes Context: Reports change in medication Arrhythmia history: Reports atrial fibrillation and history of ablation Associated symptoms: Reports other (fatigue) Treatments prior to arrival: Reports beta-julio and amiodarone Related Data Home Medications Medication Instructions Recorded Confirmed ascorbic acid (vitamin C) [Vitamin 500 mg PO DAILY 03/24/18 05/06/18 C] atorvastatin 80 mg PO QPM 03/24/18 05/06/18 cholecalciferol (vitamin D3) 2,000 unit PO DAILY 03/24/18 05/06/18 [Vitamin D3] cyanocobalamin (vitamin B-12) 1,000 mcg PO DAILY 03/24/18 05/06/18 [Vitamin B-12] folic acid 1 mg PO DAILY 03/24/18 05/06/18 levetiracetam 1,000 mg PO BID 03/24/18 05/06/18 metformin 1,000 mg PO BID 03/24/18 05/06/18 sitagliptin [Januvia] 50 mg PO DAILY 03/24/18 05/06/18 tamsulosin 0.4 mg PO DAILY 03/24/18 05/06/18 topiramate 100 mg PO BID 03/24/18 05/06/18 budesonide-formoterol [Symbicort] 2 puff INHALATION Q12H 04/25/18 05/06/18 carvedilol [Coreg] 12.5 mg PO BID 04/25/18 05/06/18 hydroxyzine HCl 25 mg PO Q8HR 04/25/18 05/06/18 isosorbide mononitrate 30 mg PO QAM 04/25/18 05/06/18 lisinopril 40 mg PO DAILY 04/25/18 05/06/18 nitroglycerin [Nitrostat] 0.4 mg SUBLINGUAL Q5-15M PRN 04/25/18 05/06/18 Previous Rx's Medication Instructions Recorded rivaroxaban [Xarelto] 20 mg PO DAILY #30 tab 04/01/18 alprazolam [Xanax] 0.5 mg PO Q6H PRN #12 tab 05/03/18 amiodarone 200 mg PO DAILY #30 tab 05/03/18 amlodipine [Norvasc] 10 mg PO DAILY 30 Days #60 tab 05/03/18 Allergies Allergy/AdvReac Type Severity Reaction Status Date / Time No Known Allergies Allergy Verified 05/06/18 19:30 Review of Systems ROS: all other systems reviewed are negative [facility] Medical History Medical History Chronic a-fib (Acute) Diabetes (Acute) HTN (hypertension) (Acute) Heart attack (Acute) High cholesterol (Acute) Surgical History Surgical History S/P ablation of atrial fibrillation (Acute) History of cardiac catheterization (Acute) Hx of cholecystectomy (Acute) Stented coronary artery (Acute) Family History Family History Other Family history non-contributory Social History Social History Substance History: No History of Abuse Second Hand Smoke Exposure: No Smoking Status: Former smoker Tobacco Type: Cigarettes How Often Do You Have a Drink Containing Alcohol: 4 or more times a week Recent Travel in [facility] within the Last 8 Weeks: No Recent Out of Country Travel within the Last 8 Weeks: No Immunization History Tetanus Immunization: <5 Years Exam Narrative Exam Narrative: GENERAL: Well-developed, well-nourished, alert elderly male. Presenting in no acute distress. SKIN: Focused skin assessment warm/dry. HEAD: Atraumatic. Normocephalic. EYES: Pupils equal and round. No scleral icterus. No injection or drainage. ENT: No nasal bleeding or discharge. Mucous membranes pink and moist. NECK: Trachea midline. No JVD. CARDIOVASCULAR: Tachycardic. No murmur appreciated. RESPIRATORY: No accessory muscle use. Clear to auscultation. Breath sounds equal bilaterally. GASTROINTESTINAL: Abdomen soft, non-tender, nondistended. Hepatic and splenic margins not palpable. MUSCULOSKELETAL: No obvious deformities. No clubbing. No cyanosis. No edema. NEUROLOGICAL: Awake and alert. No obvious cranial nerve deficits. Motor grossly within normal limits. Normal speech. PSYCHIATRIC: Appropriate mood and affect; insight and judgment normal. Course Initial Documented Vital Signs Temperature 97.5 F L 05/06/18 19:26 Pulse Rate 147 H 05/06/18 19:26 Respiratory Rate 16 05/06/18 19:26 Blood Pressure 164/100 H 05/06/18 19:26 Pulse Oximetry 98 05/06/18 19:26 Last Documented Vital Signs Temperature 97.5 F L 05/06/18 19:26 Pulse Rate 150 H 05/06/18 19:58 Respiratory Rate 17 05/06/18 19:58 Blood Pressure 150/111 H 05/06/18 19:58 Pulse Oximetry 99 05/06/18 19:58 Medical Decision Making ROSIE Attestation ROSIE supervised visit: Yes Attestation: The history, exam, and medical decision-making in the associated mid-level provider note were completed with my assistance. I reviewed and agree with the findings presented. I attest that I had a [id number] encounter with the patient on the same day, and personally performed and documented my assessment and findings in the medical record. *My assessment and Findings: 63-year-old man, history of A. fib, atrial tachycardia, recent ablation, recent cardioversion, here with shortness of breath tachycardia, regular at this point likely atrial tachycardia, after diltiazem looks more like A. fib with irregularity. Some P waves occasionally. Patient will need his rate controlled. Whether or not he needs additional intervention or just rate control is unclear. He is on amiodarone at home. Continue diltiazem. Admit. MDM Narrative Medical decision making narrative: Patient is a 63-year-old male presenting to the emergency department for evaluation of palpitations. On arrival patient was noted to have a heart rate in the 140s. Initial EKG shows atrial flutter/ tachycardia. Labs ordered and pending. Cardizem 20 mg IV x1 dose ordered. Initial dose of Cardizem trended patient's heart rate down into the 120s, due to persistent elevation in heart rate Cardizem drip was ordered. Cardiac enzymes are negative x1 set. BNP is slightly elevated at 410. Chest x- ray shows no acute disease. Renal function is stable when compared to prior. Hemoglobin has improved when compared to prior. Patient was reassessed, he reports feeling anxious. He is on Xanax at home, he was given Ativan 0.5 mg IV x1 dose. Cardizem drip was initiated, his initial heart rate was 140s, and is currently at 125, RN is continuing to titrate drip. Blood pressure remained stable. Discussed with Dr. Moncada who accepted admission. Patient will be admitted to the [facility]. Patient was advised on findings. He is currently resting comfortably. Admit orders placed. Plan of care and clinical findings were also discussed with my attending physician prior to admission. Medical Screen Exam Complete: Yes Emergency Medical Condition: Yes Differential Diagnosis Differential Diagnosis: Arrhythmia versus metabolic abnormality versus congestive heart failure versus other Medical Records Medical records reviewed: Yes I reviewed the patient's medical records. Lab Data Lab results reviewed: Yes I reviewed the patient's lab results. Result diagrams: 05/06/18 19:50 05/06/18 19:50 Lab Results 05/06/18 05/06/18 05/06/18 Range/Units 19:50 19:50 19:50 WBC 11.4 H (4.0-11.0) th/mm3 RBC 4.11 L (4.50-5.90) mil/mm3 Hgb 11.6 L (13.0-17.0) gm/dL Hct 35.8 L (39.0-51.0) % MCV 87.0 (80.0-100.0) fL MCH 28.1 (27.0-34.0) pg MCHC 32.3 (32.0-36.0) % RDW 14.0 (11.6-17.2) % Plt Count 333 D (150-450) th/mm3 MPV 8.7 (7.0-11.0) fL Neut % (Auto) 70.4 H (16.0-70.0) % Lymph % (Auto) 11.8 (9.0-44.0) % [place] % (Auto) 8.6 H (0.0-8.0) % Eos % (Auto) 8.5 H (0.0-4.0) % Baso % (Auto) 0.7 (0.0-2.0) % Neut # (Auto) 8.0 H (1.8-7.7) th/mm3 Lymph # (Auto) 1.3 (1.0-4.8) th/mm3 [place] # (Auto) 1.0 H (0.0-0.9) th/mm3 Eos # (Auto) 1.0 H (0.0-0.4) th/mm3 Baso # (Auto) 0.1 (0.0-0.2) th/mm3 WBC Differential . Differential Comment Auto diff final PT 12.9 H (9.8-11.6) sec INR 1.3 Ratio APTT 38.0 H (23.4-31.7) sec Sodium 141 (136-145) meq/L Potassium 3.7 (3.5-5.1) meq/L Chloride 109 H (98-107) meq/L Carbon Dioxide 23.4 (21.0-32.0) meq/L Anion Gap 9 (5-15) meq/L BUN 14 (7-18) mg/dL Creatinine 1.33 H (0.60-1.30) mg/dL Estimated GFR 54 L (>89) mL/min Random Glucose 123 H (74-106) mg/dL Calcium 8.3 L (8.5-10.1) mg/dL Magnesium 1.6 (1.5-2.5) mg/dL Total Bilirubin 0.4 (0.2-1.0) mg/dL AST 11 L (15-37) U/L ALT 20 (12-78) U/L Alkaline Phosphatase 88 (45-117) U/L Total Creatine Kinase 21 L (39-308) U/L Troponin I Less than 0.02 L (0.02-0.05) ng/mL B-Natriuretic Peptide (0-100) pg/mL Total Protein 7.2 (6.4-8.2) g/dL Albumin 3.1 L (3.4-5.0) g/dL Lipase 71 L (73-393) U/L 05/06/18 Range/Units 19:50 WBC (4.0-11.0) th/mm3 RBC (4.50-5.90) mil/mm3 Hgb (13.0-17.0) gm/dL Hct (39.0-51.0) % MCV (80.0-100.0) fL MCH (27.0-34.0) pg MCHC (32.0-36.0) % RDW (11.6-17.2) % Plt Count (150-450) th/mm3 MPV (7.0-11.0) fL Neut % (Auto) (16.0-70.0) % Lymph % (Auto) (9.0-44.0) % [place] % (Auto) (0.0-8.0) % Eos % (Auto) (0.0-4.0) % Baso % (Auto) (0.0-2.0) % Neut # (Auto) (1.8-7.7) th/mm3 Lymph # (Auto) (1.0-4.8) th/mm3 [place] # (Auto) (0.0-0.9) th/mm3 Eos # (Auto) (0.0-0.4) th/mm3 Baso # (Auto) (0.0-0.2) th/mm3 WBC Differential Differential Comment PT (9.8-11.6) sec INR Ratio APTT (23.4-31.7) sec Sodium (136-145) meq/L Potassium (3.5-5.1) meq/L Chloride (98-107) meq/L Carbon Dioxide (21.0-32.0) meq/L Anion Gap (5-15) meq/L BUN (7-18) mg/dL Creatinine (0.60-1.30) mg/dL Estimated GFR (>89) mL/min Random Glucose (74-106) mg/dL Calcium (8.5-10.1) mg/dL Magnesium (1.5-2.5) mg/dL Total Bilirubin (0.2-1.0) mg/dL AST (15-37) U/L ALT (12-78) U/L Alkaline Phosphatase (45-117) U/L Total Creatine Kinase (39-308) U/L Troponin I (0.02-0.05) ng/mL B-Natriuretic Peptide 410 H (0-100) pg/mL Total Protein (6.4-8.2) g/dL Albumin (3.4-5.0) g/dL Lipase (73-393) U/L Imaging Data Radiologist's impression: Chest X-Ray 05/06/18 19:45 CONCLUSION: No acute cardiopulmonary disease demonstrated. Normal, stable heart size. Discharge Plan Discharge Disposition Patient Disposition: 30 Still Patient Discharge Condition Condition: Stable Discharge Details Diagnosis: Atrial fibrillation with RVR Physicians Team ED Provider: Amos Lam ED Midlevel Provider: Natali Snow Primary Care Provider: Alex Martinez Rxs /Orders / Referrals /Forms Prescriptions: No Action rivaroxaban [Xarelto] 20 mg Tablet 20 mg PO DAILY Qty: 30 RF: 0 atorvastatin 80 mg Tablet 80 mg PO QPM RF: 0 cyanocobalamin (vitamin B-12) [Vitamin B-12] 1,000 mcg Tablet 1,000 mcg PO DAILY RF: 0 ascorbic acid (vitamin C) [Vitamin C] 500 mg Tablet 500 mg PO DAILY RF: 0 tamsulosin 0.4 mg Capsule 0.4 mg PO DAILY RF: 0 metformin 1,000 mg Tablet 1,000 mg PO BID RF: 0 folic acid 1 mg Tablet 1 mg PO DAILY RF: 0 topiramate 100 mg Tablet 100 mg PO BID RF: 0 levetiracetam 1,000 mg Tablet 1,000 mg PO BID RF: 0 sitagliptin [Januvia] 50 mg Tablet 50 mg PO DAILY RF: 0 cholecalciferol (vitamin D3) [Vitamin D3] 2,000 unit Capsule 2,000 unit PO DAILY RF: 0 carvedilol [Coreg] 12.5 mg Tablet 12.5 mg PO BID RF: 0 isosorbide mononitrate 30 mg Tablet Extended Release 24 Hr 30 mg PO QAM RF: 0 hydroxyzine HCl 25 mg Tablet 25 mg PO Q8HR RF: 0 lisinopril 40 mg Tablet 40 mg PO DAILY RF: 0 nitroglycerin [Nitrostat] 0.4 mg Tablet, Sublingual 0.4 mg SUBLINGUAL Q5-15M PRN (Reason: Chest Pain) RF: 0 budesonide-formoterol [Symbicort] 160-4.5 mcg/actuation Hfa Aerosol Inhaler 2 puff INHALATION Q12H RF: 0 amiodarone 200 mg Tablet 200 mg PO DAILY Qty: 30 RF: 0 amlodipine [Norvasc] 5 mg Tablet 10 mg PO DAILY 30 Days Qty: 60 RF: 0 alprazolam [Xanax] 0.5 mg Tablet 0.5 mg PO Q6H PRN (Reason: Anxiety) Qty: 12 RF: 0 Status ED Status: Admitted Patient
[2018-05-06] MEDS ORDERED: Bisacodyl 10 MG Supp RECTAL PRN (23:39)
[2018-05-06] MEDS ORDERED: Dextrose 50% in Water 50 ML Vial IV.PUSH PRN (23:39)
[2018-05-06] MEDS ORDERED: Acetaminophen 325 MG Tablet PO PRN (23:39)
[2018-05-06] MEDS ORDERED: ALPRAZolam 0.5 MG Tablet PO PRN (23:43)
--- NOTE | 2018-05-06 23:57 | P.HP ---
History of Present Illness Service: [facility] Primary Care Physician: Alex Martinez MD History of Present Illness: 63-year-old male with a past medical history significant for atrial fibrillation anticoagulated on Xarelto, status post cardioversion and ablation, coronary artery disease, hypertension, COPD, obstructive sleep apnea, hyperlipidemia, diabetes mellitus and seizure disorder presents to the emergency department for the evaluation of shortness of breath and palpitations. The patient was received discharged from the hospital on . He states he never returned to his baseline health and had shortness of breath, intermittent chest pain and palpitations prior to his discharge. The patient states his intermittent chest pain is a low-grade pressure that is nonradiating and comes and goes. He denies any current chest pain. No fever/ chills. Shortness of breath without productive cough. No abdominal pain. No nausea/vomiting/diarrhea. No focal neurologic deficits. Inpatient Certification: I certify that the inpatient services were ordered in accordance with Medicare regulations governing the order. This includes certification that hospital inpatient services are reasonable and necessary and in the case of services not specified as inpatient-only under 42 CFR 419.22(n), that they are appropriately provided as inpatient services in accordance to with the 2-midnight benchmark under 43 CFR 412.3(e) Estimated Total Length of Stay (Days): 2 Plans for Post Hospital Care: Not yet determined Review of Systems All other systems reviewed negative except as stated in HPI [facility] - History History Provided By: Patient - Medical History Medical History: Medical History (Last Updated 05/06/18 @ 23:50 by Jammie Moncada MD) COPD (chronic obstructive pulmonary disease) Chronic a-fib Diabetes mellitus Hyperlipidemia DENZEL (obstructive sleep apnea) Seizure disorder Diabetes HTN (hypertension) Heart attack High cholesterol - Surgical History Surgical History: Surgical History (Last Reviewed 05/06/18 @ 23:50 by Jammie Moncada MD) S/P ablation of atrial fibrillation History of cardiac catheterization Hx of cholecystectomy Stented coronary artery - Family History Family History: Family History (Last Reviewed 05/06/18 @ 23:50 by Jammie Moncada MD) Other Family history non-contributory - Social History I have reviewed the patient's Social History: Yes - Tobacco History Second Hand Smoke Exposure: No Tobacco Use In Past 30 Days: No Smoking Status: Former smoker Tobacco Type: Cigarettes - Alcohol History How Often Do You Have a Drink Containing Alcohol: 4 or more times a week - Substance Use History Substance History: No History of Abuse - Travel History Recent Travel in the [place] Within the Last 8 Weeks: No Recent Travel Out of the Country Within the Last 8 Weeks: No - Immunization History Tetanus Immunization: <5 Years Medications and Allergies Active Medications: Active Medications Acetaminophen (Tylenol) 650 mg PO Q4H PRN PRN Reason: Temp > 100.4 Al Hydroxide/Mg Hydroxide (Milk Of Magnesia Liq) 30 ml PO Q12H PRN PRN Reason: Mild Constipation Alprazolam (Xanax) 0.5 mg PO Q6H PRN PRN Reason: Anxiety Amlodipine Besylate (Norvasc) 10 mg PO DAILY SUAD Bisacodyl (Dulcolax Supp) 10 mg RECTAL DAILY PRN PRN Reason: SEVERE CONSITIPATION Dextrose (D50w Vial) 50 ml IV.PUSH UNSCH PRN PRN Reason: PER HYPOGLYCEMIA PROTOCOL Glucagon (Glucagon Inj) 1 mg OTHER PRN PRN PRN Reason: for Hypoglycemia Protocol Amiodarone HCl 450 mg/ (Dextrose) 250 mls @ 33.33 mls/hr IV.CONT TITRATE PRN; Protocol PRN Reason: Per Protocol Sodium Chloride (Ns Inj) 1,000 mls @ 70 mls/hr IV.CONT .[id number] SUAD Insulin Aspart (Novolog Insulin Correctional Sugar Inj) 0 unit SQ ACHS AND 3AM SUAD; Protocol Lactulose (Lactulose Liq) 30 ml PO DAILY PRN PRN Reason: SEVERE CONSITIPATION Ondansetron HCl (Zofran Inj) 4 mg IV.PUSH Q6H PRN PRN Reason: NAUSEA OR VOMITING Senna/Docusate Sodium (Stephie-Colace) 1 tab PO BID SUAD Sennosides (Senokot) 17.2 mg PO Q12H PRN PRN Reason: Moderate Constipation Sodium Chloride (Ns Flush) 2 ml IV.FLUSH UNSCH PRN PRN Reason: FLUSH AFTER USING IV ACCESS Allergies Allergy/AdvReac Type Severity Reaction Status Date / Time No Known Allergies Allergy Verified 05/06/18 19:30 Home Medications Medication Instructions Recorded Confirmed Type ascorbic acid (vitamin C) [Vitamin 500 mg PO DAILY 03/24/18 05/06/18 History C] atorvastatin 80 mg PO QPM 03/24/18 05/06/18 History cholecalciferol (vitamin D3) 2,000 unit PO DAILY 03/24/18 05/06/18 History [Vitamin D3] cyanocobalamin (vitamin B-12) 1,000 mcg PO DAILY 03/24/18 05/06/18 History [Vitamin B-12] folic acid 1 mg PO DAILY 03/24/18 05/06/18 History levetiracetam 1,000 mg PO BID 03/24/18 05/06/18 History metformin 1,000 mg PO BID 03/24/18 05/06/18 History sitagliptin [Januvia] 50 mg PO DAILY 03/24/18 05/06/18 History tamsulosin 0.4 mg PO DAILY 03/24/18 05/06/18 History topiramate 100 mg PO BID 03/24/18 05/06/18 History budesonide-formoterol [Symbicort] 2 puff INHALATION Q12H 04/25/18 05/06/18 History carvedilol [Coreg] 12.5 mg PO BID 04/25/18 05/06/18 History hydroxyzine HCl 25 mg PO Q8HR 04/25/18 05/06/18 History isosorbide mononitrate 30 mg PO QAM 04/25/18 05/06/18 History lisinopril 40 mg PO DAILY 04/25/18 05/06/18 History nitroglycerin [Nitrostat] 0.4 mg SUBLINGUAL Q5-15M PRN 04/25/18 05/06/18 History Exam Vital signs: Vital Signs 05/06/18 19:26 05/06/18 19:58 Temperature 97.5 F L Pulse Rate 147 H 145 H Respiratory Rate 16 17 Blood Pressure 164/100 H 150/111 H Pulse Oximetry 98 99 Narrative: Gen.: No acute distress Head: Normocephalic. Atraumatic. EENT: Pupils equal round and reactive to light. Nose without drainage. Airway intact. Throat without injection. Cardiovascular: Tachycardic. Irregularly irregular rhythm. No murmurs, rubs or gallops. Respiratory: Lungs clear to auscultation bilaterally. No wheezes or rhonchi. Abdomen: Soft, nontender, nondistended. No peritoneal signs. Musculoskeletal: No gross deformities. No edema. Skin: No obvious rashes or erythema. Neuro: Sensory and motor grossly intact. Cranial nerves II through XII grossly intact. Results - Labs CBC & Chem 7: 05/06/18 19:50 05/06/18 19:50 Labs: Laboratory Results - last 24 hr 05/06/18 05/06/18 05/06/18 19:50 19:50 19:50 WBC 11.4 H RBC 4.11 L Hgb 11.6 L Hct 35.8 L MCV 87.0 MCH 28.1 MCHC 32.3 RDW 14.0 Plt Count 333 D MPV 8.7 Neut % (Auto) 70.4 H Lymph % (Auto) 11.8 [place] % (Auto) 8.6 H Eos % (Auto) 8.5 H Baso % (Auto) 0.7 Neut # (Auto) 8.0 H Lymph # (Auto) 1.3 [place] # (Auto) 1.0 H Eos # (Auto) 1.0 H Baso # (Auto) 0.1 WBC Differential . Differential Comment Auto diff final PT 12.9 H INR 1.3 APTT 38.0 H Sodium 141 Potassium 3.7 Chloride 109 H Carbon Dioxide 23.4 Anion Gap 9 BUN 14 Creatinine 1.33 H Estimated GFR 54 L Random Glucose 123 H Calcium 8.3 L Magnesium 1.6 Total Bilirubin 0.4 AST 11 L ALT 20 Alkaline Phosphatase 88 Total Creatine Kinase 21 L Troponin I Less than 0.02 L B-Natriuretic Peptide Total Protein 7.2 Albumin 3.1 L Lipase 71 L 05/06/18 19:50 WBC RBC Hgb Hct MCV MCH MCHC RDW Plt Count MPV Neut % (Auto) Lymph % (Auto) [place] % (Auto) Eos % (Auto) Baso % (Auto) Neut # (Auto) Lymph # (Auto) [place] # (Auto) Eos # (Auto) Baso # (Auto) WBC Differential Differential Comment PT INR APTT Sodium Potassium Chloride Carbon Dioxide Anion Gap BUN Creatinine Estimated GFR Random Glucose Calcium Magnesium Total Bilirubin AST ALT Alkaline Phosphatase Total Creatine Kinase Troponin I B-Natriuretic Peptide 410 H Total Protein Albumin Lipase - Imaging Impressions Chest X-Ray 05/06/18 19:45 CONCLUSION: No acute cardiopulmonary disease demonstrated. Normal, stable heart size. Caprini VTE Risk Assessment Caprini VTE Risk Assessment: Moderate/High Risk (score >= 2) Caprini Risk Assessment Model: Point Value = 1 Point Value = 2 Point Value = 3 Point Value = 5 Age 41-60 Minor surgery BMI > 25 kg/m2 Swollen legs Varicose veins or History of unexplained or recurrent spontaneous Oral contraceptives or hormone replacement Sepsis (< 1 month) Serious lung disease, including pneumonia (< 1 month) Abnormal pulmonary function Acute myocardial infarction Congestive heart failure (< 1 month) History of inflammatory bowel disease Medical patient at bed rest Age 61-74 Arthroscopic surgery Major open surgery (> 45 min) Laparoscopic surgery (> 45 min) Malignancy Confined to bed (> 72 hours) Immobilizing plaster cast Central venous access Age >= 75 History of VTE Family history of VTE Factor V Leiden Prothrombin 39218H Lupus anticoagulant Anticardiolipin antibodies Elevated serum homocysteine Heparin-induced thrombocytopenia Other congenital or acquired thrombophilia Stroke (< 1 month) Elective arthroplasty Hip, pelvis, or leg fracture Acute spinal cord injury (< 1 month) Prophylaxis Regimen: Total Risk Factor Score Risk Level Prophylaxis Regimen 0-1 Low Early ambulation 2 Moderate Order ONE of the following: *Sequential Compression Device (SCD) *Heparin 5000 units SQ BID 3-4 Higher Order ONE of the following medications: *Heparin 5000 units SQ TID *Enoxaparin/Lovenox 40 mg SQ daily (WT < 150 kg, CrCl > 30 mL/min) *Enoxaparin/Lovenox 30 mg SQ daily (WT < 150 kg, CrCl > 10-29 mL/min) *Enoxaparin/Lovenox 30 mg SQ BID (WT < 150 kg, CrCl > 30 mL/min) AND/OR *Sequential Compression Device (SCD) 5 or more Highest Order ONE of the following medications: *Heparin 5000 units SQ TID (Preferred with Epidurals) *Enoxaparin/Lovenox 40 mg SQ daily (WT < 150 kg, CrCl > 30 mL/min) *Enoxaparin/Lovenox 30 mg SQ daily (WT < 150 kg, CrCl > 10-29 mL/min) *Enoxaparin/Lovenox 30 mg SQ BID (WT < 150 kg, CrCl > 30 mL/min) AND *Sequential Compression Device (SCD) Assessment and Plan - Plan Assessment/plan: 1. Atrial fibrillation with rapid ventricular response EKG significant for A. fib with RVR, pulse 146, no signs of ischemia, personally reviewed Amiodarone drip - wean as tolerated Cardiology consulted, Dr. Reeves, appreciate recommendations Continue home Xarelto 2. Coronary artery disease/hypertension/hyperlipidemia Continue home medications 3. Diabetes mellitus Holding home oral anti-hyperglycemics Sliding-scale insulin Monitor blood glucose 4. COPD/DENZEL Continue home CPAP Continue home Symbicort 5. Seizure disorder Continue home Keppra and Topamax 6. Chronic kidney disease Creatinine 1.33, baseline Monitor renal function FEN N.p.o. Electrolytes: Monitor and replete as needed NS at 70 cc/hour Xarelto
[2018-05-07] MEDS: Sod Chloride 0.9% Inj 1,000 ML IV.CONT SCH ×2 (01:18→16:48)
[2018-05-07] MEDS: Budesonide-Formoterol 160/4.5 MCG 6 GM Inhaler INH SCH ×2 (01:19→20:49)
[2018-05-07] MEDS ORDERED: Mag Sulf 1 gm/100 ml Premix 100 ML IV.SIG ONE (01:53)
[2018-05-07] MEDS: Insulin NovoLOG Aspart Correctional Sugar Inj SQ SCH ×5 (02:57→20:47)
[2018-05-07 06:53] LABS: Baso % (Auto) 0.3 % (0.0-2.0); Eos # (Auto) 0.8 th/mm3 (0.0-0.4); Eos % (Auto) 8.7 % (0.0-4.0); Hematocrit 29.3 % (39.0-51.0); Hemoglobin 9.9 gm/dL (13.0-17.0); Lymph # (Auto) 1.3 th/mm3 (1.0-4.8); Lymph % (Auto) 13.7 % (9.0-44.0); Mean Corpuscular HGB Conc 33.7 % (32.0-36.0); Mean Corpuscular Hemoglobin 29.4 pg (27.0-34.0); Mean Corpuscular Volume 87.1 fL (80.0-100.0); Mean Platelet Volume 8.6 fL (7.0-11.0); Mono # (Auto) 0.9 th/mm3 (0.0-0.9); Mono % (Auto) 9.2 % (0.0-8.0); Neut # (Auto) 6.4 th/mm3 (1.8-7.7); Neut % (Auto) 68.1 % (16.0-70.0); Platelet Count 266 th/mm3 (150-450); Red Blood Count 3.36 mil/mm3 (4.50-5.90); White Blood Count 9.4 th/mm3 (4.0-11.0)
[2018-05-07 07:15] LABS: Calcium 8.4 mg/dL (8.5-10.1); Carbon Dioxide 24.6 meq/L (21.0-32.0); Potassium 3.6 meq/L (3.5-5.1)
[2018-05-07] MEDS: Carvedilol 12.5 MG Tablet PO SCH ×2 (09:15→20:47)
[2018-05-07] MEDS: levETIRAcetam 500 MG Tablet PO SCH ×2 (09:15→20:47)
[2018-05-07] MEDS: Lisinopril 20 MG Tablet PO SCH (09:15)
[2018-05-07] MEDS: Topiramate 100 MG Tablet PO SCH ×2 (09:15→20:47)
[2018-05-07] MEDS: Rivaroxaban 20 MG Tablet PO SCH (09:16)
[2018-05-07] MEDS: Isosorbide Mononitrate 30 MG ER 24HR Tablet (Imdur) PO SCH (09:16)
[2018-05-07] MEDS: Senna/Docusate Sodium 8.6/50 MG Tablet PO SCH ×2 (09:16→20:47)
[2018-05-07] MEDS: amLODIPine 5 MG Tablet PO SCH (09:16)
--- NOTE | 2018-05-07 11:20 | MB ---
cc: Krishan Soares MD DATE: 05/07/2018 REASON FOR CONSULTATION: Recurrent arrhythmia. HISTORY OF PRESENT ILLNESS: This is one of multiple admissions in the last couple of months for this 63-year-old male with recurrent atrial arrhythmias. The patient has a history of 2 ablations and at least 2 cardioversions that I am aware for atrial fibrillation. He has underlying coronary artery disease. Right coronary artery is noted to be totally occluded. Distal circumflex artery was stented with a 2.25 x 12 mm Promus drug-eluting stent in the past. Left main had only very mild disease. There is mild diffuse disease of the circumflex, with the right coronary artery being totally occluded, but collateralized. This is his fourth admission since the beginning of March. Last admission it was noted that he would have a few sinus beats and then go back into rapid atrial fibrillation. This was despite cardioversion. He has been on amiodarone. He is now on IV amiodarone. Looking at telemetry, still having breakthrough episodes of atrial fibrillation, RVR interspersed with a few sinus beats. This comes on with him doing no activity. He has not had any significant angina. PAST MEDICAL HISTORY: Includes coronary artery disease, paroxysmal atrial fibrillation, diabetes, hypertension, hyperlipidemia, obesity, very poor dentition with oral mucosal bleeding and no dental visits in his lifetime. PAST SURGICAL HISTORY: Includes previous cath and stent of the distal circumflex, cholecystectomy and his ablation procedures. ALLERGIES: NONE. MEDICATIONS: List as charted. FAMILY HISTORY: Negative for heart disease. SOCIAL HISTORY: Previous smoker. REVIEW OF SYSTEMS: Otherwise negative. PHYSICAL EXAMINATION: GENERAL: Reveals an obese, pleasant white male in no acute distress. VITAL SIGNS: Charted. HEENT: Notable for what look like rotted teeth. NECK: Shows no bruits. LUNGS: Clear to auscultation. CARDIOVASCULAR: S1, S2, regular rate and rhythm. ABDOMEN: Soft, nontender. EXTREMITIES: No clubbing, cyanosis or edema. LABORATORY DATA: Labs and a chest x-ray are charted. Hematocrit is 29.3. Potassium 3.6, creatinine 1.22. Troponins are negative. BNP is 410. IMPRESSION: Recurrent atrial arrhythmias in a 63-year-old male. It looks like he has exhausted all of his options to maintain sinus rhythm. I have texted Dr. Reeves, who is off duty this weekend. I suspect he may be considering an AV node ablation with a permanent pacemaker implant, since it does not seem possible to keep him in normal sinus rhythm despite ablations and cardioversions on amiodarone. Further therapy to be determined. MD TYLER Rubio/courtney , 10:50 AM , 10:58 AM
--- NOTE | 2018-05-07 11:32 | P.PN ---
Subjective Interval history: Follow-up AHarris ferraro with RVR May 07, 2018-patient seen and examined, no chest pain, dizziness, heart palpitations or shortness of breath. Currently NPO Physical Exam Vital signs: Vital Signs 05/06/18 19:26 05/06/18 19:58 05/07/18 00:00 Temperature 97.5 F L 98.6 F Pulse Rate 147 H 145 H 129 H Respiratory Rate 16 17 22 Blood Pressure 164/100 H 150/111 H 143/91 H Pulse Oximetry 98 99 98 05/07/18 04:00 05/07/18 08:00 05/07/18 09:00 Temperature 97.4 F L 97.6 F Pulse Rate 97 H 106 H 109 H Respiratory Rate 20 15 Blood Pressure 124/82 154/99 H Pulse Oximetry 96 95 Intake & Output 05/06/18 05/07/18 05/07/18 18:59 06:59 18:59 Intake Total 130 / 130 250 / 250 Output Total 300 / 300 Balance -170 / -170 250 / 250 Weight 101.6 kg Intake: IV 100 / 100 250 / 250 Cordarone Inj 450 MG In D5W Inj 250 / 250 241 ML @ 1 MG/MIN 33.33 mls/hr IV.CONT TITRATE PRN Rx#: [id number] Magnesium Sulfate 1 gm/D5W 100 100 / 100 ml Premix 100 ML @ 100 mls/hr IV.SIG ONCE ONE Rx#:[id number] Oral 30 / 30 Output: Urine 300 / 300 Other: Date of Last Bowel Movement 05/07/18 Weight On Admission 101.6 kg Narrative: Gen.: No acute distress Head: Normocephalic. Atraumatic. EENT: Pupils equal round and reactive to light. Nose without drainage. Airway intact. Throat without injection. Cardiovascular: Tachycardic. Irregularly irregular rhythm. No murmurs, rubs or gallops. Respiratory: Lungs clear to auscultation bilaterally. No wheezes or rhonchi. Abdomen: Soft, nontender, nondistended. No peritoneal signs. Musculoskeletal: No gross deformities. No edema. Skin: No obvious rashes or erythema. Neuro: Sensory and motor grossly intact. Cranial nerves II through XII grossly intact. Results - Labs CBC & Chem 7: 05/07/18 05:28 05/07/18 05:28 Laboratory Results - last 24 hr 05/06/18 05/06/18 05/06/18 19:50 19:50 19:50 WBC 11.4 H RBC 4.11 L Hgb 11.6 L Hct 35.8 L MCV 87.0 MCH 28.1 MCHC 32.3 RDW 14.0 Plt Count 333 D MPV 8.7 Neut % (Auto) 70.4 H Lymph % (Auto) 11.8 Marin % (Auto) 8.6 H Eos % (Auto) 8.5 H Baso % (Auto) 0.7 Neut # (Auto) 8.0 H Lymph # (Auto) 1.3 Marin # (Auto) 1.0 H Eos # (Auto) 1.0 H Baso # (Auto) 0.1 WBC Differential . Differential Comment Auto diff final PT 12.9 H INR 1.3 APTT 38.0 H Sodium 141 Potassium 3.7 Chloride 109 H Carbon Dioxide 23.4 Anion Gap 9 BUN 14 Creatinine 1.33 H Estimated GFR 54 L POC Glucose Random Glucose 123 H Calcium 8.3 L Magnesium 1.6 Total Bilirubin 0.4 AST 11 L ALT 20 Alkaline Phosphatase 88 Total Creatine Kinase 21 L Troponin I Less than 0.02 L B-Natriuretic Peptide Total Protein 7.2 Albumin 3.1 L Lipase 71 L 05/06/18 05/07/18 05/07/18 19:50 02:45 05:28 WBC 9.4 RBC 3.36 L Hgb 9.9 L Hct 29.3 L MCV 87.1 MCH 29.4 MCHC 33.7 RDW 14.0 Plt Count 266 MPV 8.6 Neut % (Auto) 68.1 Lymph % (Auto) 13.7 [place] % (Auto) 9.2 H Eos % (Auto) 8.7 H Baso % (Auto) 0.3 Neut # (Auto) 6.4 Lymph # (Auto) 1.3 Marin # (Auto) 0.9 Eos # (Auto) 0.8 H Baso # (Auto) 0.0 WBC Differential . Differential Comment Auto diff final PT INR APTT Sodium Potassium Chloride Carbon Dioxide Anion Gap BUN Creatinine Estimated GFR POC Glucose 187 H Random Glucose Calcium Magnesium Total Bilirubin AST ALT Alkaline Phosphatase Total Creatine Kinase Troponin I B-Natriuretic Peptide 410 H Total Protein Albumin Lipase 05/07/18 05/07/18 05/07/18 05:28 08:01 11:19 WBC RBC Hgb Hct MCV MCH MCHC RDW Plt Count MPV Neut % (Auto) Lymph % (Auto) Marin % (Auto) Eos % (Auto) Baso % (Auto) Neut # (Auto) Lymph # (Auto) Marin # (Auto) Eos # (Auto) Baso # (Auto) WBC Differential Differential Comment PT INR APTT Sodium 143 Potassium 3.6 Chloride 110 H Carbon Dioxide 24.6 Anion Gap 8 BUN 15 Creatinine 1.22 Estimated GFR 60 L POC Glucose 145 H 145 H Random Glucose 142 H Calcium 8.4 L Magnesium Total Bilirubin AST ALT Alkaline Phosphatase Total Creatine Kinase Troponin I B-Natriuretic Peptide Total Protein Albumin Lipase - Imaging Impressions Chest X-Ray 05/06/18 19:45 CONCLUSION: No acute cardiopulmonary disease demonstrated. Normal, stable heart size. Assessment and Plan - Plan 63-year-old man with 1. Atrial fibrillation with rapid ventricular response currently on Amiodarone drip Cardiology consulted, Dr. Reeves, appreciate recommendations Continue home Xarelto 2. Coronary artery disease/hypertension/hyperlipidemia Continue home medications 3. Diabetes mellitus Holding home oral anti-hyperglycemics Sliding-scale insulin Monitor blood glucose 4. COPD/DENZEL Continue home CPAP Continue home Symbicort 5. Seizure disorder Continue home Keppra and Topamax 6. Chronic kidney disease Creatinine 1.33, baseline Monitor renal function
[2018-05-07] MEDS: dilTIAZem Inj 125 MG in Sodium Chlor 0.9% Inj 100 ML IV.CONT PRN (18:04)
--- NOTE | 2018-05-07 20:06 | ECG ---
Date Performed: 05/06/2018 Time Performed: 20:10:24 PTAGE: 63 years EKG: SINUS TACHYCARDIA WITH INTERMITTENT SUPRAVENTRICULAR TACHYCARDIA DIFFUSE ST-T ABNORMALITIES THE OCCASIONAL SINUS BEATS ARE NEW ABNORMAL ECG PREVIOUS TRACING : 05/06/2018 19.41 DOCTOR: Krishan Soares Interpretating Date/Time 05/07/2018 20:06:04
--- NOTE | 2018-05-07 20:06 | ECG ---
Date Performed: 05/06/2018 Time Performed: 19:41:02 PTAGE: 63 years EKG: Supraventricular tachycardia DIFFUSE ST-T WAVE ABNORMALITY WITH POSSIBLE ISCHEMIA Since the previous tracing, no significant change noted ABNORMAL ECG PREVIOUS TRACING : 05/01/2018 23.08 DOCTOR: Krishan Soares Interpretating Date/Time 05/07/2018 20:05:22
[2018-05-08] MEDS: Insulin NovoLOG Aspart Correctional Sugar Inj SQ SCH ×5 (04:42→20:50)
[2018-05-08] MEDS: Sod Chloride 0.9% Inj 1,000 ML IV.CONT SCH ×2 (04:42→06:17)
[2018-05-08] MEDS: Lisinopril 20 MG Tablet PO SCH (09:07)
[2018-05-08] MEDS: Carvedilol 12.5 MG Tablet PO SCH ×2 (09:07→20:49)
[2018-05-08] MEDS: amLODIPine 5 MG Tablet PO SCH (09:30)
[2018-05-08] MEDS: Rivaroxaban 20 MG Tablet PO SCH (09:30)
[2018-05-08] MEDS: Isosorbide Mononitrate 30 MG ER 24HR Tablet (Imdur) PO SCH (09:31)
[2018-05-08] MEDS: Topiramate 100 MG Tablet PO SCH ×2 (09:31→20:49)
[2018-05-08] MEDS: Budesonide-Formoterol 160/4.5 MCG 6 GM Inhaler INH SCH ×3 (09:31→20:50)
[2018-05-08] MEDS: levETIRAcetam 500 MG Tablet PO SCH ×2 (09:31→20:49)
[2018-05-08] MEDS: Senna/Docusate Sodium 8.6/50 MG Tablet PO SCH (09:32)
--- NOTE | 2018-05-08 11:24 | P.PN ---
Subjective Interval history: Follow-up recurrent A. fib with RVR May 07, 2018-patient seen and examined, no chest pain, dizziness, heart palpitations or shortness of breath. May 08, 2018-patient seen and examined, no complaints and no acute event overnight. Awaiting for disability coordinator evaluation next Thursday Physical Exam Vital signs: Vital Signs 05/07/18 11:38 05/07/18 11:56 05/07/18 16:00 Temperature 98.6 F 98.0 F Pulse Rate 97 H 107 H Respiratory Rate 16 16 Blood Pressure 136/96 H 119/75 Pulse Oximetry 136 H 98 05/07/18 19:00 05/07/18 20:00 05/07/18 20:15 Temperature 96.9 F L Pulse Rate 101 H 94 H Respiratory Rate 18 Blood Pressure 142/93 H Pulse Oximetry 96 96 05/07/18 21:00 05/07/18 22:00 05/07/18 23:00 Temperature Pulse Rate 96 H 98 H 59 L Respiratory Rate Blood Pressure Pulse Oximetry 05/08/18 00:00 05/08/18 01:00 05/08/18 02:00 Temperature 97.6 F Pulse Rate 58 L 56 L 56 L Respiratory Rate 18 Blood Pressure 148/90 H Pulse Oximetry 96 05/08/18 03:00 05/08/18 03:26 05/08/18 04:00 Temperature 97.0 F L Pulse Rate 67 67 72 Respiratory Rate 18 Blood Pressure 120/81 Pulse Oximetry 97 05/08/18 05:00 05/08/18 06:00 05/08/18 08:00 Temperature 97.0 F L Pulse Rate 73 75 87 Respiratory Rate 18 Blood Pressure 146/94 H Pulse Oximetry 91 L Intake & Output 05/07/18 05/08/18 05/08/18 18:59 06:59 18:59 Intake Total 1500 / 1500 1480 / 1480 Output Total 675 / 675 Balance 1500 / 1500 805 / 805 Intake: IV 1500 / 1500 1000 / 1000 Cordarone Inj 450 MG In D5W Inj 500 / 500 241 ML @ 1 MG/MIN 33.33 mls/hr IV.CONT TITRATE PRN Rx#: [id number] NS Inj 1,000 ML @ 70 mls/hr IV. 1000 / 1000 1000 / 1000 CONT .[id number] SUAD Rx#:[id number] Oral 480 / 480 Output: Urine 675 / 675 Narrative: Gen.: No acute distress Head: Normocephalic. Atraumatic. EENT: Pupils equal round and reactive to light. Nose without drainage. Airway intact. Throat without injection. Cardiovascular: Irregularly irregular rhythm. No murmurs, rubs or gallops. Respiratory: Lungs clear to auscultation bilaterally. No wheezes or rhonchi. Abdomen: Soft, nontender, nondistended. No peritoneal signs. Musculoskeletal: No gross deformities. No edema. Skin: No obvious rashes or erythema. Neuro: Sensory and motor grossly intact. Cranial nerves II through XII grossly intact. Results - Labs CBC & Chem 7: 05/07/18 05:28 05/07/18 05:28 Laboratory Results - last 24 hr 05/07/18 05/07/18 05/08/18 16:35 20:46 03:11 POC Glucose 135 H 110 104 05/08/18 09:36 POC Glucose 161 H Assessment and Plan - Plan 63-year-old man with 1. Recurrent atrial fibrillation with rapid ventricular response currently on Amiodarone drip Cardiology consulted for evaluation for AV joaquina ablation with permanent pacemaker implantation Appreciate input from Dr. Soares, power reactor supervisor who saw the patient yesterday May 07, 2018 Continue home Xarelto 2. Coronary artery disease/hypertension/hyperlipidemia Continue home medications 3. Diabetes mellitus Holding home oral anti-hyperglycemics Sliding-scale insulin Monitor blood glucose 4. COPD/DENZEL Continue home CPAP Continue home Symbicort 5. Seizure disorder Continue home Keppra and Topamax 6. Chronic kidney disease Creatinine 1.33, baseline Monitor renal function
[2018-05-08] MEDS: dilTIAZem Inj 125 MG in Sodium Chlor 0.9% Inj 100 ML IV.CONT PRN (14:37)
--- NOTE | 2018-05-08 16:09 | P.PNCA ---
Subjective Interval history: Feeling better today. No new complaints Medications and Allergies Active Medications: Active Medications Acetaminophen (Tylenol) 650 mg PO Q4H PRN PRN Reason: Temp > 100.4 Al Hydroxide/Mg Hydroxide (Milk Of Jimbo Liq) 30 ml PO Q12H PRN PRN Reason: Mild Constipation Alprazolam (Xanax) 0.5 mg PO Q6H PRN PRN Reason: Anxiety Amlodipine Besylate (Norvasc) 10 mg PO DAILY [facility] Last Admin: 05/08/18 09:30 Dose: 10 mg Atorvastatin Calcium (Lipitor) 80 mg PO QPM [facility] Last Admin: 05/07/18 18:04 Dose: 80 mg Budesonide/Formoterol Fumarate (Symbicort 160/4.5 Mcg Inh) 2 puff INH Q12HR [facility] Last Admin: 05/08/18 11:10 Dose: 2 puff Carvedilol (Coreg) 12.5 mg PO BID [facility] Last Admin: 05/08/18 09:07 Dose: 12.5 mg Dextrose (D50w Vial) 50 ml IV.PUSH UNSCH PRN PRN Reason: PER HYPOGLYCEMIA PROTOCOL Glucagon (Glucagon Inj) 1 mg OTHER PRN PRN PRN Reason: for Hypoglycemia Protocol Amiodarone HCl 450 mg/ (Dextrose) 250 mls @ 33.33 mls/hr IV.CONT TITRATE PRN; Protocol PRN Reason: Per Protocol Last Titration: 05/07/18 15:00 Dose: Infused Diltiazem HCl 125 mg/ Sodium (Chloride) 125 mls @ 5 mls/hr IV.CONT TITRATE PRN ; Protocol PRN Reason: Per Protocol Last Admin: 05/08/18 14:37 Dose: 5 mg/hr, 5 mls/hr Insulin Aspart (Novolog Insulin Correctional Sugar Inj) 0 unit SQ ACHS AND 3AM [facility]; Protocol Last Admin: 05/08/18 13:41 Dose: Not Given Isosorbide Mononitrate (Imdur) 30 mg PO DAILY [facility] Last Admin: 05/08/18 09:31 Dose: 30 mg Levetiracetam (Keppra) 1,000 mg PO BID [facility] Last Admin: 05/08/18 09:31 Dose: 1,000 mg Lisinopril (Prinivil) 40 mg PO DAILY [facility] Last Admin: 05/08/18 09:07 Dose: 40 mg Ondansetron HCl (Zofran Inj) 4 mg IV.PUSH Q6H PRN PRN Reason: NAUSEA OR VOMITING Rivaroxaban (Xarelto) 20 mg PO DAILY [facility] Last Admin: 05/08/18 09:30 Dose: 20 mg Sodium Chloride (Ns Flush) 2 ml IV.FLUSH UNSCH PRN PRN Reason: FLUSH AFTER USING IV ACCESS Tamsulosin HCl (Flomax) 0.4 mg PO DAILY [facility] Last Admin: 05/08/18 09:31 Dose: 0.4 mg Topiramate (Topamax) 100 mg PO BID [facility] Last Admin: 05/08/18 09:31 Dose: 100 mg Allergies Allergy/AdvReac Type Severity Reaction Status Date / Time No Known Allergies Allergy Verified 05/06/18 19:30 Home Medications Medication Instructions Recorded Confirmed Type ascorbic acid (vitamin C) [Vitamin 500 mg PO DAILY 03/24/18 05/06/18 History C] atorvastatin 80 mg PO QPM 03/24/18 05/06/18 History cholecalciferol (vitamin D3) 2,000 unit PO DAILY 03/24/18 05/06/18 History [Vitamin D3] cyanocobalamin (vitamin B-12) 1,000 mcg PO DAILY 03/24/18 05/06/18 History [Vitamin B-12] folic acid 1 mg PO DAILY 03/24/18 05/06/18 History levetiracetam 1,000 mg PO BID 03/24/18 05/06/18 History metformin 1,000 mg PO BID 03/24/18 05/06/18 History sitagliptin [Januvia] 50 mg PO DAILY 03/24/18 05/06/18 History tamsulosin 0.4 mg PO DAILY 03/24/18 05/06/18 History topiramate 100 mg PO BID 03/24/18 05/06/18 History budesonide-formoterol [Symbicort] 2 puff INHALATION Q12H 04/25/18 05/06/18 History carvedilol [Coreg] 12.5 mg PO BID 04/25/18 05/06/18 History hydroxyzine HCl 25 mg PO Q8HR 04/25/18 05/06/18 History isosorbide mononitrate 30 mg PO QAM 04/25/18 05/06/18 History lisinopril 40 mg PO DAILY 04/25/18 05/06/18 History nitroglycerin [Nitrostat] 0.4 mg SUBLINGUAL Q5-15M PRN 04/25/18 05/06/18 History Physical Exam Vital signs: Vital Signs 05/07/18 19:00 05/07/18 20:00 05/07/18 20:15 Temperature 96.9 F L Pulse Rate 101 H 94 H Respiratory Rate 18 Blood Pressure 142/93 H Pulse Oximetry 96 96 05/07/18 21:00 05/07/18 22:00 05/07/18 23:00 Temperature Pulse Rate 96 H 98 H 59 L Respiratory Rate Blood Pressure Pulse Oximetry 05/08/18 00:00 05/08/18 01:00 05/08/18 02:00 Temperature 97.6 F Pulse Rate 58 L 56 L 56 L Respiratory Rate 18 Blood Pressure 148/90 H Pulse Oximetry 96 05/08/18 03:00 05/08/18 03:26 05/08/18 04:00 Temperature 97.0 F L Pulse Rate 67 67 72 Respiratory Rate 18 Blood Pressure 120/81 Pulse Oximetry 97 05/08/18 05:00 05/08/18 06:00 05/08/18 07:00 Temperature Pulse Rate 73 75 81 Respiratory Rate Blood Pressure Pulse Oximetry 05/08/18 08:00 05/08/18 09:00 05/08/18 10:00 Temperature 97.0 F L Pulse Rate 76 84 90 Respiratory Rate 18 Blood Pressure 146/94 H Pulse Oximetry 91 L 05/08/18 11:00 05/08/18 12:00 05/08/18 13:00 Temperature 97.6 F Pulse Rate 57 L 56 L 60 Respiratory Rate 18 Blood Pressure 148/87 H Pulse Oximetry 99 05/08/18 14:00 05/08/18 15:00 Temperature Pulse Rate 62 65 Respiratory Rate Blood Pressure Pulse Oximetry Intake & Output 05/07/18 05/08/18 05/08/18 18:59 06:59 18:59 Intake Total 1500 / 1500 1480 / 1480 125 / 125 Output Total 675 / 675 Balance 1500 / 1500 805 / 805 125 / 125 Intake: IV 1500 / 1500 1000 / 1000 125 / 125 Cordarone Inj 450 MG In D5W Inj 500 / 500 241 ML @ 1 MG/MIN 33.33 mls/hr IV.CONT TITRATE PRN Rx#: [id number] NS Inj 1,000 ML @ 70 mls/hr IV. 1000 / 1000 1000 / 1000 CONT .[id number] [facility] Rx#:[id number] Cardizem Inj 125 MG In NS Inj 125 / 125 100 ML @ 5 MG/HR 5 mls/hr IV. CONT TITRATE PRN Rx#:[id number] Oral 480 / 480 Output: Urine 675 / 675 Narrative: Gen.: No acute distress Head: Normocephalic. Atraumatic. EENT: Pupils equal round and reactive to light. Nose without drainage. Airway intact. Throat without injection. Cardiovascular: Irregularly irregular rhythm. No murmurs, rubs or gallops. Respiratory: Lungs clear to auscultation bilaterally. No wheezes or rhonchi. Abdomen: Soft, nontender, nondistended. No peritoneal signs. Musculoskeletal: No gross deformities. No edema. Skin: No obvious rashes or erythema. Neuro: Sensory and motor grossly intact. Cranial nerves II through XII grossly intact. Tele sinus lora - Diltiazem at 5mg/h Results 05/07/18 05:28 05/07/18 05:28 Cardiac Enzymes 05/06/18 05/06/18 Range/Units 19:50 19:50 AST 11 L (15-37) U/L Troponin I Less than 0.02 L (0.02-0.05) ng/mL B-Natriuretic Peptide 410 H (0-100) pg/mL Coagulation 05/06/18 05/06/18 Range/Units 19:50 19:50 PT 12.9 H (9.8-11.6) sec APTT 38.0 H (23.4-31.7) sec B-Natriuretic Peptide 410 H (0-100) pg/mL CBC 05/06/18 05/07/18 Range/Units 19:50 05:28 WBC 11.4 H 9.4 (4.0-11.0) th/mm3 RBC 4.11 L 3.36 L (4.50-5.90) mil/mm3 Hgb 11.6 L 9.9 L (13.0-17.0) gm/dL Hct 35.8 L 29.3 L (39.0-51.0) % Plt Count 333 D 266 (150-450) th/mm3 Neut # (Auto) 8.0 H 6.4 (1.8-7.7) th/mm3 Lymph # (Auto) 1.3 1.3 (1.0-4.8) th/mm3 [place] # (Auto) 1.0 H 0.9 (0.0-0.9) th/mm3 Eos # (Auto) 1.0 H 0.8 H (0.0-0.4) th/mm3 Baso # (Auto) 0.1 0.0 (0.0-0.2) th/mm3 Comprehensive Metabolic Panel 05/06/18 05/07/18 Range/Units 19:50 05:28 Sodium 141 143 (136-145) meq/L Potassium 3.7 3.6 (3.5-5.1) meq/L Chloride 109 H 110 H (98-107) meq/L Carbon Dioxide 23.4 24.6 (21.0-32.0) meq/L BUN 14 15 (7-18) mg/dL Creatinine 1.33 H 1.22 (0.60-1.30) mg/dL Calcium 8.3 L 8.4 L (8.5-10.1) mg/dL AST 11 L (15-37) U/L ALT 20 (12-78) U/L Alkaline Phosphatase 88 (45-117) U/L Total Protein 7.2 (6.4-8.2) g/dL Albumin 3.1 L (3.4-5.0) g/dL Intake and Output 05/08/18 05/08/18 05/08/18 06:59 14:59 22:59 Intake Total 1480 / 1480 125 / 125 Output Total 675 / 675 Balance 805 / 805 125 / 125 Intake: IV 1000 / 1000 125 / 125 NS Inj 1,000 ML @ 70 mls/hr IV. 1000 / 1000 CONT .[id number] [facility] Rx#:[id number] Cardizem Inj 125 MG In NS Inj 125 / 125 100 ML @ 5 MG/HR 5 mls/hr IV. CONT TITRATE PRN Rx#:[id number] Oral 480 / 480 Output: Urine 675 / 675 - Imaging and Cardiology Imaging: Impressions Chest X-Ray 05/06/18 19:45 CONCLUSION: No acute cardiopulmonary disease demonstrated. Normal, stable heart size. Assessment and Plan - Assessment (1) Atrial fibrillation with RVR Code(s): I48.91 - Unspecified atrial fibrillation Status: Acute Plan: Cont IV diltiazem. Dr. Reeves plans EPS Thursday.
[2018-05-09] MEDS: Insulin NovoLOG Aspart Correctional Sugar Inj SQ SCH ×5 (03:53→21:31)
[2018-05-09] MEDS: Lisinopril 20 MG Tablet PO SCH (09:30)
[2018-05-09] MEDS: amLODIPine 5 MG Tablet PO SCH (09:30)
[2018-05-09] MEDS: levETIRAcetam 500 MG Tablet PO SCH ×2 (09:31→21:25)
[2018-05-09] MEDS: Isosorbide Mononitrate 30 MG ER 24HR Tablet (Imdur) PO SCH (09:31)
[2018-05-09] MEDS: Rivaroxaban 20 MG Tablet PO SCH (09:31)
[2018-05-09] MEDS: Carvedilol 12.5 MG Tablet PO SCH ×2 (09:31→21:25)
[2018-05-09] MEDS: Topiramate 100 MG Tablet PO SCH ×2 (09:31→21:25)
[2018-05-09] MEDS: Budesonide-Formoterol 160/4.5 MCG 6 GM Inhaler INH SCH ×2 (09:31→21:25)
--- NOTE | 2018-05-09 10:56 | P.PN ---
Subjective Interval history: Follow-up recurrent A. fib with RVR May 07, 2018-patient seen and examined, no chest pain, dizziness, heart palpitations or shortness of breath. May 08, 2018-patient seen and examined, no complaints and no acute event overnight. Awaiting for director of instruction evaluation next Wednesday May 09, 2018-patient seen and examined, reported episode of shortness of breath overnight but no chest pain or shortness of breath. Physical Exam Vital signs: Vital Signs 05/08/18 11:00 05/08/18 12:00 05/08/18 13:00 Temperature 97.6 F Pulse Rate 57 L 56 L 60 Respiratory Rate 18 Blood Pressure 148/87 H Pulse Oximetry 99 05/08/18 14:00 05/08/18 15:00 05/08/18 16:00 Temperature 97.6 F Pulse Rate 62 65 61 Respiratory Rate 18 Blood Pressure 147/92 H Pulse Oximetry 96 05/08/18 17:00 05/08/18 18:00 05/08/18 19:00 Temperature Pulse Rate 65 63 62 Respiratory Rate Blood Pressure Pulse Oximetry 05/08/18 20:00 05/08/18 21:00 05/08/18 22:00 Temperature 97.0 F L Pulse Rate 62 62 66 Respiratory Rate 18 Blood Pressure 142/87 H Pulse Oximetry 94 L 05/08/18 23:00 05/08/18 23:07 05/09/18 00:00 Temperature 97.4 F L Pulse Rate 57 L 59 L 58 L Respiratory Rate 18 Blood Pressure 130/79 Pulse Oximetry 90 L 05/09/18 01:00 05/09/18 02:00 05/09/18 03:00 Temperature Pulse Rate 59 L 61 61 Respiratory Rate Blood Pressure Pulse Oximetry 05/09/18 03:50 05/09/18 04:00 05/09/18 05:00 Temperature 97.3 F L Pulse Rate 61 58 L 68 Respiratory Rate 22 Blood Pressure 138/86 Pulse Oximetry 90 L 05/09/18 06:00 Temperature Pulse Rate 66 Respiratory Rate Blood Pressure Pulse Oximetry Intake & Output 05/08/18 05/09/18 05/09/18 18:59 06:59 18:59 Intake Total 1065 / 1065 480 / 480 Output Total 700 / 700 350 / 350 Balance 365 / 365 130 / 130 Weight 102.6 kg Intake: IV 125 / 125 Cardizem Inj 125 MG In NS Inj 125 / 125 100 ML @ 5 MG/HR 5 mls/hr IV. CONT TITRATE PRN Rx#:[id number] Oral 940 / 940 480 / 480 Output: Urine 700 / 700 350 / 350 Other: # Bowel Movements 1 Narrative: GENERAL: NAD SKIN: Warm and dry. HEAD: Normocephalic. EYES: No scleral icterus. No injection or drainage. NECK: Supple, trachea midline. No JVD or lymphadenopathy. CARDIOVASCULAR: Irregular regular rate and rhythm without murmurs, gallops, or rubs. RESPIRATORY: Breath sounds equal bilaterally. No accessory muscle use. GASTROINTESTINAL: Abdomen soft, non-tender, nondistended. MUSCULOSKELETAL: No cyanosis, or edema. BACK: Nontender without obvious deformity. No CVA tenderness. Results - Labs CBC & Chem 7: 05/07/18 05:28 05/07/18 05:28 Laboratory Results - last 24 hr 05/08/18 05/08/18 05/08/18 12:06 17:37 20:49 POC Glucose 138 H 143 H 127 H 05/09/18 05/09/18 03:17 09:28 POC Glucose 155 H 227 H Assessment and Plan - Plan 63-year-old man with 1. Recurrent atrial fibrillation with rapid ventricular response currently on Amiodarone drip Cardiology consulted for evaluation for AV joaquina ablation with permanent pacemaker implantation. Patient to be seen by director of instruction on 05/10/[address] Soares, theatrical dresser Continue home Xarelto 2. Coronary artery disease/hypertension/hyperlipidemia Continue home medications 3. Diabetes mellitus Holding home oral anti-hyperglycemics Sliding-scale insulin Monitor blood glucose 4. COPD/DENZEL Patient is refusing to use CPAP, still has not used it over the past couple years Continue home Symbicort. DuoNeb as needed 5. Seizure disorder Continue home Keppra and Topamax 6. Chronic kidney disease Creatinine 1.33, baseline Monitor renal function
--- NOTE | 2018-05-09 11:23 | P.PNCA ---
Subjective Interval history: SOB last night. Known apnea and refuses CPAP Medications and Allergies Active Medications: Active Medications Acetaminophen (Tylenol) 650 mg PO Q4H PRN PRN Reason: Temp > 100.4 Al Hydroxide/Mg Hydroxide (Milk Of Jimbo Liq) 30 ml PO Q12H PRN PRN Reason: Mild Constipation Albuterol (Duoneb Neb (Prn)) 1 ampul NEB Q2HR NEB PRN PRN Reason: SHORTNESS OF BREATH Alprazolam (Xanax) 0.5 mg PO Q6H PRN PRN Reason: Anxiety Amlodipine Besylate (Norvasc) 10 mg PO DAILY [facility] Last Admin: 05/09/18 09:30 Dose: 10 mg Atorvastatin Calcium (Lipitor) 80 mg PO QPM [facility] Last Admin: 05/08/18 18:14 Dose: 80 mg Budesonide/Formoterol Fumarate (Symbicort 160/4.5 Mcg Inh) 2 puff INH Q12HR [facility] Last Admin: 05/09/18 09:31 Dose: 2 puff Carvedilol (Coreg) 12.5 mg PO BID [facility] Last Admin: 05/09/18 09:31 Dose: 12.5 mg Dextrose (D50w Vial) 50 ml IV.PUSH UNSCH PRN PRN Reason: PER HYPOGLYCEMIA PROTOCOL Glucagon (Glucagon Inj) 1 mg OTHER PRN PRN PRN Reason: for Hypoglycemia Protocol Diltiazem HCl 125 mg/ Sodium (Chloride) 125 mls @ 5 mls/hr IV.CONT TITRATE PRN ; Protocol PRN Reason: Per Protocol Last Admin: 05/08/18 14:37 Dose: 5 mg/hr, 5 mls/hr Insulin Aspart (Novolog Insulin Correctional Sugar Inj) 0 unit SQ ACHS AND 3AM SUAD; Protocol Last Admin: 05/09/18 09:31 Dose: 3 unit Isosorbide Mononitrate (Imdur) 30 mg PO DAILY [facility] Last Admin: 05/09/18 09:31 Dose: 30 mg Levetiracetam (Keppra) 1,000 mg PO BID [facility] Last Admin: 05/09/18 09:31 Dose: 1,000 mg Lisinopril (Prinivil) 40 mg PO DAILY [facility] Last Admin: 05/09/18 09:30 Dose: 40 mg Ondansetron HCl (Zofran Inj) 4 mg IV.PUSH Q6H PRN PRN Reason: NAUSEA OR VOMITING Last Admin: 05/08/18 20:49 Dose: 4 mg Rivaroxaban (Xarelto) 20 mg PO DAILY [facility] Last Admin: 05/09/18 09:31 Dose: 20 mg Sodium Chloride (Ns Flush) 2 ml IV.FLUSH UNSCH PRN PRN Reason: FLUSH AFTER USING IV ACCESS Tamsulosin HCl (Flomax) 0.4 mg PO DAILY [facility] Last Admin: 05/09/18 09:30 Dose: 0.4 mg Topiramate (Topamax) 100 mg PO BID [facility] Last Admin: 05/09/18 09:31 Dose: 100 mg Allergies Allergy/AdvReac Type Severity Reaction Status Date / Time No Known Allergies Allergy Verified 05/06/18 19:30 Home Medications Medication Instructions Recorded Confirmed Type ascorbic acid (vitamin C) [Vitamin 500 mg PO DAILY 03/24/18 05/06/18 History C] atorvastatin 80 mg PO QPM 03/24/18 05/06/18 History cholecalciferol (vitamin D3) 2,000 unit PO DAILY 03/24/18 05/06/18 History [Vitamin D3] cyanocobalamin (vitamin B-12) 1,000 mcg PO DAILY 03/24/18 05/06/18 History [Vitamin B-12] folic acid 1 mg PO DAILY 03/24/18 05/06/18 History levetiracetam 1,000 mg PO BID 03/24/18 05/06/18 History metformin 1,000 mg PO BID 03/24/18 05/06/18 History sitagliptin [Januvia] 50 mg PO DAILY 03/24/18 05/06/18 History tamsulosin 0.4 mg PO DAILY 03/24/18 05/06/18 History topiramate 100 mg PO BID 03/24/18 05/06/18 History budesonide-formoterol [Symbicort] 2 puff INHALATION Q12H 04/25/18 05/06/18 History carvedilol [Coreg] 12.5 mg PO BID 04/25/18 05/06/18 History hydroxyzine HCl 25 mg PO Q8HR 04/25/18 05/06/18 History isosorbide mononitrate 30 mg PO QAM 04/25/18 05/06/18 History lisinopril 40 mg PO DAILY 04/25/18 05/06/18 History nitroglycerin [Nitrostat] 0.4 mg SUBLINGUAL Q5-15M PRN 04/25/18 05/06/18 History Physical Exam Vital signs: Vital Signs 05/08/18 12:00 05/08/18 13:00 05/08/18 14:00 Temperature 97.6 F Pulse Rate 56 L 60 62 Respiratory Rate 18 Blood Pressure 148/87 H Pulse Oximetry 99 05/08/18 15:00 05/08/18 16:00 05/08/18 17:00 Temperature 97.6 F Pulse Rate 65 61 65 Respiratory Rate 18 Blood Pressure 147/92 H Pulse Oximetry 96 05/08/18 18:00 05/08/18 19:00 05/08/18 20:00 Temperature 97.0 F L Pulse Rate 63 62 62 Respiratory Rate 18 Blood Pressure 142/87 H Pulse Oximetry 94 L 05/08/18 21:00 05/08/18 22:00 05/08/18 23:00 Temperature Pulse Rate 62 66 57 L Respiratory Rate Blood Pressure Pulse Oximetry 05/08/18 23:07 05/09/18 00:00 05/09/18 01:00 Temperature 97.4 F L Pulse Rate 59 L 58 L 59 L Respiratory Rate 18 Blood Pressure 130/79 Pulse Oximetry 90 L 05/09/18 02:00 05/09/18 03:00 05/09/18 03:50 Temperature 97.3 F L Pulse Rate 61 61 61 Respiratory Rate 22 Blood Pressure 138/86 Pulse Oximetry 90 L 05/09/18 04:00 05/09/18 05:00 05/09/18 06:00 Temperature Pulse Rate 58 L 68 66 Respiratory Rate Blood Pressure Pulse Oximetry Intake & Output 05/08/18 05/09/18 05/09/18 18:59 06:59 18:59 Intake Total 1065 / 1065 480 / 480 Output Total 700 / 700 350 / 350 Balance 365 / 365 130 / 130 Weight 102.6 kg Intake: IV 125 / 125 Cardizem Inj 125 MG In NS Inj 125 / 125 100 ML @ 5 MG/HR 5 mls/hr IV. CONT TITRATE PRN Rx#:[id number] Oral 940 / 940 480 / 480 Output: Urine 700 / 700 350 / 350 Other: # Bowel Movements 1 Narrative: GENERAL: NAD SKIN: Warm and dry. HEAD: Normocephalic. EYES: No scleral icterus. No injection or drainage. NECK: Supple, trachea midline. No JVD or lymphadenopathy. CARDIOVASCULAR: Regular rate and rhythm without murmurs, gallops, or rubs. TELE: Sinus to sinus lora on 5mg Dilt/hr RESPIRATORY: Breath sounds equal bilaterally. No accessory muscle use. GASTROINTESTINAL: Abdomen soft, non-tender, nondistended. MUSCULOSKELETAL: No cyanosis, or edema. BACK: Nontender without obvious deformity. No CVA tenderness. Results 05/07/18 05:28 05/07/18 05:28 Intake and Output 05/08/18 05/09/18 05/09/18 22:59 06:59 14:59 Intake Total 940 / 940 480 / 480 Output Total 700 / 700 350 / 350 Balance 240 / 240 130 / 130 Intake: Oral 940 / 940 480 / 480 Output: Urine 700 / 700 350 / 350 Other: # Bowel Movements 1 Weight 102.6 kg Assessment and Plan - Assessment (1) Atrial fibrillation with RVR Code(s): I48.91 - Unspecified atrial fibrillation Status: Acute Plan: 05/08Cont IV diltiazem. Dr. Reeves plans EPS Thursday. 05/09: Stable on 5mg/hr Diltiazem. NPO tomorrow and hold AM Xarelto for EPS Dr. Reeves.
[2018-05-10] MEDS: Insulin NovoLOG Aspart Correctional Sugar Inj SQ SCH ×5 (04:45→20:16)
[2018-05-10] MEDS: Lisinopril 20 MG Tablet PO SCH (08:45)
[2018-05-10] MEDS: Topiramate 100 MG Tablet PO SCH ×2 (08:45→21:55)
[2018-05-10] MEDS: Isosorbide Mononitrate 30 MG ER 24HR Tablet (Imdur) PO SCH (08:45)
[2018-05-10] MEDS: amLODIPine 5 MG Tablet PO SCH (08:45)
[2018-05-10] MEDS: Carvedilol 12.5 MG Tablet PO SCH ×2 (08:45→20:15)
[2018-05-10] MEDS: levETIRAcetam 500 MG Tablet PO SCH ×2 (08:45→21:47)
[2018-05-10] MEDS: Rivaroxaban 20 MG Tablet PO SCH (08:46)
[2018-05-10] MEDS: Budesonide-Formoterol 160/4.5 MCG 6 GM Inhaler INH SCH ×2 (08:47→20:16)
--- NOTE | 2018-05-10 11:46 | P.PN ---
Subjective Interval history: Follow-up recurrent A. fib with RVR May 10, 2018-patient seen and examined, stable pending EPS at this afternoon. Patient stated he was quite anxious overnight and did not have a good night sleep. Physical Exam Vital signs: Vital Signs 05/09/18 12:00 05/09/18 13:00 05/09/18 14:00 Temperature 97.4 F L Pulse Rate 58 L 58 L 56 L Respiratory Rate 18 Blood Pressure 135/81 Pulse Oximetry 95 05/09/18 15:00 05/09/18 16:00 05/09/18 17:00 Temperature 98.0 F Pulse Rate 54 L 56 L 60 Respiratory Rate 18 Blood Pressure 151/89 H Pulse Oximetry 95 05/09/18 18:00 05/09/18 19:00 05/09/18 20:00 Temperature 97.9 F Pulse Rate 66 66 64 Respiratory Rate 18 Blood Pressure 155/93 H Pulse Oximetry 93 L 95 05/09/18 21:00 05/09/18 22:00 05/09/18 23:00 Temperature Pulse Rate 70 72 58 L Respiratory Rate Blood Pressure Pulse Oximetry 05/09/18 23:42 05/10/18 00:00 05/10/18 01:00 Temperature 98.0 F Pulse Rate 62 60 63 Respiratory Rate 20 Blood Pressure 125/77 Pulse Oximetry 89 L 05/10/18 02:00 05/10/18 03:00 05/10/18 04:00 Temperature 98.9 F Pulse Rate 66 66 62 Respiratory Rate 20 Blood Pressure 158/92 H Pulse Oximetry 90 L 05/10/18 05:00 05/10/18 06:00 05/10/18 07:00 Temperature Pulse Rate 59 L 66 68 Respiratory Rate Blood Pressure Pulse Oximetry 05/10/18 08:00 05/10/18 09:00 05/10/18 10:00 Temperature 97.8 F Pulse Rate 67 60 58 L Respiratory Rate 18 Blood Pressure 171/93 H Pulse Oximetry 92 L 05/10/18 10:44 05/10/18 11:00 Temperature Pulse Rate 59 L Respiratory Rate Blood Pressure Pulse Oximetry 95 Intake & Output 05/09/18 05/10/18 05/10/18 18:59 06:59 18:59 Intake Total 960 / 960 290 / 290 Output Total 1175 / 1175 1050 / 1050 Balance -215 / -215 -760 / -760 Weight 102.5 kg Intake: IV 50 / 50 Cardizem Inj 125 MG In NS Inj 50 / 50 100 ML @ 5 MG/HR 5 mls/hr IV. CONT TITRATE PRN Rx#:[id number] Oral 960 / 960 240 / 240 Output: Urine 1175 / 1175 1050 / 1050 Narrative: GENERAL: NAD SKIN: Warm and dry. HEAD: Normocephalic. EYES: No scleral icterus. No injection or drainage. NECK: Supple, trachea midline. No JVD or lymphadenopathy. CARDIOVASCULAR: Regular rate and rhythm without murmurs, gallops, or rubs. TELE: Sinus to sinus lora on 5mg Dilt/hr RESPIRATORY: Breath sounds equal bilaterally. No accessory muscle use. GASTROINTESTINAL: Abdomen soft, non-tender, nondistended. MUSCULOSKELETAL: No cyanosis, or edema. BACK: Nontender without obvious deformity. No CVA tenderness. Results - Labs CBC & Chem 7: 05/07/18 05:28 05/07/18 05:28 Laboratory Results - last 24 hr 05/09/18 05/09/18 05/09/18 12:02 17:15 20:27 POC Glucose 180 H 114 H 121 H 05/10/18 08:15 POC Glucose 129 H Assessment and Plan - Plan 63-year-old man with 1. Recurrent atrial fibrillation with rapid ventricular response currently on Amiodarone drip Cardiology consulted for evaluation for AV joaquina ablation with permanent pacemaker implantation today May 10, [address] Reeves, real property appraiser Appreciate input from Dr. Soares, crane chaser Continue home Xarelto 2. Coronary artery disease/hypertension/hyperlipidemia Continue home medications 3. Diabetes mellitus Holding home oral anti-hyperglycemics Sliding-scale insulin Monitor blood glucose 4. COPD/DENZEL Patient is refusing to use CPAP, still has not used it over the past couple years Continue home Symbicort. DuoNeb as needed 5. Seizure disorder Continue home Keppra and Topamax 6. Chronic kidney disease Creatinine 1.33, baseline Monitor renal function
[2018-05-10] MEDS: dilTIAZem Inj 125 MG in Sodium Chlor 0.9% Inj 100 ML IV.CONT PRN (12:05)
[2018-05-10] MEDS ORDERED: Lidocaine 1% Inj 50 ML Vial ONE (16:51)
[2018-05-10] MEDS ORDERED: Heparin/NS PF Inj 1,500 ML ONE (16:51)
[2018-05-10] MEDS ORDERED: Levofloxacin 500 mg Premix Inj 500 MG/100 ML PIGGYBACK IV.SIG ONE (16:52)
--- NOTE | 2018-05-10 17:55 | P.PN ---
Subjective Interval history: Tired Physical Exam Vital signs: Vital Signs 05/09/18 18:00 05/09/18 19:00 05/09/18 20:00 Temperature 97.9 F Pulse Rate 66 66 64 Respiratory Rate 18 Blood Pressure 155/93 H Pulse Oximetry 93 L 95 05/09/18 21:00 05/09/18 22:00 05/09/18 23:00 Temperature Pulse Rate 70 72 58 L Respiratory Rate Blood Pressure Pulse Oximetry 05/09/18 23:42 05/10/18 00:00 05/10/18 01:00 Temperature 98.0 F Pulse Rate 62 60 63 Respiratory Rate 20 Blood Pressure 125/77 Pulse Oximetry 89 L 05/10/18 02:00 05/10/18 03:00 05/10/18 04:00 Temperature 98.9 F Pulse Rate 66 66 62 Respiratory Rate 20 Blood Pressure 158/92 H Pulse Oximetry 90 L 05/10/18 05:00 05/10/18 06:00 05/10/18 07:00 Temperature Pulse Rate 59 L 66 68 Respiratory Rate Blood Pressure Pulse Oximetry 05/10/18 08:00 05/10/18 09:00 05/10/18 10:00 Temperature 97.8 F Pulse Rate 67 60 58 L Respiratory Rate 18 Blood Pressure 171/93 H Pulse Oximetry 92 L 05/10/18 10:44 05/10/18 11:00 05/10/18 12:00 Temperature 97.9 F Pulse Rate 59 L 54 L Respiratory Rate 18 Blood Pressure 126/77 Pulse Oximetry 95 93 L 05/10/18 13:00 05/10/18 14:00 05/10/18 15:00 Temperature Pulse Rate 61 62 61 Respiratory Rate Blood Pressure Pulse Oximetry 05/10/18 16:00 Temperature 97.6 F Pulse Rate 64 Respiratory Rate 18 Blood Pressure 149/89 H Pulse Oximetry 93 L Intake & Output 05/09/18 05/10/18 05/10/18 18:59 06:59 18:59 Intake Total 960 / 960 290 / 290 75 / 75 Output Total 1175 / 1175 1050 / 1050 Balance -215 / -215 -760 / -760 75 / 75 Weight 102.5 kg Intake: IV 50 / 50 75 / 75 Cardizem Inj 125 MG In NS Inj 50 / 50 75 / 75 100 ML @ 5 MG/HR 5 mls/hr IV. CONT TITRATE PRN Rx#:[id number] Oral 960 / 960 240 / 240 Output: Urine 1175 / 1175 1050 / 1050 - Constitutional moderate distress - Routine HEENT Exam Head: Present: normocephalic Eye: Present: PERRL ENT: Present: mucous membranes moist - Routine Respiratory Exam Present: CTA bilaterally - Routine Cardiovascular Exam Present: S1, S2, tachycardia - Routine Neurological Exam Present: alert, oriented X3 - Detailed Neurological Exam: Coma Scale Eye Opening: Spontaneous Verbal Response: Oriented Motor Response: Obey commands Vael Coma Scale Total: 15 Results - Labs CBC & Chem 7: 05/07/18 05:28 05/07/18 05:28 Laboratory Results - last 24 hr 05/09/18 05/10/18 05/10/18 20:27 08:15 12:12 POC Glucose 121 H 129 H 134 H Assessment and Plan - Assessment (1) Atrial fibrillation with RVR Code(s): I48.91 - Unspecified atrial fibrillation Status: Acute Plan: Patient in left atrial tachycardia with FVR fail cardioversion Ablation was scheduled for today. Patient developed SOB Anesthesia decided to cancel the case. Will be transferred to [facility] Case will be rescheduled for tomorrow if patient stable.
--- NOTE | 2018-05-10 17:59 | CATHPROC ---
Patient Name: Jimi Jenkins Study #: [id number] Initial MD: Elie Reeves Date of : 1955 Study Date: 05/10/2018 Cardiac Catheterization Report 05/10/2018 5:59:28 PM Financial #: [id number] 1 of 6 Patient Name: Jimi Jenkins Study #: [id number] Initial MD: Elie Reeves Date of : 1955 Study Date: 05/10/2018 Entire Case Report Patient Information Patient Name Jimi Jenkins Date of 1955 Age 63 years Financial # [id number] Gender M AlternateID Lab Number 2 Room Number 246 Height (in) 74.0 Height (cm) 187.9 BSA 2.29 Weight (lbs) 225.5 Weight (kg) 102.5 Patient Address/Phone Number Home Address [facility] Home Phone Number [phone] [phone] Study Information Study Number Admission Scheduled Start Study Start [id number] May 06 2018 10:19PM 05/10/2018 May 10 2018 4:20PM [facility] Cardiac Catheterization Admit Source Facility Department Other [facility] - Sewer And Drain Technician Physician and Clinical Staff Initial Elie Lenz Retail Account Manager Carolann Leggett,DANY Other Anesthesia, OIL SPRAYING MACHINE OPERATOR Recorder Belia Mora,BEE Lutzub Pedro Daniel,RT(R) 05/10/2018 5:59:28 PM Financial #: [id number] 2 of 6 Patient Name: Jimi Jenkins Study #: [id number] Initial MD: Elie Reeves Date of : 1955 Study Date: 05/10/2018 Equipment Time Cv Tech Description Size Mfg Part Number Used/Scraped NEEDLE, TRANSSEPTAL NRG 98 [id number] 16:22 [employer] Used C1 *[id number] [employer]/ EP [id number] 16:22 KIT, TRANSDUCER / AFIB Used PACER *[id number]- CATHETER, TACTICATH ABLAT BUNDLE 16:22 BUN[employer] Used 65 BUNDLE *[id number]- BUNDLE [id number] CATHETER, FR7 OPTIMA SPIRAL 16:22 BUND[employer] FR7 *[id number]- Used BUNDLE BUNDLE [id number] 16:22 BUND[employer] CATHETER, JSN, QUAD BUNDLE FR 5 *[id number]- Used BUNDLE [id number] 16:22 BUNDLE-[employer] CATHETER, JSN, QUAD BUNDLE FR 5 *[id number]- Used BUNDLE 13035-[id number] SET, COOL POINT TUBING 16:22 BUNDLE-[employer] *1938006- Used BUNDLE BUNDLE SHEATH, FR8.5 STEERABLE SM 16:22 BUNDLE-[employer] 71CM [id number] Used 71CM BUNDLE COVER, TRANSDUCER CABLE 612-113 16:22 [employer] Used ACUNAV *[id number] 16:22 CORDIS/PACER SHEATH, FR10 PURVI 11CM FR 10 Used *[id number] 16:22 CORDIS/PACER SHEATH, FR9 PURVI 11CM FR 9 [id number] Used [id number] 16:22 [employer] BLANKET,WARM AIR CCL * Used *[id number] 16:22 [employer] PACK, CCL CUSTOM * Used *[id number] 16:22 MEDLINE PACER WIN, LIMB * 2530 *[id number] Used [id number] 16:22 [employer] MEDICAL SHEATH, FR4.5 PRELUDE 11CM FR 4.5 Used [id number] 16:22 NAMIC TUBING, HIGH PRESSURE 48" 48" Used *[id number] 16:22 NAMIC TUBING, HIGH PRESSURE 48" 48" Used *[id number] [id number] 16:22 [employer] MEDICAL ELECTRODE KIT, NOAM X SURFACE * Used *[id number] 600206 16:22 [employer] MEDICAL SHEATH, EPS, FR6 FAST CATH FR 6 Used *[id number] 16:22 [employer] MEDICAL SHEATH, EPS, FR7 FAST CATH FR 7 144614 Used 347391 16:22 [employer] MEDICAL SHEATH, EPS, FR8 FAST CATH FR 8 Used *[id number] [facility] PAD, ELECTROSURGICAL 16:22 * [id number] *[id number] Used SURGICAL GROUNDING (BLUE) 05/10/2018 5:59:28 PM Financial #: [id number] 3 of 6 Patient Name: Jimi Jenkins Study #: [id number] Initial MD: Elie Reeves Date of : 1955 Study Date: 05/10/20 18 Insurance Information Insurance Payor Private Health Insurance Third Democrat Third Democrat Number DANIEL LICEA [facility] [place] History: Allergies Allergy Reaction No Known Allergies History: Risk Factors Hypertension Dyslipidemia Yes Yes Chronic Lung Diabetes Disease Labs Hgb (g/dl) Hct (%) RBC (MIL/MM3) WBC (l/cumm) Platelets (thousands) 11.60-17.00 35.00-51.00 4.00-5.90 4.00-11.00 150.00-450.00 9.9 29 3.6 9.4 266 Glucose (mg/dl) BUN (mg/dl) Creatinine (mg/dl) BUN:Creatinine (1:x) 74.00-106.00 7.00-18.00 0.50-1.30 10.00-20.00 142 15 1.2 12.5 Na (meq/l) K (meq/l) 136.00-145.00 3.50-5.10 143 3.6 INR (PTT:PT) 0.90-1.10 1.3 Medication (Drip) Medication Time Given Dosage/Unit Concentration/Unit Diluent (ml) Solution CARDIZEM 05/10/2018 5:22:58 PM 2.5 mL/hr 100 mL 100 NaCl .9 Patient arrived on 2.5 mL/hr CARDIZEM in Right Wrist via Peripheral IV. Pump/Drip Flow = 2.5 ml/hr us ing NaCl .9 with a concentration of 100 mL in 100 ml. 05/10/2018 5:59:28 PM Financial #: [id number] 4 of 6 Patient Name: Jimi Jenkins Study #: [id number] Initial MD: Elie Reeves Date of : 1955 Study Date: 05/10/2018 Chronological Log Time Study Chronological Log 16:49:00 Patient arrived via Bed. 16:49:01 Patient Name, D.O.B, / Armband Verified By R.N. 16:49:02 Consent signed by the physician and the patient and verified by the Sewer And Drain Technician staff. 16:49:03 Pre-op and post- op instructions given; patient acknowledges understanding of instructions . 16:49:03 Verbal Stimulation=2 Physical Stimulation=2 Airway=2 Respiration=2 TOTAL=8. (0=absent, 1=l imited, 2=present) 16:49:06 Patient has been NPO for More than 6Hrs. 16:49:07 Skin Breakdown- none per pt. 16:49:08 Patient Warmer Placed on the Table. 16:49:19 Disposable Defibrillator Pads Placed On Patient. 16:49:21 Chanel Prominences Protected 16:49:22 A # 20 IV was noted in the Wrist RT. Grade = 0 0.9ns kvo with cardizem gtt. 16:49:23 A # 20 IV was noted in the Antecubital (right). Grade = 0 0.9ns kvo. 16:49:24 History and physical on the chart. 17:09:08 Anesthesia at bedside. Assumes care of patient. 17:10:15 Dr Jolly present. Pt sob and needs to sit up. Patient arrived on 2.5 mL/hr CARDIZEM in Right Wrist via Peripheral IV. Pump/Drip Flow = 2.5 m l/hr using NaCl .9 with 17:22:58 a concentration of 100 mL in [address] ml. 17:37:45 Dr. Jolly ordered a breathing treatment and a stat chest xray. 17:38:[address] Jolly decided to cancel case. 17:38:57 Pt going to PACU til CVICU bed is ready. PACU Chel was notified by Belia. 17:45:07 Patient moved to [facility]. Oxygen at 6l/min NC in place. 17:46:44 Defibrillator and ground pads removed. Skin intact. Pt transported via bed on portable oxygen with BRIAN, RN and tech to PACU on cardizem drip at 2 .5ml/hr and NS at 17:48:50 KVO as well. 17:49:30 Bedside Report will be given. End Study - Contrast Media Used In Study Contrast Total Opened (mL) Total Used (mL) Total Wasted (mL) Unspecified 0 0 0 End Study - Maximum Contrast Load Max Contrast Load (mL) 427.1 05/10/2018 5:59:28 PM Financial #: [id number] Patient Name: Jimi Jenkins Study #: [id number] Initial MD: Elie Reeves Date of : 1955 Study Date: 05/10/2018 End Study - Radiation Exposure Fluoro Time (minutes) 0.0 End Study - Patient Disposition Complications Transferred To No Critical Care Bed 05/10/2018 5:59:28 PM Financial #: [id number]
--- NOTE | 2018-05-10 17:59 | XR ---
EXAM DATE: 05/10/2018 5:56 PM EST AGE/SEX: 63 years / Male INDICATIONS: Short of breath. CLINICAL DATA: This is the patient's subsequent encounter. Patient reports that signs and symptoms h ave been present for 3 days and indicates a pain score of 0/10. MEDICAL/SURGICAL HISTORY: . Chronic obstructive pulmonary disease. Hypertension. Diabetes. A-fi b . Cardiac stent. Loop recorder COMPARISON: [facility], CHEST 1V SINGLE AP, 05/06/2018. . FINDINGS: Mild pulmonary vascular congestion is noted. The heart is stable. CONCLUSION: Mild pulmonary vascular congestion. Electronically signed by: Man Amor MD 05/10/2018 5:58 PM EST
[2018-05-10] MEDS ORDERED: Enoxaparin Inj 100 MG/ML Syringe SQ ONE (20:00)
--- NOTE | 2018-05-10 20:25 | P.CONCC ---
History of Present Illness Service: Critical Care Medicine Consult date: 05/10/18 Requesting Physician: Rishi Jolly Reason for Consult: SOB Primary Care Provider: Alex Martinez MD Chief Complaint: SOB History of Present Illness: 63-year-old male past medical history of atrial fibrillation anticoagulated on Xarelto with multiple prior ablations and cardioversions, ( most recent ablation 03/31/[address] Reeves), coronary artery disease with prior stent, COPD, obstructive sleep apnea, hyperlipidemia, diabetes, seizure disorder. He presented to [facility]06 with palpitations and was found to be in atrial fibrillation with RVR despite home amiodarone therapy. Today, Dr. Reeves took to cardiac cath lab manager for ablation. He became short of breath when laying flat. Dr. Jolly gave albuterol neb. Case was cancelled. Monument Stonecutter consult was placed by Dr. Jolly to assist with optimization of respiratory status. Patient states he does not typically feel comfortable with laying flat and therefore sleeps on his side. Nonetheless, he has tolerated laying flat during prior ablations. Patient states he has noticed he has had increased dry cough over the last couple of days and says he "feels like he is wheezing". He mentions he missed a few doses of symbicort and believes that may be the cause. He had just received a neb prior to my exam and he is not wheezing now. He is sitting up with sats 96 % on RA. CXR demonstrates vascular congestion. No fever/chills/chest pain. He states he has not been compliant with home CPAP for several months, refuses to wear one in the hospital. Review of Systems Constitutional: Denies chills Cardiovascular: Denies chest pain Respiratory: Reports cough, Reports wheezing, Denies coughing up blood, Denies excessive phlegm production, Denies pain on inspiration Gastrointestinal: Reports bloating Musculoskeletal: Denies back pain Neurologic: Denies headache(s) Endocrine: Denies cold intolerance Hematologic/Lymphatic: Denies enlarged lymph nodes PMFSH - History History Provided By: Patient - Medical History Medical History: Medical History (Last Updated 05/11/18 @ 07:23 by Michelle Alford MD) COPD (chronic obstructive pulmonary disease) Chronic a-fib Diabetes mellitus Hyperlipidemia Myocardial infarct DENZEL (obstructive sleep apnea) Seizure disorder Diabetes HTN (hypertension) High cholesterol - Surgical History Surgical History: Surgical History (Last Updated 05/11/18 @ 07:31 by Michelle Alford MD) History of CEA (carotid endarterectomy) History of tonsillectomy S/P ablation of atrial fibrillation History of cardiac catheterization Hx of cholecystectomy Stented coronary artery - Family History Family History: Family History (Last Reviewed 05/06/18 @ 23:50 by Jammie Moncada MD) Other Family history non-contributory - Tobacco History Second Hand Smoke Exposure: No Tobacco Use In Past 30 Days: No Smoking Status: Former smoker Tobacco Type: Cigarettes - Alcohol History How Often Do You Have a Drink Containing Alcohol: 4 or more times a week - Substance Use History Substance History: No History of Abuse - Travel History Recent Travel in the [place] Within the Last 8 Weeks: No Recent Travel Out of the Country Within the Last 8 Weeks: No - Immunization History Tetanus Immunization: <5 Years Medications and Allergies Active Medications: Active Medications Acetaminophen (Tylenol) 650 mg PO Q4H PRN PRN Reason: Temp > 100.4 Al Hydroxide/Mg Hydroxide (Milk Of Jimbo Carmona) 30 ml PO Q12H PRN PRN Reason: Mild Constipation Albuterol (Duoneb Neb (Prn)) 1 ampul NEB Q2HR NEB PRN PRN Reason: SHORTNESS OF BREATH Alprazolam (Xanax) 0.5 mg PO Q6H PRN PRN Reason: Anxiety Amlodipine Besylate (Norvasc) 10 mg PO DAILY [facility] Last Admin: 05/10/18 08:45 Dose: 10 mg Atorvastatin Calcium (Lipitor) 80 mg PO QPM [facility] Last Admin: 05/09/18 18:29 Dose: 80 mg Budesonide/Formoterol Fumarate (Symbicort 160/4.5 Mcg Inh) 2 puff INH Q12HR [facility] Last Admin: 05/10/18 08:47 Dose: 2 puff Carvedilol (Coreg) 12.5 mg PO BID [facility] Last Admin: 05/10/18 08:45 Dose: 12.5 mg Dextrose (D50w Vial) 50 ml IV.PUSH UNSCH PRN PRN Reason: PER HYPOGLYCEMIA PROTOCOL Furosemide (Lasix Inj) 40 mg IV.PUSH ONCE ONE Stop: 05/10/18 20:24 Glucagon (Glucagon Inj) 1 mg OTHER PRN PRN PRN Reason: for Hypoglycemia Protocol Diltiazem HCl 125 mg/ Sodium (Chloride) 125 mls @ 5 mls/hr IV.CONT TITRATE PRN ; Protocol PRN Reason: Per Protocol Last Admin: 05/10/18 12:05 Dose: 5 mg/hr, 5 mls/hr Insulin Aspart (Novolog Insulin Correctional Sugar Inj) 0 unit SQ ACHS AND 3AM SUAD; Protocol Last Admin: 05/10/18 18:45 Dose: Not Given Isosorbide Mononitrate (Imdur) 30 mg PO DAILY [facility] Last Admin: 05/10/18 08:45 Dose: 30 mg Levetiracetam (Keppra) 1,000 mg PO BID [facility] Last Admin: 05/10/18 08:45 Dose: 1,000 mg Lisinopril (Prinivil) 40 mg PO DAILY [facility] Last Admin: 05/10/18 08:45 Dose: 40 mg Methylprednisolone Sodium Succinate (Solumedrol Inj) 40 mg IV.PUSH Q12HR [facility] Ondansetron HCl (Zofran Inj) 4 mg IV.PUSH Q6H PRN PRN Reason: NAUSEA OR VOMITING Last Admin: 05/08/18 20:49 Dose: 4 mg Rivaroxaban (Xarelto) 20 mg PO DAILY [facility] Last Admin: 05/10/18 08:46 Dose: Not Given Sodium Chloride (Ns Flush) 2 ml IV.FLUSH UNSCH PRN PRN Reason: FLUSH AFTER USING IV ACCESS Tamsulosin HCl (Flomax) 0.4 mg PO DAILY [facility] Last Admin: 05/10/18 08:45 Dose: 0.4 mg Topiramate (Topamax) 100 mg PO BID [facility] Last Admin: 05/10/18 08:45 Dose: 100 mg Allergies Allergy/AdvReac Type Severity Reaction Status Date / Time No Known Allergies Allergy Verified 05/06/18 19:30 Home Medications Medication Instructions Recorded Confirmed Type ascorbic acid (vitamin C) [Vitamin 500 mg PO DAILY 03/24/18 05/06/18 History C] atorvastatin 80 mg PO QPM 03/24/18 05/06/18 History cholecalciferol (vitamin D3) 2,000 unit PO DAILY 03/24/18 05/06/18 History [Vitamin D3] cyanocobalamin (vitamin B-12) 1,000 mcg PO DAILY 03/24/18 05/06/18 History [Vitamin B-12] folic acid 1 mg PO DAILY 03/24/18 05/06/18 History levetiracetam 1,000 mg PO BID 03/24/18 05/06/18 History metformin 1,000 mg PO BID 03/24/18 05/06/18 History sitagliptin [Januvia] 50 mg PO DAILY 03/24/18 05/06/18 History tamsulosin 0.4 mg PO DAILY 03/24/18 05/06/18 History topiramate 100 mg PO BID 03/24/18 05/06/18 History budesonide-formoterol [Symbicort] 2 puff INHALATION Q12H 04/25/18 05/06/18 History carvedilol [Coreg] 12.5 mg PO BID 04/25/18 05/06/18 History hydroxyzine HCl 25 mg PO Q8HR 04/25/18 05/06/18 History isosorbide mononitrate 30 mg PO QAM 04/25/18 05/06/18 History lisinopril 40 mg PO DAILY 04/25/18 05/06/18 History nitroglycerin [Nitrostat] 0.4 mg SUBLINGUAL Q5-15M PRN 04/25/18 05/06/18 History Physical Exam Vital signs: Vital Signs 05/09/18 21:00 05/09/18 22:00 05/09/18 23:00 Temperature Pulse Rate 70 72 58 L Respiratory Rate Blood Pressure Pulse Oximetry 05/09/18 23:42 05/10/18 00:00 05/10/18 01:00 Temperature 98.0 F Pulse Rate 62 60 63 Respiratory Rate 20 Blood Pressure 125/77 Pulse Oximetry 89 L 05/10/18 02:00 05/10/18 03:00 05/10/18 04:00 Temperature 98.9 F Pulse Rate 66 66 62 Respiratory Rate 20 Blood Pressure 158/92 H Pulse Oximetry 90 L 05/10/18 05:00 05/10/18 06:00 05/10/18 07:00 Temperature Pulse Rate 59 L 66 68 Respiratory Rate Blood Pressure Pulse Oximetry 05/10/18 08:00 05/10/18 09:00 05/10/18 10:00 Temperature 97.8 F Pulse Rate 67 60 58 L Respiratory Rate 18 Blood Pressure 171/93 H Pulse Oximetry 92 L 05/10/18 10:44 05/10/18 11:00 05/10/18 12:00 Temperature 97.9 F Pulse Rate 59 L 54 L Respiratory Rate 18 Blood Pressure 126/77 Pulse Oximetry 95 93 L 05/10/18 13:00 05/10/18 14:00 05/10/18 15:00 Temperature Pulse Rate 61 62 61 Respiratory Rate Blood Pressure Pulse Oximetry 05/10/18 16:00 05/10/18 17:50 05/10/18 17:51 Temperature 97.6 F 97.6 F Pulse Rate 64 76 75 Respiratory Rate 18 27 H 30 H Blood Pressure 149/89 H 166/81 H Pulse Oximetry 93 L 97 97 05/10/18 18:00 05/10/18 18:15 05/10/18 18:25 Temperature Pulse Rate 77 122 H Respiratory Rate 26 H 25 H Blood Pressure 166/79 H 174/90 H Pulse Oximetry 93 L 98 98 05/10/18 18:30 05/10/18 18:31 05/10/18 18:45 Temperature Pulse Rate 70 69 71 Respiratory Rate 33 H 25 H 25 H Blood Pressure 149/70 H Pulse Oximetry 98 97 96 05/10/18 18:46 05/10/18 18:50 05/10/18 19:00 Temperature Pulse Rate 70 66 69 Respiratory Rate 24 24 Blood Pressure 166/77 H 160/76 H Pulse Oximetry 97 98 05/10/18 19:06 05/10/18 19:33 Temperature Pulse Rate 71 Respiratory Rate 23 Blood Pressure 151/72 H Pulse Oximetry 96 93 L Intake & Output 05/10/18 05/10/18 05/11/18 06:59 18:59 06:59 Intake Total 290 / 290 75 / 75 Output Total 1050 / 1050 150 / 150 Balance -760 / -760 -75 / -75 Weight 102.5 kg Intake: IV 50 / 50 75 / 75 Cardizem Inj 125 MG In NS Inj 50 / 50 75 / 75 100 ML @ 5 MG/HR 5 mls/hr IV. CONT TITRATE PRN Rx#:[id number] Oral 240 / 240 Output: Urine 1050 / 1050 150 / 150 Narrative: GENERAL: Well-nourished, obese, well-developed patient sitting up in bed, alert and conversant in no distress SKIN: Warm and dry. HEAD: Atraumatic. Normocephalic. EYES: Pupils equal and round. No scleral icterus. No injection or drainage. ENT: No nasal bleeding or discharge. Mucous membranes pink and moist. NECK: Trachea midline. No JVD. CARDIOVASCULAR: Irregularly irregular, rate 80s. No murmurs rubs or gallops. RESPIRATORY: Breathing comfortably with no accessory muscle use. Sitting straight up in bed. No wheezes rales or rhonchi currently. GASTROINTESTINAL: Abdomen soft, non-tender, nondistended. Bowel sounds present. MUSCULOSKELETAL: Extremities without clubbing, cyanosis, or edema. No obvious deformities. NEUROLOGICAL: Awake and alert. No obvious cranial nerve deficits. Motor grossly within normal limits. Normal speech. Assessment and Plan - Problem List (1) Atrial fibrillation with RVR Code(s): I48.91 - Unspecified atrial fibrillation Status: Acute (2) Pulmonary edema Code(s): J81.1 - Chronic pulmonary edema Status: Acute (3) DM (diabetes mellitus) Code(s): E11.9 - Type 2 diabetes mellitus without complications Status: Chronic (4) Seizure disorder Code(s): G40.909 - Epilepsy, unspecified, not intractable, without status epilepticus Status: Chronic (5) COPD (chronic obstructive pulmonary disease) Code(s): J44.9 - Chronic obstructive pulmonary disease, unspecified Status: Chronic (6) DENZEL (obstructive sleep apnea) Code(s): G47.33 - Obstructive sleep apnea (adult) (pediatric) Status: Chronic - Assessment and Plan Plan: NEURO: Chronic alcohol use (6 pack of beer per day) Thiamine 100 mg p.o. daily Anxiety Xanax 0.5 mg p.o. every 6 hours as needed Seizure disorder Continue Topamax 100 mg p.o. twice daily Continue Keppra 1000 mill grams p.o. twice daily RESP: COPD Prior history of tobacco abuse DENZEL nonadherence to CPAP. Refuses CPAP in hospital. Continue Symbicort 160/4.52 puffs inhaled twice daily. DuoNeb every 6 hours. Albuterol every 2 hours Patient reports increased cough and wheezing since hospitalization. Will add Solu-Medrol 40 mg IV every 12 hours an effort to optimize respiratory status prior to ablation Chest x-ray shows vascular congestion. Will give Lasix 40 mg IV now and will repeat based on response CV: Coronary artery disease with prior stent Hyperlipidemia Atrial fibrillation Continue Cardizem drip. Dr. Reeves following for ablation. Will need to lay him flat to test for evidence of orthopnea before taking down the Virology Teacher again. Continue Lipitor 80 mg p.o. every afternoon Continue Coreg 12.5 mg p.o. twice daily Continue lisinopril 40 mg p.o. Continue Norvasc 10 mg p.o. daily Continue Xarelto 20 mg p.o. daily GI: Heart Healthy diet FEN/RENAL: Monitor intake and output. Monitor electrolytes. Check magnesium. Replace magnesium sulfate 1 g IV. Give potassium chloride 40 M EQ's p.o. with Lasix ID: No evidence of infection at this time HEME: No acute hematologic issues ENDO: Diabetes mellitus Continue insulin sliding scale ac/hs PROPH: SCDs for DVT prophylaxis. Xarelto provides DVT prophylaxis. Stress ulcer prophylaxis is not indicated. ACCESS: Peripheral IV FULL CODE. Hospitalists to continue medical management. Level 2 consult
[2018-05-10] MEDS: MethylPREDNISolone Sod Succinate Inj 40 MG/ML Vial IV.PUSH SCH (21:48)
[2018-05-10 21:53] LABS: Calcium 8.1 mg/dL (8.5-10.1); Magnesium 1.8 mg/dL (1.5-2.5); Potassium 3.9 meq/L (3.5-5.1)
[2018-05-11] MEDS: Insulin NovoLOG Aspart Correctional Sugar Inj SQ SCH ×5 (03:19→21:21)
[2018-05-11] MEDS ORDERED: Mag Sulf 1 gm/100 ml Premix 100 ML IV.SIG ONE (07:17)
[2018-05-11] MEDS: Isosorbide Mononitrate 30 MG ER 24HR Tablet (Imdur) PO SCH (08:24)
[2018-05-11] MEDS: amLODIPine 5 MG Tablet PO SCH (08:24)
[2018-05-11] MEDS: Carvedilol 12.5 MG Tablet PO SCH ×2 (08:25→20:39)
[2018-05-11] MEDS: Lisinopril 20 MG Tablet PO SCH (08:25)
[2018-05-11] MEDS: MethylPREDNISolone Sod Succinate Inj 40 MG/ML Vial IV.PUSH SCH ×2 (08:26→20:38)
[2018-05-11] MEDS: Budesonide-Formoterol 160/4.5 MCG 6 GM Inhaler INH SCH ×2 (08:31→20:38)
[2018-05-11] MEDS: levETIRAcetam 500 MG Tablet PO SCH ×2 (10:14→20:39)
[2018-05-11] MEDS: Topiramate 100 MG Tablet PO SCH ×2 (10:15→21:21)
[2018-05-11] MEDS: Rivaroxaban 20 MG Tablet PO SCH (10:19)
--- NOTE | 2018-05-11 12:47 | P.PN ---
Subjective Interval history: Follow-up recurrent A. fib with RVR May 10, 2018-patient seen and examined, stable pending EPS at this afternoon. Patient stated he was quite anxious overnight and did not have a good night sleep. May 11, 2018-patient seen and examined, patient went into flash edema yesterday prior to cardiac ablation procedure; which was cancelled. Now he is feeling much better and denies any SOB/CP/dizziness Physical Exam Vital signs: Vital Signs 05/10/18 13:00 05/10/18 14:00 05/10/18 15:00 Temperature Pulse Rate 61 62 61 Respiratory Rate Blood Pressure Pulse Oximetry 05/10/18 16:00 05/10/18 17:50 05/10/18 17:51 Temperature 97.6 F 97.6 F Pulse Rate 64 76 75 Respiratory Rate 18 27 H 30 H Blood Pressure 149/89 H 166/81 H Pulse Oximetry 93 L 97 97 05/10/18 18:00 05/10/18 18:15 05/10/18 18:25 Temperature Pulse Rate 77 122 H Respiratory Rate 26 H 25 H Blood Pressure 166/79 H 174/90 H Pulse Oximetry 93 L 98 98 05/10/18 18:30 05/10/18 18:31 05/10/18 18:45 Temperature Pulse Rate 70 69 71 Respiratory Rate 33 H 25 H 25 H Blood Pressure 149/70 H Pulse Oximetry 98 97 96 05/10/18 18:46 05/10/18 18:50 05/10/18 19:00 Temperature Pulse Rate 70 66 69 Respiratory Rate 24 24 Blood Pressure 166/77 H 160/76 H Pulse Oximetry 97 98 05/10/18 19:06 05/10/18 19:33 05/10/18 20:00 Temperature 97.6 F Pulse Rate 71 75 Respiratory Rate 23 18 Blood Pressure 151/72 H 161/82 H Pulse Oximetry 96 93 L 93 L 05/10/18 20:34 05/10/18 21:00 05/10/18 22:00 Temperature Pulse Rate 77 78 70 Respiratory Rate 18 Blood Pressure Pulse Oximetry 93 L 05/10/18 23:00 05/10/18 23:42 05/11/18 00:00 Temperature 97.6 F Pulse Rate 68 64 58 L Respiratory Rate 16 Blood Pressure 151/84 H Pulse Oximetry 93 L 05/11/18 01:00 05/11/18 02:00 05/11/18 03:00 Temperature Pulse Rate 66 62 64 Respiratory Rate Blood Pressure Pulse Oximetry 05/11/18 04:00 05/11/18 05:00 05/11/18 05:01 Temperature 97.6 F Pulse Rate 68 68 68 Respiratory Rate 16 20 Blood Pressure 139/76 Pulse Oximetry 94 L 95 05/11/18 06:00 05/11/18 07:00 05/11/18 08:00 Temperature 97.7 F Pulse Rate 66 75 71 Respiratory Rate 18 Blood Pressure 170/96 H Pulse Oximetry 98 05/11/18 09:17 Temperature Pulse Rate 73 Respiratory Rate 16 Blood Pressure Pulse Oximetry Intake & Output 05/10/18 05/11/18 05/11/18 18:59 06:59 18:59 Intake Total 75 / 75 720 / 720 Output Total 150 / 150 2200 / 2200 Balance -75 / -75 -1480 / -1480 Weight 103.9 kg Intake: IV 75 / 75 Cardizem Inj 125 MG In NS Inj 75 / 75 100 ML @ 5 MG/HR 5 mls/hr IV. CONT TITRATE PRN Rx#:[id number] Oral 720 / 720 Output: Urine 150 / 150 2200 / 2200 Narrative: GENERAL: Well-nourished, obese, well-developed patient SKIN: Warm and dry. HEAD: Atraumatic. Normocephalic. EYES: Pupils equal and round. No scleral icterus. No injection or drainage. ENT: No nasal bleeding or discharge. Mucous membranes pink and moist. NECK: Trachea midline. No JVD. CARDIOVASCULAR: Irregularly irregular. No murmurs rubs or gallops. RESPIRATORY: Breathing comfortably with no accessory muscle use. No wheezes rales or rhonchi currently. GASTROINTESTINAL: Abdomen soft, non-tender, nondistended. Bowel sounds present. MUSCULOSKELETAL: Extremities without clubbing, cyanosis, or edema. No obvious deformities. NEUROLOGICAL: Awake and alert. No obvious cranial nerve deficits. Motor grossly within normal limits. Normal speech. Results - Labs CBC & Chem 7: 05/07/18 05:28 05/10/18 21:15 Laboratory Results - last 24 hr 05/10/18 05/10/18 05/10/18 18:48 20:13 21:15 Sodium 141 Potassium 3.9 Chloride 111 H Carbon Dioxide 20.0 L Anion Gap 10 BUN 12 Creatinine 1.12 Estimated GFR 66 L POC Glucose 166 H 138 H Random Glucose 125 H Calcium 8.1 L Magnesium 1.8 05/11/18 05/11/18 05/11/18 03:18 08:21 12:27 Sodium Potassium Chloride Carbon Dioxide Anion Gap BUN Creatinine Estimated GFR POC Glucose 148 H 210 H 155 H Random Glucose Calcium Magnesium - Imaging Impressions Chest X-Ray 05/10/18 17:17 CONCLUSION: Mild pulmonary vascular congestion. Assessment and Plan - Plan 63-year-old man with Flash Pulmonary edema-Resolved s/p Lasix IV 40mg x2 Solu Medrol 1. Recurrent atrial fibrillation with rapid ventricular response currently on Amiodarone drip Cardiology consulted for evaluation for AV joaquina ablation with permanent pacemaker implantation today May 11, [address] Reeves, senior recruitment consultant Procedure was cancelled on 05/10/18; d/t flash pulmonary edema Appreciate input from Dr. Soares, target developer Continue home Xarelto 2. Coronary artery disease/hypertension/hyperlipidemia Continue home medications 3. Diabetes mellitus Holding home oral anti-hyperglycemics Sliding-scale insulin Monitor blood glucose 4. COPD/DENZEL Patient is refusing to use CPAP, still has not used it over the past couple years Continue home Symbicort. DuoNeb as needed Solu Medrol 40mg IV Q8H 5. Seizure disorder Continue home Keppra and Topamax 6. Chronic kidney disease Creatinine 1.33, baseline Monitor renal function
[2018-05-11] MEDS: dilTIAZem Inj 125 MG in Sodium Chlor 0.9% Inj 100 ML IV.CONT PRN (16:44)
[2018-05-12] MEDS: Insulin NovoLOG Aspart Correctional Sugar Inj SQ SCH ×5 (03:12→23:39)
[2018-05-12] MEDS: Isosorbide Mononitrate 30 MG ER 24HR Tablet (Imdur) PO SCH (09:40)
[2018-05-12] MEDS: MethylPREDNISolone Sod Succinate Inj 40 MG/ML Vial IV.PUSH SCH (09:45)
[2018-05-12] MEDS: amLODIPine 5 MG Tablet PO SCH (09:45)
[2018-05-12] MEDS: levETIRAcetam 500 MG Tablet PO SCH ×2 (09:45→23:38)
[2018-05-12] MEDS: Budesonide-Formoterol 160/4.5 MCG 6 GM Inhaler INH SCH ×2 (09:48→23:40)
[2018-05-12] MEDS: Carvedilol 12.5 MG Tablet PO SCH ×2 (09:49→23:39)
[2018-05-12] MEDS: Lisinopril 20 MG Tablet PO SCH (09:49)
[2018-05-12] MEDS: Rivaroxaban 20 MG Tablet PO SCH (12:08)
[2018-05-12] MEDS: Topiramate 100 MG Tablet PO SCH ×2 (12:17→23:39)
--- NOTE | 2018-05-12 12:20 | P.PN ---
Subjective Interval history: telemetry- in SR - 58- 60s- on Cardizem drip 5 mg/hr no complains of chest pain or shortness of breath up in chair Physical Exam Vital signs: Vital Signs 05/11/18 13:00 05/11/18 14:00 05/11/18 14:52 Temperature 97.6 F Pulse Rate 66 66 71 Respiratory Rate 16 Blood Pressure 152/87 H Pulse Oximetry 97 05/11/18 15:00 05/11/18 16:00 05/11/18 17:00 Temperature Pulse Rate 71 69 66 Respiratory Rate Blood Pressure Pulse Oximetry 05/11/18 18:00 05/11/18 19:00 05/11/18 20:00 Temperature 98.4 F Pulse Rate 68 63 73 Respiratory Rate 18 Blood Pressure 134/77 Pulse Oximetry 96 05/11/18 21:00 05/11/18 22:00 05/11/18 23:00 Temperature Pulse Rate 60 64 62 Respiratory Rate Blood Pressure Pulse Oximetry 05/11/18 23:14 05/12/18 00:00 05/12/18 01:00 Temperature 98.2 F Pulse Rate 68 62 60 Respiratory Rate 16 16 Blood Pressure 130/76 Pulse Oximetry 95 97 05/12/18 02:00 05/12/18 03:00 05/12/18 04:00 Temperature 98.5 F Pulse Rate 61 66 66 Respiratory Rate 16 Blood Pressure 131/72 Pulse Oximetry 96 05/12/18 05:00 05/12/18 06:00 05/12/18 07:00 Temperature Pulse Rate 64 62 63 Respiratory Rate Blood Pressure Pulse Oximetry 05/12/18 08:00 05/12/18 09:00 05/12/18 09:38 Temperature 97.3 F L Pulse Rate 52 L 50 L 54 L Respiratory Rate 16 Blood Pressure 116/70 123/69 Pulse Oximetry 97 98 05/12/18 10:00 05/12/18 10:15 05/12/18 11:00 Temperature Pulse Rate 60 65 53 L Respiratory Rate 17 Blood Pressure Pulse Oximetry 95 Intake & Output 05/11/18 05/12/18 05/12/18 18:59 06:59 18:59 Intake Total 440 / 440 480 / 480 Output Total 240 / 240 Balance 200 / 200 480 / 480 Weight 100 kg Intake: IV 200 / 200 Cardizem Inj 125 MG In NS Inj 100 / 100 100 ML @ 5 MG/HR 5 mls/hr IV. CONT TITRATE PRN Rx#:[id number] Magnesium Sulfate 1 gm/D5W 100 100 / 100 ml Premix 100 ML @ 100 mls/hr IV.SIG ONCE ONE Rx#:[id number] Oral 240 / 240 480 / 480 Output: Urine 240 / 240 Other: # Voids 3 Date of Last Bowel Movement 05/06/18 05/11/18 05/11/18 # Bowel Movements 1 Narrative: no acute distress anciteric NECK: Trachea midline. No JVD. CARDIOVASCULAR: regular rhythm HR 60 RESPIRATORY: No wheezes rales or rhonchi GASTROINTESTINAL: Abdomen soft, non-tender, nondistended. Bowel sounds present. MUSCULOSKELETAL: Extremities without clubbing, cyanosis, or edema. No obvious deformities. NEUROLOGICAL: Awake and alert. No obvious cranial nerve deficits. Motor grossly within normal limits. Normal speech. Results - Labs CBC & Chem 7: 05/07/18 05:28 05/10/18 21:15 Laboratory Results - last 24 hr 05/11/18 05/11/18 05/11/18 12:27 17:03 21:16 POC Glucose 155 H 194 H 231 H 05/12/18 05/12/18 05/12/18 02:15 08:06 11:59 POC Glucose 220 H 265 H 188 H Assessment and Plan - Plan 63-year-old man with Acute Flash Pulmonary edema-05/10- Resolved s/p Lasix IV 40mg x2 Solu Medrol Recurrent atrial fibrillation with rapid ventricular response- now in SR -on Cardizem drip 5 mg/hr Cardiology ff - AV joaquina ablation with permanent pacemaker implantation today by Dr. eReves, delinquent tax collector assistant Procedure was cancelled on 05/10/18; d/t flash pulmonary edema Appreciate input from Dr. Soares, cost and sales record supervisor Continue home Xarelto Coronary artery disease/hypertension/hyperlipidemia Continue home medications Diabetes mellitus Holding home oral anti-hyperglycemics Sliding-scale insulin Monitor blood glucose COPD/DENZEL Patient is refusing to use CPAP, still has not used it over the past couple years Continue home Symbicort. DuoNeb as needed Solu Medrol 40mg IV Q8H- change to po Prednisone 20 mg bid- today 05/11 Seizure disorder Continue home Keppra and Topamax Chronic kidney disease Creatinine 1.33, baseline Monitor renal function
[2018-05-12] MEDS ORDERED: fentaNYL Citrate Inj 100 MCG/2 ML Ampul ONE (18:48)
[2018-05-12] MEDS ORDERED: Heparin 10,000 UNITS/10 ML Vial (for IV use) ONE ×2 (18:48→19:34)
[2018-05-12] MEDS ORDERED: Heparin Drip 25,000 UNIT/250 ML BAG IV.CONT ONE (18:48)
[2018-05-12] MEDS ORDERED: Isoproterenol HCl Inj 0.2 MG/ML Ampul ONE (18:48)
[2018-05-12] MEDS ORDERED: Levofloxacin 500 mg Premix Inj 500 MG/100 ML PIGGYBACK IV.SIG ONE (18:49)
[2018-05-12] MEDS ORDERED: Lidocaine PF 1% Inj 30 ML Vial ONE (18:49)
[2018-05-12] MEDS ORDERED: Heparin/NS PF Inj 1,000 ML ONE (18:50)
[2018-05-12] MEDS ORDERED: Protamine Sulfate Inj 50 MG/5 ML Vial ONE (20:49)
--- NOTE | 2018-05-12 21:01 | CATHPROC ---
Equipment Equipment Time Manager Of Employee Relations Description Size Mfg Part Number Used/Scraped NEEDLE, TRANSSEPTAL NRG 98 [id number] 18:30 [facility] Used C1 *[id number] [employer]/ EP [id number] 18:30 KIT, TRANSDUCER / AFIB Used PACER *[id number] CATHETER, TACTICATH ABLAT BUNDLE 18:30 [employer] Used 65 BUNDLE *[id number]- BUNDLE [id number] CATHETER, FR7 OPTIMA SPIRAL 18:30 [facility] FR7 *[id number]- Used BUNDLE BUNDLE [id number] 18:30 [employer] CATHETER, JSN, QUAD BUNDLE FR 5 *[id number]- Used BUNDLE [id number] 18:30 [employer] CATHETER, JSN, QUAD BUNDLE FR 5 *[id number]- Used BUNDLE [id number] SET, COOL POINT TUBING 18:30 [employer] *[id number]- Used BUNDLE BUNDLE SHEATH, FR8.5 STEERABLE SM 18:30 [employer] 71CM [id number] Used 71CM BUNDLE [id number] 20:50 [employer], FR5 CLOSURE SYSTEM FR 5 Used *[id number] 20:50 [employer], FR6 CLOSURE SYSTEM FR 6\\7 Used *[id number] 20:50 [employer], FR6 CLOSURE SYSTEM FR 6\\7 Used *[id number] 20:51 [employer], FR6 CLOSURE SYSTEM FR 6\\7 Used *[id number] 20:51 [employer], FR6 CLOSURE SYSTEM FR 6\\7 Used *[id number] COVER, TRANSDUCER CABLE [id number] 18:30 [employer] Used ACUNAV *[id number] 18:30 CORDIS/PACER SHEATH, FR10 PURVI 11CM FR 10 Used *[id number] 18:30 CORDIS/PACER SHEATH, FR9 PURVI 11CM FR 9 [id number] Used [id number] 18:30 [employer] BLANKET,WARM AIR CCL * Used *[id number] 18:30 [employer] PACK, CCL CUSTOM * Used *[id number] 18:30 MEDLINE PACER WIN, LIMB * 2530 *[id number] Used 18:30 [employer] MEDICAL SHEATH, FR5.5 PRELUDE 11CM FR 5 [id number] Used [id number] 18:30 NAMIC TUBING, HIGH PRESSURE 48" 48" Used *[id number] 18:30 NAMIC TUBING, HIGH PRESSURE 48" 48" Used *[id number] 18:30 [facility] MEDICAL ELECTRODE KIT, NOAM X SURFACE * Used *[id number] 468328 18:30 [facility] MED[employer] SHEATH, EPS, FR6 FAST CATH FR 6 Used *[id number] 18:30 [facility] [employer] MEDICAL SHEATH, EPS, FR7 FAST CATH FR 7 [id number] Used [id number] 18:30 [facility] [employer] MED[employer] SHEATH, EPS, FR8 FAST CATH FR 8 Used *[id number] 19:47 [facility] MEDICAL SHEATH, FR8.5 SL0 [id number] Used CATHETER, ACUNAV FR10 ICE [id number] 19:39 CUCA FR 10 Used (CUCA) *[id number] [facility] PAD, ELECTROSURGICAL 18:30 * [id number] *[id number] Used SURGICAL GROUNDING (BLUE)
[2018-05-12] MEDS: predniSONE 20 MG Tablet PO SCH (23:39)
[2018-05-13] MEDS: Insulin NovoLOG Aspart Correctional Sugar Inj SQ SCH ×4 (04:28→17:23)
[2018-05-13 08:16] LABS: INR 1.1 Ratio; Prothrombin Time 10.7 sec (9.8-11.6)
[2018-05-13] MEDS ORDERED: Amiodarone 200 MG Tablet PO SCH (09:00)
[2018-05-13] MEDS: Lisinopril 20 MG Tablet PO SCH (09:11)
[2018-05-13] MEDS: levETIRAcetam 500 MG Tablet PO SCH (09:11)
[2018-05-13] MEDS: Isosorbide Mononitrate 30 MG ER 24HR Tablet (Imdur) PO SCH (09:11)
[2018-05-13] MEDS: Topiramate 100 MG Tablet PO SCH (09:12)
[2018-05-13] MEDS: predniSONE 20 MG Tablet PO SCH (09:12)
[2018-05-13] MEDS: Carvedilol 12.5 MG Tablet PO SCH (09:13)
[2018-05-13] MEDS: amLODIPine 5 MG Tablet PO SCH (09:13)
[2018-05-13] MEDS: Budesonide-Formoterol 160/4.5 MCG 6 GM Inhaler INH SCH (09:15)
--- NOTE | 2018-05-13 10:43 | P.PN ---
Subjective Interval history: telemetry sinus rate in the high 50s- low 60s no chest pain or shortness of breath- ambulating- no dizziness Physical Exam Vital signs: Vital Signs 05/12/18 11:00 05/12/18 12:00 05/12/18 13:00 Temperature 97.7 F Pulse Rate 53 L 58 L 62 Respiratory Rate 18 Blood Pressure 140/76 Pulse Oximetry 97 05/12/18 14:00 05/12/18 15:00 05/12/18 15:19 Temperature Pulse Rate 58 L 58 L 59 L Respiratory Rate 17 Blood Pressure Pulse Oximetry 05/12/18 16:00 05/12/18 17:00 05/12/18 18:00 Temperature 97.9 F Pulse Rate 62 60 68 Respiratory Rate 16 Blood Pressure 146/85 H Pulse Oximetry 96 05/12/18 21:25 05/12/18 21:45 05/12/18 22:00 Temperature 97.7 F Pulse Rate 79 65 64 Respiratory Rate 16 16 14 Blood Pressure 141/77 H 142/80 H 144/80 H Pulse Oximetry 96 97 95 05/12/18 22:15 05/12/18 22:30 05/12/18 23:00 Temperature 97.8 F Pulse Rate 62 62 65 Respiratory Rate 14 14 Blood Pressure 144/79 H 144/78 H Pulse Oximetry 95 96 05/13/18 00:00 05/13/18 01:00 05/13/18 02:00 Temperature 98.1 F Pulse Rate 65 59 L 56 L Respiratory Rate 18 Blood Pressure 152/84 H Pulse Oximetry 93 L 05/13/18 03:00 05/13/18 03:05 05/13/18 04:00 Temperature 98.5 F Pulse Rate 58 L 59 L 58 L Respiratory Rate 16 16 Blood Pressure 144/80 H Pulse Oximetry 98 05/13/18 05:00 05/13/18 06:00 05/13/18 09:50 Temperature Pulse Rate 65 58 L 63 Respiratory Rate 16 Blood Pressure Pulse Oximetry 98 Intake & Output 05/12/18 05/13/18 05/13/18 18:59 06:59 18:59 Intake Total 365 / 365 480 / 480 Output Total 408 / 408 550 / 550 Balance -43 / -43 -70 / -70 Weight 99.9 kg Intake: IV 125 / 125 Cardizem Inj 125 MG In NS Inj 125 / 125 100 ML @ 5 MG/HR 5 mls/hr IV. CONT TITRATE PRN Rx#:[id number] Oral 240 / 240 480 / 480 Output: Urine 408 / 408 550 / 550 Other: Date of Last Bowel Movement 05/11/18 Narrative: no acute distress anicteric NECK: Trachea midline. No JVD. CARDIOVASCULAR: regular rhythm HR 62 RESPIRATORY: No wheezes rales or rhonchi GASTROINTESTINAL: Abdomen soft, non-tender, nondistended. Bowel sounds present. bialteral groins- no heamtoma good peripheral pulses MUSCULOSKELETAL: Extremities without clubbing, cyanosis, or edema. No obvious deformities. NEUROLOGICAL: unremarkable Results - Labs CBC & Chem 7: 05/07/18 05:28 05/10/18 21:15 Laboratory Results - last 24 hr 05/12/18 05/12/18 05/12/18 11:59 17:50 23:27 PT INR APTT POC Glucose 188 H 201 H 188 H 05/13/18 05/13/18 07:20 07:51 PT 10.7 INR 1.1 APTT 25.0 POC Glucose 242 H - Imaging 05/12- ablation Assessment and Plan - Plan 63-year-old man with Acute Flash Pulmonary edema-05/10- Resolved s/p Lasix IV 40mg x2 Recurrent atrial fibrillation with rapid ventricular response- now in SR- S/P ablation 05/12 -SR - amiodarone 200 mg daily, Coreg 6.25 mg po bid Continue home Xarelto Coronary artery disease/hypertension/hyperlipidemia Continue home medications Diabetes mellitus, type 2 - resume oral meds on DC Sliding-scale insulin Monitor blood glucose COPD/DENZEL Patient is refusing to use CPAP, still has not used it over the past couple years Continue home Symbicort. DuoNeb as needed DC steroids Seizure disorder Continue home Keppra and Topamax Chronic kidney disease- renal functions stable Creatinine 1.33, baseline Monitor renal function- good urine output Possible DC if cleared with cardiology Meds- colchicine 0.6 mg po bid x 5 days continue all other home meds
[2018-05-13 12:06] VITALS: RESP 18
--- NOTE | 2018-05-13 12:15 | ECG ---
Date Performed: 05/12/2018 Time Performed: 21:56:32 PTAGE: 63 years EKG: Sinus rhythm MARKED LEFT AXIS DEVIATION MODERATE INTRAVENTRICULAR CONDUCTION DELAY NONSPECIFIC T-WAVE ABNORMALITY ABNORMAL ECG Since the PREVIOUS TRACING , no significant change noted PREVIOUS TRACIN05/06/2018 20.10 DOCTOR: Rishi Moore Interpretating Date/Time 05/13/2018 12:13:29
[2018-05-13 16:23] VITALS: BP 111/66; TEMP 98.1; O2SAT 96
--- NOTE | 2018-05-13 16:48 | P.PN ---
Subjective Interval history: Feeling better Physical Exam Vital signs: Vital Signs 05/12/18 17:00 05/12/18 18:00 05/12/18 21:25 Temperature 97.7 F Pulse Rate 60 68 79 Respiratory Rate 16 Blood Pressure 141/77 H Pulse Oximetry 96 05/12/18 21:45 05/12/18 22:00 05/12/18 22:15 Temperature Pulse Rate 65 64 62 Respiratory Rate 16 14 14 Blood Pressure 142/80 H 144/80 H 144/79 H Pulse Oximetry 97 95 95 05/12/18 22:30 05/12/18 23:00 05/13/18 00:00 Temperature 97.8 F 98.1 F Pulse Rate 62 65 65 Respiratory Rate 14 18 Blood Pressure 144/78 H 152/84 H Pulse Oximetry 96 93 L 05/13/18 01:00 05/13/18 02:00 05/13/18 03:00 Temperature Pulse Rate 59 L 56 L 58 L Respiratory Rate Blood Pressure Pulse Oximetry 05/13/18 03:05 05/13/18 04:00 05/13/18 05:00 Temperature 98.5 F Pulse Rate 59 L 58 L 65 Respiratory Rate 16 16 Blood Pressure 144/80 H Pulse Oximetry 98 05/13/18 06:00 05/13/18 07:00 05/13/18 08:00 Temperature 97.5 F L Pulse Rate 58 L 52 L 52 L Respiratory Rate 20 Blood Pressure 132/84 Pulse Oximetry 99 05/13/18 09:00 05/13/18 09:50 05/13/18 10:00 Temperature Pulse Rate 56 L 63 58 L Respiratory Rate 16 Blood Pressure Pulse Oximetry 98 05/13/18 11:00 05/13/18 12:00 05/13/18 13:00 Temperature 97.3 F L Pulse Rate 64 56 L 54 L Respiratory Rate 18 Blood Pressure 132/84 Pulse Oximetry 98 05/13/18 14:00 05/13/18 15:00 05/13/18 16:00 Temperature 98.1 F Pulse Rate 56 L 56 L 58 L Respiratory Rate 18 Blood Pressure 111/66 Pulse Oximetry 96 05/13/18 16:11 Temperature Pulse Rate 55 L Respiratory Rate Blood Pressure Pulse Oximetry Intake & Output 05/12/18 05/13/18 05/13/18 18:59 06:59 18:59 Intake Total 365 / 365 480 / 480 Output Total 408 / 408 550 / 550 Balance -43 / -43 -70 / -70 Weight 99.9 kg Intake: IV 125 / 125 Cardizem Inj 125 MG In NS Inj 125 / 125 100 ML @ 5 MG/HR 5 mls/hr IV. CONT TITRATE PRN Rx#:[id number] Oral 240 / 240 480 / 480 Output: Urine 408 / 408 550 / 550 Other: Date of Last Bowel Movement 05/11/18 05/12/18 - Constitutional no acute distress - Routine HEENT Exam Head: Present: normocephalic Eye: Present: PERRL ENT: Present: mucous membranes moist - Routine Respiratory Exam Present: CTA bilaterally - Routine Cardiovascular Exam Present: RRR, S1, S2 - Routine Abdominal Exam Present: soft - Routine Neurological Exam Present: alert, oriented X3 - Detailed Neurological Exam: Coma Scale Eye Opening: Spontaneous Results - Labs CBC & Chem 7: 05/07/18 05:28 05/10/18 21:15 Laboratory Results - last 24 hr 05/12/18 05/12/18 05/13/18 17:50 23:27 07:20 PT 10.7 INR 1.1 APTT 25.0 POC Glucose 201 H 188 H 05/13/18 05/13/18 07:51 11:27 PT INR APTT POC Glucose 242 H 319 H Assessment and Plan - Assessment (1) Atrial fibrillation with RVR Code(s): I48.91 - Unspecified atrial fibrillation Status: Acute Plan: SP ablation In sinus rhythm Doing well can be DH Xarelto will be reinitiated. Colchicine .6mg PO BIB for 5 days amio 2300 mg /day Continue on coreg.
--- NOTE | 2018-05-13 16:48 | P.DS ---
Date of admission: 05/06/18 22:19 Primary care physician: Alex Martinez MD Anticipated date of discharge: 05/13/18 Brief History from admission: 63-year-old male with a past medical history significant for atrial fibrillation anticoagulated on Xarelto, status post cardioversion and ablation, coronary artery disease, hypertension, COPD, obstructive sleep apnea, hyperlipidemia, diabetes mellitus and seizure disorder presents to the emergency department for the evaluation of shortness of breath and palpitations. The patient was received discharged from the hospital on . He states he never returned to his baseline health and had shortness of breath, intermittent chest pain and palpitations prior to his discharge. The patient states his intermittent chest pain is a low-grade pressure that is nonradiating and comes and goes. He denies any current chest pain. No fever/ chills. Shortness of breath without productive cough. No abdominal pain. No nausea/vomiting/diarrhea. No focal neurologic deficits. Patient update on day of discharge: no distess no rales sinus rhythm DS: Summary - Time Spent with Patient Total time spent providing and/or coordinating discharge services: - Quality: VTE Deep Vein Thrombosis/Pulmonary Embolism Present on Admission: No Exam Vital signs: Vital Signs 05/12/18 17:00 05/12/18 18:00 05/12/18 21:25 Temperature 97.7 F Pulse Rate 60 68 79 Respiratory Rate 16 Blood Pressure 141/77 H Pulse Oximetry 96 05/12/18 21:45 05/12/18 22:00 05/12/18 22:15 Temperature Pulse Rate 65 64 62 Respiratory Rate 16 14 14 Blood Pressure 142/80 H 144/80 H 144/79 H Pulse Oximetry 97 95 95 05/12/18 22:30 05/12/18 23:00 05/13/18 00:00 Temperature 97.8 F 98.1 F Pulse Rate 62 65 65 Respiratory Rate 14 18 Blood Pressure 144/78 H 152/84 H Pulse Oximetry 96 93 L 05/13/18 01:00 05/13/18 02:00 05/13/18 03:00 Temperature Pulse Rate 59 L 56 L 58 L Respiratory Rate Blood Pressure Pulse Oximetry 05/13/18 03:05 05/13/18 04:00 05/13/18 05:00 Temperature 98.5 F Pulse Rate 59 L 58 L 65 Respiratory Rate 16 16 Blood Pressure 144/80 H Pulse Oximetry 98 05/13/18 06:00 05/13/18 07:00 05/13/18 08:00 Temperature 97.5 F L Pulse Rate 58 L 52 L 52 L Respiratory Rate 20 Blood Pressure 132/84 Pulse Oximetry 99 05/13/18 09:00 05/13/18 09:50 05/13/18 10:00 Temperature Pulse Rate 56 L 63 58 L Respiratory Rate 16 Blood Pressure Pulse Oximetry 98 05/13/18 11:00 05/13/18 12:00 05/13/18 13:00 Temperature 97.3 F L Pulse Rate 64 56 L 54 L Respiratory Rate 18 Blood Pressure 132/84 Pulse Oximetry 98 05/13/18 14:00 05/13/18 15:00 05/13/18 16:00 Temperature 98.1 F Pulse Rate 56 L 56 L 58 L Respiratory Rate 18 Blood Pressure 111/66 Pulse Oximetry 96 05/13/18 16:11 Temperature Pulse Rate 55 L Respiratory Rate Blood Pressure Pulse Oximetry Intake & Output 05/12/18 05/13/18 05/13/18 18:59 06:59 18:59 Intake Total 365 / 365 480 / 480 Output Total 408 / 408 550 / 550 Balance -43 / -43 -70 / -70 Weight 99.9 kg Intake: IV 125 / 125 Cardizem Inj 125 MG In NS Inj 125 / 125 100 ML @ 5 MG/HR 5 mls/hr IV. CONT TITRATE PRN Rx#:[id number] Oral 240 / 240 480 / 480 Output: Urine 408 / 408 550 / 550 Other: Date of Last Bowel Movement 05/11/18 05/12/18 Narrative: no acute distress anicteric NECK: Trachea midline. No JVD. CARDIOVASCULAR: regular rhythm HR 62 RESPIRATORY: No wheezes rales or rhonchi GASTROINTESTINAL: Abdomen soft, non-tender, nondistended. Bowel sounds present. bialteral groins- no heamtoma good peripheral pulses MUSCULOSKELETAL: Extremities without clubbing, cyanosis, or edema. No obvious deformities. NEUROLOGICAL: unremarkable Results Procedures completed during hospitalization: cardiac ablation Labs on day of discharge: Labs from last 24 hours 05/13/18 05/13/18 05/13/18 11:27 07:51 07:20 PT 10.7 INR 1.1 APTT 25.0 POC Glucose 319 H 242 H 05/12/18 05/12/18 23:27 17:50 PT INR APTT POC Glucose 188 H 201 H - Impressions ITS Impressions Chest X-Ray 05/10/18 17:17 CONCLUSION: Mild pulmonary vascular congestion. Discharge Plan - Discharge Disposition Patient Disposition: 01 Discharge Home - Discharge Condition Condition: Stable - Discharge Order Discharge Orders: Discharge Order (Routine); Ordered 05/13/18 Ordered By: Ioana Gillespie - Discharge Details Anticipated Discharge Date: 05/13/18 - Physicians Team Primary Care Provider: Alex Martinez Attending Provider: Ioana Gillespie Other Providers: Zac Frank ; Krishan Soares MD ; Michelle Alford MD ; Jammie Moncada MD
[2018-05-13 17:48] VITALS: PULSE 52
[2018-05-13] MEDS ORDERED: Rivaroxaban 20 MG Tablet PO SCH (21:00)
--- NOTE | 2018-05-14 13:48 | ECG ---
Date Performed: 05/13/2018 Time Performed: 14:29:34 PTAGE: 63 years EKG: Sinus bradycardia. Prolonged QT interval Inferior/lateral ST-T changes are nonspecific Low QRS voltages in limb leads Borderline ECG Since the PREVIOUS TRACING , no significant change noted PREVIOUS TRACING DOCTOR: Gus Rodrigues Interpretating Date/Time 05/14/2018 13:45:18
--- NOTE | 2018-05-14 13:49 | ECG ---
Date Performed: 05/13/2018 Time Performed: 07:36:26 PTAGE: 63 years EKG: Sinus bradycardia. Prolonged QT interval Inferior/lateral ST-T changes are nonspecific Low QRS voltages in limb leads Borderline ECG Since the PREVIOUS TRACING , no significant change noted PREVIOUS TRACING 05/12/2018 DOCTOR: Gus Rodrigues Interpretating Date/Time 05/14/2018 13:52:34
== END 2018-05-13 17:40 | disposition home or self-care (01) ==
LOC: NEPE 19:22 → NEDA 22:19 → HCIS 05-07 00:19 → HCPC 05-10 19:06 → HCIS 05-11 14:26
PROVIDERS: ADMIT Internal Medicine; ATTEND Internal Medicine